=== PATIENT | female | born 1950 | race Caucasian/White ===

== ENCOUNTER → 2016-05-15 | Outpatient (CLI) | payer BC ==
[~2016-05-15] MED LIST: ALLO100T PO; ALPR1TAB3 PO; AMIL5TAB15 PO; AMT25 PO; ASPI81TA28 PO; ATOR-14 PO; ATOR10TA88 PO; CYAN1CAP3 PO; DOXY100C76 PO; DXY100 PO; FISHOIL PO; GABA1CAP4 PO; GLC500 PO; HYDR-3419 PO; HYDR-5688 PO; LEVO75TA5 PO; MAGN1CAP2 PO; NITR1CAP16 PO; NITR1CAP33 PO; OMEG5CAP PO; ONDA4TAB46 PO; OXYC-57 PO; PARO1TAB27 PO; PHEN-775 PO; PHEN-876 PO; POTA1080 PO; POTASSIUM CITRATE PO; SAFF1000 PO; TAMS0.4C38 PO
== END | disposition home or self-care (01) ==
LOC: C.LABSPEC 17:28
PROVIDERS: ATTEND Nurse Practitioner Adult Health
DX: N20.1 Calculus of ureter (principal)

== ENCOUNTER → 2016-05-21 | Outpatient (CLI) | payer BC ==
--- NOTE | 2016-05-21 13:03 | DIAGNOSTIC IMAGING REPORT ---
KUB HISTORY: Right-sided ureteral stone. Follow-up. COMPARISON: KUB 05/14/2016. FINDINGS: The bowel gas pattern is unremarkable. There are no dilated loops of small bowel to suggest an obstruction. Bilateral renal calculi are again noted. Dominant stone within the upper pole of the left kidney measures 13 mm. Multiple round calcifications within the deep pelvis are consistent with phleboliths. The 5 mm stone within the proximal right ureter seen on the prior study now resides within the distal right ureter adjacent to the lower sacrum. No left ureteral calculi. No pneumoperitoneum or pneumatosis. IMPRESSION: Interval migration of the 5 mm right ureteral stone which now resides within the distal right ureter. Bilateral nephrolithiasis persist. Electronically signed by: Xiang Winters M.D. 05/21/2016 1:01 PM Dictated Date/Time: 05/21/2016 1:00 PM
== END | disposition home or self-care (01) ==
LOC: C.RAD 12:08
PROVIDERS: ATTEND Nurse Practitioner Adult Health
DX: N20.1 Calculus of ureter (principal); N20.0 Calculus of kidney

== ENCOUNTER → 2016-05-22 | Outpatient (CLI) | payer BC ==
[2016-05-22 16:43] LABS: BASO % 0.3 %; BASO ABS # 0.03 K/uL (0-0.2); COMPLETE YES; EOS % 1.5 %; HEMATOCRIT 37.9 % (37-47); IG% 0.2 %; LYMPH % 36.4 %; MEAN CELL VOLUME 90.2 fL (80-100); MEAN CORPUSCULAR HEMOGLOBIN 30.2 pg (25-34); MEAN CORPUSCULAR HGB CONC 33.5 g/dl (32-36); MEAN PLATELET VOLUME 11.6 fL (7.4-10.4); MONO % 7.6 %; PLATELET COUNT 203 K/uL (130-400); WHITE BLOOD COUNT 9.62 K/uL (4.8-10.8)
[2016-05-22 17:02] LABS: BLOOD UREA NITROGEN 11 mg/dl (7-18); BUN/CREATININE RATIO 12.5 (10-20); CARBON DIOXIDE 28 mmol/L (21-32); CHLORIDE 102 mmol/L (98-107); CREATININE 0.84 mg/dl (0.60-1.20); GLUCOSE 82 mg/dl (70-99); SODIUM 143 mmol/L (136-145)
== END | disposition home or self-care (01) ==
LOC: C.LAB 15:47
PROVIDERS: ATTEND Urology
DX: N20.0 Calculus of kidney (principal)

== ENCOUNTER 2016-05-24 04:59 | Day surgery (SDC) | payer BC ==
[2016-05-22 16:40] VITALS: BMI 34.0
[~2016-05-24] VITALS: Ht 154.9 cm; Wt 80.9 kg
[~2016-05-24 04:59] MED LIST changes: -AMT25 PO; -ASPI81TA28 PO; -ATOR10TA88 PO; -DXY100 PO; -HYDR-3419 PO; -NITR1CAP16 PO; -NITR1CAP33 PO; -OMEG5CAP PO; -OXYC-57 PO; -PHEN-775 PO; -PHEN-876 PO; -POTASSIUM CITRATE PO; -SAFF1000 PO; -TAMS0.4C38 PO
[2016-05-24 05:37] VITALS: BP 171/76; PULSE 63; TEMP 36.8; O2SAT 98; Ht 154.9 cm; Wt 80.9 kg
[2016-05-24] MEDS ORDERED: CIPROFLOXACIN / D5W 400 MG IV SCH (06:00)
[2016-05-24] MEDS ORDERED: LACTATED RINGER'S 1000ML 1,000 ML IV SCH (06:00)
[2016-05-24] MEDS ORDERED: ONDANSETRON INJ 2 MG/ML 2 ML VIAL ONE (06:48)
[2016-05-24] MEDS ORDERED: DEXAMETHASONE SOD INJ 4 MG/ML VIAL ONE (06:48)
[2016-05-24] MEDS ORDERED: LIDOCAINE HCL 2% 2 ML VIAL (20MG/ML) ONE (06:48)
[2016-05-24] MEDS ORDERED: PROPOFOL IV EMULSION 10 MG/ML 20 ML VIAL IV ONE (06:48)
[2016-05-24] MEDS ORDERED: FENTANYL CITRATE INJ 50 MCG/1 ML 2 ML VIAL ONE (06:49)
[2016-05-24] MEDS ORDERED: MIDAZOLAM HCL 1 MG/ML 2ML VIAL ONE (06:49)
[2016-05-24] MEDS ORDERED: FENTANYL CITRATE INJ 50 MCG/1 ML 2 ML VIAL IV PRN (07:00)
[2016-05-24] MEDS ORDERED: ONDANSETRON INJ 2 MG/ML 2 ML VIAL IV PRN (07:00)
[2016-05-24] MEDS ORDERED: EpHEDrine SULFATE INJ 50 MG/ML AMP IV PRN (07:00)
[2016-05-24] MEDS ORDERED: ATROPINE SULFATE 0.1 MG/ML 5ML SYR IV PRN (07:00)
--- NOTE | 2016-05-24 07:07 | History & Physical Bridge Note ---
H&P Re-Evaluation Bridge Note: I have examined the patient, reviewed the History & Physical and in the interval since the performance of the History & Physical I have noted the following changes of clinical significance: No changes noted
[2016-05-24] MEDS ORDERED: GLYCOPYRROLATE INJ 0.2 MG/ML VIAL ONE (07:40)
[2016-05-24] MEDS ORDERED: NEOMYCIN INSTIL ONE (07:53)
[2016-05-24] MEDS ORDERED: [UNRECOGNIZED DRUG - OTHER] INSTIL ONE (07:53)
--- NOTE | 2016-05-24 08:02 | [facility] Post Operative Brief Note ---
Immediate Operative Summary Operative Date May 24, 2016. Pre-Operative Diagnosis Right ureteral stone Post-Operative Diagnosis Same as preoperative diagnosis Procedure(s) Performed Right Cystoscopy, Ureteroscopy, Laser Lithotripsy; Stent Surgeon Dr Chatman Teaching Specialists Surgeon(s) none Estimated Blood Loss 0 Findings distal right ureteral stone Specimens A: Ureteral stone for analysis Drains 6x24 right stent
[2016-05-24] MEDS ORDERED: OXYC-57 PO (08:04)
[2016-05-24] MEDS ORDERED: PHEN-876 PO (08:05)
--- NOTE | 2016-05-24 08:05 | Discharge Instructions ---
Discharge Instructions Visit Reason for Visit: Stones Discharge Discharge Diagnosis / Problem: ureteral stone Discharge Goals Goal(s): Therapeutic intervention Activity Recommendations Activity Limitations: resume your previous activity (take it easy today) Anesthesia . Post Anesthesia Instructions: If you have had General Anesthesia or IV Sedation: * Do not drive today. * Resume driving when surgeon permits. * Do not make important decisions or sign legal documents today. * Call surgeon for: 1. Temperature elevations greater than 101 degrees F. 2. Uncontrollable pain. 3. Excessive bleeding. 4. Persistent nausea and vomiting. 5. Medication intolerance (nausea, vomiting or rash). * For nausea and vomiting use only clear liquids such as: tea, soda, bouillon until nausea subsides, then gradually increase diet as tolerated. * If you have any concerns or questions, call your surgeon's office. If physician is unavailable and it is an emergency, call 911 or go to the nearest emergency room. . Diet Recommendations Recommended Home Diet: resume previous diet Procedures Procedures Performed: Right Cystoscopy, Ureteroscopy, Laser Lithotripsy; Stent Pending Studies Studies pending at discharge: no Medical Emergencies . Who to Call and When: Medical Emergencies: If at any time you feel your situation is an emergency, please call 911 immediately. . Non-Emergent Contact Non-Emergency issues call your: Urologist . . "Provider Documentation" section prepared by Yunier Chatman. [place] Drug Monitoring Program Search Results: patient reviewed within database
[2016-05-24] MEDS ORDERED: OXYCODONE/ACETAMINOPHEN 5-325 TAB PO PRN (08:15)
--- NOTE | 2016-05-24 08:28 | OPERATIVE REPORT ---
DATE OF OPERATION: 05/24/2016 PREOPERATIVE DIAGNOSIS: Distal right ureteral calculus. POSTOPERATIVE DIAGNOSIS: Same. PROCEDURE: Cystoscopy, right retrograde pyelogram, right ureteroscopy with laser lithotripsy and basket extraction of fragments, right ureteral calculus, placement of indwelling double J right ureteral stent 6-Citizen Of [place] x 24 cm. FINDINGS: Cystoscopic exam revealed normal urethra. Bladder showed no mucosal abnormalities. Ureteroscopy showed a stone in the distal ureter with proximal hydronephrosis on retrograde. SURGEON: Dr. Chatman. ANESTHESIA: General. DRAINS: 6-Citizen [place] x 24 cm right ureteral stent. COMPLICATIONS: None. SPECIMENS: Stone for analysis. INDICATIONS: The patient is a 66-year-old white female who was seen in the office yesterday with a distal right ureteral stone. She has had it for a week or 2 and has been unable to pass it. She has been having significant pain, so she is being brought in now for removal. OPERATION AND FINDINGS: PROCEDURE: After the induction of an adequate general anesthetic and appropriate time-out, the patient was placed in the dorsal lithotomy position, lower abdomen and genitalia were prepped with Hibiclens and draped in a sterile fashion. Using a 22-Citizen [place] cystoscope, routine cystoscopic exam was performed with the above noted findings with the 30 and 70 degree lenses. Next, under fluoroscopic guidance 0.038 guidewire was passed up the right ureter until positioned in the renal pelvis confirmed by fluoroscopy. Then, the cystoscope was removed and a rigid ureteroscope was advanced up the right ureter until the stone was encountered. Holmium laser was then used to fragment the stone into multiple small pieces. Basket was then used to extract the larger pieces. After completing the procedure, the ureteroscope was removed. A Freeman catheter was passed over the guidewire and retrograde pyelogram was done. The Freeman catheter was removed. The guidewire was rethreaded through the cystoscope and a 6-Citizen [place] x 24 cm stent was passed up the right ureter until positioned in the renal pelvis confirmed by fluoroscopy. The guidewire was removed. There was good curl at the bladder level. The patient's bladder was drained, cystoscope and sheath were removed. All needle, sponge and instrument counts were correct at the end of the case. The patient tolerated the procedure well and went to the recovery room in stable condition. I attest to the content of the Intraoperative Record and any orders documented therein. Any exceptio ns are noted below.
[2016-05-24 08:45] VITALS: BP 156/68; PULSE 68; TEMP 36.7; O2SAT 97
[2016-05-24 09:15] VITALS: BP 128/69; PULSE 70; TEMP 36.6; O2SAT 96
--- NOTE | 2016-05-24 09:20 | DIAGNOSTIC IMAGING REPORT ---
INTRAOPERATIVE RADIOGRAPHS CLINICAL HISTORY: Nephrolithiasis. Laser lithotripsy and right ureteral stone extraction. Stent placement. Fluoroscopy time: 30 seconds. FINDINGS: 8 spot fluoroscopic views of the right abdomen from a lithotripsy procedure and stent placement are presented. Initial images show a lithotripsy device. There is no significant right-sided hydronephrosis seen. The final image shows the proximal end of a right ureteral stent coiled in the renal pelvis. IMPRESSION: Intraoperative images from a right-sided laser lithotripsy and ureteral stent procedure as above. See operative report for detailed findings. Electronically signed by: Bob Cortes M.D. 05/24/2016 9:18 AM Dictated Date/Time: 05/24/2016 9:16 AM
[2016-05-24 09:34] VITALS: BP 137/71; PULSE 72; TEMP 36.4; O2SAT 98
--- NOTE | 2016-05-24 09:38 | Anesthesiology Progress Note ---
Anesthesia Post Op Note Date & Time May 24, 2016 at 09:38 Vital Signs Pain Intensity: 2 Vital Signs Past 12 Hours Date Time Temp Pulse Resp B/P Pulse Ox O2 Delivery O2 Flow Rate FiO2 05/24/16 09:34 36.4 72 18 137/71 98 Room Air 05/24/16 09:15 36.6 70 18 128/69 96 Room Air 05/24/16 08:45 36.7 68 18 156/68 97 Room Air 05/24/16 08:40 37.0 64 16 143/69 94 Room Air Mask 05/24/16 08:30 37.0 66 16 142/65 92 Room Air Mask 05/24/16 08:20 71 16 156/83 100 Mask 10 05/24/16 08:10 73 16 147/79 100 Mask 10 05/24/16 08:04 36.2 76 16 179/92 100 Mask 10 05/24/16 05:37 36.8 63 18 171/76 98 Room Air Notes Mental Status: alert / awake / arousable, participated in evaluation Pt Amnestic to Procedure: Yes Nausea / Vomiting: adequately controlled Pain: adequately controlled Airway Patency, RR, SpO2: stable & adequate BP & HR: stable & adequate Hydration State: stable & adequate Anesthetic Complications: no major complications apparent
[2016-06-07] MEDS ORDERED: POTASSIUM CITRATE PO (11:59)
[2016-06-15] MEDS ORDERED: HYDR-3419 PO (10:16)
[2016-06-15] MEDS ORDERED: TAMS0.4C38 PO (10:17)
[2016-09-05] MEDS ORDERED: OXYC-57 PO (07:06)
[2016-09-05] MEDS ORDERED: PHEN-775 PO (07:06)
[2016-09-05] MEDS ORDERED: NITR1CAP16 PO (07:06)
[2016-09-14] MEDS ORDERED: OXYC-57 PO (08:54)
[2016-09-14] MEDS ORDERED: NITR1CAP33 PO (08:55)
[2016-09-28] MEDS ORDERED: OXYC-57 PO (11:20)
== END 2016-05-24 09:45 | disposition home or self-care (01) ==
LOC: C.ACU 04:59
PROVIDERS: ATTEND Urology
DX: N20.1 Calculus of ureter (principal); Z87.448 Personal history of other diseases of urinary system; R31.9 Hematuria, unspecified; N02.9 Recurrent and persistent hematuria with unspecified morphologic changes; N39.0 Urinary tract infection, site not specified; R32 Unspecified urinary incontinence; N39.41 Urge incontinence; E53.8 Deficiency of other specified B group vitamins; I65.29 Occlusion and stenosis of unspecified carotid artery; F41.9 Anxiety disorder, unspecified; E11.9 Type 2 diabetes mellitus without complications; I10 Essential (primary) hypertension; M10.9 Gout, unspecified; E78.00 Pure hypercholesterolemia, unspecified; E03.9 Hypothyroidism, unspecified; M85.80 Other specified disorders of bone density and structure, unspecified site; D12.6 Benign neoplasm of colon, unspecified; E55.9 Vitamin D deficiency, unspecified

== ENCOUNTER → 2016-06-04 | Outpatient (CLI) | payer BC ==
[~2016-06-04] MED LIST changes: +ASPI81TA28 PO; +ATOR10TA88 PO; -DOXY100C76 PO; +HYDR-3419 PO; +NITR1CAP16 PO; +NITR1CAP33 PO; +OMEG5CAP PO; +OXYC-57 PO; +PHEN-775 PO; +PHEN-876 PO; +POTASSIUM CITRATE PO; +TAMS0.4C38 PO
--- NOTE | 2016-06-04 12:31 | DIAGNOSTIC IMAGING REPORT ---
KUB CLINICAL HISTORY: N20.0 Nephrolithiasis nephrocalcinosis COMPARISON STUDY: 05/21/2016 FINDINGS: Interval placement of a right ureteral stent. Bilateral nephrocalcinosis is unchanged. The distal right ureteral calculus is now well seen currently. Multiple pelvic vascular calcifications are present. IMPRESSION: Interval placement of a right ureteral stent. 2. The distal right ureteral calculus is not seen currently. 3. Stable bilateral nephrocalcinosis Electronically signed by: Ham Rodríguez M.D. 06/04/2016 12:29 PM Dictated Date/Time: 06/04/2016 12:28 PM
== END | disposition home or self-care (01) ==
LOC: C.RAD 11:48
PROVIDERS: ATTEND Urology
DX: N20.0 Calculus of kidney (principal)

== ENCOUNTER → 2016-06-15 | Day surgery (SDC) | payer BC ==
[2016-06-07 12:01] VITALS: Ht 154.9 cm; Wt 80.9 kg
--- NOTE | 2016-06-14 11:51 | DIAGNOSTIC IMAGING REPORT ---
KUB HISTORY: N20.0 Nephrolithiasis BE DONE EITHER THE NIGHT BEFORE OR MORNING COMPARISON: KUB 06/04/2016. FINDINGS: The bowel gas pattern is unremarkable. There are no dilated loops of small bowel to suggest an obstruction. The right ureteral stent is been removed. Stable bilateral nephrolithiasis. Dominant stone within the upper pole the left kidney measures 12 mm. No ureteral calculi. Calcifications in the deep pelvis likely represent phleboliths. No pneumoperitoneum or pneumatosis. IMPRESSION: 1. Interval removal of the right ureteral stent. No ureteral calculi identified. 2. Stable bilateral nephrolithiasis. Electronically signed by: Xiang Winters M.D. 06/14/2016 11:49 AM Dictated Date/Time: 06/14/2016 11:47 AM
[~2016-06-15] VITALS: Ht 154.9 cm; Wt 80.9 kg
[~2016-06-15] MED LIST changes: +ATROPINE SULFATE 0.1 MG/ML 5ML SYR IV PRN; +CIPROFLOXACIN 400MG / D5W IV SCH; +FENTANYL CITRATE INJ 50 MCG/1 ML 2 ML VIAL IV PRN; +FENTANYL CITRATE INJ 50 MCG/1 ML 2 ML VIAL ONE; -HYDR-5688 PO; +LABETALOL HCL IV 5 MG/ML 20ML IV PRN; +LACTATED RINGER'S 1000ML 1,000 ML IV SCH; +LIDOCAINE HCL 2% 2 ML VIAL (20MG/ML) ONE; -ONDA4TAB46 PO; +ONDANSETRON INJ 2 MG/ML 2 ML VIAL IV PRN; +ONDANSETRON INJ 2 MG/ML 2 ML VIAL ONE; -PHEN-876 PO; +PROPOFOL IV EMULSION 10 MG/ML 20 ML VIAL IV ONE
--- NOTE | 2016-06-15 10:15 | [facility] Post Operative Brief Note ---
Immediate Operative Summary Operative Date Jun 15, 2016. Pre-Operative Diagnosis Right Renal Calculi Post-Operative Diagnosis Same Procedure(s) Performed Right Renal Extracorporeal Shock Wave Lithotripsy - Renal Surgeon Dr. Rivas Fire Investigator Surgeon(s) None Estimated Blood Loss 0 mL Findings 2 r renal stones appeared to fragment Specimens None
--- NOTE | 2016-06-15 10:18 | Discharge Instructions-SurgCtr ---
Discharge Instructions Visit Reason for Visit: Stones;Nephrolithiasis N20.0 Discharge Goals Goal(s): Decrease discomfort, Improve disease control Medications Stopped Medications Name(s): FISH OIL- STOPPED ON Saturday06/11/16 METFORMIN- STOPPED ON Saturday06/10/16 Activity Recommendations Activity Limitations: as noted below (no driving on narcotics) Anesthesia . Post Anesthesia Instructions: If you have had General Anesthesia or IV Sedation: * Do not drive today. * Resume driving when surgeon permits. * Do not make important decisions or sign legal documents today. * Call surgeon for: 1. Temperature elevations greater than 101 degrees F. 2. Uncontrollable pain. 3. Excessive bleeding. 4. Persistent nausea and vomiting. 5. Medication intolerance (nausea, vomiting or rash). * For nausea and vomiting use only clear liquids such as: tea, soda, bouillon until nausea subsides, then gradually increase diet as tolerated. * If you have any concerns or questions, call your surgeon's office. If physician is unavailable and it is an emergency, call 911 or go to the nearest emergency room. . Diet Recommendations Home Diet: resume previous diet Procedures Procedures Performed: Right Renal Extracorporeal Shock Wave Lithotripsy - Renal Pending Studies Studies pending at discharge: no Medical Emergencies . Who to Call and When: Medical Emergencies: If at any time you feel your situation is an emergency, please call 911 immediately. . Non-Emergent Contact . . "Provider Documentation" section prepared by Franklyn Rivas.
--- NOTE | 2016-06-15 11:46 | Anesthesia Progress Nt - [facility] ---
Anesthesia Post Op Note Date & Time Jun 15, 2016 at 11:46 Vital Signs Pain Intensity: 0 Vital Signs Past 12 Hours Date Time Temp Pulse Resp B/P Pulse Ox O2 Delivery O2 Flow Rate FiO2 06/15/16 11:11 36.4 54 20 146/75 95 Room Air 06/15/16 11:05 55 12 06/15/16 11:05 55 12 95 06/15/16 11:03 131/62 06/15/16 11:00 52 15 96 06/15/16 11:00 51 15 06/15/16 10:59 52 17 96 06/15/16 10:59 52 17 06/15/16 10:58 129/63 06/15/16 10:55 36.6 53 20 143/69 96 Room Air 06/15/16 10:54 53 8 93 06/15/16 10:54 54 8 06/15/16 10:53 143/69 06/15/16 10:50 56 11 06/15/16 10:50 57 11 96 06/15/16 10:49 124/57 06/15/16 10:45 54 15 97 06/15/16 10:45 55 15 06/15/16 10:44 54 12 06/15/16 10:44 54 12 97 06/15/16 10:43 130/67 06/15/16 10:39 58 12 97 06/15/16 10:39 58 12 06/15/16 10:38 134/64 06/15/16 10:34 59 14 98 06/15/16 10:34 59 14 06/15/16 10:33 130/74 06/15/16 10:31 55 12 100 06/15/16 10:31 56 12 06/15/16 10:28 138/77 06/15/16 10:26 58 11 06/15/16 10:26 62 11 99 06/15/16 10:26 37.0 60 22 133/75 99 Mask 8 06/15/16 09:02 36.6 73 16 163/75 97 Room Air Notes Mental Status: alert / awake / arousable, participated in evaluation Pt Amnestic to Procedure: Yes Nausea / Vomiting: adequately controlled Pain: adequately controlled Airway Patency, RR, SpO2: stable & adequate BP & HR: stable & adequate Hydration State: stable & adequate Anesthetic Complications: no major complications apparent
[2016-06-15 11:52] VITALS: BP 134/76; PULSE 54; O2SAT 96
--- NOTE | 2016-06-16 02:37 | OPERATIVE REPORT ---
DATE OF OPERATION: 06/15/2016 PREOPERATIVE DIAGNOSIS: Bilateral renal calculi. PROCEDURE PERFORMED: Right ESWL. SURGEON: Dr. Rivas. ANESTHESIA: General. INDICATIONS: The patient is a 66-year-old female who recently had right ureteroscopy, who has multiple stones including large left renal stones and 2 moderate sized right renal stones who presents now for right ESWL. DESCRIPTION OF THE PROCEDURE: The patient was taken to the operating room where she was given antibiotics preoperatively and she had Venodyne stockings placed. She was given general anesthesia, put in the supine position. The stone was localized in 2 views and there were 2 stones actually that were side by side. She received 2500 shocks many at level 4, many at level 5. The stone seemed to fragment. At the end of the procedure, she was transferred to the recovery room in stable condition. I attest to the content of the Intraoperative Record and any orders documented therein. Any exceptio ns are noted below.
== END | disposition home or self-care (01) ==
LOC: X.SURG 08:40
PROVIDERS: ATTEND Urology
DX: N20.0 Calculus of kidney (principal); I10 Essential (primary) hypertension; M54.5 Low back pain; E55.9 Vitamin D deficiency, unspecified; E53.8 Deficiency of other specified B group vitamins; N39.41 Urge incontinence; E11.9 Type 2 diabetes mellitus without complications

== ENCOUNTER → 2016-06-27 | Outpatient (CLI) | payer BC ==
[~2016-06-27] MED LIST changes: -ATROPINE SULFATE 0.1 MG/ML 5ML SYR IV PRN; -CIPROFLOXACIN 400MG / D5W IV SCH; -FENTANYL CITRATE INJ 50 MCG/1 ML 2 ML VIAL IV PRN; -FENTANYL CITRATE INJ 50 MCG/1 ML 2 ML VIAL ONE; -LABETALOL HCL IV 5 MG/ML 20ML IV PRN; -LACTATED RINGER'S 1000ML 1,000 ML IV SCH; -LIDOCAINE HCL 2% 2 ML VIAL (20MG/ML) ONE; -ONDANSETRON INJ 2 MG/ML 2 ML VIAL IV PRN; -ONDANSETRON INJ 2 MG/ML 2 ML VIAL ONE; -PROPOFOL IV EMULSION 10 MG/ML 20 ML VIAL IV ONE; -TAMS0.4C38 PO
--- NOTE | 2016-06-27 11:32 | DIAGNOSTIC IMAGING REPORT ---
KUB CLINICAL HISTORY: N20.0 Nephrolithiasis COMPARISON STUDY: 06/14/2016 FINDINGS: There is a 14 mm upper pole left renal calculus. Several lower pole left renal calculi are visualized, the largest of which measures 9 mm. There are ovoid opacities medial to the upper pole the right kidney. I suspect but am not certain that these represent pill fragments given their location in relationship to the kidney. There is a punctate lower pole right renal calculus. There are multiple nonspecific pelvic basin calcifications likely representing phleboliths. There is no pathologic bowel dilatation. IMPRESSION: Bilateral nephrolithiasis. Electronically signed by: Nick Rodríguez M.D. 06/27/2016 11:31 AM Dictated Date/Time: 06/27/2016 11:27 AM
== END | disposition home or self-care (01) ==
LOC: C.RAD 11:07
PROVIDERS: ATTEND Urology
DX: N20.0 Calculus of kidney (principal)

== ENCOUNTER → 2016-06-28 | Outpatient (CLI) | payer BC | END | disposition home or self-care (01) | LOC: C.LABSPEC 16:53 | PROVIDERS: ATTEND Urology | DX: N39.0 Urinary tract infection, site not specified (principal) ==

== ENCOUNTER → 2016-08-16 | Outpatient (CLI) | payer BC ==
[~2016-08-16] MED LIST changes: +ATOR10TA82 PO; -ATOR10TA88 PO
[2016-08-16 14:11] LABS: ALT/SGPT 35 U/L (12-78); AST/SGOT 18 U/L (15-37); BLOOD UREA NITROGEN 9 mg/dl (7-18); BUN/CREATININE RATIO 10.3 (10-20); CALCIUM 9.5 mg/dl (8.5-10.1); CARBON DIOXIDE 30 mmol/L (21-32); CHLORIDE 107 mmol/L (98-107); CREATININE 0.87 mg/dl (0.60-1.20); GLUCOSE 178 mg/dl (70-99); MAGNESIUM 2.2 mg/dl (1.8-2.4); POTASSIUM 4.8 mmol/L (3.5-5.1); SODIUM 142 mmol/L (136-145)
[2016-08-16 14:17] LABS: ESTIMATED AVERAGE GLUCOSE 128 mg/dl; HA1C FLAG Normal (Normal)
[2016-08-16 15:18] LABS: RATIO 121.9 mcg/mg (0-30.0)
== END | disposition home or self-care (01) ==
LOC: C.LAB 11:53
PROVIDERS: ATTEND Internal Medicine
DX: E03.9 Hypothyroidism, unspecified (principal); E78.00 Pure hypercholesterolemia, unspecified; E11.9 Type 2 diabetes mellitus without complications; E83.42 Hypomagnesemia

== ENCOUNTER → 2016-08-21 | Outpatient (CLI) | payer BC ==
--- NOTE | 2016-08-21 09:19 | DIAGNOSTIC IMAGING REPORT ---
ULTRASOUND OF THE THYROID GLAND CLINICAL HISTORY: Cervical lymphadenopathy. COMPARISON STUDY: No priors. TECHNIQUE: Real-time, grayscale, and color flow sonography of the thyroid gland is performed utilizing a high-frequency linear transducer. Images are reviewed in the transverse and longitudinal planes. FINDINGS: Right lobe: The right lobe of the thyroid gland is normal in size and homogeneous in echotexture, measuring 4.3 x 1.1 x 1.2 cm. A hypoechoic nodule in the midpole measures 1.6 x 0.4 x 0.6 cm. A hypoechoic nodule in the upper pole measures 0.4 cm. Left lobe: The left lobe of the thyroid gland is normal in size and homogeneous in echotexture, measuring 3.6 x 1.2 x 1.2 cm. Isthmus: The thyroid isthmus is normal in appearance and measures 0.2 cm in AP diameter. Soft tissues: There is a mildly enlarged right cervical lymph node, which measures 2.1 x 0.7 x 1.4 cm. This node maintains a fatty hilum. IMPRESSION: 1. There are small right-sided thyroid nodules as above. Precautionary 6-12 month follow-up examination is recommended for reassessment. 2. There is a mildly enlarged right cervical lymph node. This is of indeterminant etiology and significance, and this does not appear morphologically abnormal. This is likely on a reactive basis, and clinical follow-up to resolution is recommended. If this increases in size then a repeat examination with fine-needle aspiration should be considered. Electronically signed by: Bob Cortes M.D. 08/21/2016 9:17 AM Dictated Date/Time: 08/21/2016 9:10 AM
[2016-08-21 09:36] LABS: BASO % 0.3 %; BASO ABS # 0.02 K/uL (0-0.2); COMPLETE YES; IG% 0.1 %; LYMPH % 39.1 %; LYMPH ABS # 2.88 K/uL (1.2-3.4); MEAN CORPUSCULAR HEMOGLOBIN 29.7 pg (25-34); MEAN CORPUSCULAR HGB CONC 32.3 g/dl (32-36); MEAN PLATELET VOLUME 11.6 fL (7.4-10.4); MONO % 8.6 %; NEUT % 49.9 %; PLATELET COUNT 253 K/uL (130-400); RED BLOOD COUNT 4.35 M/uL (4.2-5.4); WHITE BLOOD COUNT 7.36 K/uL (4.8-10.8)
[2016-08-21 09:49] LABS: CHOLESTEROL/HDL RATIO 2.6
== END | disposition home or self-care (01) ==
LOC: C.ULTR 08:22
PROVIDERS: ATTEND Internal Medicine
DX: R59.0 Localized enlarged lymph nodes (principal); E04.2 Nontoxic multinodular goiter; N02.9 Recurrent and persistent hematuria with unspecified morphologic changes; E78.00 Pure hypercholesterolemia, unspecified

== ENCOUNTER → 2016-08-28 | Outpatient (CLI) | payer BC ==
--- NOTE | 2016-08-28 10:59 | DIAGNOSTIC IMAGING REPORT ---
KUB CLINICAL HISTORY: N20.0 nephrocalcinosis COMPARISON STUDY: 06/27/2016 FINDINGS: Unchanging left renal nephrocalcinosis. Calcification appears described the right paravertebral line are no longer identified. Probable appendicolith. Multiple pelvic vascular calcifications. IMPRESSION: Unchanging left renal nephrocalcinosis. 2. No well-defined right renal calcifications currently Electronically signed by: Ham Rodríguez M.D. 08/28/2016 10:58 AM Dictated Date/Time: 08/28/2016 10:57 AM
== END | disposition home or self-care (01) ==
LOC: C.RAD 10:05
PROVIDERS: ATTEND Nurse Practitioner Family
DX: N20.0 Calculus of kidney (principal); R32 Unspecified urinary incontinence

== ENCOUNTER → 2016-09-04 | Outpatient (CLI) | payer BC | END | disposition home or self-care (01) | LOC: C.LABSPEC 17:21 | PROVIDERS: ATTEND Nurse Practitioner Adult Health | DX: N20.0 Calculus of kidney (principal) ==

== ENCOUNTER 2016-09-05 04:57 | Day surgery (SDC) | payer BC ==
[2016-09-04 15:06] VITALS: BMI 34.0
[~2016-09-05] VITALS: Ht 154.9 cm; Wt 82.7 kg
[~2016-09-05 04:57] MED LIST changes: -ASPI81TA28 PO; -ATOR10TA82 PO; -HYDR-3419 PO; -NITR1CAP16 PO; -NITR1CAP33 PO; -OMEG5CAP PO; -OXYC-57 PO; -PHEN-775 PO; -POTA1080 PO
[2016-09-05 05:45] VITALS: BP 198/75; PULSE 63; TEMP 36.6; O2SAT 96; Ht 154.9 cm; Wt 82.7 kg
[2016-09-05] MEDS ORDERED: LEVOFLOXACIN / D5W 500 MG IV SCH (06:00)
[2016-09-05] MEDS ORDERED: CIPROFLOXACIN / D5W 400 MG IV SCH (06:00)
[2016-09-05] MEDS ORDERED: LACTATED RINGER'S 1000ML 1,000 ML IV SCH (06:00)
[2016-09-05] MEDS ORDERED: ONDANSETRON INJ 2 MG/ML 2 ML VIAL ONE (06:38)
[2016-09-05] MEDS ORDERED: PROPOFOL IV EMULSION 10 MG/ML 20 ML VIAL IV ONE (06:38)
[2016-09-05] MEDS ORDERED: FENTANYL CITRATE INJ 50 MCG/1 ML 2 ML VIAL ONE (06:38)
[2016-09-05] MEDS ORDERED: LIDOCAINE HCL 2% 2 ML VIAL (20MG/ML) ONE (06:38)
[2016-09-05] MEDS ORDERED: CONRAY 30% 150ML BOTTLE ONE (06:58)
[2016-09-05] MEDS ORDERED: OXYC-57 PO (07:06)
[2016-09-05] MEDS ORDERED: NITR1CAP16 PO (07:06)
[2016-09-05] MEDS ORDERED: PHEN-775 PO (07:06)
--- NOTE | 2016-09-05 07:10 | Discharge Instructions ---
Discharge Instructions Date of Service September 05, 2016. Admission Reason for Admission: Stones Discharge Discharge Diagnosis / Problem: L stones s/p stent Discharge Goals Goal(s): Improve disease control, Therapeutic intervention Activity Recommendations Activity Limitations: as noted below Lifting Limitations: gradually increase as tolerated Exercise/Sports Limitations: rest today, gradually increase as tolerated May Resume Sexual Activity: when tolerated Shower/Bathe: no limitations Driving or Machine Use: resume 1 day after discharge . Discharge Diet Recommended Diet: Regular Diet (good fluid intake) Procedures Procedures Performed: Cysto, L RPG, L stent Pending Studies Studies pending at discharge: no Laboratory Results Hemoglobin A1c Test 08/16/16 12:03 Range/Units Estimated Average Glucose 128 mg/dl Hemoglobin A1c 6.1 H 4.5-5.6 % Lipid Panel Test 08/21/16 08:40 Range/Units Triglycerides Level 150 0-150 mg/dl Cholesterol Level 168 0-200 mg/dl HDL Cholesterol 65 mg/dl Cholesterol/HDL Ratio 2.6 LDL Cholesterol, Calculated 73 mg/dl Medical Emergencies . Who to Call and When: Medical Emergencies: If at any time you feel your situation is an emergency, please call 911 immediately. . Non-Emergent Contact Non-Emergency issues call your: Urologist Call Non-Emergent contact if: you have a fever, temperature is above 101, your pain is not controlled, your pain is worsening, your pain is unusual for you, your pain is concerning you, you have any medication questions . . "Provider Documentation" section prepared by Jose Alberto Arredondo. . VTE Core Measure Inpt VTE Proph given/why not?: SCD's [place] Drug Monitoring Program Search Results: patient reviewed within database, see additional documentation (last Rx May [address] Rivas, regular prior - provided for stent pain and upcoming ESWL)
[2016-09-05] MEDS ORDERED: MIDAZOLAM HCL 1 MG/ML 2ML VIAL ONE (07:17)
[2016-09-05] MEDS ORDERED: OXYCODONE/ACETAMINOPHEN 5-325 TAB PO PRN (07:30)
[2016-09-05] MEDS ORDERED: PHENAZOPYRIDINE HCL 200 MG TAB PO PRN (07:30)
--- NOTE | 2016-09-05 07:35 | [facility] Post Operative Brief Note ---
Immediate Operative Summary Operative Date September 05, 2016. Pre-Operative Diagnosis Left nephrolithiasis Post-Operative Diagnosis Same Procedure(s) Performed Cystoscopy, Left Ureteral Stent Insertion, Retrograde pyelogram Surgeon Dr Ginette Arredondo Aerospace Physiological Technician Surgeon(s) NA Estimated Blood Loss 0 Findings Upper pole stone, good stent position Specimens none Drains 6 fr 24 cm loop stent on left Anesthesia MAC Complication(s) None Disposition Recovery Room / PACU
[2016-09-05] MEDS ORDERED: ATROPINE SULFATE 0.1 MG/ML 5ML SYR IV PRN (07:45)
[2016-09-05] MEDS ORDERED: FENTANYL CITRATE INJ 50 MCG/1 ML 2 ML VIAL IV PRN (07:45)
[2016-09-05] MEDS ORDERED: EpHEDrine SULFATE INJ 50 MG/ML AMP IV PRN (07:45)
[2016-09-05] MEDS ORDERED: PROMETHAZINE HCL INJ 6.25 MG in SODIUM CHLORIDE 0.9% 50ML 50 ML IV PRN (07:45)
[2016-09-05] MEDS ORDERED: ONDANSETRON INJ 2 MG/ML 2 ML VIAL IV PRN (07:45)
--- NOTE | 2016-09-05 08:19 | OPERATIVE REPORT ---
PREOPERATIVE DIAGNOSIS: Left renal stone pending shockwave lithotripsy. POSTOPERATIVE DIAGNOSIS: Same. PROCEDURE: Cystoscopy, left retrograde pyelography, left ureteral stent placement. SURGEON: Dr. Jose Alberto Arredondo. COMPLICATIONS: None. ANESTHESIA: Monitored anesthesia care with sedation. COMPLICATIONS: None. ESTIMATED BLOOD LOSS: Minimal. SPECIMENS SENT TO PATHOLOGY: None. DRAINS LEFT IN PLACE: Include a 6-[place] 24 cm loop stent on the left hand side. FINDINGS: Left upper quadrant calcification consistent with a stone noted to be apparently with an upper pole kvng on retrograde pyelography. Good stent position on fluoroscopy. BRIEF HISTORY: Ms. Mccarthy is a 66-year-old female who has been seen by our service as an outpatient for history of stone disease. She has seen our nurse practitioner recently and was found to have a significant left renal stone on imaging. After discussion of risks and benefits of various forms of intervention, the patient has decided upon shockwave lithotripsy to manage her disease. However, she requested a stent be placed preoperatively to assist with post-lithotripsy fragment passage. Please see outpatient notes and H\T\P for further details. She is here today for this purpose. Intravenous ciprofloxacin provided for antibiotic coverage and SCDs for DVT prophylaxis. PROCEDURE: The patient was properly identified and brought to the operative suite. After identification and appropriate consent on the chart, monitored anesthesia care with sedation was initiated and the patient was prepped and draped in standard fashion for this procedure. time lock expert-out procedure was followed. Fluoroscopy over the left upper quadrant demonstrated calcification consistent with the patient's renal stone. Gentle retrograde pyelography was performed without pyelovenous backflow demonstrated opacification of the normal ureter and decompressed left renal pelvis. Stone appeared to be within the upper pole kvng. Intravenous Benadryl was additionally provided secondary to a history of iodinated contrast allergy, although the patient had no reaction to the retrograde. A sensor tip wire was placed up to the level of the left renal pelvis followed by a 6-[place] 24 cm loop stent with a good coil at the level of the renal pelvis and redundant loops present within the bladder. Bladder was drained, the cystoscope was removed, anesthesia was reversed. The patient was transferred to recovery room in stable condition. FOLLOW-UP CARE: The patient provided with prescription for Percocet and Pyridium for postoperative analgesia. Her last pain medication prescription was in May of this year. The patient was provided with low dose nitrofurantoin at bedtime seeing the presence of foreign body and upcoming surgery. She is instructed to contact our service should she note any fevers, chills, nausea, vomiting or other significant difficulties as an outpatient. Expected stent symptoms have been discussed with the patient preoperatively. Outpatient appointments are confirmed. I attest to the content of the Intraoperative Record and any orders documented therein. Any exceptions are noted below. NITA
[2016-09-05 08:20] VITALS: BP 148/65; PULSE 60; TEMP 36.9; O2SAT 96
[2016-09-05 08:50] VITALS: BP 161/62; PULSE 60; O2SAT 97
--- NOTE | 2016-09-05 09:18 | Anesthesiology Progress Note ---
Anesthesia Post Op Note Date & Time September 05, 2016 at 09:19 Vital Signs Pain Intensity: 0 Vital Signs Past 12 Hours Date Time Temp Pulse Resp B/P Pulse Ox O2 Delivery O2 Flow Rate FiO2 09/05/16 08:50 60 16 161/62 97 Room Air 09/05/16 08:20 36.9 60 18 148/65 96 Room Air 09/05/16 08:00 37.1 63 21 127/68 94 Room Air 09/05/16 07:50 68 21 129/69 95 Room Air 09/05/16 07:45 64 21 144/70 100 Room Air 09/05/16 07:34 37.2 69 14 120/65 100 Mask 10 09/05/16 05:45 36.6 63 20 198/75 96 Room Air Notes Mental Status: alert / awake / arousable, participated in evaluation Pt Amnestic to Procedure: Yes Nausea / Vomiting: adequately controlled Pain: adequately controlled Airway Patency, RR, SpO2: stable & adequate BP & HR: stable & adequate Hydration State: stable & adequate Anesthetic Complications: no major complications apparent
[2016-09-05 09:20] VITALS: BP 144/61; PULSE 71; TEMP 36.6; O2SAT 65
--- NOTE | 2016-09-05 10:32 | DIAGNOSTIC IMAGING REPORT ---
FLUOROSCOPIC IMAGES FROM LEFT RETROGRADE EXAM CLINICAL HISTORY: Left stent placement. COMPARISON STUDY: KUB August 28, 2016. Fluoroscopy time: 32 seconds. FINDINGS: 2 fluoroscopic images from left retrograde exam demonstrate cannulation of the left ureter with placement of a left ureteral stent. The proximal aspect of the stent is within the renal pelvis. Left renal calculi and a possible renal pelvis calculus are again noted. IMPRESSION: Fluoroscopic images demonstrating placement of a left ureteral stent. Electronically signed by: Alistair Arellano M.D. 09/05/2016 10:30 AM Dictated Date/Time: 09/05/2016 10:29 AM
[2016-09-14] MEDS ORDERED: OXYC-57 PO (08:54)
[2016-09-14] MEDS ORDERED: NITR1CAP33 PO (08:55)
[2016-09-28] MEDS ORDERED: OXYC-57 PO (11:20)
[2016-12-09] MEDS ORDERED: ATOR10TA82 PO (02:22)
== END 2016-09-05 09:33 | disposition home or self-care (01) ==
LOC: C.ACU 04:57
PROVIDERS: ATTEND Urology
DX: N20.0 Calculus of kidney (principal); E11.9 Type 2 diabetes mellitus without complications; I10 Essential (primary) hypertension; F41.9 Anxiety disorder, unspecified; F32.9 Major depressive disorder, single episode, unspecified; Z85.820 Personal history of malignant melanoma of skin; Z90.710 Acquired absence of both cervix and uterus; Z98.41 Cataract extraction status, right eye; Z98.42 Cataract extraction status, left eye; Z90.89 Acquired absence of other organs; E66.9 Obesity, unspecified; Z68.34 Body mass index [BMI] 34.0-34.9, adult

== ENCOUNTER → 2016-09-13 | Outpatient (CLI) | payer BC ==
[~2016-09-13] MED LIST changes: +ASPI81TA28 PO; +ATOR10TA82 PO; +NITR1CAP16 PO; +NITR1CAP33 PO; +OMEG5CAP PO; +OXYC-57 PO; +PHEN-775 PO; +POTA1080 PO
--- NOTE | 2016-09-13 14:48 | DIAGNOSTIC IMAGING REPORT ---
KUB HISTORY: N20.0 Nephrolithiasis COMPARISON: KUB 08/28/2016. FINDINGS: The bowel gas pattern is unremarkable. There are no dilated loops of small bowel to suggest an obstruction. Multiple pelvic phleboliths remain unchanged. Interval placement of a left-sided ureteral stent which appears be in good position. Multiple left renal calculi remain unchanged. Dominant stone within the upper pole measures 14 mm. There may be a punctate stone within the lower pole the right kidney. No definite ureteral calculi. No pneumoperitoneum or pneumatosis. IMPRESSION: 1. Left ureteral stent which appears to be in good position. 2. Left-sided nephrolithiasis, unchanged. Possible small stone within the lower pole of the right kidney. Electronically signed by: Xiang Winters M.D. 09/13/2016 2:47 PM Dictated Date/Time: 09/13/2016 2:45 PM
== END | disposition home or self-care (01) ==
LOC: C.RAD 14:22
PROVIDERS: ATTEND Nurse Practitioner Adult Health
DX: N20.0 Calculus of kidney (principal)

== ENCOUNTER → 2016-09-14 | Day surgery (SDC) | payer BC ==
[2016-09-04 15:25] VITALS: Ht 154.9 cm; Wt 82.7 kg
[~2016-09-14] VITALS: Ht 154.9 cm; Wt 82.7 kg
[~2016-09-14] MED LIST changes: +ATROPINE SULFATE 0.1 MG/ML 5ML SYR IV PRN; +CIPROFLOXACIN 400MG / D5W IV SCH; +DEXAMETHASONE SOD INJ 4 MG/ML VIAL IV PRN; +DEXAMETHASONE SOD INJ 4 MG/ML VIAL ONE; +EpHEDrine SULFATE 50MG/5ML SYR ONE; +EpHEDrine SULFATE INJ 50 MG/ML AMP IV PRN; +FENTANYL CITRATE INJ 50 MCG/1 ML 2 ML VIAL IV PRN; +FENTANYL CITRATE INJ 50 MCG/1 ML 2 ML VIAL ONE; +KETOROLAC TROMETHAMINE 30 MG/ML VIAL IV. PRN; +LABETALOL HCL IV 5 MG/ML 20ML IV PRN; +LACTATED RINGER'S 1000ML 1,000 ML IV SCH; +LIDOCAINE HCL 2% 2 ML VIAL (20MG/ML) ONE; +METOCLOPRAMIDE HCL INJ 5 MG/ML 2 ML VIAL IV PRN; +MIDAZOLAM HCL 1 MG/ML 2ML VIAL ONE; +MoRPHine SULFATE 10 MG/ML CARP/VIAL IV PRN; +ONDANSETRON INJ 2 MG/ML 2 ML VIAL IV PRN; +ONDANSETRON INJ 2 MG/ML 2 ML VIAL ONE; +PHENYLEPHRINE 100MCG/ML 5ML SYR IV PRN; +PROPOFOL IV EMULSION 10 MG/ML 20 ML VIAL IV ONE
--- NOTE | 2016-09-14 08:51 | [facility] Post Operative Brief Note ---
Immediate Operative Summary Operative Date September 14, 2016. Pre-Operative Diagnosis Left Renal Calculi Post-Operative Diagnosis Same Procedure(s) Performed Left Extracorporeal Shock Wave Lithotripsy - Renal Surgeon Dr. Rivas [employer] Tutor Surgeon(s) None Estimated Blood Loss 0 mL Findings large left upper renal stone Specimens None Drains left stent
--- NOTE | 2016-09-14 08:53 | Discharge Instructions-SurgCtr ---
Discharge Instructions Date of Service September 14, 2016. Visit Reason for Visit: Stones Discharge Discharge Diagnosis / Problem: l renal stones Discharge Goals Goal(s): Decrease discomfort, Improve disease control Medications Stopped Medications Name(s): Metformin and Fish Oil stopped Saturday Activity Recommendations Activity Limitations: per Instructions/Follow-up section (no driving on narcotics) Anesthesia . Post Anesthesia Instructions: If you have had General Anesthesia or IV Sedation: * Do not drive today. * Resume driving when surgeon permits. * Do not make important decisions or sign legal documents today. * Call surgeon for: 1. Temperature elevations greater than 101 degrees F. 2. Uncontrollable pain. 3. Excessive bleeding. 4. Persistent nausea and vomiting. 5. Medication intolerance (nausea, vomiting or rash). * For nausea and vomiting use only clear liquids such as: tea, soda, bouillon until nausea subsides, then gradually increase diet as tolerated. * If you have any concerns or questions, call your surgeon's office. If physician is unavailable and it is an emergency, call 911 or go to the nearest emergency room. . Diet Recommendations Home Diet: resume previous diet (drink lots of fluids) Procedures Procedures Performed: Left Extracorporeal Shock Wave Lithotripsy - Renal Pending Studies Studies pending at discharge: no Medical Emergencies . Who to Call and When: Medical Emergencies: If at any time you feel your situation is an emergency, please call 911 immediately. . Non-Emergent Contact Non-Emergency issues call your: Urologist . . "Provider Documentation" section prepared by Franklyn Rivas. .
[2016-09-14 09:54] VITALS: TEMP 36.9
[2016-09-14 10:19] VITALS: BP 156/81; PULSE 68; O2SAT 97
--- NOTE | 2016-09-14 10:32 | Anesthesia Progress Nt - [facility] ---
Anesthesia Post Op Note Date & Time September 14, 2016 at 10:31 Vital Signs Pain Intensity: 0 Vital Signs Past 12 Hours Date Time Temp Pulse Resp B/P Pulse Ox O2 Delivery O2 Flow Rate FiO2 09/14/16 10:19 68 20 156/81 97 Room Air 09/14/16 09:54 36.9 68 20 163/78 97 Room Air 09/14/16 09:48 65 10 09/14/16 09:48 65 10 96 09/14/16 09:46 143/64 09/14/16 09:45 36.5 67 14 143/64 96 Room Air 09/14/16 09:43 68 13 09/14/16 09:43 69 13 96 09/14/16 09:41 142/66 09/14/16 09:38 66 15 100 09/14/16 09:38 66 15 09/14/16 09:36 145/67 09/14/16 09:33 72 11 99 09/14/16 09:33 70 11 09/14/16 09:31 130/61 09/14/16 09:28 70 14 09/14/16 09:28 71 14 95 09/14/16 09:26 123/52 09/14/16 09:23 65 17 99 09/14/16 09:23 65 17 09/14/16 09:21 131/57 09/14/16 09:18 60 13 09/14/16 09:18 66 13 99 09/14/16 09:16 135/64 09/14/16 09:13 67 21 99 09/14/16 09:13 67 21 09/14/16 09:11 133/58 09/14/16 09:08 69 18 09/14/16 09:08 69 18 98 09/14/16 09:06 137/64 09/14/16 09:03 70 20 98 09/14/16 09:03 70 20 09/14/16 09:01 132/61 09/14/16 08:58 69 18 09/14/16 08:58 69 18 98 09/14/16 08:56 132/60 09/14/16 08:54 130/64 09/14/16 08:53 36.7 69 16 132/61 98 Diffusion Mask 6 09/14/16 07:01 148/83 09/14/16 06:35 36.8 77 189/75 99 Room Air Notes Mental Status: alert / awake / arousable, participated in evaluation Pt Amnestic to Procedure: Yes Nausea / Vomiting: adequately controlled Pain: adequately controlled Airway Patency, RR, SpO2: stable & adequate BP & HR: stable & adequate Hydration State: stable & adequate Anesthetic Complications: no major complications apparent
--- NOTE | 2016-09-14 11:53 | OPERATIVE REPORT ---
DATE OF OPERATION: 09/14/2016 PROCEDURE PERFORMED: Left ESWL. SURGEON: Dr. Rivas. INDICATIONS: The patient is status post stones that have been treated on the right who presents now for left ESWL 4 months later. The patient had a relatively large upper pole left stone and a smaller lower pole stone. She had a stent placed because of the size of the upper pole left renal stone prior to lithotripsy. Of note, it did appear that on lithotripsy the stone might be above the kvng which could indicate that it was in the caliceal diverticulum. No formal studies made this obvious, but I did take this into account. DESCRIPTION OF THE PROCEDURE: The patient was taken to the operating room. She had been given Venodyne stockings and placed in the supine position after general anesthesia was administered. The stone was localized and she received 2500 shocks, the majority at level 4. There was some change in the shape of the stone, although it did not appear to drop down into the renal pelvis. The patient was transferred to the recovery room in stable condition. I attest to the content of the Intraoperative Record and any orders documented therein. Any exceptio ns are noted below.
== END | disposition home or self-care (01) ==
LOC: X.SURG 06:14
PROVIDERS: ATTEND Urology
DX: N20.0 Calculus of kidney (principal); E11.9 Type 2 diabetes mellitus without complications; E78.00 Pure hypercholesterolemia, unspecified; E03.9 Hypothyroidism, unspecified; I10 Essential (primary) hypertension; E53.8 Deficiency of other specified B group vitamins; E55.9 Vitamin D deficiency, unspecified; Z90.49 Acquired absence of other specified parts of digestive tract; Z83.3 Family history of diabetes mellitus; Z82.49 Family history of ischemic heart disease and other diseases of the circulatory system

== ENCOUNTER → 2016-09-25 | Outpatient (CLI) | payer BC ==
[~2016-09-25] MED LIST changes: -ATROPINE SULFATE 0.1 MG/ML 5ML SYR IV PRN; -CIPROFLOXACIN 400MG / D5W IV SCH; -DEXAMETHASONE SOD INJ 4 MG/ML VIAL IV PRN; -DEXAMETHASONE SOD INJ 4 MG/ML VIAL ONE; -EpHEDrine SULFATE 50MG/5ML SYR ONE; -EpHEDrine SULFATE INJ 50 MG/ML AMP IV PRN; -FENTANYL CITRATE INJ 50 MCG/1 ML 2 ML VIAL IV PRN; -FENTANYL CITRATE INJ 50 MCG/1 ML 2 ML VIAL ONE; -KETOROLAC TROMETHAMINE 30 MG/ML VIAL IV. PRN; -LABETALOL HCL IV 5 MG/ML 20ML IV PRN; -LACTATED RINGER'S 1000ML 1,000 ML IV SCH; -LIDOCAINE HCL 2% 2 ML VIAL (20MG/ML) ONE; -METOCLOPRAMIDE HCL INJ 5 MG/ML 2 ML VIAL IV PRN; -MIDAZOLAM HCL 1 MG/ML 2ML VIAL ONE; -MoRPHine SULFATE 10 MG/ML CARP/VIAL IV PRN; -NITR1CAP16 PO; -ONDANSETRON INJ 2 MG/ML 2 ML VIAL IV PRN; -ONDANSETRON INJ 2 MG/ML 2 ML VIAL ONE; -PHEN-775 PO; -PHENYLEPHRINE 100MCG/ML 5ML SYR IV PRN; -PROPOFOL IV EMULSION 10 MG/ML 20 ML VIAL IV ONE
--- NOTE | 2016-09-25 10:19 | DIAGNOSTIC IMAGING REPORT ---
KUB CLINICAL HISTORY: N20.0 [id number] COMPARISON STUDY: 09/13/2016 FINDINGS: There is a left-sided nephroureteral stent. There are punctate lower pole right renal calculi. There are multiple left renal calculi, the largest of which projects of the lower pole measuring 8 mm. At least 5 proximal left ureteral calculi are visualized paralleling the proximal stent. The previously identified calculus projected over the left renal pelvis has apparently been fragmented IMPRESSION: 1. Bilateral nephrolithiasis, with decreasing left intrarenal stone burden 2. Proximal left ureteral Steinstrasse 3. No change the position of the left-sided nephroureteral stent Electronically signed by: Nick Rodríguez M.D. 09/25/2016 10:18 AM Dictated Date/Time: 09/25/2016 10:16 AM
== END | disposition home or self-care (01) ==
LOC: C.RAD 09:58
PROVIDERS: ATTEND Nurse Practitioner Adult Health
DX: N20.0 Calculus of kidney (principal); E11.9 Type 2 diabetes mellitus without complications; E78.00 Pure hypercholesterolemia, unspecified; E03.9 Hypothyroidism, unspecified; I10 Essential (primary) hypertension; E53.8 Deficiency of other specified B group vitamins; E55.9 Vitamin D deficiency, unspecified; Z96.0 Presence of urogenital implants; Z90.49 Acquired absence of other specified parts of digestive tract; Z90.710 Acquired absence of both cervix and uterus; Z90.722 Acquired absence of ovaries, bilateral; Z82.49 Family history of ischemic heart disease and other diseases of the circulatory system; Z83.3 Family history of diabetes mellitus

== ENCOUNTER → 2016-09-27 | Outpatient (CLI) | payer BC ==
[~2016-09-27] MED LIST changes: -NITR1CAP33 PO
--- NOTE | 2016-09-27 16:37 | DIAGNOSTIC IMAGING REPORT ---
KUB CLINICAL HISTORY: N20.0 Nephrolithiasis COMPARISON STUDY: 09/25/2016 FINDINGS: There is no pathologic bowel dilatation. There are tiny right renal calculi. There are multiple left renal calculi, the largest of which measures 8 mm. There is a left-sided nephroureteral stent. There is persistent proximal left ureteral Steinstrasse. The largest calculus measures 7 mm. IMPRESSION: 1. Bilateral nephrolithiasis 2. Persistent proximal left ureteral Steinstrasse 3. No change in the position of the left-sided nephroureteral stent Electronically signed by: Nick Rodríguez M.D. 09/27/2016 4:36 PM Dictated Date/Time: 09/27/2016 4:32 PM
== END | disposition home or self-care (01) ==
LOC: C.RAD 16:02
PROVIDERS: ATTEND Urology
DX: N20.0 Calculus of kidney (principal); Z96.0 Presence of urogenital implants

== ENCOUNTER → 2016-09-28 | Day surgery (SDC) | payer BC ==
[2016-09-25 15:39] LABS: BASO % 0.5 %; BASO ABS # 0.04 K/uL (0-0.2); COMPLETE YES; EOS % 3.6 %; HEMATOCRIT 35.1 % (37-47); IG% 0.1 %; LYMPH % 39.9 %; LYMPH ABS # 3.31 K/uL (1.2-3.4); MEAN CELL VOLUME 90.7 fL (80-100); MEAN CORPUSCULAR HEMOGLOBIN 29.5 pg (25-34); MEAN CORPUSCULAR HGB CONC 32.5 g/dl (32-36); MEAN PLATELET VOLUME 11.5 fL (7.4-10.4); NEUT % 48.9 %; PLATELET COUNT 253 K/uL (130-400); RED BLOOD COUNT 3.87 M/uL (4.2-5.4)
[2016-09-25 16:06] LABS: BLOOD UREA NITROGEN 8 mg/dl (7-18); BUN/CREATININE RATIO 9.7 (10-20); CARBON DIOXIDE 28 mmol/L (21-32); CHLORIDE 107 mmol/L (98-107); CREATININE 0.83 mg/dl (0.60-1.20); SODIUM 142 mmol/L (136-145)
[2016-09-26 15:35] VITALS: Ht 154.9 cm; Wt 82.7 kg
[~2016-09-28] VITALS: Ht 154.9 cm; Wt 82.7 kg
[~2016-09-28] MED LIST changes: +ATROPINE SULFATE 0.1 MG/ML 5ML SYR IV PRN; +CIPROFLOXACIN 400MG / D5W IV SCH; +EpHEDrine SULFATE INJ 50 MG/ML AMP IV PRN; +FENTANYL CITRATE INJ 50 MCG/1 ML 2 ML VIAL IV PRN; +FENTANYL CITRATE INJ 50 MCG/1 ML 2 ML VIAL ONE; +FLUMAZENIL 0.1 MG/1 ML 10 ML VIAL IV PRN; +HYDROmorphone INJ 2 MG/ML SYR/VIAL IV PRN; +LABETALOL HCL IV 5 MG/ML 20ML IV PRN; +LACTATED RINGER'S 1000ML 1,000 ML IV SCH; +LIDOCAINE HCL 2% 2 ML VIAL (20MG/ML) ONE; +MEPERIDINE HCL 25 MG/ML CARP IV PRN; +MIDAZOLAM HCL 1 MG/ML 2ML VIAL ONE; +NALOXONE HCL 0.4 MG/1 ML VIAL/CARP IV PRN; +ONDANSETRON INJ 2 MG/ML 2 ML VIAL IV PRN; +ONDANSETRON INJ 2 MG/ML 2 ML VIAL ONE; +OXYCODONE/ACETAMINOPHEN 5-325 TAB PO PRN; +PHENYLEPHRINE 100MCG/ML 5ML SYR IV PRN; +PROPOFOL IV EMULSION 10 MG/ML 20 ML VIAL IV ONE
--- NOTE | 2016-09-28 10:16 | Discharge Instructions ---
Discharge Instructions Date of Service Sep 28, 2016. Admission Reason for Admission: Stones Discharge Discharge Diagnosis / Problem: L ureteral stones s/p ESWL Discharge Goals Goal(s): Decrease discomfort, Improve disease control, Therapeutic intervention Activity Recommendations Activity Limitations: per Instructions/Follow-up section Lifting Limitations: no more than 25 pounds, gradually increase as tolerated ( x 3-5 days) Exercise/Sports Limitations: rest today, gradually increase as tolerated (x 3- 5 days) May Resume Sexual Activity: when tolerated Shower/Bathe: no limitations Driving or Machine Use: resume 1 day after discharge . Instructions / Follow-Up Instructions / Follow-Up Strain all urine as instructed KUB Xray before follow-up visit in office as scheduled Discharge Diet Recommended Diet: Regular Diet (good fluid intake) Procedures Procedures Performed: Left Extracorporeal Shock Wave Lithotripsy, Repeat--ureteral Pending Studies Studies pending at discharge: no Laboratory Results Hemoglobin A1c Test 08/16/16 12:03 Range/Units Estimated Average Glucose 128 mg/dl Hemoglobin A1c 6.1 H 4.5-5.6 % Lipid Panel Test 08/21/16 08:40 Range/Units Triglycerides Level 150 0-150 mg/dl Cholesterol Level 168 0-200 mg/dl HDL Cholesterol 65 mg/dl Cholesterol/HDL Ratio 2.6 LDL Cholesterol, Calculated 73 mg/dl Medical Emergencies . Who to Call and When: Medical Emergencies: If at any time you feel your situation is an emergency, please call 911 immediately. . Non-Emergent Contact Non-Emergency issues call your: Urologist Call Non-Emergent contact if: you have a fever, temperature is above 101, your pain is not controlled, your pain is worsening, your pain is unusual for you, your pain is concerning you, you have any medication questions . . "Provider Documentation" section prepared by Jose Alberto Arredondo. . VTE Core Measure Inpt VTE Proph given/why not?: SCD's [place] Drug Monitoring Program Search Results: patient reviewed within database, see additional documentation (patient has received #110 narcotic pills this year, requests more having taken recent Rx by Dr. Rivas for postop pain per her report - provided with new Rx)
--- NOTE | 2016-09-28 10:27 | [facility] Post Operative Brief Note ---
Immediate Operative Summary Operative Date Sep 28, 2016. Pre-Operative Diagnosis Left ureteral and renal stones Post-Operative Diagnosis Same Procedure(s) Performed Left Extracorporeal Shock Wave Lithotripsy, Repeat--ureteral Surgeon Dr Ginette Arredondo [employer] Surgeon(s) 0 Estimated Blood Loss 0 Findings Excellent fragmentation of ureteral and renal stones Specimens 0 Drains Indwelling stent present Anesthesia GALMA Complication(s) None Disposition Recovery Room / PACU
--- NOTE | 2016-09-28 10:50 | OPERATIVE REPORT ---
DATE OF OPERATION: 09/28/2016 PREOPERATIVE DIAGNOSIS: Left ureteral and renal stones with indwelling stent. POSTOPERATIVE DIAGNOSIS: Same. PROCEDURE: Extracorporeal shockwave lithotripsy of left ureteral and renal stones. SURGEON: Dr. Jose Alberto Arredondo. SALES ACCOUNT ASSOCIATE: None. ANESTHESIA: General anesthesia with laryngeal mask. COMPLICATIONS: None. FINDINGS: Ureteral stones fragmented with excellent fragmentation on fluoroscopic exam. Intraoperatively, larger and lower most renal stone targeted with good fragmentation. The smaller mid pole stone not treated. Good stent position on fluoroscopy. SPECIMENS SENT TO PATHOLOGY: None. ESTIMATED BLOOD LOSS: Minimal. COMPLICATIONS: None. ANESTHESIA: General anesthesia with laryngeal mask. DETAILS OF PROCEDURE: The patient was brought to the litho suite. He was correctly identified and the stone was visualized on his most recent x-rays. After the correct time out was performed the patient was positioned over the therapy head. An adequate level of anesthesia was administered. The extracorporeal shockwave lithotripsy treatment was then commenced. Please see the [facility] sheet for complete treatment summary. After completion of the procedure the patient was taken to the recovery room in stable condition. I attest to the content of the Intraoperative Record and any orders documented therein. Any exception s are noted below.
--- NOTE | 2016-09-28 11:12 | Anesthesia Progress Nt - [facility] ---
Anesthesia Post Op Note Date & Time Sep 28, 2016 at 11:12 Vital Signs Pain Intensity: 0 Vital Signs Past 12 Hours Date Time Temp Pulse Resp B/P (MAP) Pulse Ox O2 Delivery O2 Flow Rate FiO2 09/28/16 11:04 36.9 54 16 143/63 99 Room Air 09/28/16 11:03 58 15 09/28/16 11:03 57 15 98 09/28/16 11:02 143/63 09/28/16 10:58 54 13 97 09/28/16 10:58 55 13 09/28/16 10:57 145/64 09/28/16 10:54 54 13 98 09/28/16 10:54 54 13 09/28/16 10:52 145/65 09/28/16 10:49 54 9 100 09/28/16 10:49 53 9 09/28/16 10:47 138/71 09/28/16 10:44 55 17 100 09/28/16 10:44 53 17 09/28/16 10:42 144/64 09/28/16 10:39 55 13 09/28/16 10:39 58 13 100 09/28/16 10:37 135/71 09/28/16 10:35 150/77 09/28/16 10:34 36.6 61 16 150/77 99 Diffusion Mask 6 09/28/16 08:13 36.8 61 18 163/78 (106) 99 Room Air Notes Mental Status: alert / awake / arousable, participated in evaluation Pt Amnestic to Procedure: Yes Nausea / Vomiting: adequately controlled Pain: adequately controlled Airway Patency, RR, SpO2: stable & adequate BP & HR: stable & adequate Hydration State: stable & adequate Anesthetic Complications: no major complications apparent
[2016-09-28 11:14] VITALS: TEMP 36.3
[2016-09-28 11:42] VITALS: BP 150/88; PULSE 58; O2SAT 98
== END | disposition home or self-care (01) ==
LOC: X.SURG 07:35
PROVIDERS: ATTEND Urology
DX: N20.2 Calculus of kidney with calculus of ureter (principal); E11.9 Type 2 diabetes mellitus without complications; E78.00 Pure hypercholesterolemia, unspecified; E03.9 Hypothyroidism, unspecified; I10 Essential (primary) hypertension; E53.8 Deficiency of other specified B group vitamins; E55.9 Vitamin D deficiency, unspecified; Z90.49 Acquired absence of other specified parts of digestive tract; Z90.710 Acquired absence of both cervix and uterus; Z90.722 Acquired absence of ovaries, bilateral; Z82.49 Family history of ischemic heart disease and other diseases of the circulatory system; Z83.3 Family history of diabetes mellitus

== ENCOUNTER → 2016-10-08 | Outpatient (CLI) | payer BC ==
[~2016-10-08] MED LIST changes: -ATROPINE SULFATE 0.1 MG/ML 5ML SYR IV PRN; -CIPROFLOXACIN 400MG / D5W IV SCH; -EpHEDrine SULFATE INJ 50 MG/ML AMP IV PRN; -FENTANYL CITRATE INJ 50 MCG/1 ML 2 ML VIAL IV PRN; -FENTANYL CITRATE INJ 50 MCG/1 ML 2 ML VIAL ONE; -FLUMAZENIL 0.1 MG/1 ML 10 ML VIAL IV PRN; -HYDROmorphone INJ 2 MG/ML SYR/VIAL IV PRN; -LABETALOL HCL IV 5 MG/ML 20ML IV PRN; -LACTATED RINGER'S 1000ML 1,000 ML IV SCH; -LIDOCAINE HCL 2% 2 ML VIAL (20MG/ML) ONE; -MEPERIDINE HCL 25 MG/ML CARP IV PRN; -MIDAZOLAM HCL 1 MG/ML 2ML VIAL ONE; -NALOXONE HCL 0.4 MG/1 ML VIAL/CARP IV PRN; -ONDANSETRON INJ 2 MG/ML 2 ML VIAL IV PRN; -ONDANSETRON INJ 2 MG/ML 2 ML VIAL ONE; -OXYCODONE/ACETAMINOPHEN 5-325 TAB PO PRN; -PHENYLEPHRINE 100MCG/ML 5ML SYR IV PRN; -PROPOFOL IV EMULSION 10 MG/ML 20 ML VIAL IV ONE
--- NOTE | 2016-10-08 12:48 | DIAGNOSTIC IMAGING REPORT ---
KUB CLINICAL HISTORY: Nephrolithiasis. Ureteral calculi. COMPARISON STUDY: 09/27/2016 FINDINGS: There is been no change the position of the left-sided nephroureteral stent. There are faint bilateral renal calcifications, consistent with nephrolithiasis. The calcifications on the left appear less numerous than on the prior study. The previously identified proximal left ureteral calculi are no longer visualized. There are few tiny calcifications along the course of the distal stent, consistent with small distal left ureteral calculi. IMPRESSION: 1. Bilateral nephrolithiasis 2. Interval decrease in the number of left renal calculi 3. The previously identified proximal left ureteral calculi are no longer visualized. There are few small distal left ureteral calculi along the course of the stent 4. No change in the position of the left-sided neck ureteral stent Electronically signed by: Nick Rodríguez M.D. 10/08/2016 12:47 PM Dictated Date/Time: 10/08/2016 12:45 PM
== END | disposition home or self-care (01) ==
LOC: C.RAD 12:00
PROVIDERS: ATTEND Urology
DX: N20.0 Calculus of kidney (principal)

== ENCOUNTER → 2016-10-09 | Outpatient (CLI) | payer BC | END | disposition home or self-care (01) | LOC: C.LABSPEC 17:22 | PROVIDERS: ATTEND Urology | DX: N20.0 Calculus of kidney (principal) ==

== ENCOUNTER → 2016-11-08 | Outpatient (CLI) | payer BC ==
[~2016-11-08] MED LIST changes: -ASPI81TA28 PO; -ATOR10TA82 PO; -OMEG5CAP PO; -POTA1080 PO
[2016-11-08 09:59] LABS: BASO % 0.4 %; BASO ABS # 0.03 K/uL (0-0.2); COMPLETE YES; EOS % 1.7 %; IG% 0.3 %; LYMPH % 40.3 %; LYMPH ABS # 2.81 K/uL (1.2-3.4); MEAN CELL VOLUME 88.9 fL (80-100); MEAN CORPUSCULAR HEMOGLOBIN 27.6 pg (25-34); MEAN CORPUSCULAR HGB CONC 31.1 g/dl (32-36); MEAN PLATELET VOLUME 11.4 fL (7.4-10.4); MONO % 10.3 %; PLATELET COUNT 237 K/uL (130-400); RED BLOOD COUNT 4.16 M/uL (4.2-5.4); WHITE BLOOD COUNT 6.97 K/uL (4.8-10.8)
== END | disposition home or self-care (01) ==
LOC: C.LAB1850 09:01
PROVIDERS: ATTEND Physician Assistant
DX: R51 Headache (principal)

== ENCOUNTER → 2016-11-09 | Outpatient (CLI) | payer BC ==
[~2016-11-09] MED LIST changes: +ASPI81TA28 PO; +ATOR10TA88 PO; +OMEG5CAP PO; +POTA1080 PO
--- NOTE | 2016-11-09 15:58 | MAMMOGRAPHY REPORT ---
BILATERAL DIGITAL SCREENING MAMMOGRAM WITH CAD: 11/09/2016 CLINICAL HISTORY: Routine screening. TECHNIQUE: Current study was also evaluated with a Computer Aided Detection (CAD) system. Bilateral CC and MLO views were obtained. COMPARISON: Comparison is made to exams dated: 11/08/2015 mammogram, 11/09/2014 mammogram, 10/15/2013 m ammogram, 10/09/2012 mammogram, 10/09/2011 mammogram, and 10/06/2010 mammogram - [facility] enter. BREAST COMPOSITION: The tissue of both breasts is almost entirely fatty. FINDINGS: No suspicious masses, calcifications, or areas of architectural distortion are noted in ei ther breast. There has been no significant interval change compared to prior exams. Scattered bilater al benign-appearing calcifications are not significantly changed. IMPRESSION: ACR BI-RADS CATEGORY 2: BENIGN There is no mammographic evidence of malignancy. A 1 year screening mammogram is recommended. The pa tient will receive written notification of the results. Approximately 10% of breast cancers are not detected with mammography. A negative mammographic report should not delay biopsy if a clinically suggestive mass is present. Roseanne Kimball M.D. /:11/09/2016 13:54:19 It Recruiter: Naya BAILEY(Analisa)(M), [facility] letter sent: Normal 1/2 BI-RADS Code: ACR BI-RADS Category 2: Benign
== END | disposition home or self-care (01) ==
LOC: C.MAMM 13:26
PROVIDERS: ATTEND Internal Medicine
DX: Z12.31 Encounter for screening mammogram for malignant neoplasm of breast (principal)

== ENCOUNTER → 2016-11-30 | Outpatient (CLI) | payer BC ==
[2016-11-30 12:37] LABS: ALT/SGPT 33 U/L (12-78); AST/SGOT 21 U/L (15-37); BLOOD UREA NITROGEN 12 mg/dl (7-18); BUN/CREATININE RATIO 13.4 (10-20); CALCIUM 9.3 mg/dl (8.5-10.1); CARBON DIOXIDE 26 mmol/L (21-32); CHLORIDE 106 mmol/L (98-107); CREATININE 0.87 mg/dl (0.60-1.20); GLUCOSE 163 mg/dl (70-99); POTASSIUM 4.1 mmol/L (3.5-5.1); SODIUM 139 mmol/L (136-145)
[2016-11-30 12:40] LABS: ALB/GLOB RATIO 1.1 (0.9-2); ALKALINE PHOSPHATASE 72 U/L (45-117)
== END | disposition home or self-care (01) ==
LOC: C.LAB 11:00
PROVIDERS: ATTEND Physician Assistant
DX: R51 Headache (principal); H54.7 Unspecified visual loss

== ENCOUNTER → 2016-12-03 | Outpatient (CLI) | payer BC ==
[~2016-12-03] MED LIST changes: +CEFAZOLIN IV 2,000 MG/60 ML D5W IV ONE; +GADAVIST IV PRN
--- NOTE | 2016-12-03 17:12 | DIAGNOSTIC IMAGING REPORT ---
Brain MRI WITH AND WITHOUT CONTRAST HISTORY: R51 Temporal [id number] Vision [id number] TECHNIQUE: Multiplanar multisequence MRI of the brain was performed both before and after the intravenous administration of contrast. COMPARISON STUDY: Brain MRI 12/17/2015. FINDINGS: There are no areas of restricted diffusion to suggest acute infarction. The midline structures are intact. The mastoid air cells are clear. The ventricles and sulci are within normal limits for age. There is no mass, hematoma, midline shift. The major vascular flow-voids at the skull base are well maintained. Postcontrast sequences show no areas of abnormal enhancement. There are few scattered punctate foci of T2 hyperintensity seen within the periventricular white matter of the supratentorial brain. This is slightly progressed compared the prior study. Trace fluid level within the right sphenoid sinus. IMPRESSION: 1. No acute intracranial abnormality. 2. A few scattered punctate foci of T2 hyperintensity within the periventricular white matter of the supratentorial brain. These have slightly progressed compared to the prior study and are nonspecific but favor minimal microvascular ischemic change given the patient's age. Electronically signed by: Xiang Winters M.D. 12/03/2016 5:10 PM Dictated Date/Time: 12/03/2016 5:04 PM
== END | disposition home or self-care (01) ==
LOC: C.MRI 16:16
PROVIDERS: ATTEND Physician Assistant
DX: H54.7 Unspecified visual loss (principal); R51 Headache

== ENCOUNTER 2016-12-09 00:20 | Observation (INO) | payer BC ==
[~2016-12-09] VITALS: Ht 154.9 cm; Wt 88.5 kg
[~2016-12-09 00:20] MED LIST changes: -ASPI81TA28 PO; -ATOR10TA88 PO; -CEFAZOLIN IV 2,000 MG/60 ML D5W IV ONE; -GADAVIST IV PRN; -OMEG5CAP PO; -POTA1080 PO
[2016-12-09] MEDS ORDERED: ONDANSETRON INJ 2 MG/ML 2 ML VIAL IV STA (00:54)
[2016-12-09] MEDS ORDERED: SODIUM CHLORIDE 0.9% 1000ML 1,000 ML IV STA ×2 (00:54→03:46)
--- NOTE | 2016-12-09 01:04 | EMERGENCY ROOM VISIT NOTE ---
History Report prepared by Zackary: Erna Roldan Under the Supervision of: Dr. Navin Ambrocio M.D. First contact with patient: 00:33 Chief Complaint: ABDOMINAL PAIN Stated Complaint: PAIN IN ABD AREA Nursing Triage Summary: c/o right sided abd pain. ongoing for 2-3 weeks, pain worsening tonight and radiating across abd. Associated nausea and diarrhea, "no sooner do I eat and it flushes right out". Pt also reports has been having pain in her head, blurred vision in right eye, pt had MRI on Saturday. told there was a slight change, but nothing significant. Taking low dose ASA. To f/u with Neurology later this month History of Present Illness The patient is a 66 year old female who presents to the Emergency Room with complaints of constant abdominal pain for three weeks. The patient states she came to the ED tonight because it seemed to become worse. She notes that it started to radiate across her abdomen. She describes the pain as a bloating and currently rates it as an 8/10 in severity. She notes that she last ate six hours ago. The patient complains of diarrhea and notes she recently had hematuria in setting of recent multiple lithotripsy procedures for her bilateral kidney stones. She denies melena. While she notes a history of kidney stones, she feels this does not feel the same. She reports that she is supposed to have a kidney test next month and that she just started taking Aspirin yesterday. Source of History: patient Onset: three weeks ago Position: abdomen Symptom Intensity: 8/10 Quality: other (bloating) Timing: constant Associated Symptoms: + diarrhea, + urinary symptoms, No melena Review of Systems See HPI for pertinent positives and negatives. A total of ten systems were reviewed and were otherwise negative. Past Medical & Surgical Medical Problems: (1) Diabetes mellitus (2) Diplopia (3) Hyperlipidemia (4) Hypothyroidism (5) Kidney stone (6) Neuropathy (7) RUQ pain (8) RUQ rigidity Surgical Problems: (1) History of back surgery Family History Cancer Diabetes mellitus Heart disease Hypertension Kidney stones Social History Smoking Status: Never Smoker Alcohol Use: none Drug Use: none Marital Status: Housing Status: lives alone Occupation Status: retired Current/Historical Medications Scheduled Allopurinol (Zyloprim), 100 MG PO QAM Amiloride Hcl (Amiloride Hcl), 5 MG PO QAM Aspirin (Aspirin Ec), 81 MG PO DAILY Atorvastatin (Lipitor), 10 MG PO DAILY Cyanocobalamin (B-12), 1,000 MCG PO QAM Gabapentin (Gabapentin), 300 MG PO TID Levothyroxine Sodium (Levothyroxine Sodium), 75 MCG PO QAM Magnesium Oxide (Mg Supplement (Magnesium), 400 MG PO NOON Metformin HCl (Metformin HCl), 500 MG PO TID [place]-3 Fatty Acids (Fish Oil 1200 mg), 1,200 MG PO TID Paroxetine (Paxil), 20 MG PO QAM Potassium Citrate (Alkalinizer (Potassium Citrate ER), 2 TAB PO BID Scheduled PRN Alprazolam (Xanax), 1 MG PO BID PRN for Anxiety Allergies Coded Allergies: Iodinated Diagnostic Agents (Verified Allergy, Severe, HIVES AND THROAT SWELLING, 12/09/16) Physical Exam Vital Signs Date Time Temp Pulse Resp B/P (MAP) Pulse Ox O2 Delivery O2 Flow Rate FiO2 12/09/16 05:19 66 14 171/85 95 Room Air 12/09/16 04:41 59 22 95 12/09/16 04:31 196/108 12/09/16 04:16 66 12/09/16 04:11 63 19 96 12/09/16 04:01 179/106 12/09/16 03:41 65 14 94 12/09/16 03:36 65 14 95 12/09/16 03:31 185/93 12/09/16 03:06 69 18 97 12/09/16 03:01 168/85 12/09/16 02:36 66 12 95 12/09/16 02:31 172/86 12/09/16 02:20 71 15 95 12/09/16 02:01 153/64 12/09/16 01:50 76 12/09/16 01:45 78 18 12/09/16 01:15 72 13 97 12/09/16 01:01 163/88 12/09/16 00:45 85 21 99 12/09/16 00:43 100 Room Air 12/09/16 00:43 68 12/09/16 00:42 72 22 171/89 99 Room Air 12/09/16 00:25 36.7 79 18 164/83 99 Room Air Physical Exam GENERAL: Awake, alert, well-appearing, in no distress HENT: Normocephalic, atraumatic. Dry mucus membranes. EYES: Normal conjunctiva. Sclera non-icteric. NECK: Supple. No nuchal rigidity. FROM. No JVD. RESPIRATORY: Clear to auscultation. CARDIAC: Regular rate, normal rhythm. Extremities warm and well perfused. Pulses equal. ABDOMEN: Soft, non-distended. Mild RUQ epigastric tenderness to palpation. Right flank pain. No peritoneal signs. No rebound or guarding. No masses. Obese. RECTAL: Deferred. MUSCULOSKELETAL: Chest examination reveals no tenderness. The back is symmetrical on inspection without obvious abnormality. There is no CVA tenderness to palpation. No joint edema. LOWER EXTREMITIES: Calves are equal size bilaterally and non-tender. No edema. No discoloration. NEURO: Normal sensorium. No sensory or motor deficits noted. SKIN: No rash or jaundice noted. Medical Decision & Procedures Laboratory Results 12/09/16 01:13 Red Blood Count 3.99, Mean Corpuscular Volume 88.7, Mean Corpuscular Hemoglobin 29.1, Mean Corpuscular Hemoglobin Concent 32.8, Mean Platelet Volume 11.9, Neutrophils (%) (Auto) 45.8, Lymphocytes (%) (Auto) 42.0, Monocytes (%) (Auto) 10.2, Eosinophils (%) (Auto) 1.3, Basophils (%) (Auto) 0.4, Neutrophils # (Auto ) 4.72, Lymphocytes # (Auto) 4.32, Monocytes # (Auto) 1.05, Eosinophils # (Auto ) 0.13, Basophils # (Auto) 0.04 12/09/16 01:13 12/09/16 02:43 Test 12/09/16 01:13 12/09/16 01:55 12/09/16 02:43 12/09/16 03:10 White Blood Count 10.29 K/uL (4.8-10.8) Red Blood Count 3.99 M/uL (4.2-5.4) Hemoglobin 11.6 g/dL (12.0-16.0) Hematocrit 35.4 % (37-47) Mean Corpuscular Volume 88.7 fL (80-100) Mean Corpuscular Hemoglobin 29.1 pg (25-34) Mean Corpuscular Hemoglobin Concent 32.8 g/dl (32-36) Platelet Count 222 K/uL (130-400) Mean Platelet Volume 11.9 fL (7.4-10.4) Neutrophils (%) (Auto) 45.8 % Lymphocytes (%) (Auto) 42.0 % Monocytes (%) (Auto) 10.2 % Eosinophils (%) (Auto) 1.3 % Basophils (%) (Auto) 0.4 % Neutrophils # (Auto) 4.72 K/uL (1.4-6.5) Lymphocytes # (Auto) 4.32 K/uL (1.2-3.4) Monocytes # (Auto) 1.05 K/uL (0.11-0.59) Eosinophils # (Auto) 0.13 K/uL (0-0.5) Basophils # (Auto) 0.04 K/uL (0-0.2) RDW Standard Deviation 46.6 fL (36.4-46.3) RDW Coefficient of Variation 14.3 % (11.5-14.5) Immature Granulocyte % (Auto) 0.3 % Immature Granulocyte # (Auto) 0.03 K/uL (0.00-0.02) Anion Gap 9.0 mmol/L (3-11) Est Creatinine Clear Calc Drug Dose 63.5 ml/min Estimated GFR () 79.9 Estimated GFR (Non- 68.9 BUN/Creatinine Ratio 14.4 (10-20) Calcium Level 8.7 mg/dl (8.5-10.1) Total Bilirubin 0.4 mg/dl (0.2-1) Aspartate Amino Transf (AST/SGOT) U/L (15-37) Alanine Aminotransferase (ALT/SGPT) 42 U/L (12-78) Alkaline Phosphatase 104 U/L (45-117) Total Protein 6.8 gm/dl (6.4-8.2) Albumin 3.5 gm/dl (3.4-5.0) Lipase 286 U/L (73-393) Urine Color YELLOW Urine Appearance CLEAR (CLEAR) Urine pH 7.5 (4.5-7.5) Urine Specific [place] 1.010 (1.000-1.030) Urine Protein NEG (NEG) Urine Glucose (UA) NEG (NEG) Urine Ketones NEG (NEG) Urine Occult Blood NEG (NEG) Urine Nitrite NEG (NEG) Urine Bilirubin NEG (NEG) Urine Urobilinogen NEG (NEG) Urine Leukocyte Esterase SMALL (NEG) Urine WBC (Auto) 5-10 /hpf (0-5) Urine RBC (Auto) 0-4 /hpf (0-4) Urine Hyaline Casts (Auto) 0 /lpf (0-5) Urine Epithelial Cells (Auto) 0-5 /lpf (0-5) Urine Bacteria (Auto) NEG (NEG) Direct Bilirubin mg/dl (0-0.2) Chemistry Specimen Hemolysis Lactic Acid Level 2.8 mmol/L (0.4-2.0) Laboratory results reviewed by me Medications Administered Medications (Trade) Dose Ordered Sig/Rohit Route Start Time Stop Time Status Last Admin Dose Admin Ondansetron HCl (Zofran Inj) 4 mg NOW STAT IV 12/09/16 00:54 12/09/16 00:56 DC 12/09/16 01:18 4 MG Sodium Chloride 1,000 ml @ 999 mls/hr Q1H1M STAT IV 12/09/16 00:54 12/09/16 01:54 DC 12/09/16 01:18 999 MLS/HR Ceftriaxone Sodium 2000 mg/ Dextrose 70 ml @ 100 mls/hr ONE STAT IV 12/09/16 03:46 12/09/16 04:27 DC 12/09/16 05:17 100 MLS/HR Sodium Chloride 1,000 ml @ 999 mls/hr Q1H1M STAT IV 12/09/16 03:46 12/09/16 04:46 DC 12/09/16 04:41 999 MLS/HR Procedure BEDSIDE US: Showed no gallstones. No pericystic fluid. CBD appears within normal limits. ED Course 0042: The patient was evaluated in room B7. A complete history and physical exam was performed. 0054: Ordered NSS 1000 ml @ 999 mls/hr IV, Zofran Inj 4 mg IV. Medical Decision I reviewed the patient's past medical history, medications, and the nursing notes as described above. Differential diagnoses include renal stone, calculus cholecystitis, diverticulitis, obstruction, GERD, pancreatitis, gastritis. The patient is a 66-year-old woman with a past medical history of renal stones into the emergency department with worsening of right flank and right upper quadrant abdominal pain over the past 2 weeks previous history of present illness. Arrival patient appears mildly uncomfortable but in no acute distress. Is afebrile with stable vital signs. Limited bedside ultrasound of the patient's gallbladder showed no gallstones or pericholecystic fluid. However limited bedside ultrasound of the patient's right kidney with question mild [place]. Considering the patient's history of renal stones a CT scan was ordered however without contrast in setting of patient's contrast allergy which will limit diagnosis for alternate diagnoses. Otherwise patient's WBC is within normal limits. Lactate 3.1 however with hemolyzed sample. Will repeat. Repeat lactate 2.8. CT scan stat rad read showing multiple bilateral stones without any signs of obstruction. Elevated lactate possibly 2/2 to patient's metformin. However, UA with 5-10 whites and esterase positive. In the setting of the patient's renal stones as well as elevated lactate will treat with ceftriaxone for now, as the patient is otherwise nontoxic appearing. Considering well-appearing and reassuring CT scan read will defer urology involvement until a.m. Chest x-ray ordered and pending to evaluate for possible alternative causes for elevated lactate, although patient denies any chest pain or shortness of breath. Will admit to medicine for further management and urology consultation in the morning.. Medication Reconcilliation Current Medication List: was personally reviewed by me Blood Pressure Screening Patient's blood pressure: Elevated blood pressure Blood pressure disposition: Elevated BP felt to be situational Impression Primary Impression: Right upper quadrant abdominal pain Additional Impression: Right flank pain Scribe Attestation The scribe's documentation has been prepared under my direction and personally reviewed by me in its entirety. I confirm that the note above accurately reflects all work, treatment, procedures, and medical decision making performed by me. Departure Information Referrals Abhijit Guillen M.D. (PCP) Patient Instructions Kidney Stones - [facility], [facility] Additional Instructions Please follow up with your primary care physician in the next 1-3 days as well as with your urologist next week. Your exam, labs results, and CT scan did not show signs of an emergent condition at this time. Ibuprofen as needed for pain. Oxycodone as needed for breakthrough pain. Zofran as needed for nausea. Antibiotics as directed. Return to the emergency department for worsening symptoms as described in the accompanying instructions. Problem Qualifiers
[2016-12-09 01:24] LABS: BASO % 0.4 %; BASO ABS # 0.04 K/uL (0-0.2); COMPLETE YES; EOS % 1.3 %; HEMATOCRIT 35.4 % (37-47); IG% 0.3 %; LYMPH ABS # 4.32 K/uL (1.2-3.4); MEAN CELL VOLUME 88.7 fL (80-100); MEAN CORPUSCULAR HEMOGLOBIN 29.1 pg (25-34); MEAN CORPUSCULAR HGB CONC 32.8 g/dl (32-36); MEAN PLATELET VOLUME 11.9 fL (7.4-10.4); MONO % 10.2 %; NEUT % 45.8 %; PLATELET COUNT 222 K/uL (130-400); RED BLOOD COUNT 3.99 M/uL (4.2-5.4); WHITE BLOOD COUNT 10.29 K/uL (4.8-10.8)
[2016-12-09 01:47] LABS: ALKALINE PHOSPHATASE 104 U/L (45-117); ALT/SGPT 42 U/L (12-78); BLOOD UREA NITROGEN 13 mg/dl (7-18); BUN/CREATININE RATIO 14.4 (10-20); CALCIUM 8.7 mg/dl (8.5-10.1); CARBON DIOXIDE 26 mmol/L (21-32); CHLORIDE 105 mmol/L (98-107); CREATININE 0.87 mg/dl (0.60-1.20); GLUCOSE 120 mg/dl (70-99); SODIUM 140 mmol/L (136-145)
[2016-12-09 02:06] LABS: URINE APPEARANCE CLEAR (CLEAR); URINE BILIRUBIN NEG (NEG); URINE COLOR YELLOW; URINE EPITHELIAL CELL AUTO 0-5 /lpf (0-5); URINE NITRITE NEG (NEG); URINE PH 7.5 (4.5-7.5); UROBILINOGEN NEG (NEG); ZZUR CULT IF INDIC CLEAN CATCH NO
[2016-12-09 02:08] LABS: MANUAL MICROSCOPIC REQUIRED? NO; REVIEW REQ? NO
[2016-12-09] MEDS ORDERED: ASPI81TA28 PO (02:19)
[2016-12-09] MEDS ORDERED: ATOR10TA88 PO (02:22)
[2016-12-09] MEDS ORDERED: OMEG5CAP PO (02:22)
[2016-12-09] MEDS ORDERED: POTA1080 PO (02:23)
[2016-12-09] MEDS ORDERED: CEFTRIAXONE SOD INJ 2,000 MG in DEXTROSE 5% 50ML 50 ML IV STA (03:46)
[2016-12-09] MEDS ORDERED: ALUMINUM/MAGNESIUM/SIMETH (MAALOX MAX) 30 ML UDC PO PRN (05:30)
[2016-12-09] MEDS ORDERED: ACETAMINOPHEN 325 MG TAB PO PRN (05:30)
[2016-12-09] MEDS ORDERED: ALPRAZOLAM 0.5 MG TAB PO PRN (05:30)
[2016-12-09] MEDS ORDERED: POLYETHYLENE (MIRALAX) 17 GM PACK PO PRN (05:30)
[2016-12-09] MEDS ORDERED: ONDANSETRON INJ 2 MG/ML 2 ML VIAL IV PRN (05:30)
[2016-12-09] MEDS ORDERED: MAGNESIUM HYDROXIDE SUSP 30 ML UDC PO PRN (05:30)
--- NOTE | 2016-12-09 05:32 | History and Physical ---
History & Physical Date & Time of Service: Dec 09, 2016 at 05:19 Chief Complaint: Pain In Abd Area Primary Care Physician: Abhijit Guillen M.D. History of Present Illness Source: patient He patient is a 66 year old female who presents with acute on chronic abdominal pain. Patient states that she has had intermittent abdominal pain for the past 3 weeks. She localizes the pain to right upper quadrant. The pain is described as stabbling or "like lightning", 8/10 in severity and occasionally radiating to the back. She notes one episode where the pain got worse with a hamburger but generally cannot time the pain with food or with movement. The pain is associated with nausea without vomiting She denies any fevers, chills or sweats. She denies dysuria, urinary frequency. She recently had right renal stent placement but she denies stent pain. She states that she has in general had a poor appetite. She decided to come in tonight because the pain was more persistent than it usually is. She also states that she has been busy for the past 3 weeks and did not have the time to come to the ED to be further evaluated. Past Medical/Surgical History Medical Problems: (1) Diabetes mellitus Status: Chronic (2) Hyperlipidemia Status: Chronic (3) Hypothyroidism Status: Chronic (4) Kidney stone Status: Chronic Depression Family History Cancer Diabetes mellitus Heart disease Hypertension Kidney stones Social History Smoking Status: Never Smoker Smokeless Tobacco Use: No Alcohol Use: none Drug Use: none Marital Status: Housing status: lives with family Occupational Status: retired Immunizations History of Influenza Vaccine: No Influenza Vaccine Date: Mar 03, 2012 History of Tetanus Vaccine?: Yes Tetanus Immunization Date: Apr 02, 2002 History of Pneumococcal: No History of Hepatitis B Vaccine: No Multi-Drug Resistant Organisms History of MDRO: No Allergies Coded Allergies: Iodinated Diagnostic Agents (Verified Allergy, Severe, HIVES AND THROAT SWELLING, 12/09/16) Home Medications Scheduled Allopurinol (Zyloprim), 100 MG PO QAM Amiloride Hcl (Amiloride Hcl), 5 MG PO QAM Aspirin (Aspirin Ec), 81 MG PO DAILY Atorvastatin (Lipitor), 10 MG PO DAILY Cyanocobalamin (B-12), 1,000 MCG PO QAM Gabapentin (Gabapentin), 300 MG PO TID Levothyroxine Sodium (Levothyroxine Sodium), 75 MCG PO QAM Magnesium Oxide (Mg Supplement (Magnesium), 400 MG PO NOON Metformin HCl (Metformin HCl), 500 MG PO TID [place]-3 Fatty Acids (Fish Oil 1200 mg), 1,200 MG PO TID Paroxetine (Paxil), 20 MG PO QAM Potassium Citrate (Alkalinizer (Potassium Citrate ER), 2 TAB PO BID Scheduled PRN Alprazolam (Xanax), 1 MG PO BID PRN for Anxiety Review of Systems A 10 point review of systems was negative unless stated above. Physical Exam Vital Signs Date Time Temp Pulse Resp B/P (MAP) Pulse Ox O2 Delivery O2 Flow Rate FiO2 12/09/16 04:41 59 22 95 12/09/16 04:31 196/108 12/09/16 04:16 66 12/09/16 04:11 63 19 96 12/09/16 04:01 179/106 12/09/16 03:41 65 14 94 12/09/16 03:36 65 14 95 12/09/16 03:31 185/93 12/09/16 03:06 69 18 97 12/09/16 03:01 168/85 12/09/16 02:36 66 12 95 12/09/16 02:31 172/86 12/09/16 02:20 71 15 95 12/09/16 02:01 153/64 12/09/16 01:50 76 12/09/16 01:45 78 18 12/09/16 01:15 72 13 97 12/09/16 01:01 163/88 12/09/16 00:45 85 21 99 12/09/16 00:43 100 Room Air 12/09/16 00:43 68 12/09/16 00:42 72 22 171/89 99 Room Air 12/09/16 00:25 36.7 79 18 164/83 99 Room Air General Appearance: WD/WN, no apparent distress, + obese Head: normocephalic, atraumatic Eyes: normal inspection, EOMI ENT: hearing grossly normal, pharynx normal Neck: supple, no adenopathy, no JVD Respiratory/Chest: lungs clear, no respiratory distress, no accessory muscle use Cardiovascular: regular rate, rhythm, no gallop, no murmur Abdomen/GI: normal bowel sounds, soft, + guarding (RUQ; too obese to determine if I am getting under the rib; patient guard with RUQ palpation) Back: no CVA tenderness, no muscle spasm Extremities/Musculoskelatal: no calf tenderness, no pedal edema Neurologic/Psych: alert, normal mood/affect, oriented x 3 Skin: normal color, warm/dry, no rash Diagnostics Laboratory Results Results Past 24 Hours Test 12/09/16 01:13 12/09/16 01:55 12/09/16 02:06 12/09/16 02:43 Range/Units White Blood Count 10.29 4.8-10.8 K/uL Red Blood Count 3.99 4.2-5.4 M/uL Hemoglobin 11.6 12.0-16.0 g/dL Hematocrit 35.4 37-47 % Mean Corpuscular Volume 88.7 80-100 fL Mean Corpuscular Hemoglobin 29.1 25-34 pg Mean Corpuscular Hemoglobin Concent 32.8 32-36 g/dl Platelet Count 222 130-400 K/uL Mean Platelet Volume 11.9 7.4-10.4 fL Neutrophils (%) (Auto) 45.8 % Lymphocytes (%) (Auto) 42.0 % Monocytes (%) (Auto) 10.2 % Eosinophils (%) (Auto) 1.3 % Basophils (%) (Auto) 0.4 % Neutrophils # (Auto) 4.72 1.4-6.5 K/uL Lymphocytes # (Auto) 4.32 1.2-3.4 K/uL Monocytes # (Auto) 1.05 0.11-0.59 K/uL Eosinophils # (Auto) 0.13 0-0.5 K/uL Basophils # (Auto) 0.04 0-0.2 K/uL RDW Standard Deviation 46.6 36.4-46.3 fL RDW Coefficient of Variation 14.3 11.5-14.5 % Immature Granulocyte % (Auto) 0.3 % Immature Granulocyte # (Auto) 0.03 0.00-0.02 K/uL Sodium Level 140 136-145 mmol/L Potassium Level 4.0 3.5-5.1 mmol/L Chloride Level 105 98-107 mmol/L Carbon Dioxide Level 26 21-32 mmol/L Anion Gap 9.0 3-11 mmol/L Blood Urea Nitrogen 13 7-18 mg/dl Creatinine 0.87 0.60-1.20 mg/dl Est Creatinine Clear Calc Drug Dose 63.5 ml/min Estimated GFR () 79.9 Estimated GFR (Non- 68.9 BUN/Creatinine Ratio 14.4 10-20 Random Glucose 120 70-99 mg/dl Lactic Acid Level 3.1 0.4-2.0 mmol/L Calcium Level 8.7 8.5-10.1 mg/dl Total Bilirubin 0.4 0.2-1 mg/dl Direct Bilirubin 0-0.2 mg/dl Aspartate Amino Transf (AST/SGOT) 15-37 U/L Alanine Aminotransferase (ALT/SGPT) 42 12-78 U/L Alkaline Phosphatase 104 45-117 U/L Total Protein 6.8 6.4-8.2 gm/dl Albumin 3.5 3.4-5.0 gm/dl Lipase 286 73-393 U/L Urine Color YELLOW Urine Appearance CLEAR CLEAR Urine pH 7.5 4.5-7.5 Urine Specific [place] 1.010 1.000-1.030 Urine Protein NEG NEG Urine Glucose (UA) NEG NEG Urine Ketones NEG NEG Urine Occult Blood NEG NEG Urine Nitrite NEG NEG Urine Bilirubin NEG NEG Urine Urobilinogen NEG NEG Urine Leukocyte Esterase SMALL NEG Urine WBC (Auto) 5-10 0-5 /hpf Urine RBC (Auto) 0-4 0-4 /hpf Urine Hyaline Casts (Auto) 0 0-5 /lpf Urine Epithelial Cells (Auto) 0-5 0-5 /lpf Urine Bacteria (Auto) NEG NEG Chemistry Specimen Hemolysis Test 12/09/16 03:10 Range/Units Lactic Acid Level 2.8 0.4-2.0 mmol/L Microbiology Results 12/09/16 Blood Culture, Received Pending 12/09/16 Blood Culture, Received Pending Impression Assessment and Plan 66 year old female who presents with RUQ pain. Initially impression is that this may be related to history of urinary tract calculi. However, review of CT demonstrates stones only in the kidneys, which does not cause pain. There are no stones in the ureters. The patient may have either cholecystitis or biliary akinesia. Given RUQ guarding with palpation on examination, she should be evaluated by surgeon to determine if cholecystectomy is required at this time. Our plan for her is as follow: RUQ Pain - No Leukocytosis; Normal LFTs - CT scan does not suggest cholecystitis; follow-up U/S given clinical picture - HIDA scan ordered - Consult general surgery - NPO - IV Fluids NSS + 20 KCl @ 125 ml/hr Depression/Anxiety - Continue Paroxetine - Continue Alprazolam Type 2 Diabetes Mellitus - Insulin SSI - q6h Accuchecks while fasting; AC/HS when eating Hypothyroidism - Continue Levothyroxine Diabetic Neuropathy - Continue Gabapentin DVT prophylaxis - SCD - FERNANDA - Hold pharmacological means until evaluated by surgery Code Status - Level I Full Code Disposition - Med/Surg Attending Addendum: I have physically seen and examined this patient, have supervised the medical residents activities, and agree with the H&P as noted above with the following exceptions as noted. The patient denies chest pain, palpitations, shortness of breath, cough, lower extremity swelling, vision change, hearing change, sore throat, fevers, chills, sweats, nausea, vomiting, blood in urine or stool, dysuria, urinary frequency or urgency, lightheadedness, dizziness, headache, memory loss, rash, abnormal bruising or bleeding, imbalance, focal or generalized weakness, numbness or tingling in arms or legs, generalized arthralgias or myalgias, back or neck pain , night sweats, or allergy symptoms. The review of systems is otherwise negative other than for that already noted above, and at least 10 systems have been reviewed. The patient is awake, well-developed and adequately nourished, alert and oriented 3, normocephalic and atraumatic, lying in bed and in no acute distress. HEENT--PERRL, EOMI, mucous membranes and oropharynx dry. Neck--supple, no JVD or bruits, thyroid normal, trachea midline, no adenopathy. Heart--normal S1 and S2, no extra beats, no murmurs, rubs or gallops. Lungs--few coarse breath sounds bilaterally, no respiratory distress, no accessory muscle use. Abdomen--normal bowel sounds and soft, tender right upper quadrant and laterally around back toward flank, Nondistended, no hernias or masses, no organomegaly. Extremities--no cyanosis, clubbing or edema. There are good distal pulses b/l. Dermatologic--normal skin turgor, normal color, warm and dry, no abnormal lymph nodes, no rash. Neurologic--cranial nerves II through XII grossly intact, motor and sensory examination normal. Rheumatologic--normal range of motion, nontender, muscles and joints. Psychiatric--normal affect. Assessment and Plan: 1. Right upper quadrant pain--patient be admitted to the medical surgical floor. Imaging studies and laboratories as point do not suggest acute cholecystitis, however, her examination and history are suggestive. Order ultrasound right upper quadrant abdomen, and HIDA scan with gallbladder ejection fraction. Nothing by mouth status. NSS with KCl 20 mEq at 125 ML's per hour. Cipro 40 mg IV given ED, will place on Zosyn 3.375 mg IV every 8 hours. 2. Diabetes mellitus--place on Accu-Cheks before meals and at bedtime or 4 times a day with NovoLog coverage. Level of Care Med/Surg Advanced Directives Existing Advance Directive: No Existing Living Will: No Existing Power of Foot Roentgenologist: No Resuscitation Status FULL RESUSCITATION VTE Prophylaxis VTE Risk Assessment Done? Y/N: Yes Risk Level: Moderate Given or contraindicated: SCD's, Contraindicated (hold in case patient for surgery) Social Service Consult None Apply
[2016-12-09] MEDS ORDERED: IV FLUIDS COMPLETED PRN (06:00)
[2016-12-09] MEDS: LEVOTHYROXINE 75 MCG TAB PO SCH (06:14)
[2016-12-09 06:21] VITALS: BP 155/85; PULSE 67; TEMP 36.6; O2SAT 98; Ht 154.9 cm; Wt 88.5 kg
[2016-12-09] MEDS ORDERED: GLUCOSE 10 TABS/TUBE PO PRN (06:30)
[2016-12-09] MEDS ORDERED: GLUCAGON FOR INJ 1 MG VIAL SQ PRN (06:30)
[2016-12-09] MEDS ORDERED: DEXTROSE 50% 50 ML SYR IV PRN (06:30)
[2016-12-09] MEDS ORDERED: GLUCOSE 40% GEL 15 GM TUBE PO PRN (06:30)
[2016-12-09] MEDS ORDERED: INSULIN ASPART 100 UNITS/ML 3 ML PEN SC SCH (07:00)
[2016-12-09] MEDS: NSS + 20MEQ KCL 1000ML 1,000 ML IV SCH ×3 (07:14→22:06)
[2016-12-09] MEDS ORDERED: NURSING VERBAL MED ORDER ONE (07:15)
--- NOTE | 2016-12-09 07:15 | DIAGNOSTIC IMAGING REPORT ---
ABDOMEN AND PELVIS CT WITHOUT CONTRAST CT DOSE: 1597.16 mGy.cm HISTORY: right flank pain - r/o stone TECHNIQUE: Multiaxial CT images of the abdomen and pelvis were performed without contrast. A dose lowering technique was utilized adhering to the principles of ALARA. COMPARISON STUDY: Abdomen and pelvis CT 12/28/2012. FINDINGS: A 3 mm nodule within the right lower lobe on image 9. No pneumoperitoneum. No pneumatosis. No acute fractures within the visualized osseous structures. The unenhanced liver, spleen, gallbladder, pancreas, and adrenal glands are unremarkable. No retroperitoneal lymphadenopathy. Normal bladder. Hysterectomy. No pelvic free fluid. Bilateral nephrolithiasis with the largest stones measuring up to 4 mm. No ureteral stones. No hydronephrosis. Suboptimal evaluation for bowel pathology due to the lack of intravenous and oral contrast. However, there is no definite bowel wall thickening or obstruction. A few colonic diverticula. The appendix appears surgically absent. IMPRESSION: 1. Bilateral nephrolithiasis. No ureteral stones. No hydronephrosis. 2. No bowel wall thickening or obstruction. 4. A 3 mm nodule within the right lower lobe. Electronically signed by: Xiang Winters M.D. 12/09/2016 7:14 AM Dictated Date/Time: 12/09/2016 7:10 AM
[2016-12-09 07:24] VITALS: BP 145/78; PULSE 57; TEMP 36.7; O2SAT 97
--- NOTE | 2016-12-09 08:12 | DIAGNOSTIC IMAGING REPORT ---
CHEST ONE VIEW PORTABLE HISTORY: cp/upper abdominal pain COMPARISON: Chest 12/17/2015. FINDINGS: The lungs are clear. Cardiac silhouette is normal in size. No pleural effusions. No pneumothorax. IMPRESSION: No acute process. Electronically signed by: Xiang Winters M.D. 12/09/2016 8:11 AM Dictated Date/Time: 12/09/2016 8:10 AM
--- NOTE | 2016-12-09 08:31 | DIAGNOSTIC IMAGING REPORT ---
ABDOMINAL ULTRASOUND, RIGHT UPPER QUADRANT HISTORY: Pt c/o RUQ abd pain. COMPARISON: None. FINDINGS: Pancreas: The pancreatic tail is obscured by overlying bowel gas. The remaining portions of the pancreas are within normal limits. Liver: The liver is echogenic consistent with fatty change. The liver is enlarged measuring 23 cm in length. Gallbladder: No gallbladder wall thickening. No gallstones. Small amount of gallbladder sludge. CBD: 4 mm. Right kidney: No hydronephrosis. IMPRESSION: 1. Small amount of gallbladder sludge. No gallstones. No gallbladder wall thickening. 2. Hepatomegaly demonstrating fatty change. Electronically signed by: Xiang Winters M.D. 12/09/2016 8:30 AM Dictated Date/Time: 12/09/2016 8:28 AM
[2016-12-09] MEDS: GABAPENTIN 300 MG CAP PO SCH ×3 (11:04→20:48)
[2016-12-09] MEDS: POTASSIUM CITRATE 10 MEQ TAB PO SCH ×2 (11:05→20:48)
--- NOTE | 2016-12-09 11:44 | Pre-Operative Consultation ---
History General Date of Service: Dec 09, 2016. HPI HPI: The patient is a 66 year old female being seen for possible gallbladder disease. She complaints of constant abdominal pain for three weeks which is mainly right sided. It radiates across her abdomen and into her back. She describes the pain as a bloating and associated with nausea. She also has some diarrhea. She also notes recent hematuria. She denies melena. The patient notes a history of kidney stones, but states this does not feel the same. Historian: patient Procedure Urgency: Acute Risk Assessment Daily beta efrain use?: No Problem List Medical Problems: (1) Fever of unknown origin Status: Acute (2) Sepsis Status: Acute Medical & Surgical History Past Medical History: diabetes, high cholesterol, hypertension, hypothyroidism , kidney stones Past Surgical History: hysterectomy, lithotripsy Family History Family History: cancer, diabetes, heart disease, hypertension, renal disease Social History Hx Tobacco Use In Past Year?: No Smoking Status: Never Smoker Alcohol: none Drug Use: none Marital status: Housing status: lives with family Occupation status: retired Immunizations Have You Had Influenza Vaccine: No Date Of Influenza Vaccine: Mar 03, 2012 Have You Had Tetanus Vaccine: Yes Date Of Tetanus Immunization: Apr 02, 2002 History of Pneumococcal: No History Hepatitis B Vaccine: No Allergies Allergies: Coded Allergies: Iodinated Diagnostic Agents (Verified Allergy, Severe, HIVES AND THROAT SWELLING, 12/09/16) Medications Current Inpatient Medications Current Inpatient Medications Medications (Trade) Dose Ordered Sig/Rohit Route Start Time Stop Time Status Last Admin Dose Admin Acetaminophen (Tylenol Tab) 650 mg Q4H PRN PO 12/09/16 05:30 01/08/17 05:29 Al Hydrox/Mg Hydrox/Simethicone (Maalox Max Susp) 15 ml Q4H PRN PO 12/09/16 05:30 01/08/17 05:29 Magnesium Hydroxide (Milk Of Magnesia Susp) 30 ml Q6H PRN PO 12/09/16 05:30 01/08/17 05:29 Polyethylene (Miralax Powder Packet) 17 gm DAILY PRN PO 12/09/16 05:30 01/08/17 05:29 Ondansetron HCl (Zofran Inj) 4 mg Q6H PRN IV 12/09/16 05:30 01/08/17 05:29 12/09/16 06:16 4 MG Potassium Chloride/Sodium Chloride 1,000 ml @ 125 mls/hr Q8H IV 12/09/16 06:30 01/08/17 06:29 12/09/16 07:14 125 MLS/HR Allopurinol (Zyloprim Tab) 100 mg QAM PO 12/09/16 09:00 01/08/17 08:59 Alprazolam (Xanax Tab) 1 mg BID PRN PO 12/09/16 05:30 01/08/17 05:29 Atorvastatin Calcium (Lipitor Tab) 10 mg DAILY PO 12/09/16 09:00 01/08/17 08:59 Gabapentin (Neurontin Cap) 300 mg TID PO 12/09/16 09:00 01/08/17 08:59 Levothyroxine Sodium (Synthroid Tab) 75 mcg DAILYBB PO 12/09/16 06:14 01/08/17 06:59 Paroxetine HCl (pAXil TAB) 20 mg QAM PO 12/09/16 09:00 01/08/17 08:59 Potassium Citrate (Urocit-K Tab) 10 meq BID PO 12/09/16 09:00 01/08/17 08:59 Amiloride HCl (Amiloride HCl) 5 mg QAM PO 12/09/16 09:00 01/08/17 08:59 Miscellaneous (Iv Fluids Completed) 1 ea PRN PRN N/A 12/09/16 06:00 12/09/17 05:59 Glucose (Glucose 40% Gel) 15-30 GRAMS 15 GRAMS... UD PRN PO 12/09/16 06:30 01/08/17 06:29 Glucose (Glucose Chew Tab) 4-8 Tablets 4 Tabl... UD PRN PO 12/09/16 06:30 01/08/17 06:29 Dextrose (Dextrose 50% 50ML Syringe) 25-50ML OF 50% DW IV FOR... UD PRN IV 12/09/16 06:30 01/08/17 06:29 Glucagon (Glucagon Inj) 1 mg UD PRN SQ 12/09/16 06:30 01/08/17 06:29 Insulin Aspart (novoLOG ASPART) SLIDING SCALE G... Q6 SC 12/09/16 12:00 01/08/17 11:59 Review of Systems Review of Systems Constitutional: denies chills, denies diaphoresis, denies fever, denies weakness Eyes: reports: no symptoms ENT: reports: no symptoms reported Cardiovascular: denies: chest pain, chest tightness, chest pressure, palpitations Respiratory: denies: cough, short of breath, stridor Gastrointestinal: abdominal pain, denies constipation, diarrhea, nausea, denies vomiting Genitourinary - Female: reports: no symptoms Musculoskeletal: back pain, denies joint pain, denies joint swelling, denies muscle stiffness Integumentary: denies change in hair/nails, denies dryness, denies lumps, denies rash Neurologic: reports: no symptoms Psychiatric: reports: no symptoms Endocrine: denies: cold intolerance, heat intolerance, hair changes, goiter Hematologic / Lymphatic: denies: anemia, easy bleeding, easy bruising Allergic / Immunologic: no symptoms Physical Exam Physical Exam General Appearance: + WD/WN, No distress Ears, Nose, Throat: + normal ENT inspection Neck: No tracheal deviation, No lymphadenophy, No stiffness, No tenderness Respiratory: No chest tenderness, No accessory muscle use, No decreased breath sounds, No rhonchi, No stridor, No wheezing Cardiovascular: No tachycardia, No gallop/S3, No diastolic murmur, No gallop/S4 , No bradycardia, No systolic murmur Abdomen: + tenderness, No abnormal bowel sounds, No distension, No hernia, No organomegaly, No guarding Extremities: No deformity, No swelling, No calf tenderness, No inflammation Neurologic/Psychiatric: No motor deficit/weakness, No disorientation, No sensory deficit Skin Characteristics: No diaphoresis, No pallor, No jaundice, No rash Lymphatic: No abnormal adenopathy Diagnostics Labs Labs Results Past 24 Hours Test 12/09/16 01:13 12/09/16 01:55 12/09/16 02:06 12/09/16 02:43 Range/Units White Blood Count 10.29 4.8-10.8 K/uL Red Blood Count 3.99 4.2-5.4 M/uL Hemoglobin 11.6 12.0-16.0 g/dL Hematocrit 35.4 37-47 % Mean Corpuscular Volume 88.7 80-100 fL Mean Corpuscular Hemoglobin 29.1 25-34 pg Mean Corpuscular Hemoglobin Concent 32.8 32-36 g/dl Platelet Count 222 130-400 K/uL Mean Platelet Volume 11.9 7.4-10.4 fL Neutrophils (%) (Auto) 45.8 % Lymphocytes (%) (Auto) 42.0 % Monocytes (%) (Auto) 10.2 % Eosinophils (%) (Auto) 1.3 % Basophils (%) (Auto) 0.4 % Neutrophils # (Auto) 4.72 1.4-6.5 K/uL Lymphocytes # (Auto) 4.32 1.2-3.4 K/uL Monocytes # (Auto) 1.05 0.11-0.59 K/uL Eosinophils # (Auto) 0.13 0-0.5 K/uL Basophils # (Auto) 0.04 0-0.2 K/uL RDW Standard Deviation 46.6 36.4-46.3 fL RDW Coefficient of Variation 14.3 11.5-14.5 % Immature Granulocyte % (Auto) 0.3 % Immature Granulocyte # (Auto) 0.03 0.00-0.02 K/uL Sodium Level 140 136-145 mmol/L Potassium Level 4.0 3.5-5.1 mmol/L Chloride Level 105 98-107 mmol/L Carbon Dioxide Level 26 21-32 mmol/L Anion Gap 9.0 3-11 mmol/L Blood Urea Nitrogen 13 7-18 mg/dl Creatinine 0.87 0.60-1.20 mg/dl Est Creatinine Clear Calc Drug Dose 63.5 ml/min Estimated GFR () 79.9 Estimated GFR (Non- 68.9 BUN/Creatinine Ratio 14.4 10-20 Random Glucose 120 70-99 mg/dl Lactic Acid Level 3.1 0.4-2.0 mmol/L Calcium Level 8.7 8.5-10.1 mg/dl Total Bilirubin 0.4 0.2-1 mg/dl Direct Bilirubin 0-0.2 mg/dl Aspartate Amino Transf (AST/SGOT) 15-37 U/L Alanine Aminotransferase (ALT/SGPT) 42 12-78 U/L Alkaline Phosphatase 104 45-117 U/L Total Protein 6.8 6.4-8.2 gm/dl Albumin 3.5 3.4-5.0 gm/dl Lipase 286 73-393 U/L Urine Color YELLOW Urine Appearance CLEAR CLEAR Urine pH 7.5 4.5-7.5 Urine Specific [place] 1.010 1.000-1.030 Urine Protein NEG NEG Urine Glucose (UA) NEG NEG Urine Ketones NEG NEG Urine Occult Blood NEG NEG Urine Nitrite NEG NEG Urine Bilirubin NEG NEG Urine Urobilinogen NEG NEG Urine Leukocyte Esterase SMALL NEG Urine WBC (Auto) 5-10 0-5 /hpf Urine RBC (Auto) 0-4 0-4 /hpf Urine Hyaline Casts (Auto) 0 0-5 /lpf Urine Epithelial Cells (Auto) 0-5 0-5 /lpf Urine Bacteria (Auto) NEG NEG Chemistry Specimen Hemolysis Test 12/09/16 03:10 12/09/16 06:59 Range/Units Lactic Acid Level 2.8 0.4-2.0 mmol/L Bedside Glucose 109 70-90 mg/dl Microbiology Results 12/09/16 Blood Culture, Received Pending 12/09/16 Blood Culture, Received Pending Diagnostic Radiology Diagnostic Radiology ABDOMINAL ULTRASOUND, RIGHT UPPER QUADRANT HISTORY: Pt c/o RUQ abd pain. COMPARISON: None. FINDINGS: Pancreas: The pancreatic tail is obscured by overlying bowel gas. The remaining portions of the pancreas are within normal limits. Liver: The liver is echogenic consistent with fatty change. The liver is enlarged measuring 23 cm in length. Gallbladder: No gallbladder wall thickening. No gallstones. Small amount of gallbladder sludge. CBD: 4 mm. Right kidney: No hydronephrosis. IMPRESSION: 1. Small amount of gallbladder sludge. No gallstones. No gallbladder wall thickening. 2. Hepatomegaly demonstrating fatty change. ABDOMEN AND PELVIS CT WITHOUT CONTRAST CT DOSE: 1597.16 mGy.cm HISTORY: right flank pain - r/o stone TECHNIQUE: Multiaxial CT images of the abdomen and pelvis were performed without contrast. A dose lowering technique was utilized adhering to the principles of ALARA. COMPARISON STUDY: Abdomen and pelvis CT 12/28/2012. FINDINGS: A 3 mm nodule within the right lower lobe on image 9. No pneumoperitoneum. No pneumatosis. No acute fractures within the visualized osseous structures. The unenhanced liver, spleen, gallbladder, pancreas, and adrenal glands are unremarkable. No retroperitoneal lymphadenopathy. Normal bladder. Hysterectomy. No pelvic free fluid. Bilateral nephrolithiasis with the largest stones measuring up to 4 mm. No ureteral stones. No hydronephrosis. Suboptimal evaluation for bowel pathology due to the lack of intravenous and oral contrast. However, there is no definite bowel wall thickening or obstruction. A few colonic diverticula. The appendix appears surgically absent. IMPRESSION: 1. Bilateral nephrolithiasis. No ureteral stones. No hydronephrosis. 2. No bowel wall thickening or obstruction. 4. A 3 mm nodule within the right lower lobe. Impression Assessment and Plan Assessment and Plan Possible biliary colic/chronic cholecystitis -agree with HIDA -urology to assess stones but unlikely source of pain without ureteral stone or hydronephrosis -will see results tomorrow -if GB is source of pain then plan lap franci on Saturday
[2016-12-09] MEDS: INSULIN ASPART 100 UNITS/ML 3 ML PEN SC SCH ×3 (12:37→20:49)
--- NOTE | 2016-12-09 14:14 | DIAGNOSTIC IMAGING REPORT ---
NUCLEAR MEDICINE HEPATOBILIARY SCAN HISTORY: RUQ pain ?Biliary Akinesia? COMPARISON: Abdominal ultrasound 12/09/2016. TECHNIQUE: Immediately following the intravenous administration of 5.5 mCi Tc-99m Choletec, dynamic anterior abdominal imaging was performed. FINDINGS: Uniform hepatic tracer accumulation is shown. Prompt intrahepatic biliary excretion is seen. The gallbladder, common bile duct, and small bowel are all visualized by 35 minutes. This appearance represents the normal sequence of biliary excretion. IMPRESSION: 1. No evidence for cystic duct obstruction. Electronically signed by: Xiang Winters M.D. 12/09/2016 2:13 PM Dictated Date/Time: 12/09/2016 2:12 PM
[2016-12-09] MEDS: ATORVASTATIN 10 MG TAB PO SCH (14:21)
[2016-12-09] MEDS: ALLOPURINOL 100 MG TAB PO SCH (14:22)
[2016-12-09] MEDS: PAROXETINE 20 MG TAB PO SCH (14:22)
[2016-12-09] MEDS: AMILORIDE HCL 5 MG TAB PO SCH (14:23)
[2016-12-09 15:15] VITALS: BP 151/78; PULSE 59; TEMP 37; O2SAT 97
[2016-12-09 16:00] VITALS: O2SAT 97
--- NOTE | 2016-12-09 16:08 | Family Medicine Progress Note ---
Progress Note Date of Service Dec 09, 2016. Subjective Pt evaluation today including: conversation w/ patient, physical exam, lab review, review of studies Pain: RUQ pain Voiding: no voiding problems Patient was seen at the bedside. Continues to complain of RUQ pain, which has decrease in intensity since yesterday. It radiates to her back. She usually have kidney stones pain and she thinks this pain is different. Complains of nausea but denies vomiting. Constitutional: No fever Respiratory: No cough, No shortness of breath Cardiovascular: No chest pain Abdomen: + pain (RUQ pain), + nausea, No vomiting, No diarrhea, No GI bleeding Musculoskeletal: No muscle pain Female : No dysuria Skin: No rash Medications Current Inpatient Medications Medications (Trade) Dose Ordered Sig/Rohit Route Start Time Stop Time Status Last Admin Dose Admin Acetaminophen (Tylenol Tab) 650 mg Q4H PRN PO 12/09/16 05:30 01/08/17 05:29 Al Hydrox/Mg Hydrox/Simethicone (Maalox Max Susp) 15 ml Q4H PRN PO 12/09/16 05:30 01/08/17 05:29 Magnesium Hydroxide (Milk Of Magnesia Susp) 30 ml Q6H PRN PO 12/09/16 05:30 01/08/17 05:29 Polyethylene (Miralax Powder Packet) 17 gm DAILY PRN PO 12/09/16 05:30 01/08/17 05:29 Ondansetron HCl (Zofran Inj) 4 mg Q6H PRN IV 12/09/16 05:30 01/08/17 05:29 12/09/16 06:16 4 MG Potassium Chloride/Sodium Chloride 1,000 ml @ 125 mls/hr Q8H IV 12/09/16 06:30 01/08/17 06:29 12/09/16 14:21 125 MLS/HR Allopurinol (Zyloprim Tab) 100 mg QAM PO 12/09/16 09:00 01/08/17 08:59 12/09/16 14:22 100 MG Alprazolam (Xanax Tab) 1 mg BID PRN PO 12/09/16 05:30 01/08/17 05:29 Atorvastatin Calcium (Lipitor Tab) 10 mg DAILY PO 12/09/16 09:00 01/08/17 08:59 12/09/16 14:21 10 MG Gabapentin (Neurontin Cap) 300 mg TID PO 12/09/16 09:00 01/08/17 08:59 12/09/16 14:21 300 MG Levothyroxine Sodium (Synthroid Tab) 75 mcg DAILYBB PO 12/09/16 06:14 01/08/17 06:59 Paroxetine HCl (pAXil TAB) 20 mg QAM PO 12/09/16 09:00 01/08/17 08:59 12/09/16 14:22 20 MG Potassium Citrate (Urocit-K Tab) 10 meq BID PO 12/09/16 09:00 01/08/17 08:59 Amiloride HCl (Amiloride HCl) 5 mg QAM PO 12/09/16 09:00 01/08/17 08:59 12/09/16 14:23 5 MG Miscellaneous (Iv Fluids Completed) 1 ea PRN PRN N/A 12/09/16 06:00 12/09/17 05:59 Glucose (Glucose 40% Gel) 15-30 GRAMS 15 GRAMS... UD PRN PO 12/09/16 06:30 01/08/17 06:29 Glucose (Glucose Chew Tab) 4-8 Tablets 4 Tabl... UD PRN PO 12/09/16 06:30 01/08/17 06:29 Dextrose (Dextrose 50% 50ML Syringe) 25-50ML OF 50% DW IV FOR... UD PRN IV 12/09/16 06:30 01/08/17 06:29 Glucagon (Glucagon Inj) 1 mg UD PRN SQ 12/09/16 06:30 01/08/17 06:29 Insulin Aspart (novoLOG ASPART) SLIDING SCALE G... Q6 SC 12/09/16 12:00 01/08/17 11:59 Objective Vital Signs Date Time Temp Pulse Resp B/P (MAP) Pulse Ox O2 Delivery O2 Flow Rate FiO2 12/09/16 15:15 37.0 59 17 151/78 (102) 97 Room Air 12/09/16 07:35 Room Air 12/09/16 07:24 36.7 57 19 145/78 (100) 97 Room Air 12/09/16 06:21 36.6 67 18 155/85 98 Room Air 12/09/16 05:19 66 14 171/85 95 Room Air 12/09/16 04:41 59 22 95 12/09/16 04:31 196/108 12/09/16 04:16 66 12/09/16 04:11 63 19 96 12/09/16 04:01 179/106 12/09/16 03:41 65 14 94 12/09/16 03:36 65 14 95 12/09/16 03:31 185/93 12/09/16 03:06 69 18 97 12/09/16 03:01 168/85 12/09/16 02:36 66 12 95 12/09/16 02:31 172/86 12/09/16 02:20 71 15 95 12/09/16 02:01 153/64 12/09/16 01:50 76 12/09/16 01:45 78 18 12/09/16 01:15 72 13 97 12/09/16 01:01 163/88 12/09/16 00:45 85 21 99 12/09/16 00:43 100 Room Air 12/09/16 00:43 68 12/09/16 00:42 72 22 171/89 99 Room Air 12/09/16 00:25 36.7 79 18 164/83 99 Room Air Physical Exam General Appearance: WD/WN, no apparent distress, + obese Neck: supple, trachea midline Respiratory/Chest: chest non-tender, lungs clear, normal breath sounds, no respiratory distress, no accessory muscle use Cardiovascular: regular rate, rhythm, no edema Abdomen: normal bowel sounds, soft, + tenderness (RUQ tender on palpation) Extremities: non-tender, no pedal edema, no calf tenderness Neurologic/Psychiatric: alert, normal mood/affect Skin: normal color, warm/dry, no rash Laboratory Results Results Past 24 Hours Test 12/09/16 01:13 12/09/16 01:55 12/09/16 02:06 12/09/16 02:43 Range/Units White Blood Count 10.29 4.8-10.8 K/uL Red Blood Count 3.99 4.2-5.4 M/uL Hemoglobin 11.6 12.0-16.0 g/dL Hematocrit 35.4 37-47 % Mean Corpuscular Volume 88.7 80-100 fL Mean Corpuscular Hemoglobin 29.1 25-34 pg Mean Corpuscular Hemoglobin Concent 32.8 32-36 g/dl Platelet Count 222 130-400 K/uL Mean Platelet Volume 11.9 7.4-10.4 fL Neutrophils (%) (Auto) 45.8 % Lymphocytes (%) (Auto) 42.0 % Monocytes (%) (Auto) 10.2 % Eosinophils (%) (Auto) 1.3 % Basophils (%) (Auto) 0.4 % Neutrophils # (Auto) 4.72 1.4-6.5 K/uL Lymphocytes # (Auto) 4.32 1.2-3.4 K/uL Monocytes # (Auto) 1.05 0.11-0.59 K/uL Eosinophils # (Auto) 0.13 0-0.5 K/uL Basophils # (Auto) 0.04 0-0.2 K/uL RDW Standard Deviation 46.6 36.4-46.3 fL RDW Coefficient of Variation 14.3 11.5-14.5 % Immature Granulocyte % (Auto) 0.3 % Immature Granulocyte # (Auto) 0.03 0.00-0.02 K/uL Sodium Level 140 136-145 mmol/L Potassium Level 4.0 3.5-5.1 mmol/L Chloride Level 105 98-107 mmol/L Carbon Dioxide Level 26 21-32 mmol/L Anion Gap 9.0 3-11 mmol/L Blood Urea Nitrogen 13 7-18 mg/dl Creatinine 0.87 0.60-1.20 mg/dl Est Creatinine Clear Calc Drug Dose 63.5 ml/min Estimated GFR () 79.9 Estimated GFR (Non- 68.9 BUN/Creatinine Ratio 14.4 10-20 Random Glucose 120 70-99 mg/dl Lactic Acid Level 3.1 0.4-2.0 mmol/L Calcium Level 8.7 8.5-10.1 mg/dl Total Bilirubin 0.4 0.2-1 mg/dl Direct Bilirubin 0-0.2 mg/dl Aspartate Amino Transf (AST/SGOT) 15-37 U/L Alanine Aminotransferase (ALT/SGPT) 42 12-78 U/L Alkaline Phosphatase 104 45-117 U/L Total Protein 6.8 6.4-8.2 gm/dl Albumin 3.5 3.4-5.0 gm/dl Lipase 286 73-393 U/L Urine Color YELLOW Urine Appearance CLEAR CLEAR Urine pH 7.5 4.5-7.5 Urine Specific [place] 1.010 1.000-1.030 Urine Protein NEG NEG Urine Glucose (UA) NEG NEG Urine Ketones NEG NEG Urine Occult Blood NEG NEG Urine Nitrite NEG NEG Urine Bilirubin NEG NEG Urine Urobilinogen NEG NEG Urine Leukocyte Esterase SMALL NEG Urine WBC (Auto) 5-10 0-5 /hpf Urine RBC (Auto) 0-4 0-4 /hpf Urine Hyaline Casts (Auto) 0 0-5 /lpf Urine Epithelial Cells (Auto) 0-5 0-5 /lpf Urine Bacteria (Auto) NEG NEG Chemistry Specimen Hemolysis Test 12/09/16 03:10 12/09/16 06:59 12/09/16 12:07 Range/Units Lactic Acid Level 2.8 0.4-2.0 mmol/L Bedside Glucose 109 113 70-90 mg/dl Microbiology Results 12/09/16 Blood Culture, Received Pending 12/09/16 Blood Culture, Received Pending Assessment and Plan This is a 66 y/o female with hx of nephrolithiasis presents to the hospital complaining of RUQ pain for past 3 wks which got worse for past couple of days. Initially impression is that this may be related to history of urinary tract calculi. However, review of CT demonstrates stones only in the kidneys, which does not cause pain. There are no stones in the ureters. * Right upper quadrant pain - The etiology most likely gallbladder, given the pain got worse after having fatty food. - CT of abdomen showed b/l nephrolithiasis, no ureteral stones, hydronephrosis or bowel wall thickening or obstruction. - US showed small amount of gallbladder sludge, no gallstone or gallbladder wall thickening. Hepatomegaly demonstrating fatty change. - HIDA scan : No evidence for cystic duct obstruction - No Leukocytosis; Normal LFTs - Surgery consulted - recommends urology evaluation for stones - IV Fluids NSS + 20 KCl @ 125 ml/hr - BCx - pending - Start diet given no surgery is planned for tomorrow * Depression/Anxiety - Continue Paroxetine - Continue Alprazolam * Type 2 Diabetes Mellitus - Insulin SSI - q6h Accuchecks while fasting; AC/HS when eating * Hypothyroidism - Continue Levothyroxine * Diabetic Neuropathy - Continue Gabapentin * DVT prophylaxis - SCD - FERNANDA - Continue to hold pharmacological treatment given possible surgery Code Status - Level I Full Code Reviewed: Pt Seen/Exam by Me History denies any complains today Constitutional: denies: fever Respiratory: negative: short of breath Cardiovascular: denies chest pain General Appearance: no apparent distress Respiratory: lungs clear, no respiratory distress Cardiovascular: regular rate, rhythm Gastrointestinal: normal bowel sounds, non tender, soft Neurologic/Psychiatric: alert, oriented x 3 Skin Characteristics: warm/dry Assessment/Plan Resident Physician Supervision Note: I was present with Dr. Persaud in bedside. I verified the medley history and physical , reviewed labs and image studies, discussed the case with the resident and agree with the findings and care plan.
[2016-12-09] MEDS ORDERED: NURSING DECISION MEDICATION ORDER SCH (17:30)
[2016-12-09 23:04] VITALS: BP 152/77; PULSE 60; TEMP 36.8; O2SAT 95
[2016-12-10] MEDS: LEVOTHYROXINE 75 MCG TAB PO SCH (05:48)
[2016-12-10] MEDS: NSS + 20MEQ KCL 1000ML 1,000 ML IV SCH ×3 (05:48→20:50)
[2016-12-10] MEDS ORDERED: CEFAZOLIN 2000 MG/60 ML D5W IV SCH (06:00)
--- NOTE | 2016-12-10 06:14 | Surgery Progress Note ---
Surgery Progress Note Date of Service Dec 10, 2016. Subjective Post OP Day: HD 2 + complaints (pain about the same), + flatus, + nausea, No vomiting Objective Vital Signs: Date Time Temp Pulse Resp B/P (MAP) Pulse Ox O2 Delivery O2 Flow Rate FiO2 12/09/16 23:36 Room Air 12/09/16 23:04 36.8 60 16 152/77 (102) 95 Room Air 12/09/16 16:00 97 Room Air 12/09/16 15:15 37.0 59 17 151/78 (102) 97 Room Air 12/09/16 07:35 Room Air 12/09/16 07:24 36.7 57 19 145/78 (100) 97 Room Air 12/09/16 06:21 36.6 67 18 155/85 98 Room Air General Appearance: WD/WN, no apparent distress Head: normocephalic, atraumatic Neck: supple, trachea midline Respiratory/Chest: lungs clear Cardiovascular: regular rate, rhythm Abdomen: normal bowel sounds, non distended, soft, + tenderness (moderate) Extremities: non-tender, no pedal edema Laboratory Results: Results Past 24 Hours Test 12/09/16 06:59 12/09/16 12:07 12/09/16 17:20 12/09/16 20:43 Range/Units Bedside Glucose 109 113 98 94 70-90 mg/dl Test 12/10/16 05:07 Range/Units Assessment & Plan chronic cholecystitis w/sludge -HIDA does not show obstruction -pain is c/w GB source -medically needs to be cleared for surgery -will plan lap franci in AM
[2016-12-10 06:15] LABS: HEMATOCRIT 33.4 % (37-47); MEAN CELL VOLUME 89.5 fL (80-100); MEAN CORPUSCULAR HEMOGLOBIN 27.9 pg (25-34); MEAN CORPUSCULAR HGB CONC 31.1 g/dl (32-36); MEAN PLATELET VOLUME 11.8 fL (7.4-10.4); PLATELET COUNT 192 K/uL (130-400); RED BLOOD COUNT 3.73 M/uL (4.2-5.4); WHITE BLOOD COUNT 7.19 K/uL (4.8-10.8)
[2016-12-10 06:48] LABS: BUN/CREATININE RATIO 11.1 (10-20); CREATININE 0.71 mg/dl (0.60-1.20); POTASSIUM 3.8 mmol/L (3.5-5.1)
[2016-12-10 07:04] VITALS: BP 132/79; PULSE 56; TEMP 36.5; O2SAT 96
[2016-12-10] MEDS: INSULIN ASPART 100 UNITS/ML 3 ML PEN SC SCH ×4 (08:00→20:49)
--- NOTE | 2016-12-10 09:08 | Urology Consultation ---
History General Date of Service: Dec 10, 2016. Chief Complaint: RUQ abdominal pain Primary Care Physician: Abhijit Guillen M.D. Pt seen a urologist before?: Yes (Dr. Jose Alberto Arredondo) If yes, why?: nephrolithiasis History of Present Illness 66 yo female admitted with RUQ abdominal pain that started 2 days ago. consulted d/t hx of nephrolithiasis. Non-contrast CT scan showing bilateral renal stones, but no ureteral stones or obstruction visualized. The pt has a lengthy hx of stones requiring multiple ESWLs in the past. She sees Dr. Arredondo for this issue. Denies dysuria or hematuria this morning. + nausea. The pt has been evaluated by general surgery. [place] her RUQ pain is r/t cholecystitis with gall bladder sludge as seen on abdominal u/s. She is scheduled for lap franci tomorrow. Imaging Imaging: CT Laboratory Last 24 Hours Test 12/09/16 12:07 12/09/16 17:20 12/09/16 20:43 12/10/16 05:07 Bedside Glucose 113 mg/dl 98 mg/dl 94 mg/dl White Blood Count 7.19 K/uL Red Blood Count 3.73 M/uL Hemoglobin 10.4 g/dL Hematocrit 33.4 % Mean Corpuscular Volume 89.5 fL Mean Corpuscular Hemoglobin 27.9 pg Mean Corpuscular Hemoglobin Concent 31.1 g/dl RDW Standard Deviation 48.0 fL RDW Coefficient of Variation 14.6 % Platelet Count 192 K/uL Mean Platelet Volume 11.8 fL Sodium Level 145 mmol/L Potassium Level 3.8 mmol/L Chloride Level 112 mmol/L Carbon Dioxide Level 28 mmol/L Anion Gap 5.0 mmol/L Blood Urea Nitrogen 8 mg/dl Creatinine 0.71 mg/dl Est Creatinine Clear Calc Drug Dose 77.8 ml/min Estimated GFR () 102.2 Estimated GFR (Non- 88.1 BUN/Creatinine Ratio 11.1 Random Glucose 95 mg/dl Calcium Level 8.0 mg/dl Test 12/10/16 08:14 Bedside Glucose 98 mg/dl Problem List Medical Problems: (1) Fever of unknown origin Status: Acute (2) Right flank pain Status: Acute (3) Right upper quadrant abdominal pain Status: Acute (4) Sepsis Status: Acute Past History depression, diabetes, high cholesterol, hypothyroidism, kidney stones Past Surgical History: lithotripsy Family History Cancer Diabetes mellitus Heart disease Hypertension Kidney stones Social History Hx Tobacco Use In Past Year?: No Smoking: non-smoker Alcohol: never Drug use: none Marital status: Housing status: lives with family Occupation status: retired Immunizations History of Influenza Vaccine: No Influenza Vaccine Date: Mar 03, 2012 History of Tetanus Vaccine?: Yes Tetanus Immunization Date: Apr 02, 2002 History of Pneumococcal: No History of Hepatitis B Vaccine: No History of MDRO No Allergies Coded Allergies: Iodinated Diagnostic Agents (Verified Allergy, Severe, HIVES AND THROAT SWELLING, 12/09/16) Medications Home Medications: Home Meds and Scripts Medications Dose Route/Sig Max Daily Dose Days Date Category Potassium Citrate ER (Potassium Citrate (Alkalinizer) 1,080 Mg Tab 2 Tab PO BID 12/09/16 Reported Fish Oil 1200 mg ([place]-3 Fatty Acids) 1 Cap Cap 1,200 Mg PO TID 12/09/16 Reported Lipitor (Atorvastatin Calcium) 10 Mg Tab 10 Mg PO DAILY 12/09/16 Reported Aspirin Ec (Aspirin) 81 Mg Tab 81 Mg PO DAILY 12/09/16 Reported B-12 (Cyanocobalamin) 1,000 Mcg Cap 1,000 Mcg PO QAM 12/17/15 Reported Levothyroxine Sodium 75 Mcg Tab 75 Mcg PO QAM 12/17/15 Reported Metformin HCl 500 Mg Tab 500 Mg PO TID 05/26/14 Reported Magnesium (Magnesium Oxide (Mg Supplement) 400 Mg Cap 400 Mg PO NOON 05/26/14 Reported Amiloride Hcl 5 Mg Tab 5 Mg PO QAM 05/26/14 Reported Gabapentin 300 Mg Cap 300 Mg PO TID 03/14/14 Reported Paxil (Paroxetine HCl) 20 Mg Tab 20 Mg PO QAM 04/19/13 Reported Xanax (Alprazolam) 1 Mg Tab 1 Mg PO BID PRN 04/19/13 Reported Zyloprim (Allopurinol) 100 Mg Tab 100 Mg PO QAM 11/09/11 Reported Inpatient Medications: Current Inpatient Medications Medications (Trade) Dose Ordered Sig/Rohit Route Start Time Stop Time Status Last Admin Dose Admin Acetaminophen (Tylenol Tab) 650 mg Q4H PRN PO 12/09/16 05:30 01/08/17 05:29 Al Hydrox/Mg Hydrox/Simethicone (Maalox Max Susp) 15 ml Q4H PRN PO 12/09/16 05:30 01/08/17 05:29 Magnesium Hydroxide (Milk Of Magnesia Susp) 30 ml Q6H PRN PO 12/09/16 05:30 01/08/17 05:29 Polyethylene (Miralax Powder Packet) 17 gm DAILY PRN PO 12/09/16 05:30 01/08/17 05:29 Ondansetron HCl (Zofran Inj) 4 mg Q6H PRN IV 12/09/16 05:30 01/08/17 05:29 12/09/16 06:16 4 MG Potassium Chloride/Sodium Chloride 1,000 ml @ 125 mls/hr Q8H IV 12/09/16 06:30 01/08/17 06:29 12/10/16 05:48 125 MLS/HR Allopurinol (Zyloprim Tab) 100 mg QAM PO 12/09/16 09:00 01/08/17 08:59 12/09/16 14:22 100 MG Alprazolam (Xanax Tab) 1 mg BID PRN PO 12/09/16 05:30 01/08/17 05:29 12/09/16 23:07 1 MG Atorvastatin Calcium (Lipitor Tab) 10 mg DAILY PO 12/09/16 09:00 01/08/17 08:59 12/09/16 14:21 10 MG Gabapentin (Neurontin Cap) 300 mg TID PO 12/09/16 09:00 01/08/17 08:59 12/09/16 20:48 300 MG Levothyroxine Sodium (Synthroid Tab) 75 mcg DAILYBB PO 12/09/16 06:14 01/08/17 06:59 12/10/16 05:48 75 MCG Paroxetine HCl (pAXil TAB) 20 mg QAM PO 12/09/16 09:00 01/08/17 08:59 12/09/16 14:22 20 MG Potassium Citrate (Urocit-K Tab) 10 meq BID PO 12/09/16 09:00 01/08/17 08:59 12/09/16 20:48 10 MEQ Amiloride HCl (Amiloride HCl) 5 mg QAM PO 12/09/16 09:00 01/08/17 08:59 12/09/16 14:23 5 MG Miscellaneous (Iv Fluids Completed) 1 ea PRN PRN N/A 12/09/16 06:00 12/09/17 05:59 Glucose (Glucose 40% Gel) 15-30 GRAMS 15 GRAMS... UD PRN PO 12/09/16 06:30 01/08/17 06:29 Glucose (Glucose Chew Tab) 4-8 Tablets 4 Tabl... UD PRN PO 12/09/16 06:30 01/08/17 06:29 Dextrose (Dextrose 50% 50ML Syringe) 25-50ML OF 50% DW IV FOR... UD PRN IV 12/09/16 06:30 01/08/17 06:29 Glucagon (Glucagon Inj) 1 mg UD PRN SQ 12/09/16 06:30 01/08/17 06:29 Insulin Aspart (novoLOG ASPART) SLIDING SCALE G... ACHS SC 12/09/16 21:00 01/08/17 11:59 Cefazolin Sodium 60 ml @ 100 mls/hr PREOP IV 12/10/16 06:00 12/10/16 18:00 Review of Systems Review of Systems Constitutional: No fever, No chills Eyes: No double vision Neurological: No dizzy Endocrine: No excessive thirst Gastrointestinal: + abdominal pain (RUQ), + nausea, No see HPI, No vomiting Cardiovascular: No chest pain Respiratory: No shortness of breath Skin: No rash Musculoskeletal: No back pain Female : + kidney stones, No painful urination, No blood in urine Physical Exam Vital Signs: Vital Signs Past 12 Hours Date Time Temp Pulse Resp B/P (MAP) Pulse Ox O2 Delivery O2 Flow Rate FiO2 12/10/16 07:04 36.5 56 19 132/79 (96) 96 Room Air 12/09/16 23:36 Room Air 12/09/16 23:04 36.8 60 16 152/77 (102) 95 Room Air Physical Exam: General Appearance: no apparent distress Eyes: bilateral eyes normal inspection ENT: hearing grossly normal Neck: no JVD Respiratory/Chest: no respiratory distress, no accessory muscle use Cardiovascular: no JVD Extremities: normal inspection Neurologic/Psychiatric: alert, normal mood/affect, oriented x 3 Skin: normal color Assessment & Plan Assessment & Plan A/P: RUQ abdominal pain, bilateral nephrolithiasis AFVSS. No evidence of obstructing stone on CT. Agree with general surgery's plan as her pain is most likely r/t cholecystitis. Will avoid any intervention at this time. Re-evaluate if pain persists after lap franci. Thanks for the consult. No further management at this time. Recall PRN issues. She is scheduled to f/u with Dr. Arredondo in December. Will keep as scheduled.
[2016-12-10] MEDS: ALLOPURINOL 100 MG TAB PO SCH (09:26)
[2016-12-10] MEDS: POTASSIUM CITRATE 10 MEQ TAB PO SCH ×2 (09:27→20:49)
[2016-12-10] MEDS: PAROXETINE 20 MG TAB PO SCH (09:28)
[2016-12-10] MEDS: ATORVASTATIN 10 MG TAB PO SCH (09:28)
[2016-12-10] MEDS: GABAPENTIN 300 MG CAP PO SCH ×3 (09:28→20:49)
[2016-12-10] MEDS: AMILORIDE HCL 5 MG TAB PO SCH (09:54)
--- NOTE | 2016-12-10 14:58 | Anesthesiology Progress Note ---
Pre-OP Anesthesia Assessment Date of Note Dec 10, 2016. Review patient information reviewed, chart reviewed, labs reviewed, acceptable for surgery Notes The patient has a history of DM type 2, hyperlipidemia, hypothyroidism and nephrolithiasis. She is very active physically. She is a mallampatti 4 and has a 2 1/2 finger-breadth thyromental distance. She is an acceptable candidate for surgery tomorrow.
[2016-12-10 15:11] VITALS: BP 172/81; PULSE 55; TEMP 36.8; O2SAT 97
--- NOTE | 2016-12-10 17:13 | Family Medicine Progress Note ---
Progress Note Date of Service Dec 10, 2016. Subjective Pt evaluation today including: conversation w/ patient, physical exam, lab review Pain: RUQ pain Voiding: no voiding problems Patient was seen at the bedside. She states that her pain has improved since yesterday. She mostly have pain now after eating. Denies chest pain, SOB, nausea or vomiting. Constitutional: No fever Respiratory: No cough, No wheezing, No shortness of breath Cardiovascular: No chest pain, No edema Abdomen: + pain, No nausea, No vomiting, No diarrhea, No constipation, No GI bleeding (RUQ pain) Musculoskeletal: No muscle pain Skin: No rash Medications Current Inpatient Medications Medications (Trade) Dose Ordered Sig/Rohit Route Start Time Stop Time Status Last Admin Dose Admin Acetaminophen (Tylenol Tab) 650 mg Q4H PRN PO 12/09/16 05:30 01/08/17 05:29 Al Hydrox/Mg Hydrox/Simethicone (Maalox Max Susp) 15 ml Q4H PRN PO 12/09/16 05:30 01/08/17 05:29 Magnesium Hydroxide (Milk Of Magnesia Susp) 30 ml Q6H PRN PO 12/09/16 05:30 01/08/17 05:29 Polyethylene (Miralax Powder Packet) 17 gm DAILY PRN PO 12/09/16 05:30 01/08/17 05:29 Ondansetron HCl (Zofran Inj) 4 mg Q6H PRN IV 12/09/16 05:30 01/08/17 05:29 12/09/16 06:16 4 MG Potassium Chloride/Sodium Chloride 1,000 ml @ 125 mls/hr Q8H IV 12/09/16 06:30 01/08/17 06:29 12/10/16 14:10 125 MLS/HR Allopurinol (Zyloprim Tab) 100 mg QAM PO 12/09/16 09:00 01/08/17 08:59 12/10/16 09:26 100 MG Alprazolam (Xanax Tab) 1 mg BID PRN PO 12/09/16 05:30 01/08/17 05:29 12/09/16 23:07 1 MG Atorvastatin Calcium (Lipitor Tab) 10 mg DAILY PO 12/09/16 09:00 01/08/17 08:59 12/10/16 09:28 10 MG Gabapentin (Neurontin Cap) 300 mg TID PO 12/09/16 09:00 01/08/17 08:59 12/10/16 14:11 300 MG Levothyroxine Sodium (Synthroid Tab) 75 mcg DAILYBB PO 12/09/16 06:14 01/08/17 06:59 12/10/16 05:48 75 MCG Paroxetine HCl (pAXil TAB) 20 mg QAM PO 12/09/16 09:00 01/08/17 08:59 12/10/16 09:28 20 MG Potassium Citrate (Urocit-K Tab) 10 meq BID PO 12/09/16 09:00 01/08/17 08:59 12/10/16 09:27 10 MEQ Amiloride HCl (Amiloride HCl) 5 mg QAM PO 12/09/16 09:00 01/08/17 08:59 12/10/16 09:54 5 MG Miscellaneous (Iv Fluids Completed) 1 ea PRN PRN N/A 12/09/16 06:00 12/09/17 05:59 Glucose (Glucose 40% Gel) 15-30 GRAMS 15 GRAMS... UD PRN PO 12/09/16 06:30 01/08/17 06:29 Glucose (Glucose Chew Tab) 4-8 Tablets 4 Tabl... UD PRN PO 12/09/16 06:30 01/08/17 06:29 Dextrose (Dextrose 50% 50ML Syringe) 25-50ML OF 50% DW IV FOR... UD PRN IV 12/09/16 06:30 01/08/17 06:29 Glucagon (Glucagon Inj) 1 mg UD PRN SQ 12/09/16 06:30 01/08/17 06:29 Insulin Aspart (novoLOG ASPART) SLIDING SCALE G... ACHS SC 12/09/16 21:00 01/08/17 11:59 Cefazolin Sodium 60 ml @ 100 mls/hr PREOP IV 12/10/16 06:00 12/10/16 18:00 Pantoprazole Sodium (Protonix Tab) 40 mg QAM PO 12/11/16 09:00 01/10/17 08:59 Objective Vital Signs Date Time Temp Pulse Resp B/P (MAP) Pulse Ox O2 Delivery O2 Flow Rate FiO2 12/10/16 15:11 36.8 55 18 172/81 (111) 97 Room Air 12/10/16 07:30 Room Air 12/10/16 07:04 36.5 56 19 132/79 (96) 96 Room Air 12/09/16 23:36 Room Air 12/09/16 23:04 36.8 60 16 152/77 (102) 95 Room Air Physical Exam General Appearance: WD/WN, no apparent distress Neck: supple, trachea midline Respiratory/Chest: chest non-tender, lungs clear, normal breath sounds, no respiratory distress, no accessory muscle use Cardiovascular: regular rate, rhythm, no edema Abdomen: normal bowel sounds, soft, + tenderness (at RUQ) Extremities: non-tender, no pedal edema Neurologic/Psychiatric: alert, normal mood/affect, oriented x 3 Skin: normal color, warm/dry, no rash Laboratory Results Results Past 24 Hours Test 12/09/16 17:20 12/09/16 20:43 12/10/16 05:07 12/10/16 08:14 Range/Units Bedside Glucose 98 94 98 70-90 mg/dl White Blood Count 7.19 4.8-10.8 K/uL Red Blood Count 3.73 4.2-5.4 M/uL Hemoglobin 10.4 12.0-16.0 g/dL Hematocrit 33.4 37-47 % Mean Corpuscular Volume 89.5 80-100 fL Mean Corpuscular Hemoglobin 27.9 25-34 pg Mean Corpuscular Hemoglobin Concent 31.1 32-36 g/dl RDW Standard Deviation 48.0 36.4-46.3 fL RDW Coefficient of Variation 14.6 11.5-14.5 % Platelet Count 192 130-400 K/uL Mean Platelet Volume 11.8 7.4-10.4 fL Sodium Level 145 136-145 mmol/L Potassium Level 3.8 3.5-5.1 mmol/L Chloride Level 112 98-107 mmol/L Carbon Dioxide Level 28 21-32 mmol/L Anion Gap 5.0 3-11 mmol/L Blood Urea Nitrogen 8 7-18 mg/dl Creatinine 0.71 0.60-1.20 mg/dl Est Creatinine Clear Calc Drug Dose 77.8 ml/min Estimated GFR () 102.2 Estimated GFR (Non- 88.1 BUN/Creatinine Ratio 11.1 10-20 Random Glucose 95 70-99 mg/dl Calcium Level 8.0 8.5-10.1 mg/dl Test 12/10/16 11:47 Range/Units Bedside Glucose 104 70-90 mg/dl Assessment and Plan This is a 66 y/o female with hx of nephrolithiasis presents to the hospital complaining of RUQ pain for past 3 wks which got worse for past couple of days. Initially impression is that this may be related to history of urinary tract calculi. However, review of CT demonstrates stones only in the kidneys, which does not cause pain. There are no stones in the ureters. Patient denies any chest pain and she is very active. Her CXR was unremarkable and EKG showed sinus Bradycardia. She doesn't have have any hx of CHF, ischemic heart disease or cerebrovascular disease. Her last echo was in 2013 which was normal with EF 65-70%. Patient is a acceptable candidate for surgery. * Right upper quadrant pain - The etiology most likely gallbladder, given the pain got worse after having fatty food. - CT of abdomen showed b/l nephrolithiasis, no ureteral stones, hydronephrosis or bowel wall thickening or obstruction. - US showed small amount of gallbladder sludge, no gallstone or gallbladder wall thickening. Hepatomegaly demonstrating fatty change. - HIDA scan : No evidence for cystic duct obstruction - No Leukocytosis; Normal LFTs - Surgery consulted - recommends urology evaluation for stones - Patient was seen by Urologist and didn't recommend any intervention this time, agree with lap franci. Will f/u in clinic - IV Fluids NSS + 20 KCl @ 125 ml/hr - BCx NG to date - Scheduled lap franci tomorrow am, NPO after midnight * Depression/Anxiety - Continue Paroxetine - Continue Alprazolam * Type 2 Diabetes Mellitus - Insulin SSI - q6h Accuchecks while fasting; AC/HS when eating * Hypothyroidism - Continue Levothyroxine * Diabetic Neuropathy - Continue Gabapentin * GI prophylaxis - Protonix 40mg daily * VTE prophylaxis - SCD - FERNANDA - Continue to hold pharmacological treatment given surgery tomorrow am Code Status - Level I Full Code Resident Physician Supervision Note: I was present with Dr. Persaud during the history and exam. I discussed the case with the resident and agree with the findings and plan as documented in the note. Any exceptions or clarifications are listed here: 66-year-old female admitted with right upper quadrant pain and history consistent with biliary colic. General surgery is planned laparoscopic cholecystectomy tomorrow. Her review of systems is negative from a cardiopulmonary standpoint; she tells me that she can push mow her grass without any chest pain or shortness of breath. She had chest x-ray which was normal upon admission; and EKG is pending today. Her diabetes demonstrates excellent control with a A1c of 6.1. Her metformin is on hold given her acute illness and recent use of intravenous dye. She required any insulin. She does have a very mild anemia Add Protonix by mouth Heme check stools Hold aspirin for now Documented By: Kahlil Bhatia
[2016-12-10 19:41] VITALS: BP 158/93; PULSE 56
[2016-12-10 23:16] VITALS: BP 170/78; PULSE 58; TEMP 36.8; O2SAT 97
[2016-12-10] MEDS ORDERED: HydrALAZINE HCL 20 MG/ML VIAL IV. PRN (23:30)
[2016-12-10] MEDS ORDERED: ACETAMINOPHEN IV 650 MG in EMPTY BAG 0 ML IV PRN (23:30)
[2016-12-11] VITALS (11 sets, daily range): BP systolic 110–185; BP diastolic 53–90; PULSE 55–62; TEMP 36.9–37.2; O2SAT 92–98
[2016-12-11] MEDS ORDERED: NURSING DECISION MEDICATION ORDER SCH (00:15)
[2016-12-11] MEDS: NSS + 20MEQ KCL 1000ML 1,000 ML IV SCH ×3 (04:40→22:43)
[2016-12-11] MEDS: LEVOTHYROXINE 75 MCG TAB PO SCH (05:26)
[2016-12-11 05:49] LABS: HEMATOCRIT 33.9 % (37-47); MEAN CELL VOLUME 88.7 fL (80-100); MEAN CORPUSCULAR HEMOGLOBIN 27.5 pg (25-34); MEAN PLATELET VOLUME 11.5 fL (7.4-10.4); PLATELET COUNT 204 K/uL (130-400); RED BLOOD COUNT 3.82 M/uL (4.2-5.4)
[2016-12-11] MEDS ORDERED: CEFAZOLIN IV 2,000 MG in DEXTROSE 5% 50ML 50 ML IV SCH (06:00)
[2016-12-11] MEDS: INSULIN ASPART 100 UNITS/ML 3 ML PEN SC SCH ×4 (06:00→20:50)
[2016-12-11 06:18] LABS: BUN/CREATININE RATIO 9.7 (10-20); CALCIUM 8.2 mg/dl (8.5-10.1); CREATININE 0.73 mg/dl (0.60-1.20); POTASSIUM 3.7 mmol/L (3.5-5.1)
[2016-12-11] MEDS: POTASSIUM CITRATE 10 MEQ TAB PO SCH ×2 (09:00→20:50)
[2016-12-11] MEDS: ATORVASTATIN 10 MG TAB PO SCH (09:00)
[2016-12-11] MEDS: ALLOPURINOL 100 MG TAB PO SCH (09:00)
[2016-12-11] MEDS: PAROXETINE 20 MG TAB PO SCH (09:00)
[2016-12-11] MEDS: GABAPENTIN 300 MG CAP PO SCH ×3 (09:00→20:50)
[2016-12-11] MEDS: PANTOprazole SOD 40 MG TAB PO SCH (09:00)
[2016-12-11] MEDS: AMILORIDE HCL 5 MG TAB PO SCH (09:00)
--- NOTE | 2016-12-11 10:24 | Surgery Progress Note ---
Surgery Progress Note Date of Service Dec 11, 2016. Subjective + complaints ("not feeling well" had abdominal pain and nausea after chicken broth yesterday, pain is minimal right now in right upper abdomen.), + pain controlled, + diet (tolerated liquids for dinner), No chest pain, No SOB, No nausea, No vomiting Objective Vital Signs: Date Time Temp Pulse Resp B/P (MAP) Pulse Ox O2 Delivery O2 Flow Rate FiO2 12/11/16 08:43 61 110/63 (79) 12/11/16 08:31 97 Room Air 12/11/16 08:24 170/84 (112) 12/11/16 08:01 185/90 (121) 182/87 (118) 12/11/16 08:00 37.0 55 18 118/80 (93) 97 Room Air 12/11/16 03:05 149/76 (100) 12/10/16 23:16 36.8 58 16 170/78 (108) 97 Room Air 12/10/16 19:41 56 158/93 (114) 12/10/16 19:40 Room Air 12/10/16 15:11 36.8 55 18 172/81 (111) 97 Room Air General Appearance: WD/WN, no apparent distress, + obese Head: normocephalic, atraumatic Respiratory/Chest: lungs clear, normal breath sounds, no respiratory distress, no accessory muscle use Cardiovascular: regular rate, rhythm, no murmur Abdomen: non distended, soft, + tenderness (RUQ on light palpation, no rebound , rigidity, or peritonitis) Laboratory Results: Results Past 24 Hours Test 12/10/16 11:47 12/10/16 17:08 12/10/16 20:48 12/11/16 04:57 Range/Units Bedside Glucose 104 90 91 70-90 mg/dl White Blood Count 8.60 4.8-10.8 K/uL Red Blood Count 3.82 4.2-5.4 M/uL Hemoglobin 10.5 12.0-16.0 g/dL Hematocrit 33.9 37-47 % Mean Corpuscular Volume 88.7 80-100 fL Mean Corpuscular Hemoglobin 27.5 25-34 pg Mean Corpuscular Hemoglobin Concent 31.0 32-36 g/dl RDW Standard Deviation 47.4 36.4-46.3 fL RDW Coefficient of Variation 14.6 11.5-14.5 % Platelet Count 204 130-400 K/uL Mean Platelet Volume 11.5 7.4-10.4 fL Sodium Level 144 136-145 mmol/L Potassium Level 3.7 3.5-5.1 mmol/L Chloride Level 112 98-107 mmol/L Carbon Dioxide Level 28 21-32 mmol/L Anion Gap 4.0 3-11 mmol/L Blood Urea Nitrogen 7 7-18 mg/dl Creatinine 0.73 0.60-1.20 mg/dl Est Creatinine Clear Calc Drug Dose 75.6 ml/min Estimated GFR () 98.8 Estimated GFR (Non- 85.2 BUN/Creatinine Ratio 9.7 10-20 Random Glucose 91 70-99 mg/dl Calcium Level 8.2 8.5-10.1 mg/dl Test 12/11/16 05:54 Range/Units Bedside Glucose 95 70-90 mg/dl Assessment & Plan Chronic Cholecystitis with Biliary sludge - vitals stable - Pain moderate after chicken broth yesterday - no leukocytosis - EKG and CXR pre-op, spoke with Dr. Walker who stated she was medically optimized for surgery today Plan: continue NPO plan for laparoscopic cholecystectomy today continue current medical management Dr. Anthony has seen patient and agrees with above
--- NOTE | 2016-12-11 11:48 | Family Medicine Progress Note ---
Progress Note Date of Service Dec 11, 2016. Subjective Pt evaluation today including: conversation w/ patient, physical exam, lab review Voiding: no voiding problems Patient was seen at the bedside. She still has pain on the RUQ. She describes the pain as "fullness". Denies acid reflex in the past. Denies nausea or vomiting. Constitutional: No fever Respiratory: No cough, No shortness of breath Abdomen: + pain (RUQ pain), No nausea, No vomiting, No diarrhea, No constipation Skin: No rash Medications Current Inpatient Medications Medications (Trade) Dose Ordered Sig/Rohit Route Start Time Stop Time Status Last Admin Dose Admin Acetaminophen (Tylenol Tab) 650 mg Q4H PRN PO 12/09/16 05:30 01/08/17 05:29 Al Hydrox/Mg Hydrox/Simethicone (Maalox Max Susp) 15 ml Q4H PRN PO 12/09/16 05:30 01/08/17 05:29 Magnesium Hydroxide (Milk Of Magnesia Susp) 30 ml Q6H PRN PO 12/09/16 05:30 01/08/17 05:29 Polyethylene (Miralax Powder Packet) 17 gm DAILY PRN PO 12/09/16 05:30 01/08/17 05:29 Ondansetron HCl (Zofran Inj) 4 mg Q6H PRN IV 12/09/16 05:30 01/08/17 05:29 12/09/16 06:16 4 MG Potassium Chloride/Sodium Chloride 1,000 ml @ 125 mls/hr Q8H IV 12/09/16 06:30 01/08/17 06:29 12/11/16 04:40 125 MLS/HR Allopurinol (Zyloprim Tab) 100 mg QAM PO 12/09/16 09:00 01/08/17 08:59 12/10/16 09:26 100 MG Alprazolam (Xanax Tab) 1 mg BID PRN PO 12/09/16 05:30 01/08/17 05:29 12/09/16 23:07 1 MG Atorvastatin Calcium (Lipitor Tab) 10 mg DAILY PO 12/09/16 09:00 01/08/17 08:59 12/10/16 09:28 10 MG Gabapentin (Neurontin Cap) 300 mg TID PO 12/09/16 09:00 01/08/17 08:59 12/10/16 20:49 300 MG Levothyroxine Sodium (Synthroid Tab) 75 mcg DAILYBB PO 12/09/16 06:14 01/08/17 06:59 12/10/16 05:48 75 MCG Paroxetine HCl (pAXil TAB) 20 mg QAM PO 12/09/16 09:00 01/08/17 08:59 12/10/16 09:28 20 MG Potassium Citrate (Urocit-K Tab) 10 meq BID PO 12/09/16 09:00 01/08/17 08:59 12/10/16 20:49 10 MEQ Amiloride HCl (Amiloride HCl) 5 mg QAM PO 12/09/16 09:00 01/08/17 08:59 12/10/16 09:54 5 MG Miscellaneous (Iv Fluids Completed) 1 ea PRN PRN N/A 12/09/16 06:00 12/09/17 05:59 Glucose (Glucose 40% Gel) 15-30 GRAMS 15 GRAMS... UD PRN PO 12/09/16 06:30 01/08/17 06:29 Glucose (Glucose Chew Tab) 4-8 Tablets 4 Tabl... UD PRN PO 12/09/16 06:30 01/08/17 06:29 Dextrose (Dextrose 50% 50ML Syringe) 25-50ML OF 50% DW IV FOR... UD PRN IV 12/09/16 06:30 01/08/17 06:29 Glucagon (Glucagon Inj) 1 mg UD PRN SQ 12/09/16 06:30 01/08/17 06:29 Pantoprazole Sodium (Protonix Tab) 40 mg QAM PO 12/11/16 09:00 01/10/17 08:59 Hydralazine HCl (HydrALAZINE INJ) 10 mg Q6 PRN IV. 12/10/16 23:30 01/09/17 23:29 Acetaminophen 650 mg/Empty Bag 65 ml @ 260 mls/hr Q6H PRN IV 12/10/16 23:30 01/09/17 23:29 Insulin Aspart (novoLOG ASPART) SLIDING SCALE G... Q6 SC 12/11/16 06:00 01/10/17 05:59 Objective Vital Signs Date Time Temp Pulse Resp B/P (MAP) Pulse Ox O2 Delivery O2 Flow Rate FiO2 12/11/16 08:43 61 110/63 (79) 12/11/16 08:31 97 Room Air 12/11/16 08:24 170/84 (112) 12/11/16 08:01 185/90 (121) 182/87 (118) 12/11/16 08:00 37.0 55 18 118/80 (93) 97 Room Air 12/11/16 08:00 Room Air 12/11/16 03:05 149/76 (100) 12/10/16 23:16 36.8 58 16 170/78 (108) 97 Room Air 12/10/16 19:41 56 158/93 (114) 12/10/16 19:40 Room Air 12/10/16 15:11 36.8 55 18 172/81 (111) 97 Room Air Physical Exam General Appearance: WD/WN, no apparent distress, + obese Neck: supple, trachea midline Respiratory/Chest: chest non-tender, lungs clear, normal breath sounds, no respiratory distress, no accessory muscle use Cardiovascular: regular rate, rhythm Abdomen: normal bowel sounds, soft, + tenderness (at RUQ) Extremities: non-tender, no pedal edema Neurologic/Psychiatric: alert, normal mood/affect, oriented x 3 Skin: normal color, warm/dry, no rash Laboratory Results Results Past 24 Hours Test 12/10/16 11:47 12/10/16 17:08 12/10/16 20:48 12/11/16 04:57 Range/Units Bedside Glucose 104 90 91 70-90 mg/dl White Blood Count 8.60 4.8-10.8 K/uL Red Blood Count 3.82 4.2-5.4 M/uL Hemoglobin 10.5 12.0-16.0 g/dL Hematocrit 33.9 37-47 % Mean Corpuscular Volume 88.7 80-100 fL Mean Corpuscular Hemoglobin 27.5 25-34 pg Mean Corpuscular Hemoglobin Concent 31.0 32-36 g/dl RDW Standard Deviation 47.4 36.4-46.3 fL RDW Coefficient of Variation 14.6 11.5-14.5 % Platelet Count 204 130-400 K/uL Mean Platelet Volume 11.5 7.4-10.4 fL Sodium Level 144 136-145 mmol/L Potassium Level 3.7 3.5-5.1 mmol/L Chloride Level 112 98-107 mmol/L Carbon Dioxide Level 28 21-32 mmol/L Anion Gap 4.0 3-11 mmol/L Blood Urea Nitrogen 7 7-18 mg/dl Creatinine 0.73 0.60-1.20 mg/dl Est Creatinine Clear Calc Drug Dose 75.6 ml/min Estimated GFR () 98.8 Estimated GFR (Non- 85.2 BUN/Creatinine Ratio 9.7 10-20 Random Glucose 91 70-99 mg/dl Calcium Level 8.2 8.5-10.1 mg/dl Total Bilirubin 0.4 0.2-1 mg/dl Direct Bilirubin 0.1 0-0.2 mg/dl Aspartate Amino Transf (AST/SGOT) 28 15-37 U/L Alanine Aminotransferase (ALT/SGPT) 33 12-78 U/L Alkaline Phosphatase 54 45-117 U/L Total Protein 6.2 6.4-8.2 gm/dl Albumin 3.3 3.4-5.0 gm/dl Lipase 159 73-393 U/L Test 12/11/16 05:54 Range/Units Bedside Glucose 95 70-90 mg/dl Assessment and Plan This is a 66 y/o female with hx of nephrolithiasis presents to the hospital complaining of RUQ pain for past 3 wks which got worse for past couple of days. Initially impression is that this may be related to history of urinary tract calculi. However, review of CT demonstrates stones only in the kidneys, which does not cause pain. There are no stones in the ureters. Patient will have lap franci today. * Right upper quadrant pain - The etiology most likely gallbladder, given the pain got worse after having fatty food. - CT of abdomen showed b/l nephrolithiasis, no ureteral stones, hydronephrosis or bowel wall thickening or obstruction. - US showed small amount of gallbladder sludge, no gallstone or gallbladder wall thickening. Hepatomegaly demonstrating fatty change. - HIDA scan : No evidence for cystic duct obstruction - No Leukocytosis; Normal LFTs - Surgery consulted - recommends urology evaluation for stones - Patient was seen by Urologist and didn't recommend any intervention this time, agree with lap franci. Will f/u in clinic - IV Fluids NSS + 20 KCl @ 125 ml/hr - BCx NG to date - Lipase was done on admission and it's normal (159). Will repeat lipase and Lfts. - Scheduled lap franci today * Mildly anemic - Her last Hgb was 10.5. Her hgb was 12.8 in 07/2016. - Will continue with protonix 40mg - Order FOBT - Continue to hold ASA * Depression/Anxiety - Continue Paroxetine - Continue Alprazolam * Type 2 Diabetes Mellitus - Insulin SSI - q6h Accuchecks while fasting; AC/HS when eating - Last hgb was 6.1 in 08/13 * Hypothyroidism - Continue Levothyroxine * Diabetic Neuropathy - Continue Gabapentin * GI prophylaxis - Protonix 40mg daily * VTE prophylaxis - SCD - FERNANDA - Continue to hold pharmacological treatment given surgery Code Status - Level I Full Code Resident Physician Supervision Note: I was present with Dr. Persaud during the history and exam. I discussed the case with the resident and agree with the findings and plan as documented in the note. Any exceptions or clarifications are listed here: Upon my exam, the patient has RUQ abdominal tenderness, but no rebound or guarding. Recommend adding lipase and LFTs to today's labs. I also discussed the plan with general surgery. Documented By: Kahlil Bhatia
[2016-12-11] MEDS ORDERED: LIDOCAINE HCL 2% 2 ML VIAL (20MG/ML) ONE (14:10)
[2016-12-11] MEDS ORDERED: DEXAMETHASONE SOD INJ 4 MG/ML VIAL ONE (14:10)
[2016-12-11] MEDS ORDERED: ROCURONIUM BROMIDE 10 MG/ML 5 ML VIAL ONE (14:10)
[2016-12-11] MEDS ORDERED: GLYCOPYRROLATE INJ 0.2 MG/ML VIAL ONE ×2 (14:10→14:57)
[2016-12-11] MEDS ORDERED: PROPOFOL IV EMULSION 10 MG/ML 20 ML VIAL IV ONE (14:10)
[2016-12-11] MEDS ORDERED: MIDAZOLAM HCL 1 MG/ML 2ML VIAL ONE (14:10)
[2016-12-11] MEDS ORDERED: ONDANSETRON INJ 2 MG/ML 2 ML VIAL ONE (14:10)
[2016-12-11] MEDS ORDERED: FENTANYL CITRATE INJ 50 MCG/1 ML 2 ML VIAL ONE ×3 (14:10→15:11)
[2016-12-11] MEDS ORDERED: NEOSTIGMINE METHYLSULFATE 5 MG/5 ML SYR ONE (14:10)
[2016-12-11] MEDS ORDERED: CONRAY 60% 50 ML VIAL ONE (14:13)
[2016-12-11] MEDS ORDERED: BUPIVACAINE 0.5 % 5 MG/1 ML MPF 30ML VIAL ONE (14:14)
[2016-12-11] MEDS ORDERED: HEPARIN SOD (PORCINE) 1000 UNIT/ML 10 ML VIAL ONE (14:14)
[2016-12-11] MEDS ORDERED: CEFAZOLIN SOD 1 GM VIAL ONE (14:14)
[2016-12-11] MEDS ORDERED: SODIUM CHLORIDE 0.9% INJ 10 ML VIAL ONE (14:56)
[2016-12-11] MEDS ORDERED: EpHEDrine SULFATE INJ 50 MG/ML AMP ONE (14:56)
[2016-12-11] MEDS ORDERED: EpHEDrine SULFATE INJ 50 MG/ML AMP IV PRN (15:15)
[2016-12-11] MEDS ORDERED: NALOXONE HCL 0.4 MG/1 ML VIAL/CARP IV PRN (15:15)
[2016-12-11] MEDS ORDERED: ONDANSETRON INJ 2 MG/ML 2 ML VIAL IV PRN (15:15)
[2016-12-11] MEDS ORDERED: ATROPINE SULFATE 0.1 MG/ML 5ML SYR IV PRN (15:15)
[2016-12-11] MEDS ORDERED: PROMETHAZINE HCL INJ 12.5 MG in SODIUM CHLORIDE 0.9% 50ML 50 ML IV PRN (15:15)
[2016-12-11] MEDS ORDERED: LABETALOL HCL IV 5 MG/ML 20ML IV PRN (15:15)
[2016-12-11] MEDS ORDERED: FLUMAZENIL 0.1 MG/1 ML 10 ML VIAL IV PRN (15:15)
[2016-12-11] MEDS ORDERED: KETOROLAC TROMETHAMINE 30 MG/ML VIAL ONE (15:42)
[2016-12-11] MEDS ORDERED: OXYCODONE/ACETAMINOPHEN 5-325 TAB PO PRN (16:00)
[2016-12-11] MEDS ORDERED: MoRPHine SULFATE 4 MG/ML 1 ML CARP\\VIAL IV PRN (16:00)
[2016-12-11] MEDS: HYDROmorphone INJ 1 MG/ML SYR IV PRN ×2 (16:43→16:52)
[2016-12-11] MEDS ORDERED: NURSING VERBAL MED ORDER ONE (17:45)
--- NOTE | 2016-12-11 18:27 | [facility] Post Operative Brief Note ---
Immediate Operative Summary Operative Date Dec 11, 2016. Pre-Operative Diagnosis Chronic cholecystitis with biliary sludge Post-Operative Diagnosis same Procedure(s) Performed laparoscopic cholecystectomy Surgeon Dr. Rose Guthrie Boiler Maker Surgeon(s) Lara Ambriz PA-C Estimated Blood Loss 15ml Findings See dictation Specimens A. gallblader (permanent) Drains None Anesthesia General Complication(s) None Disposition Recovery Room / PACU
--- NOTE | 2016-12-11 18:28 | [facility] Operative Report ---
Operative Report Operative Date Dec 11, 2016. Pre-Operative Diagnosis Chronic cholecystitis with biliary sludge Post-Operative Diagnosis same Procedure(s) Performed laparoscopic cholecystectomy Surgeon Dr. Rose Guthrie Printing Press Operator Surgeon(s) Lara Ambriz PA-C Estimated Blood Loss 15ml Findings The gallbladder was mildly dilated. The cystic duct was not dilated. The liver was a little bit firm and large but there was no nodularity to it. The visible bowel appeared normal. There were no stones within the gallbladder. There was a significant intrahepatic component to the gallbladder. There were adhesions of the omentum to the anterior abdominal wall beneath her lower vertical midline incision. Specimens A. gallblader (permanent) Drains None Anesthesia General Disposition Recovery Room / PACU Description of Procedure The patient was given a general anesthetic and the area prepped and draped in the usual sterile fashion. Because of her previous vertical midline incision below the umbilicus the upper midline incision was placed first. A transverse incision was made carried down through the subcutaneous tissues to the fascia which was grasped with 2 curved clamps incised between. The muscle was split the peritoneum was identified grasped and sized the introducer was placed bluntly. The abdomen was insufflated to a pressure 15 mmHg with carbon dioxide. The camera was passed and the midline was identified. The anterior axillary introducer was placed through small skin incision under direct vision. The adhesions of the omentum to the anterior abdominal wall were taken down using sharp dissection. A supraumbilical incision was then performed. 11 mm introducer was brought to there under direct vision. The camera was then placed in that port and the midclavicular introducer was placed under direct vision through small skin incision. Traction was placed on the gallbladder and the infundibulum was identified. I had to open the peritoneum on the infundibulum side and then work inferiorly and then around the undersurface of the infundibulum and free the anterior surface of the infundibulum is peritoneal attachments and then opened the triangle of kilo. Further dissection of flimsy connective tissue and lymphatics was performed and allowed me to identify the cystic duct. I had to further skeletonize the lateral aspect of the cystic duct. In doing so was able to establish a plane behind the cystic duct isolating in 360 and allowing me to confirm with confidence the cystic duct gallbladder junction. 3 clips were placed on the proximal cystic duct one near the junction with the gallbladder and it was divided. Further dissection was then carried out posterior to there. There were 3 tubular structures one of which was the artery into others were large lymphatics were clipped and divided. The gallbladder was then peeled off the liver bed using electrocautery. It was placed into an Endobag and brought out through the upper midline introducer site. That introducer was replaced and the liver edge was elevated. There were 2 small areas of oozing in the gallbladder bed of the previously controlled with cautery. The subdiaphragmatic and subhepatic spaces were irrigated and irrigation was removed. That was repeated until the return was clear. The previously placed clips were inspected and were intact and the gallbladder bed of the liver was again inspected and there was no bleeding. Gas was allowed to escape and removed using suction. The fascia of the upper midline and supraumbilical introducer sites was closed with interrupted 0 Vicryl. The skin of all incisions was closed with 4-0 Monocryl in either interrupted or running subcuticular fashion. The skin was anesthetized with 0.5% Marcaine. The skin was cleansed, dried and Steri-Strips applied. Estimated blood loss 50 mL. Sponge needle and instrument counts were correct prior to closure. The patient tolerated surgical procedure was transferred to recovery. I attest to the content of the Intraoperative Record and any orders documented therein. Any exceptions are noted below.
--- NOTE | 2016-12-11 18:30 | Anesthesiology Progress Note ---
Anesthesia Post Op Note Date & Time Dec 11, 2016 at 16:36 Vital Signs Pain Intensity: 0 Vital Signs Past 12 Hours Date Time Temp Pulse Resp B/P (MAP) Pulse Ox O2 Delivery O2 Flow Rate FiO2 12/11/16 16:30 57 18 191/78 100 Mask 10 12/11/16 16:20 56 18 194/76 100 Mask 10 12/11/16 16:12 36.6 60 16 199/78 99 Mask 10 12/11/16 08:43 61 110/63 (79) 12/11/16 08:31 97 Room Air 12/11/16 08:24 170/84 (112) 12/11/16 08:01 185/90 (121) 182/87 (118) 12/11/16 08:00 37.0 55 18 118/80 (93) 97 Room Air 12/11/16 08:00 Room Air Notes Mental Status: alert / awake / arousable, participated in evaluation Pt Amnestic to Procedure: Yes Nausea / Vomiting: adequately controlled Pain: adequately controlled Airway Patency, RR, SpO2: stable & adequate BP & HR: stable & adequate Hydration State: stable & adequate Anesthetic Complications: no major complications apparent
[2016-12-12 03:19] VITALS: BP 155/71; PULSE 54; TEMP 36.7; O2SAT 97
[2016-12-12 05:30] LABS: HEMATOCRIT 33.2 % (37-47); MEAN CELL VOLUME 86.5 fL (80-100); MEAN CORPUSCULAR HEMOGLOBIN 28.1 pg (25-34); MEAN CORPUSCULAR HGB CONC 32.5 g/dl (32-36); MEAN PLATELET VOLUME 11.6 fL (7.4-10.4); PLATELET COUNT 213 K/uL (130-400); RED BLOOD COUNT 3.84 M/uL (4.2-5.4); WHITE BLOOD COUNT 11.58 K/uL (4.8-10.8)
[2016-12-12] MEDS: NSS + 20MEQ KCL 1000ML 1,000 ML IV SCH (05:55)
[2016-12-12] MEDS: LEVOTHYROXINE 75 MCG TAB PO SCH (05:55)
[2016-12-12 06:00] LABS: CALCIUM 8.4 mg/dl (8.5-10.1); CREATININE 0.78 mg/dl (0.60-1.20); POTASSIUM 4.9 mmol/L (3.5-5.1)
--- NOTE | 2016-12-12 07:16 | Discharge Instructions ---
Discharge Instructions Date of Service Dec 12, 2016. Admission Reason for Admission: Ruq Pain, Ruq Rigidity Discharge Discharge Diagnosis / Problem: Chronic cholecystitis Discharge Goals Goal(s): Decrease discomfort, Increase independence, Improve disease control Activity Recommendations Activity Limitations: per Instructions/Follow-up section No heavy weight lifting, no more than 10lbs for next 2 weeks . Instructions / Follow-Up Instructions / Follow-Up You presented to the clinic because of abdominal pain. Imaging of your abdomen and lab works were done. All the lab works were normal. Imaging of your gallbladder suspected for cholecystitis. Surgery was consulted and gallbladder was removed. Please take the pain medication as needed. Don't drive when take pain medications. Resume all your home medication. Please follow the instruction given by surgery. No heavy weight lifting, no more than 10lbs for next 2 weeks Follow up with your primary doctor in 1 week and surgery in 2weeks Current Hospital Diet Patient's current hospital diet: Diabetes Type 2 Diet Discharge Diet Recommended Diet: Regular Diet Procedures Procedures Performed: laparoscopic cholecystectomy Pending Studies Studies pending at discharge: no Medical Emergencies . Who to Call and When: Medical Emergencies: If at any time you feel your situation is an emergency, please call 911 immediately. . Non-Emergent Contact Non-Emergency issues call your: Primary Care Provider . . "Provider Documentation" section prepared by Karen Persaud. . VTE Core Measure Inpt VTE Proph given/why not?: SCD's, Contraindicated (hold in case patient for surgery)
[2016-12-12 08:03] VITALS: BP 112/70; PULSE 46; TEMP 36.8; O2SAT 98
--- NOTE | 2016-12-12 09:18 | Discharge Instructions ---
Discharge Instructions Date of Service Dec 12, 2016. Admission Reason for Admission: Ruq Pain, Ruq Rigidity Discharge Discharge Diagnosis / Problem: Chronic Cholecystitis, Biliary sludge Discharge Goals Goal(s): Decrease discomfort, Improve function Activity Recommendations Activity Limitations: as noted below No heavy lifting over 20 pounds for 2 weeks No strenuous activity until cleared by surgeon No submerging incisions underwater for 2 weeks (swimming, bathing, or hot tubs) No driving while taking narcotic pain medication or until you are pain free Walking and light activity is encouraged. . Instructions / Follow-Up Instructions / Follow-Up You may shower when you get home Leave steri strips on incisions for 7 days and then remove, they may fall off on their own that is okay Follow-up with Dr. Guthrie or Milana Ambriz PA-C in 2 weeks, please call office at [phone] to make an appointment. Current Hospital Diet Patient's current hospital diet: Diabetes Type 2 Diet Discharge Diet Recommended Diet: Regular Diet Procedures Procedures Performed: laparoscopic cholecystectomy Pending Studies Studies pending at discharge: yes List of pending studies: gallbladder pathology- will be reviewed at follow-up visit Medical Emergencies . Who to Call and When: Medical Emergencies: If at any time you feel your situation is an emergency, please call 911 immediately. . Non-Emergent Contact Non-Emergency issues call your: Primary Care Provider, Surgeon Call Non-Emergent contact if: you have a fever, temperature is above 101.5, your pain is not controlled, your pain is worsening, wound has increased drainage, wound has increased redness, wound has increased pain . "Provider Documentation" section prepared by Milana Ambriz. . VTE Core Measure Inpt VTE Proph given/why not?: SCD's, Contraindicated (hold in case patient for surgery) [place] Drug Monitoring Program Search Results: patient reviewed within database, no issues identified
[2016-12-12] MEDS ORDERED: OXYC-57 PO (09:19)
[2016-12-12] MEDS: ALLOPURINOL 100 MG TAB PO SCH (09:29)
[2016-12-12] MEDS: GABAPENTIN 300 MG CAP PO SCH (09:29)
[2016-12-12] MEDS: PAROXETINE 20 MG TAB PO SCH (09:29)
[2016-12-12] MEDS: PANTOprazole SOD 40 MG TAB PO SCH (09:29)
[2016-12-12] MEDS: ATORVASTATIN 10 MG TAB PO SCH (09:29)
[2016-12-12] MEDS: AMILORIDE HCL 5 MG TAB PO SCH (09:30)
[2016-12-12] MEDS: POTASSIUM CITRATE 10 MEQ TAB PO SCH (09:30)
[2016-12-12] MEDS: INSULIN ASPART 100 UNITS/ML 3 ML PEN SC SCH ×2 (09:30→12:40)
--- NOTE | 2016-12-12 09:30 | Surgery Progress Note ---
Surgery Progress Note Date of Service Dec 12, 2016. Subjective Post OP Day: 1 Patient examined at bedside this morning. Afebrile, vitals stable on room air overnight, no acute events. Pain is well controlled this morning. Took percocet last night before bed with good pain relief. Tolerating regular diet without N/V. Ambulating and voiding without difficulty. Passing flatus, no BM yet. Wants to go home. Objective Vital Signs: Date Time Temp Pulse Resp B/P (MAP) Pulse Ox O2 Delivery O2 Flow Rate FiO2 12/12/16 08:03 36.8 46 14 112/70 (84) 98 Room Air 12/12/16 07:40 Room Air 12/12/16 03:19 36.7 54 16 155/71 (99) 97 Room Air 12/11/16 23:40 Room Air 12/11/16 23:00 37.1 57 16 136/53 (80) 92 Room Air 12/11/16 20:30 37.1 62 18 178/78 (111) 93 Room Air 12/11/16 18:30 36.9 58 16 179/89 (119) 96 Nasal Cannula 2.0 12/11/16 18:00 37.1 58 18 170/75 (106) 98 Nasal Cannula 2.0 12/11/16 17:30 37.2 60 17 168/71 (103) 93 Nasal Cannula 2.0 12/11/16 17:30 93 Nasal Cannula 2.0 12/11/16 17:30 93 Nasal Cannula 2.0 12/11/16 17:10 36.6 57 20 195/78 99 Nasal Cannula 2 12/11/16 17:00 57 18 177/70 99 Nasal Cannula 4 12/11/16 16:50 53 18 199/97 99 Nasal Cannula 4 12/11/16 16:40 54 18 179/73 99 Nasal Cannula 4 12/11/16 16:30 57 18 191/78 100 Mask 10 12/11/16 16:20 56 18 194/76 100 Mask 10 12/11/16 16:12 36.6 60 16 199/78 99 Mask 10 General Appearance: WD/WN, no apparent distress Head: normocephalic, atraumatic Neck: supple Respiratory/Chest: lungs clear, normal breath sounds Cardiovascular: regular rate, rhythm Abdomen: normal bowel sounds, non tender, non distended, soft Incision(s): clean, dry, intact Laboratory Results: Results Past 24 Hours Test 12/11/16 12:00 12/11/16 16:24 12/11/16 17:45 12/11/16 20:45 Range/Units Bedside Glucose 114 140 139 174 70-90 mg/dl Test 12/12/16 05:03 12/12/16 08:02 Range/Units White Blood Count 11.58 4.8-10.8 K/uL Red Blood Count 3.84 4.2-5.4 M/uL Hemoglobin 10.8 12.0-16.0 g/dL Hematocrit 33.2 37-47 % Mean Corpuscular Volume 86.5 80-100 fL Mean Corpuscular Hemoglobin 28.1 25-34 pg Mean Corpuscular Hemoglobin Concent 32.5 32-36 g/dl RDW Standard Deviation 44.9 36.4-46.3 fL RDW Coefficient of Variation 14.4 11.5-14.5 % Platelet Count 213 130-400 K/uL Mean Platelet Volume 11.6 7.4-10.4 fL Sodium Level 142 136-145 mmol/L Potassium Level 4.9 3.5-5.1 mmol/L Chloride Level 110 98-107 mmol/L Carbon Dioxide Level 27 21-32 mmol/L Anion Gap 5.0 3-11 mmol/L Blood Urea Nitrogen 7 7-18 mg/dl Creatinine 0.78 0.60-1.20 mg/dl Est Creatinine Clear Calc Drug Dose 70.8 ml/min Estimated GFR () 91.2 Estimated GFR (Non- 78.7 BUN/Creatinine Ratio 9.0 10-20 Random Glucose 118 70-99 mg/dl Calcium Level 8.4 8.5-10.1 mg/dl Bedside Glucose 111 70-90 mg/dl Assessment & Plan Jo-Ann Mccarthy is a 66 year old woman with chronic cholecystitis with biliary sludge who is now POD 1 s/p lap franci. There were no complications, patient is doing well post operatively. Plan: -Diet as tolerated -Pain control as needed -Encouraged ambulation -OK for discharge home today. Instructions discussed with patient and placed in written instructions -Follow up in clinic for post op visit in approximately 2 weeks -Discussed with primary team Vielka Orellana MD 12/12/16
[2016-12-12 09:53] VITALS: O2SAT 98
[2016-12-12 12:00] VITALS: PULSE 56
[2016-12-12 12:24] VITALS: BP 112/70; PULSE 46; TEMP 36.8; O2SAT 98
--- NOTE | 2016-12-12 16:48 | Discharge Summary ---
Discharge Summary Date of Service Dec 12, 2016. (Karen Persaud MD) Discharge Summary Admission Date: Dec 09, 2016 at 05:19 Discharge Date: Dec 12, 2016 Discharge Disposition: Home Principal Diagnosis: Chronic Cholecystitis, Biliary sludge Immunizations: Have You Had Influenza Vaccine: No Influenza Vaccine Date: Mar 03, 2012 History of Tetanus Vaccine?: Yes Tetanus Immunization Date: Apr 02, 2002 History of Pneumococcal: No History of Hepatitis B Vaccine: No Procedures: Patient Name: LEANN PACHECO Unit Number: [id number] Dictated: 12/09/16709 Transcribed: 12/09/16709 [facility] Printed Date/Time: [~ rep prt dt]/[~ rep prt tm] [~ rep ct labl] - [~ rep ct ivnm] [facility] Radiology Department [place], [place] [id number] Dictated: 12/09/16709 Transcribed: 12/09/16709 [facility] Printed Date/Time: [~ rep prt dt]/[~ rep prt tm] [~ rep ct labl] - [~ rep ct ivnm] ABDOMEN AND PELVIS CT WITHOUT CONTRAST CT DOSE: 1597.16 mGy.cm HISTORY: right flank pain - r/o stone TECHNIQUE: Multiaxial CT images of the abdomen and pelvis were performed without contrast. A dose lowering technique was utilized adhering to the principles of ALARA. COMPARISON STUDY: Abdomen and pelvis CT 12/28/2012. FINDINGS: A 3 mm nodule within the right lower lobe on image 9. No pneumoperitoneum. No pneumatosis. No acute fractures within the visualized osseous structures. The unenhanced liver, spleen, gallbladder, pancreas, and adrenal glands are unremarkable. No retroperitoneal lymphadenopathy. Normal bladder. Hysterectomy. No pelvic free fluid. Bilateral nephrolithiasis with the largest stones measuring up to 4 mm. No ureteral stones. No hydronephrosis. Suboptimal evaluation for bowel pathology due to the lack of intravenous and oral contrast. However, there is no definite bowel wall thickening or obstruction. A few colonic diverticula. The appendix appears surgically absent. IMPRESSION: 1. Bilateral nephrolithiasis. No ureteral stones. No hydronephrosis. 2. No bowel wall thickening or obstruction. 4. A 3 mm nodule within the right lower lobe. Electronically signed by: Xiang Winters M.D. 12/09/2016 7:14 AM Dictated Date/Time: 12/09/2016 7:10 AM The status of this report is Signed. Draft = Not yet reviewed or approved by Radiologist. Signed = Reviewed and approved by Radiologist. <AttendingPhy>Harriet Peralta M.D.</AttendingPhy> <FamilyPhy>Abhijit Guillen M.D.</FamilyPhy> <PrimaryPhy>Abhijit Guillen M.D.</PrimaryPhy> <UnitNumber> [id number]</UnitNumber> <VisitNumber>[id number]</VisitNumber> <PatientName> NICHOLAS PACHECOA Darrin</PatientName> <DateOfBirth>1950</DateOfBirth> <Location>C.3E</ Location> <ServiceDate>12/09/16</ServiceDate> <MNE>ESINDI</MNE> <OrderingPhy> Navin Ambrocio M.D.</OrderingPhy> <OrderingPhyMNE>f rep ord dr bearden</ OrderingPhyMNE> <DictatingPhyMNE>f rep dict dr bearden</DictatingPhyMNE> <CCListMNE> f rep ct mne</CCListMNE> <AdmittingPhyMNE>f pt admit dr bearden</AdmittingPhyMNE> < AttendingPhyMNE>f pt attend dr bearden</AttendingPhyMNE> <ConsultingPhyMNE>f pt consult dr bearden</ConsultingPhyMNE> <FamilyPhyMNE>f pt fam dr bearden</FamilyPhyMNE> <OtherPhyMNE>f pt other dr bearden</OtherPhyMNE> < PrimaryPhyMNE>f pt prim care dr bearden</PrimaryPhyMNE> <ReferringPhyMNE>f pt referring dr bearden</ReferringPhyMNE> Patient Name: LEANN PACHECO Unit Number: [id number] Dictated: 12/09/16809 Transcribed: 12/09/16809 [facility] Printed Date/Time: [~ rep prt dt]/[~ rep prt tm] [~ rep ct labl] - [~ rep ct ivnm] [facility] [place] [address] Dictated: 12/09/16809 Transcribed: 12/09/16 08 [facility] Printed Date/Time: [~ rep prt dt]/[~ rep prt tm] [~ rep ct labl] - [~ rep ct ivnm] Patient: LEANN PACHECO Address1: [address] [facility] Rec: [id number] Address2: Acct ID: [id number] [facility] Zip: [place] [address] Date: 1950 Sex: F Room/Bed: [facility] Ref Phy: Abhijit Guillen M.D. SC: Rojelio Att Phy: Harriet Peralta M.D. Report #: [id number] Crystal Phy: Abhijit Guillen M.D. Test: CXR1P Admit Phy: Bunny Elaine MD Optical Technician: NGUYEN Interpreting Phy: Xiang Winters MD Diagnosis: RUQ PAIN, RUQ RIGIDITY Ordering Phy: Navin Ambrocio M.D. Service Date: 12/09/16 Admit Date: 12/10/1707/13/17 MNE: [id number] CONF: DICTATED BY: Xiang Winters M.D.]] CC: Navin Ambrocio M.D. Pro, Jeffrey W., M.D. Singh, Madhavi, M.D. Endcc: [~ rep ct add3]] CHEST ONE VIEW PORTABLE HISTORY: cp/upper abdominal pain COMPARISON: Chest 12/17/2015. FINDINGS: The lungs are clear. Cardiac silhouette is normal in size. No pleural effusions. No pneumothorax. IMPRESSION: No acute process. Electronically signed by: Xiang Winters M.D. 12/09/2016 8:11 AM Dictated Date/Time: 12/09/2016 8:10 AM The status of this report is Signed. Draft = Not yet reviewed or approved by Radiologist. Signed = Reviewed and approved by Radiologist. <AttendingPhy>Harriet Peralta M.D.</AttendingPhy> <FamilyPhy>Abhijit Guillen M.D.</FamilyPhy> <PrimaryPhy>Abhijti Guillen M.D.</PrimaryPhy> <UnitNumber> [id number]</UnitNumber> <VisitNumber>[id number]</VisitNumber> <PatientName> NICHOLAS PACHECOA Darrin</PatientName> <DateOfBirth>1950</DateOfBirth> <Location>C.3E</ Location> <ServiceDate>12/09/16</ServiceDate> <MNE>ESINDI</MNE> <OrderingPhy> Navin Ambrocio M.D.</OrderingPhy> <OrderingPhyMNE>f rep ord dr bearden</ OrderingPhyMNE> <DictatingPhyMNE>f rep dict dr bearden</DictatingPhyMNE> <CCListMNE> f rep ct mne</CCListMNE> <AdmittingPhyMNE>f pt admit dr bearden</AdmittingPhyMNE> < AttendingPhyMNE>f pt attend dr bearden</AttendingPhyMNE> <ConsultingPhyMNE>f pt consult dr bearden</ConsultingPhyMNE> <FamilyPhyMNE>f pt fam dr bearden</FamilyPhyMNE> <OtherPhyMNE>f pt other dr bearden</OtherPhyMNE> < PrimaryPhyMNE>f pt prim care dr bearden</PrimaryPhyMNE> <ReferringPhyMNE>f pt referring dr bearden</ReferringPhyMNE> Patient Name: LEANN PACHECO Unit Number: [id number] Dictated: 12/09/16827 Transcribed: 12/09/16827 [facility] Printed Date/Time: [~ rep prt dt]/[~ rep prt tm] [~ rep ct labl] - [~ rep ct ivnm] [facility] [place] [address] Dictated: 12/09/16827 Transcribed: 12/09/16827 [facility] Printed Date/Time: [~ rep prt dt]/[~ rep prt tm] [~ rep ct labl] - [~ rep ct ivnm] ABDOMINAL ULTRASOUND, RIGHT UPPER QUADRANT HISTORY: Pt c/o RUQ abd pain. COMPARISON: None. FINDINGS: Pancreas: The pancreatic tail is obscured by overlying bowel gas. The remaining portions of the pancreas are within normal limits. Liver: The liver is echogenic consistent with fatty change. The liver is enlarged measuring 23 cm in length. Gallbladder: No gallbladder wall thickening. No gallstones. Small amount of gallbladder sludge. CBD: 4 mm. Right kidney: No hydronephrosis. IMPRESSION: 1. Small amount of gallbladder sludge. No gallstones. No gallbladder wall thickening. 2. Hepatomegaly demonstrating fatty change. Electronically signed by: Xiang Witners M.D. 12/09/2016 8:30 AM Dictated Date/Time: 12/09/2016 8:28 AM The status of this report is Signed. Draft = Not yet reviewed or approved by Radiologist. Signed = Reviewed and approved by Radiologist. <AttendingPhy>Harriet Peralta M.D.</AttendingPhy> <FamilyPhy>Abhijit Guillen M.D.</FamilyPhy> <PrimaryPhy>Abhijit Guillen M.D.</PrimaryPhy> <UnitNumber> [id number]</UnitNumber> <VisitNumber>[id number]</VisitNumber> <PatientName> LEANN PACHECO</PatientName> <DateOfBirth>1950</DateOfBirth> <Location>C.3E</ Location> <ServiceDate>12/09/16</ServiceDate> <MNE>ESINDI</MNE> <OrderingPhy> Markell Alcaraz MD</OrderingPhy> <OrderingPhyMNE>f rep ord dr bearden</ OrderingPhyMNE> <DictatingPhyMNE>f rep dict dr bearden</DictatingPhyMNE> <CCListMNE> f rep ct monisha</CCListMNE> <AdmittingPhyMNE>f pt admit dr bearden</AdmittingPhyMNE> < AttendingPhyMNE>f pt attend dr bearden</AttendingPhyMNE> <ConsultingPhyMNE>f pt consult dr bearden</ConsultingPhyMNE> <FamilyPhyMNE>f pt fam dr bearden</FamilyPhyMNE> <OtherPhyMNE>f pt other dr bearden</OtherPhyMNE> < PrimaryPhyMNE>f pt prim care dr bearden</PrimaryPhyMNE> <ReferringPhyMNE>f pt referring dr bearden</ReferringPhyMNE> Patient Name: LEANN PACHECO Unit Number: [id number] Dictated: 12/09/161411 Transcribed: 12/09/161411 [facility] Printed Date/Time: [~ rep prt dt]/[~ rep prt tm] [~ rep ct labl] - [~ rep ct ivnm] [facility] [place] [address] Dictated: 12/09/161411 Transcribed: 12/09/161411 [facility] Printed Date/Time: [~ rep prt dt]/[~ rep prt tm] [~ rep ct labl] - [~ rep ct ivnm] NUCLE[facility] MEDICINE HEPATOBILIARY SCAN HISTORY: RUQ pain ?Biliary Akinesia? COMPARISON: Abdominal ultrasound 12/09/2016. TECHNIQUE: Immediately following the intravenous administration of 5.5 mCi Tc-99m Choletec, dynamic anterior abdominal imaging was performed. FINDINGS: Uniform hepatic tracer accumulation is shown. Prompt intrahepatic biliary excretion is seen. The gallbladder, common bile duct, and small bowel are all visualized by 35 minutes. This appearance represents the normal sequence of biliary excretion. IMPRESSION: 1. No evidence for cystic duct obstruction. Electronically signed by: Xiang Winters M.D. 12/09/2016 2:13 PM Dictated Date/Time: 12/09/2016 2:12 PM The status of this report is Signed. Draft = Not yet reviewed or approved by Radiologist. Signed = Reviewed and approved by Radiologist. <AttendingPhy>Harriet Peralta M.D.</AttendingPhy> <FamilyPhy>Abhijit Guillen M.D.</FamilyPhy> <PrimaryPhy>Abhijit Guillen M.D.</PrimaryPhy> <UnitNumber> [id number]</UnitNumber> <VisitNumber>[id number]</VisitNumber> <PatientName> LEANN PACHECO</PatientName> <DateOfBirth>1950</DateOfBirth> <Location>C.3E</ Location> <ServiceDate>12/09/16</ServiceDate> <MNE>ESINDI</MNE> <OrderingPhy> Karen Persaud MD</OrderingPhy> <OrderingPhyMNE>f rep ord dr bearden</OrderingPhyMNE > <DictatingPhyMNE>f rep dict dr bearden</DictatingPhyMNE> <CCListMNE>f rep ct mne</ CCListMNE> <AdmittingPhyMNE>f pt admit dr bearden</AdmittingPhyMNE> <AttendingPhyMNE >f pt attend dr bearden</AttendingPhyMNE> <ConsultingPhyMNE>f pt consult dr bearden</ConsultingPhyMNE> <FamilyPhyMNE>f pt fam dr bearden</FamilyPhyMNE> <OtherPhyMNE>f pt other dr bearden</OtherPhyMNE> < PrimaryPhyMNE>f pt prim care dr bearden</PrimaryPhyMNE> <ReferringPhyMNE>f pt referring dr bearden</ReferringPhyMNE> (Karen Persaud .MD) Medication Reconciliation New Medications: Oxycodone/Acetaminophen 5MG/325MG (Percocet 5MG/325MG) Tab 1-2 TABLETS PO Q4H PRN for Pain, #30 TAB PAIN Continued Medications: Allopurinol (Zyloprim) 100 Mg Tab 100 MG PO QAM, TAB Alprazolam (Xanax) 1 Mg Tab 1 MG PO BID PRN for Anxiety Amiloride Hcl (Amiloride Hcl) 5 Mg Tab 5 MG PO QAM Aspirin (Aspirin Ec) 81 Mg Tab 81 MG PO DAILY Atorvastatin (Lipitor) 10 Mg Tab 10 MG PO DAILY, TAB Cyanocobalamin (B-12) 1,000 Mcg Cap 1000 MCG PO QAM Gabapentin (Gabapentin) 300 Mg Cap 300 MG PO TID, #270 Levothyroxine Sodium (Levothyroxine Sodium) 75 Mcg Tab 75 MCG PO QAM, TAB 3 Refills Magnesium Oxide (Mg Supplement (Magnesium) 400 Mg Cap 400 MG PO NOON Metformin HCl (Metformin HCl) 500 Mg Tab 500 MG PO TID [place]-3 Fatty Acids (Fish Oil 1200 mg) 1 Cap Cap 1200 MG PO TID Paroxetine (Paxil) 20 Mg Tab 20 MG PO QAM, TAB Potassium Citrate (Alkalinizer (Potassium Citrate ER) 1,080 Mg Tab 2 TAB PO BID, 3 Refills Discharge Exam Patient was seen at the bedside. She was ambulation to the bathroom without any discomfort. Has some discomfort at the incision site. Denies abdominal pain, nausea, vomiting, SOB or chest pain. Review of Systems: Constitutional: No fever Respiratory: No cough, No shortness of breath Abdomen: No pain, No nausea, No vomiting, No diarrhea, No constipation, No GI bleeding Genitourinary - Male: No dysuria Integumentary: No rash Physical Exam: General Appearance: WD/WN, no apparent distress, + obese Neck: supple, trachea midline Respiratory/Chest: chest non-tender, lungs clear, normal breath sounds, no respiratory distress, no accessory muscle use Cardiovascular: regular rate, rhythm Abdomen / GI: normal bowel sounds, soft, + pertinent finding (incision area is clean, intact and dry) Extremities: no calf tenderness, no pedal edema, non-tender Neurologic/Psychiatric: alert, normal mood/affect, oriented x 3 Skin: normal color, warm/dry, no rash (Karen Persaud MD) Hospital Course This is a 66 year old female with hx of nephrolithiasis presents to the hospital with acute on chronic abdominal pain. She states that the pain is located at the RUQ, constant, 8/10, radiates to the back and eating aggravates the pain. She doesn't think any thing alleviates the pain. She states that she has chronic abdominal pain for kidney stone but this doesn't feel similar to that pain. The pain got worse after she having cheese steak. She denies any fevers, chills, sweats dysuria, urinary frequency. She decided to come to the hospital because the pain was more persistent than it usually is. She also states that she has been busy for the past 3 weeks and did not have the time to come to the ED to be further evaluated. In ED CT of abdomen showed stones only on the kidney; there was no stones noted on the ureters, which doesn't cause pain. Lipase was normal. Patient was admitted to the med/surg for further management. * Right upper quadrant pain - US showed small amount of gallbladder sludge, no gallstone or gallbladder wall thickening. HIDA scan showed no evidence for cystic duct obstruction. General surgery was consulted. They recommended laparoscopy cholecystectomy. Urology was also consulted and they didn't think the pain was from kidney stones. BCx was negative. Patient tolerated the surgery well. Sludge was noted on the gladder. Patient pain improved after the surgery. She denied any abdominal pain during discharge, only mild discomfort at the incision area. Pain medication was prescribed and f/u with surgery in 2 wks. Verbal and written instruction was given to the patient. * Mildly anemic - On admission patient was mildly anemic, Hgb in 10s. Her hgb was 12.8 in . Protonix was given during her stay in hospital. Recommended to f/u CBC with primary doctor. Total Time Spent: Greater than 30 minutes This includes examination of the patient, discharge planning, medication reconciliation, and communication with other providers. (Karen Persaud MD) Resident Physician Supervision Note: I was present with Dr. Persaud during the history and exam. I discussed the case with the resident and agree with the findings and plan as documented in the note. The patient was OOB this morning in the chair c/o only mild soreness in the RUQ. She tolerated dinner and breakfast without nausea or emesis. Discussed follow up - she already has an appointment with PCP and GI scheduled. Documented By: Kahlil Bhatia Total Time Spent: Less than 30 minutes (Kahlil Bhatia,D.O.) Discharge Instructions Please refer to the electronic Patient Visit Report (Discharge Instructions) for additional information. (Karen Persaud MD) Additional Copies To Abhijit Guillen M.D.
== END 2016-12-12 13:51 | disposition home or self-care (01) ==
LOC: C.EDB 00:21 → C.3E 05:19 → ENRESERV 05:29
PROVIDERS: ADMIT Student in an Organized Health Care Education/Training Program; ATTEND Family Medicine
DX: K81.1 Chronic cholecystitis (principal); E11.40 Type 2 diabetes mellitus with diabetic neuropathy, unspecified; E78.5 Hyperlipidemia, unspecified; E03.9 Hypothyroidism, unspecified; F41.9 Anxiety disorder, unspecified; F32.9 Major depressive disorder, single episode, unspecified; Z79.4 Long term (current) use of insulin; Z79.82 Long term (current) use of aspirin; Z79.899 Other long term (current) drug therapy

== ENCOUNTER → 2017-01-07 | Outpatient (CLI) | payer BC ==
[~2017-01-07] MED LIST changes: +ASPI81TA28 PO; -ATOR-14 PO; +ATOR10TA88 PO; -FISHOIL PO; +OMEG5CAP PO; +POTA1080 PO; -POTASSIUM CITRATE PO
--- NOTE | 2017-01-07 13:01 | DIAGNOSTIC IMAGING REPORT ---
KUB CLINICAL HISTORY: KIDNEY STONE COMPARISON STUDY: 10/08/2016 FINDINGS: There is no pathologic bowel dilatation. There are surgical clips the right upper quadrant consistent with a prior cholecystectomy. There are suspected tiny bilateral renal calculi. Pelvic basin calcifications remain similar to the prior study and likely represent phleboliths. The left-sided double pigtail left ureteral stent has been removed.. IMPRESSION: 1. No evidence of pathologic bowel dilatation 2. Equivocal punctate bilateral renal calculi 3. Interval removal of the left-sided double pigtail nephroureteral stent Electronically signed by: Nick Rodríguez M.D. 01/07/2017 12:59 PM Dictated Date/Time: 01/07/2017 12:58 PM
--- NOTE | 2017-01-07 13:40 | DIAGNOSTIC IMAGING REPORT ---
RENAL ULTRASOUND CLINICAL HISTORY: Kidney stones. COMPARISON STUDY: CT of the abdomen and pelvis December 09, 2016 and KUB January 07, 2017. TECHNIQUE: Sonography of the kidneys and the urinary bladder was performed. FINDINGS: The right kidney measures 11.8 x 5.8 x 6.6 cm and the left measures 12.1 x 6.8 x 6.1 cm. There is no hydronephrosis. Bilateral renal calculi measure up to 5 mm. The right ureteral jet was not identified. There is moderate renal cortical thinning. IMPRESSION: 1. No hydronephrosis. 2. Bilateral nephrolithiasis. Electronically signed by: Alistair Arellano M.D. 01/07/2017 1:39 PM Dictated Date/Time: 01/07/2017 1:37 PM
== END | disposition home or self-care (01) ==
LOC: C.ULTR 12:22
PROVIDERS: ATTEND Urology
DX: N20.0 Calculus of kidney (principal)

== ENCOUNTER → 2017-02-20 | Outpatient (CLI) | payer BC ==
[~2017-02-20] MED LIST changes: +ATOR10TA82 PO; -ATOR10TA88 PO
[2017-02-20 14:38] LABS: HEMATOCRIT 36.7 % (37-47); MEAN CELL VOLUME 89.3 fL (80-100); MEAN CORPUSCULAR HGB CONC 32.4 g/dl (32-36); MEAN PLATELET VOLUME 11.8 fL (7.4-10.4); PLATELET COUNT 213 K/uL (130-400); RED BLOOD COUNT 4.11 M/uL (4.2-5.4); WHITE BLOOD COUNT 7.37 K/uL (4.8-10.8)
[2017-02-20 14:57] LABS: AST/SGOT 29 U/L (15-37); BLOOD UREA NITROGEN 11 mg/dl (7-18); BUN/CREATININE RATIO 11.4 (10-20); CALCIUM 9.5 mg/dl (8.5-10.1); CARBON DIOXIDE 29 mmol/L (21-32); CHLORIDE 104 mmol/L (98-107); CREATININE 0.94 mg/dl (0.60-1.20); GLUCOSE 138 mg/dl (70-99); POTASSIUM 4.2 mmol/L (3.5-5.1); SODIUM 141 mmol/L (136-145)
[2017-02-20 15:08] LABS: ALT/SGPT 35 U/L (12-78); CHOLESTEROL 170 mg/dl (0-200); CHOLESTEROL/HDL RATIO 3.1; HDL CHOLESTEROL 55 mg/dl; LDL CHOLESTEROL CALCULATED 64 mg/dl; THYROID STIMULATING HORMONE 0.623 uIu/ml (0.300-4.500); TRIGLYCERIDES 256 mg/dl (0-150); VERY LOW DENSITY LIPOPROT CALC 51 mg/dl
[2017-02-21 06:14] LABS: ESTIMATED AVERAGE GLUCOSE 131 mg/dl; HA1C FLAG Normal (Normal)
== END | disposition home or self-care (01) ==
LOC: C.LAB1850 13:49
PROVIDERS: ATTEND Internal Medicine
DX: E11.9 Type 2 diabetes mellitus without complications (principal); E78.00 Pure hypercholesterolemia, unspecified; N20.0 Calculus of kidney; E03.9 Hypothyroidism, unspecified

== ENCOUNTER → 2017-05-30 | Outpatient (CLI) | payer BC ==
[2017-05-30 12:13] LABS: HEMOGLOBIN 12.2 g/dL (12.0-16.0); MEAN CELL VOLUME 90.5 fL (80-100); MEAN CORPUSCULAR HGB CONC 32.1 g/dl (32-36); PLATELET COUNT 217 K/uL (130-400); RED CELL DISTRIBUTION WIDTH CV 14.7 % (11.5-14.5)
[2017-05-30 12:42] LABS: ALBUMIN 3.8 gm/dl (3.4-5.0); ALT/SGPT 40 U/L (12-78); AST/SGOT 34 U/L (15-37); BLOOD UREA NITROGEN 10 mg/dl (7-18); CALCIUM 8.7 mg/dl (8.5-10.1); CARBON DIOXIDE 26 mmol/L (21-32); CREATININE 0.85 mg/dl (0.60-1.20); GLUCOSE 120 mg/dl (70-99); POTASSIUM 3.8 mmol/L (3.5-5.1); SODIUM 138 mmol/L (136-145)
[2017-05-30 12:53] LABS: ALKALINE PHOSPHATASE 76 U/L (45-117); TOTAL PROTEIN 7.2 gm/dl (6.4-8.2)
== END | disposition home or self-care (01) ==
LOC: C.LAB1850 10:28
PROVIDERS: ATTEND Internal Medicine
DX: E03.9 Hypothyroidism, unspecified (principal); E83.42 Hypomagnesemia; R53.83 Other fatigue; L29.9 Pruritus, unspecified

== ENCOUNTER → 2017-08-19 | Outpatient (CLI) | payer BC ==
[~2017-08-19] MED LIST changes: +GABA-1219 PO; -GABA1CAP4 PO; -OXYC-57 PO
[2017-08-19 12:21] LABS: HEMATOCRIT 38.7 % (37-47); HEMOGLOBIN 12.7 g/dL (12.0-16.0); MEAN CELL VOLUME 90.4 fL (80-100); MEAN CORPUSCULAR HEMOGLOBIN 29.7 pg (25-34); MEAN CORPUSCULAR HGB CONC 32.8 g/dl (32-36); MEAN PLATELET VOLUME 12.2 fL (7.4-10.4); PLATELET COUNT 214 K/uL (130-400); RED CELL DISTRIBUTION WIDTH CV 14.5 % (11.5-14.5); RED CELL DISTRIBUTION WIDTH SD 47.6 fL (36.4-46.3); WHITE BLOOD COUNT 6.95 K/uL (4.8-10.8)
[2017-08-19 12:53] LABS: BLOOD UREA NITROGEN 9 mg/dl (7-18); CALCIUM 9.3 mg/dl (8.5-10.1); CARBON DIOXIDE 25 mmol/L (21-32); CREATININE 0.91 mg/dl (0.60-1.20); GLUCOSE 158 mg/dl (70-99); HEMOGLOBIN A1C 6.5 % (4.5-5.6); POTASSIUM 3.8 mmol/L (3.5-5.1); SODIUM 138 mmol/L (136-145); URIC ACID 2.3 mg/dl (2.6-7.2)
[2017-08-19 13:05] LABS: ALT/SGPT 39 U/L (12-78); AST/SGOT 29 U/L (15-37); CHOLESTEROL 152 mg/dl (0-200); LDL CHOLESTEROL CALCULATED 60 mg/dl
== END | disposition home or self-care (01) ==
LOC: C.LAB 11:17
PROVIDERS: ATTEND Internal Medicine
DX: D72.819 Decreased white blood cell count, unspecified (principal); E03.9 Hypothyroidism, unspecified; E78.00 Pure hypercholesterolemia, unspecified; E11.9 Type 2 diabetes mellitus without complications; M10.9 Gout, unspecified; E53.8 Deficiency of other specified B group vitamins

== ENCOUNTER → 2017-08-23 | Outpatient (CLI) | payer BC ==
--- NOTE | 2017-08-23 13:39 | DIAGNOSTIC IMAGING REPORT ---
LEFT LATERAL CHEST ULTRASOUND CLINICAL HISTORY: D17.1 Lipoma of torso left sided nodule below arm left side. Left lateral chest pain. COMPARISON STUDY: None. FINDINGS: Real-time sonographic imaging of the left lateral chest was performed at the patient's area of interest. No masses or fluid collections identified. IMPRESSION: No significant abnormality within the left lateral chest at the patient's area of interest. Electronically signed by: Xiang Winters M.D. 08/23/2017 1:38 PM Dictated Date/Time: 08/23/2017 1:24 PM
== END | disposition home or self-care (01) ==
LOC: C.ULTR 12:40
PROVIDERS: ATTEND Internal Medicine
DX: D17.1 Benign lipomatous neoplasm of skin and subcutaneous tissue of trunk (principal)

== ENCOUNTER → 2017-09-19 | Outpatient (CLI) | payer BC ==
[~2017-09-19] MED LIST changes: -GABA-1219 PO; +GABA400C PO; -OMEG5CAP PO
--- NOTE | 2017-09-19 11:35 | DIAGNOSTIC IMAGING REPORT ---
KUB HISTORY: R32 Urinary [id number] COMPARISON: KUB 01/07/2017. FINDINGS: The bowel gas pattern is non-obstructive. Moderate stool volume throughout the colon suggests constipation. Cholecystectomy clips are noted. Multiple calcifications of the pelvis suggest phleboliths. There is no organomegaly. Renal shadows are partially obscured by bowel gas. No definite nephrolithiasis or ureteral calculi No pneumoperitoneum or pneumatosis. No fracture. Degenerative changes of the spine, hips and pelvis. IMPRESSION: 1. Nonobstructive bowel gas pattern. 2. No definite nephrolithiasis or ureteral calculi. 3. Suggested constipation. Electronically signed by: Dariel Lawrence M.D. 09/19/2017 11:34 AM Dictated Date/Time: 09/19/2017 11:32 AM
== END | disposition home or self-care (01) ==
LOC: C.RAD 11:01
PROVIDERS: ATTEND Urology
DX: R32 Unspecified urinary incontinence (principal)

== ENCOUNTER → 2017-11-14 | Outpatient (CLI) | payer BC ==
--- NOTE | 2017-11-14 17:48 | DIAGNOSTIC IMAGING REPORT ---
SOFT TISSUE NECK HISTORY: 67 years-old Female Z01.419 Encounter for routine gynecological examination acute choking sensation with history of aspiration COMPARISON: Chest radiograph of same day TECHNIQUE: 2 views of the soft tissues of the neck FINDINGS: There is no prevertebral soft tissue swelling. Epiglottis and aryepiglottic folds appear unremarkable. No radiopaque foreign body within the airway. Mild intervertebral disc space narrowing with spondylitic spurring at C6-C7. Mild multilevel facet arthrosis. Imaged lung apices appear clear. IMPRESSION: Unremarkable appearance of the soft tissues of the neck. The above report was generated using voice recognition software. It may contain grammatical, syntax or spelling errors. Electronically signed by: Dariel Lawrence M.D. 11/14/2017 5:47 PM Dictated Date/Time: 11/14/2017 5:45 PM
--- NOTE | 2017-11-14 17:48 | DIAGNOSTIC IMAGING REPORT ---
CHEST-PA,LAT AND OBLIQUE VIEWS CLINICAL HISTORY: T17.890A Aspiration of foodboth dyspnea COMPARISON STUDY: 12/09/2016 FINDINGS: Lungs are clear. Oblique projections are unremarkable. No focal infiltrate. No significant cardiac enlargement. IMPRESSION: Normal study The above report was generated using voice recognition software. It may contain grammatical, syntax or spelling errors. Electronically signed by: Ham Rodríguez M.D. 11/14/2017 5:46 PM Dictated Date/Time: 11/14/2017 5:46 PM
== END | disposition home or self-care (01) ==
LOC: C.RAD 17:24
PROVIDERS: ATTEND Nurse Practitioner Family
DX: Z12.4 Encounter for screening for malignant neoplasm of cervix (principal); T17.890A Other foreign object in other parts of respiratory tract causing asphyxiation, initial encounter; X58.XXXA Exposure to other specified factors, initial encounter

== ENCOUNTER 2017-12-06 13:17 | Emergency (ER) | payer BC ==
[~2017-12-06] VITALS: Ht 154.9 cm; Wt 90.0 kg
[2017-12-06 13:20] VITALS: TEMP 36.9; Ht 154.9 cm; Wt 90.0 kg
[2017-12-06] MEDS ORDERED: SODIUM CHLORIDE 0.9% 500ML 500 ML IV STA (13:54)
--- NOTE | 2017-12-06 13:59 | EMERGENCY ROOM VISIT NOTE ---
History Report prepared by Zackary: Placido Huff Under the Supervision of: Dr. Sanya Tate M.D. First contact with patient: 13:38 Chief Complaint: FALL Stated Complaint: FALL,RT KNEE,HAND AND SIDE PAIN History of Present Illness The patient is a 67 year old female with a past medical history of diabetes mellitus, diplopia, hyperlipidemia, hypothyroidism, renal calculi, neuropathy, and RUQ pain and rigidity who presents to the ED with a cc of hand, knee, and back pain following a fall on the right side that occurred about an hour ago. The patient describes the pain as an achy sensation and does admit that she does not remember the incident due to loss of consciousness. She also notes that she takes a baby aspirin and blood pressure medications daily, but today she also took an Eliza. The patient also notes she has fallen before due to her knees giving out. Negative for history of congestive heart failure. Source of History: patient Onset: An hour ago Position: knee (right) Quality: ache Associated Symptoms: + LOC, No abdominal pain Review of Systems See HPI for pertinent positives and negatives. A total of ten systems were reviewed and were otherwise negative. Past Medical & Surgical Medical Problems: (1) Diabetes mellitus (2) Diplopia (3) Hyperlipidemia (4) Hypothyroidism (5) Kidney stone (6) Neuropathy (7) RUQ pain (8) RUQ rigidity Surgical Problems: (1) History of back surgery Family History Cancer Diabetes mellitus Heart disease Hypertension Kidney stones Social History Smoking Status: Never Smoker Alcohol Use: none Drug Use: none Marital Status: Housing Status: lives alone Occupation Status: retired Current/Historical Medications Scheduled Allopurinol (Zyloprim), 100 MG PO QAM Amiloride Hcl (Amiloride Hcl), 5 MG PO QAM Aspirin (Aspirin Ec), 81 MG PO DAILY Atorvastatin (Lipitor), 10 MG PO DAILY Cyanocobalamin (B-12), 1,000 MCG PO QAM Gabapentin (Neurontin), 400 MG PO TID Levothyroxine Sodium (Levothyroxine Sodium), 75 MCG PO QAM Magnesium Oxide (Mg Supplement (Magnesium), 400 MG PO NOON Metformin HCl (Metformin HCl), 500 MG PO TID Paroxetine (Paxil), 20 MG PO QAM Potassium Citrate (Alkalinizer (Potassium Citrate ER), 2 TAB PO BID Scheduled PRN Alprazolam (Xanax), 1 MG PO BID PRN for Anxiety Allergies Coded Allergies: Iodinated Diagnostic Agents (Verified Allergy, Severe, HIVES AND THROAT SWELLING, 09/18/17) Physical Exam Vital Signs Date Time Temp Pulse Resp B/P (MAP) Pulse Ox O2 Delivery O2 Flow Rate FiO2 12/06/17 16:19 66 16 178/68 98 12/06/17 14:15 74 16 154/75 96 80 168/88 80 175/109 12/06/17 14:15 96 Room Air 12/06/17 13:20 36.9 88 18 181/77 96 Room Air Physical Exam GENERAL: Awake, alert, well-appearing, NAD, obese, wearing glasses HENT: Normocephalic, atraumatic. EYES: Normal conjunctiva. Sclera non-icteric. PERRL. No anisocoria. NECK: Supple. No nuchal rigidity. FROM. RESPIRATORY: CTAB, no rhonchi, wheezing, crackles CARDIAC: RRR, no MRG ABDOMEN: Soft, NTND, BS+ MSK: No chest wall TTP, no LE edema, pain at MCP on lateral right hand, NVI to MUR nerves, mild distal right thigh and knee pain, no effusion or erythema. No midline cervical spine TTP, no pain to chest, back, abdomen, LUE, or LLE. NEURO: GCS 15, CN 2-12 intact, moves all 4s on command SKIN: No rash or jaundice noted. Medical Decision & Procedures ER Provider Diagnostic Interpretation: Radiology results as stated below per my review and radiologist interpretation: R HAND MIN 3 VIEWS ROUTINE CLINICAL HISTORY: s/p fall, bruising lateral hand at MCP trauma. Pain. COMPARISON: None. DISCUSSION: The bones and joint spaces appear intact. There is no evidence of fracture, dislocation or bony disease. Mild soft tissue edema. Minimal degenerative change. IMPRESSION: No acute bony abnormality. Mild soft tissue edema. The above report was generated using voice recognition software. It may contain grammatical, syntax or spelling errors. Electronically signed by: Ham Rodríguez M.D. 12/06/2017 3:32 PM Dictated Date/Time: 12/06/2017 3:31 PM R KNEE 3 VIEWS CLINICAL HISTORY: s/p fall COMPARISON: None. DISCUSSION: The bones and joint spaces appear intact. There is no evidence of fracture, dislocation or bony disease. There is no evidence for soft tissue swelling. IMPRESSION: Negative study. The above report was generated using voice recognition software. It may contain grammatical, syntax or spelling errors. Electronically signed by: Ham Rodríguez M.D. 12/06/2017 3:35 PM Dictated Date/Time: 12/06/2017 3:34 PM CHEST ONE VIEW PORTABLE CLINICAL HISTORY: EVALUATE ALTERED MENTAL STATUS/WEAKNESS COMPARISON STUDY: 11/14/2017 FINDINGS: The bones soft tissues and hemidiaphragms are normal. The cardiomediastinal silhouette is normal. The lungs are clear. The pulmonary vasculature is normal. IMPRESSION: Negative chest. The above report was generated using voice recognition software. It may contain grammatical, syntax or spelling errors. Electronically signed by: Ham Rodríguez M.D. 12/06/2017 3:31 PM Dictated Date/Time: 12/06/2017 3:[address] CT DOSE: 537.48 mGy.cm HISTORY: EVALUATE ALTERED MENTAL STATUS/WEAKNESS TECHNIQUE: Multiaxial CT images of the head were performed without the use of intravenous contrast. Automated exposure control was utilized for this study. A dose lowering technique was utilized adhering to the principles of ALARA. Comparison: Head CT 12/06/2017. Findings: Near complete opacification of right sphenoid sinus with an associated fluid level. The mastoid air cells are clear. The calvarium and skull base are intact. The ventricles and sulci are within normal limits. There is no mass, hematoma, midline shift, or acute infarct. Impression: No acute intracranial abnormality. Acute right sphenoid sinusitis. Electronically signed by: Xiang Winters M.D. 12/06/2017 2:57 PM Dictated Date/Time: 12/06/2017 2:45 PM Laboratory Results 12/06/17 14:15 Red Blood Count 4.03, Mean Corpuscular Volume 91.6, Mean Corpuscular Hemoglobin 29.8, Mean Corpuscular Hemoglobin Concent 32.5, Mean Platelet Volume 11.8, Neutrophils (%) (Auto) 58.3, Lymphocytes (%) (Auto) 31.4, Monocytes (%) (Auto) 9.2, Eosinophils (%) (Auto) 0.7, Basophils (%) (Auto) 0.1, Neutrophils # (Auto) 4.37, Lymphocytes # (Auto) 2.35, Monocytes # (Auto) 0.69, Eosinophils # (Auto) 0.05, Basophils # (Auto) 0.01 12/06/17 14:15 Test 12/06/17 14:15 12/06/17 14:20 White Blood Count 7.49 K/uL (4.8-10.8) Red Blood Count 4.03 M/uL (4.2-5.4) Hemoglobin 12.0 g/dL (12.0-16.0) Hematocrit 36.9 % (37-47) Mean Corpuscular Volume 91.6 fL (80-100) Mean Corpuscular Hemoglobin 29.8 pg (25-34) Mean Corpuscular Hemoglobin Concent 32.5 g/dl (32-36) Platelet Count 187 K/uL (130-400) Mean Platelet Volume 11.8 fL (7.4-10.4) Neutrophils (%) (Auto) 58.3 % Lymphocytes (%) (Auto) 31.4 % Monocytes (%) (Auto) 9.2 % Eosinophils (%) (Auto) 0.7 % Basophils (%) (Auto) 0.1 % Neutrophils # (Auto) 4.37 K/uL (1.4-6.5) Lymphocytes # (Auto) 2.35 K/uL (1.2-3.4) Monocytes # (Auto) 0.69 K/uL (0.11-0.59) Eosinophils # (Auto) 0.05 K/uL (0-0.5) Basophils # (Auto) 0.01 K/uL (0-0.2) RDW Standard Deviation 49.3 fL (36.4-46.3) RDW Coefficient of Variation 14.7 % (11.5-14.5) Immature Granulocyte % (Auto) 0.3 % Immature Granulocyte # (Auto) 0.02 K/uL (0.00-0.02) Prothrombin Time 10.4 SECONDS (9.0-12.0) Prothromb Time International Ratio 1.0 (0.9-1.1) Activated Partial Thromboplast Time 24.5 SECONDS (21.0-31.0) Partial Thromboplastin Ratio 0.9 Anion Gap 10.0 mmol/L (3-11) Est Creatinine Clear Calc Drug Dose 61.8 ml/min Estimated GFR () 77.2 Estimated GFR (Non- 66.6 BUN/Creatinine Ratio 5.9 (10-20) Calcium Level 9.2 mg/dl (8.5-10.1) Phosphorus Level 2.2 mg/dl (2.5-4.9) Magnesium Level 2.1 mg/dl (1.8-2.4) Total Bilirubin 0.6 mg/dl (0.2-1) Direct Bilirubin 0.1 mg/dl (0-0.2) Aspartate Amino Transf (AST/SGOT) 29 U/L (15-37) Alanine Aminotransferase (ALT/SGPT) 37 U/L (12-78) Alkaline Phosphatase 67 U/L (45-117) Troponin I < 0.015 ng/ml (0-0.045) Total Protein 6.9 gm/dl (6.4-8.2) Albumin 3.6 gm/dl (3.4-5.0) Thyroid Stimulating Hormone (TSH) 0.939 uIu/ml (0.300-4.500) Urine Color YELLOW Urine Appearance CLEAR (CLEAR) Urine pH >= 9.0 (4.5-7.5) Urine Specific [place] 1.015 (1.000-1.030) Urine Protein NEG (NEG) Urine Glucose (UA) 1+ (NEG) Urine Ketones NEG (NEG) Urine Occult Blood NEG (NEG) Urine Nitrite NEG (NEG) Urine Bilirubin NEG (NEG) Urine Urobilinogen NEG (NEG) Urine Leukocyte Esterase TRACE (NEG) Urine WBC (Auto) 10-30 /hpf (0-5) Urine RBC (Auto) 0-4 /hpf (0-4) Urine Hyaline Casts (Auto) 1-5 /lpf (0-5) Urine Epithelial Cells (Auto) 5-10 /lpf (0-5) Urine Bacteria (Auto) NEG (NEG) Laboratory results reviewed by me Medications Administered Medications (Trade) Dose Ordered Sig/Rohit Route Start Time Stop Time Status Last Admin Dose Admin Sodium Chloride 500 ml @ 999 mls/hr Q31M STAT IV 12/06/17 13:54 12/06/17 14:24 DC 12/06/17 13:54 999 MLS/HR ECG Per My Interpretation Indication: syncope Rate (beats per minute): 69 Rhythm: normal sinus Findings: other (Normal axis, normal intervals, has TWI in lead aVL) ED Course 1345: The patient was evaluated in room B9. A complete history and physical exam was performed. 1550: I reevaluated the patient 1620: I reevaluated the patient. Discussed results and discharge instructions: She verbalized understanding and agreement. The patient is ready for discharge. Medical Decision Nursing notes reviewed. Ancillary studies and prior records reviewed. Differential diagnosis: Etiologies such as vasovagal event, infection, hypoglycemia, electrolyte abnormalities, cardiac sources, intracerebral event, toxicologic, neurologic, as well as others were entertained. Patient was seen and evaluated the bedside. Patient states that she had a fall onto her right side about an hour prior. Patient does not know how long but believes it was brief in nature. Patient denies any tongue biting or bowel or bladder incontinence. Patient denies any chest pain, shortness of breath, headache. The patient has a nonfocal neurologic exam. Patient may have a questionable deformity to the right hand. The patient also does complain of some mild knee pain. Patient denies any history of CHF. Patient also denies any sort of prodrome, palpitations, lightheadedness, or skipped heartbeats prior to her episode. Patient did have blood work completed, CT brain, EKG. Patient's blood work unremarkable. CT brain negative acute. She was noted to have incidental sinusitis. The patient has not complained of any facial pain or discharge. Will not treat at this time. EKG does not show any ischemic change or overt arrhythmia. Troponin is not elevated. Patient's plain films are negative. Patient is already had a recent tetanus it will not be updated. I did discuss whether not the patient wanted to stay versus close outpatient follow-up given that the patient is very well-appearing and her blood work EKG and imaging are reassuring. Patient would like to go home I believe this is reasonable at this time. The patient does not show any signs of volume overload unstable vital signs or other issues at this time. Patient was told return if she has any worsening symptoms. Family is at the bedside state that they will ensure that she keeps her follow-up appointment to return if anything changes. Patient was given strict follow-up, discharge, and return precautions. All questions were answered. Patient was deemed suitable for outpatient follow-up at this time. Patient agreed with the plan of care and was safely discharged home. Medication Reconcilliation Current Medication List: was personally reviewed by me Blood Pressure Screening Patient's blood pressure: Elevated blood pressure Blood pressure disposition: Elevated BP felt to be situational Impression Primary Impression: Syncope Additional Impressions: Fall Contusion of multiple sites Scribe Attestation The scribe's documentation has been prepared under my direction and personally reviewed by me in its entirety. I confirm that the note above accurately reflects all work, treatment, procedures, and medical decision making performed by me. Departure Information Dispostion Home / Self-Care Referrals Abhijit Guillen M.D. (PCP) Forms HOME CARE DOCUMENTATION FORM, IMPORTANT VISIT INFORMATION Patient Instructions ED RICE, ED Wound Care, Fainting (Syncope) - [facility], My [facility] Additional Instructions Please return to the emergency department if you have worsening or recurrent symptoms not amenable to at-home treatment. Please call for a follow-up appointment with her primary care physician. Please take your medications as prescribed. If you have other concerns and/or complaints please feel free to also call your primary care physician's office or return the ED for further evaluation, management, and treatment. You may take tylenol 650 mg every 6 hours as needed for pain/fever unless told by your physician to not take it or have liver problems. Take your medications as prescribed. You have been examined and treated today on an emergency basis only. This is not a substitute for, or an effort to provide, complete comprehensive medical care. It is impossible to recognize and treat all injuries or illnesses in a single emergency department visit. It is therefore important that you follow up closely with [facility], your PCP, and/or your specialist(s). Call as soon as possible for an appointment. Thank you for your time and consideration. I look forward to speaking with you again soon. Please don't hesitate to call us if you have any questions. Problem Qualifiers Primary Impression: Syncope Syncope type: unspecified Qualified Codes: R55 - Syncope and collapse Additional Impressions: Fall Encounter type: initial encounter Qualified Codes: W19.XXXA - Unspecified fall, initial encounter
[2017-12-06 14:15] VITALS: O2SAT 96
[2017-12-06 14:43] LABS: BASO % 0.1 %; BASO ABS # 0.01 K/uL (0-0.2); EOS % 0.7 %; EOS ABS # 0.05 K/uL (0-0.5); HEMATOCRIT 36.9 % (37-47); IG# 0.02 K/uL (0.00-0.02); LYMPH % 31.4 %; LYMPH ABS # 2.35 K/uL (1.2-3.4); MEAN CELL VOLUME 91.6 fL (80-100); MEAN CORPUSCULAR HEMOGLOBIN 29.8 pg (25-34); MEAN CORPUSCULAR HGB CONC 32.5 g/dl (32-36); MEAN PLATELET VOLUME 11.8 fL (7.4-10.4); MONO % 9.2 %; MONO ABS # 0.69 K/uL (0.11-0.59); NEUT % 58.3 %; NEUT ABS # 4.37 K/uL (1.4-6.5); PLATELET COUNT 187 K/uL (130-400); RED CELL DISTRIBUTION WIDTH CV 14.7 % (11.5-14.5); RED CELL DISTRIBUTION WIDTH SD 49.3 fL (36.4-46.3); WHITE BLOOD COUNT 7.49 K/uL (4.8-10.8)
[2017-12-06 14:54] LABS: PTT PATIENT 24.5 SECONDS (21.0-31.0)
--- NOTE | 2017-12-06 14:59 | DIAGNOSTIC IMAGING REPORT ---
HEAD CT NONCONTRAST CT DOSE: 537.48 mGy.cm HISTORY: EVALUATE ALTERED MENTAL STATUS/WEAKNESS TECHNIQUE: Multiaxial CT images of the head were performed without the use of intravenous contrast. Automated exposure control was utilized for this study. A dose lowering technique was utilized adhering to the principles of ALARA. Comparison: Head CT 12/06/2017. Findings: Near complete opacification of right sphenoid sinus with an associated fluid level. The mastoid air cells are clear. The calvarium and skull base are intact. The ventricles and sulci are within normal limits. There is no mass, hematoma, midline shift, or acute infarct. Impression: No acute intracranial abnormality. Acute right sphenoid sinusitis. Electronically signed by: Xiang Winters M.D. 12/06/2017 2:57 PM Dictated Date/Time: 12/06/2017 2:45 PM
[2017-12-06 15:17] LABS: ALBUMIN 3.6 gm/dl (3.4-5.0); ALKALINE PHOSPHATASE 67 U/L (45-117); ALT/SGPT 37 U/L (12-78); AST/SGOT 29 U/L (15-37); BLOOD UREA NITROGEN 5 mg/dl (7-18); CALCIUM 9.2 mg/dl (8.5-10.1); CARBON DIOXIDE 25 mmol/L (21-32); CREATININE 0.89 mg/dl (0.60-1.20); GLUCOSE 88 mg/dl (70-99); PHOSPHORUS 2.2 mg/dl (2.5-4.9); POTASSIUM 3.8 mmol/L (3.5-5.1); SODIUM 140 mmol/L (136-145); TOTAL PROTEIN 6.9 gm/dl (6.4-8.2)
--- NOTE | 2017-12-06 15:32 | DIAGNOSTIC IMAGING REPORT ---
CHEST ONE VIEW PORTABLE CLINICAL HISTORY: EVALUATE ALTERED MENTAL STATUS/WEAKNESS COMPARISON STUDY: 11/14/2017 FINDINGS: The bones soft tissues and hemidiaphragms are normal. The cardiomediastinal silhouette is normal. The lungs are clear. The pulmonary vasculature is normal. IMPRESSION: Negative chest. The above report was generated using voice recognition software. It may contain grammatical, syntax or spelling errors. Electronically signed by: Ham Rodríguez M.D. 12/06/2017 3:31 PM Dictated Date/Time: 12/06/2017 3:31 PM
--- NOTE | 2017-12-06 15:33 | DIAGNOSTIC IMAGING REPORT ---
R HAND MIN 3 VIEWS ROUTINE CLINICAL HISTORY: s/p fall, bruising lateral hand at MCP trauma. Pain. COMPARISON: None. DISCUSSION: The bones and joint spaces appear intact. There is no evidence of fracture, dislocation or bony disease. Mild soft tissue edema. Minimal degenerative change. IMPRESSION: No acute bony abnormality. Mild soft tissue edema. The above report was generated using voice recognition software. It may contain grammatical, syntax or spelling errors. Electronically signed by: Ham Rodríguez M.D. 12/06/2017 3:32 PM Dictated Date/Time: 12/06/2017 3:31 PM
--- NOTE | 2017-12-06 15:37 | DIAGNOSTIC IMAGING REPORT ---
R KNEE 3 VIEWS CLINICAL HISTORY: s/p fall COMPARISON: None. DISCUSSION: The bones and joint spaces appear intact. There is no evidence of fracture, dislocation or bony disease. There is no evidence for soft tissue swelling. IMPRESSION: Negative study. The above report was generated using voice recognition software. It may contain grammatical, syntax or spelling errors. Electronically signed by: Ham Rodríguez M.D. 12/06/2017 3:35 PM Dictated Date/Time: 12/06/2017 3:34 PM
[2017-12-06] MEDS ORDERED: DIPHTHERIA/TETANUS/PERTUSSIS 0.5 ML SYR/VIAL IM. ONE (16:00)
[2017-12-06 16:19] VITALS: BP 178/68; PULSE 66; O2SAT 98
== END 2017-12-06 16:20 | disposition home or self-care (01) ==
LOC: C.EDB 13:19
DX: R55 Syncope and collapse (principal); W19.XXXA Unspecified fall, initial encounter; E11.9 Type 2 diabetes mellitus without complications; H53.2 Diplopia; E78.5 Hyperlipidemia, unspecified; E03.9 Hypothyroidism, unspecified; Z79.82 Long term (current) use of aspirin; Z91.041 Radiographic dye allergy status

== ENCOUNTER 2019-01-15 01:12 | Observation (INO) ==
[2019-01-15] MEDS ORDERED: LORazepam 1 MG/2 ML VIAL IV STA (01:33)
[2019-01-15 01:53] LABS: Basophils # (auto) 0.02 K/uL (0-0.2); Basophils % (auto) 0.1 %; Eosinophils # (auto) 0.05 K/uL (0-0.5); Eosinophils % (auto) 0.3 %; Hematocrit (blood only) 39.7 % (37-47); Hemoglobin 13.1 g/dL (12.0-16.0); Immature Granulocytes # (auto) 0.08 K/uL (0.00-0.02); Immature Granulocytes % (auto) 0.4 %; Lymphocytes # (auto) 4.05 K/uL (1.2-3.4); Lymphocytes % (auto) 22.7 %; Mean Corpuscular Hemoglobin 29.6 pg (25-34); Mean Corpuscular Volume 89.6 fL (80-100); Mean Platelet Volume 11.3 fL (7.4-10.4); Monocytes # (auto) 1.39 K/uL (0.11-0.59); Monocytes % (auto) 7.8 %; Neutrophils # (auto) 12.28 K/uL (1.4-6.5); Neutrophils % (auto) 68.7 %; Platelet Count 254 K/uL (130-400); RDW Coefficient of Variation 15.7 % (11.5-14.5); RDW Standard Deviation 51.4 fL (36.4-46.3); Red Blood Count 4.43 M/uL (4.2-5.4); White Blood Count 17.87 K/uL (4.8-10.8)
[2019-01-15 02:17] LABS: BUN Creatinine Ratio 15.6 (10-20); Blood Urea Nitrogen 14 mg/dl (7-18); Calcium 9.2 mg/dl (8.5-10.1); Carbon Dioxide 29 mmol/L (21-32); Chloride 103 mmol/L (98-107); Creatinine Clr Calc Pharmacy 63.1 ml/min; Est GFR (African American) 76.6; Est GFR (Non-African American) 66.1; Glucose 116 mg/dl (70-99); Sodium 140 mmol/L (136-145); Thyroid Stimulating Hormone 0.944 uIu/ml (0.300-4.500); Troponin I < 0.015 ng/ml (0-0.045)
[2019-01-15 02:27] LABS: Potassium 3.6 mmol/L (3.5-5.1)
[2019-01-15 02:28] LABS: Magnesium 2.3 mg/dl (1.8-2.4)
[2019-01-15] MEDS ORDERED: MECLIZINE HCL 25 MG TAB PO STA (02:37)
[2019-01-15] MEDS ORDERED: LORazepam 0.5 MG/1 ML VIAL IV STA (02:37)
[2019-01-15] MEDS ORDERED: HydrALAZINE HCL 20 MG/ML VIAL IV STA (04:34)
[2019-01-15] MEDS ORDERED: HydrALAZINE HCL 20 MG/ML VIAL ONE (04:36)
--- NOTE | 2019-01-15 05:01 | History & Physical Report ---
Date of Service January 15, 2019 Assessment & Plan (1) Vertigo: Patient is a pleasant 68yo F PMH DM, HTN, HLD, hypothyroid, depression, gout, lumbar stenosis with sciatica, and chronic low back pain who is admitted for an uncontrolled episode of vertigo. Vertigo -meclizine prn -Recommend natali maneuver, not performed to this point -Consider outpatient vestibular rehab -No concerning features of acoustic neuroma or stroke, so MRI not obtained at this time Insomnia -Secondary to steroid use for rash -Consider hastening taper HTN -Pt given 30 mg hydralazine in ER -Continue outpatient regimen, consider titrating meds DM -Will continue metformin at this time considering BSG wnl despite steroid use and expected short LOS Gout -Cont home meds HLD -Cont home meds Hypothyroid -TSH wnl -Cont home meds Lumbar disc dz -Cont home regimen Rash -Currently on steroid course, consider hastening in light of insomnia -Unclear cause of rash -Outpatient records indicate intertriginous rash, however appears to be on neck and arms (not in creases only) -Outpatient follow up Code: full Dispo: med surg DVTP: SCDs; consider chemical PPx if LOS extends (2) Insomnia: (3) Hypertension: (4) Gout: (5) Hyperlipidemia: (6) Hypothyroid: (7) DM type 2 (diabetes mellitus, type 2): (8) Lumbar disc disease: (9) Rash: History of Present Illness Chief Complaint: Vertigo Primary Care Provider: Abhijit Guillen MD Patient is a pleasant 68yo F PMH DM, HTN, HLD, hypothyroid, depression, gout, lumbar stenosis with sciatica, and chronic low back pain who presented to the ER with an episode of vertigo. Patient states this started just before midnight after she was turning and standing up from a swivel chair at her computer. She immediately felt the room spinning around her and felt flushed, nauseated, dizzy, with pressure in the back of her head. She called 911, who were going to have to break down her trailer door, but the patient was able to get to the front door with difficulty, slowly making her way by clutching the wall all the way to the door. She states she has had occasional episodes of vertigo in the past but nothing like this. Patient notes she is currently taking a steroid for a rash on her chest (intertriginous) and because of that she has been unable to sleep for the past 4 days. In the ER, she was found to be hypertensive (200/80) but vitals were otherwise stable. Labwork was performed which indicated a leukocytosis appropriate for steroid use. A CT of her head was obtained and was non-contributory. She was given meclizine and 2 doses of ativan without much symptom relief. She was unable to sit at the edge of the bed without becoming unsteady and was unable to ambulate to the bathroom without assistance. Patient lives alone and did not feel comfortable going home. Niece at bedside unable to care for her during the day. She will be admitted for observation and is aware of potential costs of stay. Allergies Allergy/AdvReac Type Severity Reaction Status Date / Time Iodinated Contrast Media Allergy Severe HIVES AND Verified 01/15/19 02:18 THROAT SWELLING Home Medications Home Medications Medication Instructions Recorded Confirmed Type allopurinol 100 mg PO QAM 04/10/18 01/15/19 History atorvastatin 10 mg PO QAM 04/10/18 01/15/19 History magnesium oxide 400 mg PO QPM 04/10/18 01/15/19 History aspirin [Aspir-81] 81 mg PO QAM 04/17/18 01/15/19 History cyanocobalamin (vitamin B-12) 1,000 mcg PO DAILY 06/08/18 01/15/19 History [Vitamin B-12] gabapentin 600 mg PO TID 06/08/18 01/15/19 History amiloride 5 mg tablet 5 mg PO DAILY #90 tab 10/17/18 01/15/19 Rx paroxetine 20 mg tablet 20 mg PO DAILY #90 tab 10/17/18 01/15/19 Rx metformin 500 mg tablet 500 mg PO TID #270 tab 12/02/18 01/15/19 Rx alprazolam 1 mg tablet 1 mg PO BID PRN #90 tab 12/05/18 01/15/19 Rx levothyroxine 75 mcg tablet 75 mcg PO QAM #90 tab 12/05/18 01/15/19 Rx potassium citrate ER 10 mEq (1,080 20 meq PO BID #360 tab 12/30/18 01/15/19 Rx mg) tablet,extended release prednisone 10 mg tablet 10 mg PO .COMPLEX #27 tab 01/12/19 01/15/19 Rx cholecalciferol (vitamin D3) 2,000 unit PO DAILY 01/15/19 01/15/19 History [Vitamin D3] meclizine 25 mg PO Q6H PRN #30 tab 01/16/19 Rx Past Med/Surg History Medical History Lumbar stenosis with neurogenic claudication (Acute) Herniation of lumbar intervertebral disc with radiculopathy (Acute) Hypokalemia (Acute 03/14/14) Lower extremity pain, right (Acute) Neuropathy left leg Anxiety Chronic back pain TO BILAT LEGS Depression Diabetes mellitus, type 2 History of colon polyps Hyperlipidemia Hypertension Hypothyroidism Kidney stones Melanoma of right upper arm Osteoarthritis Surgical History History of Mohs micrographic surgery for skin cancer History of appendectomy History of back surgery LUMBAR History of bilateral cataract extraction History of carpal tunnel release of both wrists History of cholecystectomy History of colonoscopy History of cystoscopy MULTIPLE History of lithotripsy multiple History of tonsillectomy and adenoidectomy History of tooth extraction all teeth History of total hysterectomy with bilateral salpingo-oophorectomy (BSO) Hx of breast surgery left benign fatty mass removed Status post lumbar spine operative procedure for decompression of spinal cord with medial facetectomy L3-L4, L4-5 Family History Father Family history of diabetes mellitus Mother Family history of diabetes mellitus Daughter Family hx colonic polyps Other Family history non-contributory No family history of adverse response to anesthesia Social History Preferred Language: Upper Sorbian Communication Ability: Effective Visual Impairment: No Limitations Human Resources Team 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 Required: No Beliefs That Will Affect Care: None Current Living Situation: Alone Feels Safe at Home: Yes Smoking Status: Never smoker Second Hand Exposure: Yes (MOTHER SMOKED) ; Hx Alcohol Use: No Hx Substance Use: No Seatbelt Use: always Review of Systems Review of Systems: All systems reviewed & are unremarkable except as noted in HPI & below Eyes: + diplopia and + tunnel vision Ear, Nose, Mouth, Throat: + dizziness Cardiovascular: + syncope (syncopal symptoms at onset); no chest pain and no palpitations Gastrointestinal: + nausea (resolved); no abdominal pain Integumentary: + rash, + lesions and + changing lesions Neurologic: + unsteadiness, + lack of coordination and + dizziness Physical Exam Constitutional: WD/WN, vitals as above Eyes: PERRL, conjunctivae normal, anicteric sclerae + nystagmus (horizontal ) ENMT: external ear and nose normal, oropharynx normal Neck: trachea midline, no thyromegaly normal visual inspection Respiratory: normal respiratory effort, lungs clear to auscultation Cardiovascular: RRR, no murmur, no edema Gastrointestinal (Abdomen): normal bowel sounds, soft, nontender, no hepatosplenomegaly Musculoskeletal: no cyanosis or clubbing, extremities motor strength 5/5 Skin: + rash (resolving intertriginous rash beneath breasts/stomach, some crusted lesions) and + crusts Some crusted lesions on neck and R arm Neurologic: PERRL, EOMI, accommodation nl, no face palsy, no dysarthria + abnormal Anny Hallpike (not performed) Gait: + ataxic gait Coordination: + sways with eyes open Psychiatric: A+Ox3, euthymic affect Results & Data Vital Signs (Past 12 Hours) Vital Signs Temp Pulse Resp BP Pulse Ox 01/15/19 04:43 61 15 178/77 H 99 01/15/19 04:08 57 L 15 194/79 H 98 01/15/19 04:01 59 L 12 216/99 H 96 01/15/19 02:31 51 L 13 176/68 H 97 01/15/19 02:30 58 L 13 95 01/15/19 02:01 56 L 14 188/71 H 94 01/15/19 02:00 56 L 15 95 01/15/19 01:56 55 L 14 182/80 H 97 01/15/19 01:30 60 18 99 01/15/19 01:29 97.7 F 80 20 201/80 H 99 01/15/19 01:23 59 L 13 201/80 H 98 01/15/19 01:20 61 25 H 98 Laboratory Results 01/15/19 01/15/19 Range/Units 01:27 01:27 WBC 17.87 H (4.8-10.8) K/uL RBC 4.43 (4.2-5.4) M/uL Hgb 13.1 (12.0-16.0) g/dL Hct 39.7 (37-47) % MCV 89.6 (80-100) fL MCH 29.6 (25-34) pg MCHC 33.0 (32-36) g/dL RDW Std Deviation 51.4 H (36.4-46.3) fL RDW Coeff of Eliseo 15.7 H (11.5-14.5) % Plt Count 254 (130-400) K/uL MPV 11.3 H (7.4-10.4) fL Immature Gran % (Auto) 0.4 % Neut % (Auto) 68.7 % Lymph % (Auto) 22.7 % [place] % (Auto) 7.8 % Eos % (Auto) 0.3 % Baso % (Auto) 0.1 % Immature Gran # (Auto) 0.08 H (0.00-0.02) K/uL Neut # (Auto) 12.28 H (1.4-6.5) K/uL Lymph # (Auto) 4.05 H (1.2-3.4) K/uL [place] # (Auto) 1.39 H (0.11-0.59) K/uL Eos # (Auto) 0.05 (0-0.5) K/uL Baso # (Auto) 0.02 (0-0.2) K/uL Sodium 140 (136-145) mmol/L Potassium 3.6 (3.5-5.1) mmol/L Chloride 103 (98-107) mmol/L Carbon Dioxide 29 (21-32) mmol/L Anion Gap 8.0 (3-11) BUN 14 (7-18) mg/dl Creatinine 0.89 (0.6-1.2) mg/dl Est Cr Clr Drug Dosing 63.1 ml/min Est GFR ( Amer) 76.6 Est GFR (Non-Af Amer) 66.1 BUN/Creatinine Ratio 15.6 (10-20) Glucose 116 H (70-99) mg/dl Calcium 9.2 (8.5-10.1) mg/dl Magnesium 2.3 (1.8-2.4) mg/dl Troponin I < 0.015 (0-0.045) ng/ml TSH 0.944 (0.300-4.500) uIu/ml Code Status & VTE Plan Code Status Full Supervising Physician Co-Signing Physician Notes Attending addendum: I have physically seen this patient, have supervised the medical residents activities, and agree with the H&P unless as otherwise noted. Assessment and Plan: Intractable vertigo- Symptoms persistent in spite of treatment in ED. Meclizine 25 mg p.o. every 6 hours as needed. IV fluids. Minimize salt intake. Natali maneuver as an outpatient. Zofran IV/Compazine IV for additional symptoms PRN. Remainder of orders notations as noted. PG Care Time/CCT Total # of Minutes Spent Total Time Spent with Patient: Total time spent is greater than 50% in coordination of care (as documented) at patient's floor/unit and/or counseling patient: Resident Activity Tracking Resident Involvement: Resident Care Provided Care Provided: Adult Hospital Medicine (1) Insomnia Insomnia type: unspecified Qualified Code(s): G47.00 - Insomnia, unspecified (2) Hypertension Hypertension type: unspecified Qualified Code(s): I10 - Essential (primary) hypertension
[2019-01-15] MEDS ORDERED: ALPRAZolam 0.5 MG TABLET PO PRN (05:06)
[2019-01-15] MEDS ORDERED: ONDANSETRON INJ 2 MG/ML 2 ML VIAL IV PRN (05:55)
[2019-01-15] MEDS ORDERED: ALUMINUM/MAGNESIUM SUSP 30 ML UDC PO PRN (05:55)
[2019-01-15] MEDS ORDERED: POLYETHYLENE (MIRALAX) 17 GM PACK PO PRN (05:55)
[2019-01-15] MEDS ORDERED: MAGNESIUM HYDROXIDE SUSP 30 ML UDC PO PRN (05:55)
[2019-01-15] MEDS ORDERED: MECLIZINE HCL 25 MG TAB PO PRN (05:55)
[2019-01-15] MEDS ORDERED: ACETAMINOPHEN 325 MG TAB PO PRN (05:55)
--- NOTE | 2019-01-15 06:12 | Emergency Department Note ---
Entered by Jennifer Herrera acting as a scribe for ED Provider Note Name: Jo-Ann Mccarthy Age: 68 Arrives Via: Ambulance Informant: Self CC: Vertigo HPI: A female arrives for evaluation of her persistent vertigo that occurred ROUGHER FOR CEMENT. She reports that she was at the computer, she stood up, and "the room began spinning." The patient complains of throat and neck pain, a headache, and nausea. She complains of abdominal pain that began while she was in the ambulance on the way here. The patient notes an episode of chest palpitations that occurred prior to the onset of vertigo. The patient denies any ear pain. She reports that she is on Prednisone for her rash. She notes that she has no slept in four days. ROS: See above HPI for pertinent positives & negatives. A total of 10 systems reviewed and were otherwise negative. Past Medical History: HTN, HLD, diabetes, neuropathy, and gout Past Surgical History: cholecystectomy Family History: Family history of vertigo. Social History: Lives at home, speaks Frisian. Home Medications: See below. Allergies Iodinated contrast media Physical: Vitals: BP: 201/80, T: 97.7, R: 20, O2 Sat: 99, D: Room Air Exam: GENERAL: Patient is very anxious appearing and in no acute distress. EYES: No scleral icterus, unremarkable pupils. ENT: Mucous membranes moist, no nasal congestion. Bilateral TMs normal. NECK: No masses appreciated, no meningismus, trachea is midline. RESPIRATORY: No dyspnea. Clear to auscultation and equal bilaterally. No wheeze, no rhonchi. CARDIOVASCULAR: Regular rate and rhythm. No murmurs, rubs, gallops appreciated. GASTROINTESTINAL: Abdomen soft, non-tender, no peritonitis. Bowel sounds positive. No masses appreciated. BACK: No midline tenderness, no CVA tenderness EXTREMITIES: Normal motion all extremities, no cyanosis, no edema. NEUROLOGIC: Alert and oriented, no acute motor or sensory deficits, no focal weakness, cranial nerves grossly intact. SKIN: No rash, no jaundice, no diaphoresis. ED Course: Prior Medical Record, Triage/Nursing Notes, Medications, Allergies reviewed by Me Vital Signs: reviewed and remarkable for tachycardia Labs: Reviewed and remarkable for leukocytosis Interventions: saline lock, ativan 1mg IV, ativan 0.5mg IV, meclizine 25mg PO Imaging: X ray results are stated below per my interpretation: Chest: 1 view: No infiltrate, no effusion, normal cardiac border. [facility] Radiologist interpretation reviewed by me: CT HEad negative acute findings EKG: Per My Interpretation: Indication Vertigo: Sinus werner 9 bpm no ectopy nor ischemia. qtc 421. similar to ekg 04/10/18 Consults: 0357: I discussed the patient's case with [facility] Browne hospitalist, about the patient's case. He will further evaluate the patient. Reassessments/Times: 0125: The patient was evaluated in room A10. A complete h istory and physical exam was performed. 0237: I reevaluated the patient, and she stated that she was improving but still had vertiginous symptoms with sitting up. She notes that her other symptoms are resolving. The patient states that she is still unable to sleep. Further Ativan and Meclizine were ordered. 0344: While somnolent, she is unable to sit up without swaying. She made it clear that she lives alone and she does not feel safe going home. Dr. Burden was paged and is coming to the ER. 0357: I discussed the patient's case with Dr. Burden, [facility] hospitalist, about the patient's case. He will further evaluate the patient. Blood pressure: Elevated - Referred to Hospitalist Disposition: Hospitalization Prescriptions: none. Differentials: Etiologies such as benign positional vertigo, labrynthitis, dehydration, hypovolemia, anemia, tumor, infection, hypoglycemia, electrolyte abnormalities, cardiac sources, toxicological sources, central neurologic process, as well as others were entertained amongst other pathologies. Medical Decision Makin yr old female with acute onset spitting and ataxia this evening. Worse with movement. CT head negative. Labs with leukocytosis consistent with being on prednisone. Without fever nor other findings I feel cultures unnecessary at current. Labs otherwise looking OK. She was feeling better at rest though still ataxic with trying to ambulate. Due to persistent symptoms and patient living alone hospitalist consulted who will monitor further. She does not have evidence of need for TPA at this time. She also has insomnia which is consistent with being on prednisone. She seemed much calmer after some ativan. Impression: Ataxia, nystagmus (horizontal), insomnia, hypertension The scribe's documentation has been prepared under my direction and personally reviewed by me in its entirety. I confirm that the note above accurately refle cts all work, treatment, procedures, and medical decision making performed by me. John Kerr MD Impression & Plan Ataxia, Hypertension, Horizontal nystagmus, Insomnia Past Med/Surg History Medical History Lumbar stenosis with neurogenic claudication (Acute) Herniation of lumbar intervertebral disc with radiculopathy (Acute) Hypokalemia (Acute 03/14/14) Lower extremity pain, right (Acute) Neuropathy left leg Anxiety Chronic back pain TO BILAT LEGS Depression Diabetes mellitus, type 2 History of colon polyps Hyperlipidemia Hypertension Hypothyroidism Kidney stones Melanoma of right upper arm Osteoarthritis Surgical History History of Mohs micrographic surgery for skin cancer History of appendectomy History of back surgery LUMBAR History of bilateral cataract extraction History of carpal tunnel release of both wrists History of cholecystectomy History of colonoscopy History of cystoscopy MULTIPLE History of lithotripsy multiple History of tonsillectomy and adenoidectomy History of tooth extraction all teeth History of total hysterectomy with bilateral salpingo-oophorectomy (BSO) Hx of breast surgery left benign fatty mass removed Status post lumbar spine operative procedure for decompression of spinal cord with medial facetectomy L3-L4, L4-5 Family History Father Family history of diabetes mellitus Mother Family history of diabetes mellitus Daughter Family hx colonic polyps Other Family history non-contributory No family history of adverse response to anesthesia Social History Preferred Language: Frisian Communication Ability: Effective Visual Impairment: No Limitations 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 Beliefs That Will Affect Care: None Current Living Situation: Alone Feels Safe at Home: Yes Smoking Status: Never smoker Second Hand Exposure: Yes (MOTHER SMOKED) ; Hx Alcohol Use: No Hx Substance Use: No Seatbelt Use: always Results & Data Vital Signs Vital Signs - 24 hr 01/15/19 01:20 01/15/19 01:23 01/15/19 01:29 Temperature 36.5 C Temperature Source Oral Sepsis Recent Fever Within 48 Hours No Sepsis New/Unexplained Change in Mental Status No Sepsis Action Taken by Nursing No Action Required Pulse Rate 61 59 L 80 Pulse Rate from SpO2 Sensor 60 59 L Pulse Rhythm Regular Pulse Strength Normal Respiratory Rate 25 H 13 20 Respiratory Effort / Characteristics Non-Labored Respiratory Depth Normal Respiratory Pattern Regular Blood Pressure 201/80 H 201/80 H Blood Pressure Mean 120 120 Blood Pressure Position Lying Pulse Oximetry 98 98 99 Oxygen Delivery Method Room Air 01/15/19 01:30 01/15/19 01:56 01/15/19 02:00 Temperature Temperature Source Sepsis Recent Fever Within 48 Hours Sepsis New/Unexplained Change in Mental Status Sepsis Action Taken by Nursing Pulse Rate 60 55 L 56 L Pulse Rate from SpO2 Sensor 59 L 57 L 56 L Pulse Rhythm Pulse Strength Respiratory Rate 18 14 15 Respiratory Effort / Characteristics Respiratory Depth Respiratory Pattern Blood Pressure 182/80 H Blood Pressure Mean 114 Blood Pressure Position Pulse Oximetry 99 97 95 Oxygen Delivery Method 01/15/19 02:01 01/15/19 02:30 01/15/19 02:31 Temperature Temperature Source Sepsis Recent Fever Within 48 Hours Sepsis New/Unexplained Change in Mental Status Sepsis Action Taken by Nursing Pulse Rate 56 L 58 L 51 L Pulse Rate from SpO2 Sensor 56 L 57 L 52 L Pulse Rhythm Pulse Strength Respiratory Rate 14 13 13 Respiratory Effort / Characteristics Respiratory Depth Respiratory Pattern Blood Pressure 188/71 H 176/68 H Blood Pressure Mean 110 104 Blood Pressure Position Pulse Oximetry 94 95 97 Oxygen Delivery Method 01/15/19 04:01 01/15/19 04:08 01/15/19 04:43 Temperature Temperature Source Sepsis Recent Fever Within 48 Hours Sepsis New/Unexplained Change in Mental Status Sepsis Action Taken by Nursing Pulse Rate 59 L 57 L 61 Pulse Rate from SpO2 Sensor 60 57 L 59 L Pulse Rhythm Pulse Strength Respiratory Rate 12 15 15 Respiratory Effort / Characteristics Respiratory Depth Respiratory Pattern Blood Pressure 216/99 H 194/79 H 178/77 H Blood Pressure Mean 138 117 110 Blood Pressure Position Pulse Oximetry 96 98 99 Oxygen Delivery Method 01/15/19 05:00 01/15/19 05:01 01/15/19 05:10 Temperature Temperature Source Sepsis Recent Fever Within 48 Hours Sepsis New/Unexplained Change in Mental Status Sepsis Action Taken by Nursing Pulse Rate 66 66 61 Pulse Rate from SpO2 Sensor 66 66 63 Pulse Rhythm Pulse Strength Respiratory Rate 13 17 15 Respiratory Effort / Characteristics Respiratory Depth Respiratory Pattern Blood Pressure 172/72 H Blood Pressure Mean 105 Blood Pressure Position Pulse Oximetry 97 97 96 Oxygen Delivery Method Home Medications Current Medication List: was personally reviewed by me Laboratory Data Attestation: I reviewed the patient's lab results. Result diagrams: 01/15/19 01:27 01/15/19 01:27 Lab Results 01/15/19 01/15/19 Range/Units 01:27 01:27 WBC 17.87 H (4.8-10.8) K/uL RBC 4.43 (4.2-5.4) M/uL Hgb 13.1 (12.0-16.0) g/dL Hct 39.7 (37-47) % MCV 89.6 (80-100) fL MCH 29.6 (25-34) pg MCHC 33.0 (32-36) g/dL RDW Std Deviation 51.4 H (36.4-46.3) fL RDW Coeff of Eliseo 15.7 H (11.5-14.5) % Plt Count 254 (130-400) K/uL MPV 11.3 H (7.4-10.4) fL Immature Gran % (Auto) 0.4 % Neut % (Auto) 68.7 % Lymph % (Auto) 22.7 % [place] % (Auto) 7.8 % Eos % (Auto) 0.3 % Baso % (Auto) 0.1 % Immature Gran # (Auto) 0.08 H (0.00-0.02) K/uL Neut # (Auto) 12.28 H (1.4-6.5) K/uL Lymph # (Auto) 4.05 H (1.2-3.4) K/uL [place] # (Auto) 1.39 H (0.11-0.59) K/uL Eos # (Auto) 0.05 (0-0.5) K/uL Baso # (Auto) 0.02 (0-0.2) K/uL Sodium 140 (136-145) mmol/L Potassium 3.6 (3.5-5.1) mmol/L Chloride 103 (98-107) mmol/L Carbon Dioxide 29 (21-32) mmol/L Anion Gap 8.0 (3-11) BUN 14 (7-18) mg/dl Creatinine 0.89 (0.6-1.2) mg/dl Est Cr Clr Drug Dosing 63.1 ml/min Est GFR ( Amer) 76.6 Est GFR (Non-Af Amer) 66.1 BUN/Creatinine Ratio 15.6 (10-20) Glucose 116 H (70-99) mg/dl Calcium 9.2 (8.5-10.1) mg/dl Magnesium 2.3 (1.8-2.4) mg/dl Troponin I < 0.015 (0-0.045) ng/ml TSH 0.944 (0.300-4.500) uIu/ml Administered Medications Discontinued Medications Hydralazine HCl (Hydralazine Hcl) 10 mg IV NOW STA Stop: 01/15/19 04:35 Last Admin: 01/15/19 04:41 Dose: 10 mg Documented by: [id number] Hydralazine HCl (Hydralazine Hcl) Confirm Administered Dose 20 mg .ROUTE .STK- MED ONE Stop: 01/15/19 04:37 Last Admin: 01/15/19 04:41 Dose: Not Given Documented by: [id number] Lorazepam (Ativan) 1 mg in 2 mls @ 2 mls/min IV NOW STA Stop: 01/15/19 01:34 Last Admin: 01/15/19 01:43 Dose: 2 mls/min Documented by: [id number] Lorazepam (Ativan) 0.5 mg in 1 mls @ 1 mls/min IV NOW STA Stop: 01/15/19 02:38 Last Admin: 01/15/19 02:45 Dose: 1 mls/min Documented by: [id number] Meclizine HCl (Antivert) 25 mg PO NOW STA Stop: 01/15/19 02:38 Last Admin: 01/15/19 02:45 Dose: 25 mg Documented by: [id number] Blood Pressure Blood Pressure Findings: Elevated blood pressure Blood Pressure Disposition: further management by hospitalist Discharge Plan Visit Data *Final* Discharge Date/Time: 01/15/19 05:39 Chief Complaint: Tachycardia Stated Complaint: TACHYCARDIA/BREATHING DIFFICULTY ED Provider: John Kerr Discharge Problem: Ataxia, Hypertension, Horizontal nystagmus, Insomnia Patient Disposition: Admitted As Inpatient Discharge Instructions Interventions: ED Discharge Assessment Last Done: 01/15/19 05:39 Discharge Problem: Hypertension Qualifiers: Hypertension type: unspecified Qualified Code(s): I10 - Essential (primary) hypertension Insomnia Qualifiers: Insomnia type: unspecified Qualified Code(s): G47.00 - Insomnia, unspecified The scribe's documentation has been prepared under my direction and personally reviewed by me in its entirety. I confirm that the note above accurately reflects all work, treatment, procedures, and medical decision making performed by me.
--- NOTE | 2019-01-15 06:54 | XRay Report ---
XR chest 1V portable CLINICAL HISTORY: 68 years-old Female presenting with Vertigo. TECHNIQUE: Portable upright AP view of the chest was obtained. COMPARISON: 12/06/2017. FINDINGS: Atherosclerosis of the aortic arch. Cardiac silhouette normal in size. No focal opacity. No large eff usion or pneumothorax. Degenerative changes of the thoracic spine. Upper abdomen normal. IMPRESSION: 1. No acute cardiopulmonary disease. Electronically signed by: Ramesh Shea M.D. 01/15/2019 6:52 AM
--- NOTE | 2019-01-15 07:00 | CT Scan Report ---
CT head/brain wo con CLINICAL HISTORY: 68 years-old Female presenting with new onset vertigo and tachycardia. TECHNIQUE: Multidetector CT imaging of the head was performed without the use of intravenous contrast . IV contrast: None. One or more dose lowering techniques were used consistent with the principles of ALARA (as low as reasonably achievable), including automatic exposure control, mA or kV adjustment t o individual patient size, and/or use of iterative reconstruction. COMPARISON: 06/08/2018. CT DOSE (mGy.cm): The estimated cumulative dose is 638.56 mGycm. 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 Proportional ventricular and sulcal prominence, likely age-related parenchymal volume loss. No hemorr norman. Brain parenchyma normal in appearance with preserved olivo-white differentiation. No acute jim torial infarct. No mass effect or midline shift. No extra-axial fluid collection. Paranasal sinuses a nd mastoid air cells clear. Calvarium intact. Absent [facility] lenses. IMPRESSION: 1. No acute intracranial abnormality. Electronically signed by: Ramesh Shea M.D. 01/15/2019 6:58 AM
[2019-01-15] MEDS: LEVOTHYROXINE SODIUM 75 MCG TABLET PO SCH (07:31)
[2019-01-15] MEDS: METFORMIN HCL 500 MG TAB PO SCH ×3 (08:42→17:17)
[2019-01-15] MEDS: ALLOPURINOL 100 MG TAB PO SCH (08:42)
[2019-01-15] MEDS: PARoxetine HCl 20 MG TAB PO SCH (08:42)
[2019-01-15] MEDS: ATORVASTATIN 10 MG TAB PO SCH (08:42)
[2019-01-15] MEDS: ASPIRIN 81 MG ECTAB PO SCH (08:42)
[2019-01-15] MEDS: POTASSIUM CITRATE 10 MEQ TAB PO SCH ×2 (08:42→20:55)
[2019-01-15] MEDS: GABAPENTIN 600 MG TAB PO SCH ×3 (08:42→20:55)
[2019-01-15] MEDS: predniSONE 10 MG TABLET PO SCH (08:43)
[2019-01-15] MEDS ORDERED: AMILORIDE 5 MG PO SCH (09:00)
--- NOTE | 2019-01-15 18:21 | History & Physical Bridge Note ---
Date of Service January 15, 2019 History & Physical Bridge Note Patient feeling better today. She is not having any vertigo or dizziness. She reports feeling a "fullness" in her head which is reproducible on palpation. - Will monitor overnight; continue meclizine - Monitor white count. No signs/symptoms infection.
[2019-01-15] MEDS ORDERED: MAGNESIUM OXIDE 400 MG TAB PO SCH (21:00)
[2019-01-16] MEDS: LEVOTHYROXINE SODIUM 75 MCG TABLET PO SCH (05:49)
[2019-01-16 07:17] VITALS: PULSE 56; TEMP 97.5; O2SAT 95
[2019-01-16 07:48] LABS: Hematocrit (blood only) 37.1 % (37-47); Hemoglobin 11.8 g/dL (12.0-16.0); Mean Corpuscular Hgb Conc 31.8 g/dL (32-36); Mean Corpuscular Volume 91.2 fL (80-100); Mean Platelet Volume 11.4 fL (7.4-10.4); Platelet Count 219 K/uL (130-400); RDW Coefficient of Variation 15.7 % (11.5-14.5); RDW Standard Deviation 52.3 fL (36.4-46.3); Red Blood Count 4.07 M/uL (4.2-5.4); White Blood Count 14.03 K/uL (4.8-10.8)
[2019-01-16] MEDS: GABAPENTIN 600 MG TAB PO SCH ×2 (08:26→13:45)
[2019-01-16] MEDS: ASPIRIN 81 MG ECTAB PO SCH (08:26)
[2019-01-16] MEDS: PARoxetine HCl 20 MG TAB PO SCH (08:26)
[2019-01-16] MEDS: predniSONE 10 MG TABLET PO SCH (08:26)
[2019-01-16] MEDS: METFORMIN HCL 500 MG TAB PO SCH ×2 (08:26→12:24)
[2019-01-16] MEDS: POTASSIUM CITRATE 10 MEQ TAB PO SCH (08:26)
[2019-01-16] MEDS: ALLOPURINOL 100 MG TAB PO SCH (08:26)
[2019-01-16] MEDS: ATORVASTATIN 10 MG TAB PO SCH (08:27)
[2019-01-16 13:34] VITALS: BP 153/76
--- NOTE | 2019-01-16 17:55 | Discharge Summary ---
Date of Service January 16, 2019 Admission HPI Per Admitting Provider Patient is a pleasant 68yo F PMH DM, HTN, HLD, hypothyroid, depression, gout, lumbar stenosis with sciatica, and chronic low back pain who presented to the ER with an episode of vertigo. Patient states this started just before midnight after she was turning and standing up from a swivel chair at her computer. She immediately felt the room spinning around her and felt flushed, nauseated, dizzy, with pressure in the back of her head. She called 911, who were going to have to break down her trailer door, but the patient was able to get to the front door with difficulty, slowly making her way by clutching the wall all the way to the door. She states she has had occasional episodes of vertigo in the past but nothing like this. Patient notes she is currently taking a steroid for a rash on her chest (intertriginous) and because of that she has been unable to sleep for the past 4 days. In the ER, she was found to be hypertensive (200/80) but vitals were otherwise stable. Labwork was performed which indicated a leukocytosis appropriate for steroid use. A CT of her head was obtained and was non-contributory. She was given meclizine and 2 doses of ativan without much symptom relief. She was unable to sit at the edge of the bed without becoming unsteady and was unable to ambulate to the bathroom without assistance. Patient lives alone and did not feel comfortable going home. Niece at bedside unable to care for her during the day. She will be admitted for observation and is aware of potential costs of stay. Principal Diagnosis Dizziness, possibly due to BPPV vs. insomnia and steroids Discharge Exam Constitutional WD/WN, vitals as above Eyes PERRL, conjunctivae normal, anicteric sclerae + nystagmus (horizontal ) ENMT external ear and nose normal, oropharynx normal Neck trachea midline, no thyromegaly normal visual inspection Respiratory normal respiratory effort, lungs clear to auscultation Cardiovascular RRR, no murmur, no edema Gastrointestinal (Abdomen) normal bowel sounds, soft, nontender, no hepatosplenomegaly Musculoskeletal no cyanosis or clubbing, extremities motor strength 5/5 Skin + rash (resolving intertriginous rash beneath breasts/stomach, some crusted lesions) and + crusts Neurologic PERRL, EOMI, accommodation nl, no face palsy, no dysarthria + abnormal [place] Hallpike (not performed) Gait: + ataxic gait Coordination: + sways with eyes open Psychiatric A+Ox3, euthymic affect Discharge Data Allergies Allergy/AdvReac Type Severity Reaction Status Date / Time Iodinated Contrast Media Allergy Severe HIVES AND Verified 01/15/19 02:18 THROAT SWELLING Consultations 01/15/19 03:44 ED Decision to Admit Stat Ordered Studies 01/15/19 01:33 CT head/brain wo con Urgent Hospital Course (1) Vertigo: Patient is a pleasant 68yo F PMH DM, HTN, HLD, hypothyroid, depression, gout, lumbar stenosis with sciatica, and chronic low back pain who is admitted for an uncontrolled episode of vertigo. Vertigo -No concerning features of acoustic neuroma or stroke, so MRI not obtained - Improved mostly on its own after a good night's sleep - Possibly mild BPPV vs. steroid-induced insomnia. No positive [place]-Hallpike to indicate BPPV, but her history was very consistent with BPPV. Insomnia - Secondary to steroid use for rash - Hastened taper HTN -BP remained high, but not in the 200 range. Probably worsened with steroids. Tapering steroids quickly. Follow up with PCP in 1 week. -Continue outpatient regimen, consider titrating meds DM -Will continue metformin at this time considering BSG wnl despite steroid use and expected short LOS Gout -Cont home meds HLD -Cont home meds Hypothyroid -TSH wnl -Cont home meds Lumbar disc dz -Cont home regimen Rash -Currently on steroid course, consider hastening in light of insomnia -Unclear cause of rash -Outpatient records indicate intertriginous rash, however appears to be on neck and arms (not in creases only) -Outpatient follow up Code: full Dispo: med surg DVTP: SCDs; consider chemical PPx if LOS extends (2) Insomnia: (3) Hypertension: (4) Gout: (5) Hyperlipidemia: (6) Hypothyroid: (7) DM type 2 (diabetes mellitus, type 2): (8) Lumbar disc disease: (9) Rash: Total Time Total Time Spent Total Time Spent (In Minutes): 23 Discharge Plan Discharge Items Patient Disposition: Home - Self-Care Reason For Visit: VERTIGO Discharge Diagnosis: Vertigo Activity: Resume your previous activity Non-emergency contact: Primary Care Provider Call non-emergency contact if: your symptoms worsen and your temperature is above 101 Follow-up/Referrals: Abhijit Guillen MD [Primary Care Provider] - 01/20/19 2:30 pm (Please, follow up at Dr. Guillen's office with his assistant dean, Alba hilton PA-C, on SaturdayJanuary 20 at 2:30 pm. *If you need to change this appointment, call the office at [phone].) Diet: Regular Addtl Attending Provider Instructions: Please take your alprazolam 1mg (1 tablet) before bed to help you sleep. This is what we gave you in the hospital. Please use the PT prescription and take it to a physical therapy close to you to be sure you get some exercises and treatment for your neck. Finally, please use the meclizine (Antivert) for any dizziness. Hopefully as you get some more sleep and get off the steroids, this will not be an issue for you. Pending Studies at Discharge: No Stand-Alone Forms: My [facility] Medications and DC Order Prescriptions: New meclizine 25 mg Tablet 25 mg PO Q6H PRN (Reason: dizziness) Qty: 30 RF: 0 Continued amiloride 5 mg tablet 5 mg PO DAILY Qty: 90 RF: 1 paroxetine HCl 20 mg tablet 20 mg PO DAILY Qty: 90 RF: 1 metformin 500 mg tablet 500 mg PO TID Qty: 270 RF: 0 alprazolam 1 mg tablet 1 mg PO BID PRN (Reason: anxiety) Qty: 90 RF: 0 levothyroxine 75 mcg tablet 75 mcg PO QAM Qty: 90 RF: 0 potassium citrate 10 mEq (1,080 mg) tablet extended release 20 meq PO BID Qty: 360 RF: 3 prednisone 10 mg tablet 10 mg PO .COMPLEX Qty: 27 RF: 0 atorvastatin 10 mg Tablet 10 mg PO QAM RF: 0 allopurinol 100 mg Tablet 100 mg PO QAM RF: 0 magnesium oxide 400 mg Capsule 400 mg PO QPM RF: 0 aspirin [Aspir-81] 81 mg Tablet,Delayed Release (Dr/Ec) 81 mg PO QAM RF: 0 gabapentin 600 mg Tablet 600 mg PO TID RF: 0 cyanocobalamin (vitamin B-12) [Vitamin B-12] 1,000 mcg Tablet 1,000 mcg PO DAILY RF: 0 cholecalciferol (vitamin D3) [Vitamin D3] 1,000 unit Capsule 2,000 unit PO DAILY RF: 0 Discharge Orders: Discharge Order (Routine); Ordered 01/16/19 Ordered By: Wing Arredondo Admission Data Admit Date/Time: 01/15/19 05:17 Attending Provider: Wing Arredondo Admit Provider: Jacqui Hoyos Primary Care Provider: Abhijit Guillen Other Providers: Wing Arredondo Other Interventions: Discharge Summary Assessment (RN) Last Done: 01/16/19 13:33 DC Date/Time DO NOT enter until pt leaves facility: 01/16/19 14:33
== END 2019-01-16 14:33 | disposition home or self-care (01) ==
LOC: 2W 01:12 → ED 01:12 → SUATTDRO 05:17 → 2W 05:39
DX: M19.90 Unspecified osteoarthritis, unspecified site; R27.0 Ataxia, unspecified; I10 Essential (primary) hypertension; E78.5 Hyperlipidemia, unspecified; E11.9 Type 2 diabetes mellitus without complications; E03.9 Hypothyroidism, unspecified; G62.9 Polyneuropathy, unspecified; R42 Dizziness and giddiness; G47.00 Insomnia, unspecified; H55.09 Other forms of nystagmus

== ENCOUNTER 2021-07-22 15:13 | Observation (INO) ==
[2021-07-22] MEDS ORDERED: NITROGLYCERIN 2% OINTMENT 30GM TUBE EXT STA (15:36)
[2021-07-22] MEDS ORDERED: ACETAMINOPHEN 500 MG TAB PO STA (15:36)
[2021-07-22] MEDS ORDERED: SODIUM CHLORIDE 0.9% 500 ML IV STA (15:36)
--- NOTE | 2021-07-22 15:39 | Emergency Department Note ---
Impression & Plan Precordial chest pain, HILTON (dyspnea on exertion), SOB (shortness of breath), Neck pain on right side ED Provider Note NAME: LEANN PACHECO AGE: 71 SEX: F : 1950 ARRIVES VIA: Ambulance INFORMANT: [Patient] ED PROVIDER(S): [Bob Bermudez MD] CHIEF COMPLAINT: Chest pain HISTORY OF PRESENT ILLNESS: Patient is a 71-year-old female presents to the ER with complaints of chest pain. She states that she has recently had some exertional dyspnea. She also has had some difficulty swallowing and a feeling of her throat closing. Things have worsened lately and last night, she had some pressure in her chest and she had some today as well, the pressure is mild and does not radiate. No sweating or nausea with it. The patient states that she has never had any issues with her heart before. She wonders if this problem with her throat is why she is having so much trouble with her chest. The patient does have cardiac risk factors. She has a history of diabetes, hype rtension as well as high cholesterol. Her mother of a heart attack. Patient is mostly worried about her throat as she thinks she has even become hoarse lately. Of note, the patient has an ENT appointment in about a week. REVIEW OF SYSTEMS: See HPI for pertinent positives and negatives. A total of ten systems were reviewed and were otherwise negative. PMHx/PSHx: See Below SOCIAL HISTORY: See Below. PHYSICAL EXAM: GENERAL: Patient is in no acute distress. She does have a hoarse voice. HEENT: No acute trauma, normocephalic atraumatic, mucous membranes moist, no nasal congestion, no scleral icterus. No throat erythema or exudate, no uvular edema. NECK: No stridor, no adenopathy, no meningismus, trachea is midline. LUNGS: Clear to auscultation bilaterally, no wheeze, no rhonchi, breath sounds equal. HEART: Without murmurs gallops or rubs, regular rate and rhythm. ABDOMEN: Soft, nontender, bowel sounds positive, no hernias, no peritonitis. EXTREMITIES: No cyanosis or edema, full range of motion of all the joints without pain or difficulty, no signs for acute trauma. NEUROLOGIC: Oriented x 3, no acute motor or sensory deficits, no focal weakness. SKIN: No rash, no jaundice, no diaphoresis. DIFFERENTIAL DIAGNOSIS: Cardiac ischemia, aortic dissection, pulmonary embolism, neck soft tissue mass, thyroid mass, malignancy, pneumothorax, pneumonia, pericarditis, myocarditis, esophageal rupture, GERD, cholecystitis, pancreatitis, musculoskeletal, as well as other pathologies. EMERGENCY DEPARTMENT COURSE/PROCEDURES: ECG: Indication was chest pain. The ECG shows a normal sinus rhythm with a rate of 74. There is some poor R wave progression indicating a potential old lateral infarct. There is no ST elevation, no PVCs. The QTc is 424. Continuous Cardiac Monitoring: An order was placed for continuous cardiac monitoring. The monitor shows a rate of 82 with normal sinus rhythm. MEDICAL DECISION MAKING: There is no leukocytosis or concerning anemia. There is a normal platelet count. No coagulopathy. No significant electrolyte abnormality or kidney failure. No evidence for pancreatitis. There were a few subtle liver enzyme elevations, the bilirubin was normal. Covid testing returned negative. ECG showed a normal sinus rhythm, no obvious acute ischemia. Cardiac enzyme testing x1 is not consistent with acute cardiac injury. Soft tissue neck CT does not show any mass or airway compromise. The patient received IV saline, 500 cc. She was given nitroglycerin paste, 1 inch. She received oral aspirin. She was given oral Tylenol. Patient presents with dyspnea on exertion, shortness of breath and precordial chest pain. She has significant cardiac risk factors. I do think a hospital stay and further cardiac work-up is warranted. I talked to the patient about her findings, I spoke with case management. The on-call hospitalist was consulted. Of note, I am not convinced that her right-sided neck pain is related to her complaints of chest pain. She does have an upcoming outpatient ENT appointment scheduled for the near future. Past Med/Surg History Medical History Anxiety Depression Diabetes Dizzy spells HX OF High cholesterol History of colon polyps History of fall within past 90 days LAST MONTH X2 D/T LEFT LEG GIVING OUT History of rupture of Achilles tendon RIGHT , LAST YR History of viral meningitis HTN (hypertension) Hypothyroid Kidney stones HX Left lumbar radiculopathy Melanoma of right upper arm HX Neuropathy left leg, PT REPORTS LEG PROBLEMS - MOSTLY LEFT GIVES OUT - HAS VIK WITH DR COMBS 04/05/21 Osteoarthritis Sciatica Surgical History History of appendectomy History of arthroscopy LEFT KNEE History of back surgery LUMBAR, 04/24/19 Dr. Ray History of back surgery PT REPORTS [address] RAY, AND HX PROCEDURE WITH DR LANZA History of bilateral cataract extraction History of carpal tunnel release of both wrists History of cholecystectomy 12/09/16 History of colonoscopy History of cystoscopy MULTIPLE History of lithotripsy multiple History of Mohs micrographic surgery for skin cancer History of tonsillectomy and adenoidectomy History of tooth extraction all teeth History of total hysterectomy with bilateral salpingo-oophorectomy (BSO) Hx of breast surgery left benign fatty mass removed S/P knee surgery 03/06/[address] Combs> left Status post lumbar spine operative procedure for decompression of spinal cord with medial facetectomy L3-L4, L4-5 Family History Father Family history of diabetes mellitus Gastric cancer Mother Family history of diabetes mellitus Cerebral artery occlusion with cerebral infarction Coronary heart disease Daughter Family hx colonic polyps Other Family history non-contributory No family history of adverse response to anesthesia Denies family history of Ovarian cancer Breast cancer Colorectal cancer Social History Smoking Status: Never smoker Second Hand Exposure: No; Hx Alcohol Use: No Hx Substance Use: No Preferred Language: Swazi Communication Ability: Effective Visual Impairment: No Limitations Electric Tape Slitter Required: No Beliefs That Will Affect Care: None marital status: / Current Living Situation: Alone current occupational status: retired Feels Safe at Home: Yes Childhood Exposure to Second-Hand Smoke: Yes Dental Care, Regularly: No Physical Activity Frequency: Does not Exercise Seatbelt Use: always Sunscreen Use: Yes Assistive Devices: Cane, Denture - Upper, Denture - Lower and Glasses Allergies Allergies Allergy/AdvReac Type Severity Reaction Status Date / Time Iodinated Contrast Media Allergy Intermediate HIVES AND Verified 07/22/21 18:12 THROAT SWELLING Home Meds Home Medications Medication Instructions Recorded Confirmed magnesium oxide 400 mg PO QDL 04/10/18 07/22/21 aspirin 81 mg tablet,delayed 81 mg PO QAM 04/17/18 07/22/21 release (Aspir-) cyanocobalamin (vitamin B-12) 1,000 mcg PO QAM 06/08/18 07/22/21 1,000 mcg tablet (Vitamin B-12) gabapentin 600 mg tablet 600 mg PO TID 06/08/18 07/22/21 cholecalciferol (vitamin D3) 25 2,000 unit PO QAM 01/15/19 07/22/21 mcg (1,000 unit) capsule (Vitamin D3) meclizine 12.5 mg tablet 12.5 mg PO UD PRN 04/04/21 07/22/21 metformin 500 mg tablet 500 mg PO BID 04/04/21 07/22/21 alprazolam 1 mg tablet 1 mg PO DAILY PRN 07/22/21 07/22/21 alprazolam 1 mg tablet 1 mg PO QAM 07/22/21 07/22/21 methocarbamol 500 mg tablet 500 mg PO Q8 07/22/21 07/22/21 Previous Rx's Medication Instructions Recorded atorvastatin 10 mg tablet 10 mg PO HS #90 tab 08/01/20 levothyroxine 75 mcg tablet 75 mcg PO QAM #90 tab 08/11/20 potassium citrate 10 mEq (1,080 20 meq PO BID #360 tab 12/14/20 mg) tablet,extended release allopurinol 100 mg tablet 100 mg PO QAM #90 tab 02/14/21 amiloride 5 mg tablet 5 mg PO QAM #90 tab 02/14/21 paroxetine HCl 20 mg tablet 20 mg PO QAM #90 tab 02/14/21 losartan 25 mg tablet 25 mg PO DAILY #30 tab 06/27/21 Results & Data (ED) Vital Signs Vital Signs - 24 hr 07/22/21 15:02 07/22/21 15:21 07/22/21 15:27 Temperature 37.0 C Temperature Source Oral Pulse Rate 82 87 Pulse Rate [Left Radial] 79 Pulse Rate from SpO2 Sensor 86 Pulse Rhythm Regular Pulse Strength Normal Respiratory Rate 20 20 29 H Respiratory Effort / Characteristics Non-Labored Respiratory Depth Normal Normal Respiratory Pattern Regular Blood Pressure 136/107 H Blood Pressure Mean 116 Blood Pressure Position Lying Pulse Oximetry 98 95 97 Oxygen Delivery Method Room Air Room Air Sepsis Recent Fever Within 48 Hours No Sepsis New/Unexplained Change in Mental Status No Sepsis Action Taken by Nursing No Action Required 07/22/21 15:30 07/22/21 15:36 07/22/21 15:40 Temperature Temperature Source Pulse Rate 80 70 Pulse Rate [Left Radial] Pulse Rate from SpO2 Sensor 82 69 Pulse Rhythm Pulse Strength Respiratory Rate 15 20 27 H Respiratory Effort / Characteristics Respiratory Depth Respiratory Pattern Blood Pressure Blood Pressure Mean Blood Pressure Position Pulse Oximetry 98 95 97 Oxygen Delivery Method Room Air Sepsis Recent Fever Within 48 Hours Sepsis New/Unexplained Change in Mental Status Sepsis Action Taken by Nursing 07/22/21 15:50 07/22/21 16:09 07/22/21 16:10 Temperature Temperature Source Pulse Rate 64 67 64 Pulse Rate [Left Radial] Pulse Rate from SpO2 Sensor Pulse Rhythm Pulse Strength Respiratory Rate 19 20 23 Respiratory Effort / Characteristics Respiratory Depth Respiratory Pattern Blood Pressure 141/76 H Blood Pressure Mean 97 Blood Pressure Position Pulse Oximetry Oxygen Delivery Method Sepsis Recent Fever Within 48 Hours Sepsis New/Unexplained Change in Mental Status Sepsis Action Taken by Nursing 07/22/21 16:20 07/22/21 16:30 07/22/21 16:40 Temperature Temperature Source Pulse Rate 64 60 58 L Pulse Rate [Left Radial] Pulse Rate from SpO2 Sensor Pulse Rhythm Pulse Strength Respiratory Rate 17 17 13 Respiratory Effort / Characteristics Respiratory Depth Respiratory Pattern Blood Pressure 144/76 H Blood Pressure Mean 98 Blood Pressure Position Pulse Oximetry Oxygen Delivery Method Sepsis Recent Fever Within 48 Hours Sepsis New/Unexplained Change in Mental Status Sepsis Action Taken by Nursing 07/22/21 16:50 07/22/21 17:00 07/22/21 17:10 Temperature Temperature Source Pulse Rate 64 63 60 Pulse Rate [Left Radial] Pulse Rate from SpO2 Sensor Pulse Rhythm Pulse Strength Respiratory Rate 12 21 17 Respiratory Effort / Characteristics Respiratory Depth Respiratory Pattern Blood Pressure 144/72 H Blood Pressure Mean 96 Blood Pressure Position Pulse Oximetry Oxygen Delivery Method Sepsis Recent Fever Within 48 Hours Sepsis New/Unexplained Change in Mental Status Sepsis Action Taken by Nursing 07/22/21 17:20 Temperature Temperature Source Pulse Rate 62 Pulse Rate [Left Radial] Pulse Rate from SpO2 Sensor Pulse Rhythm Pulse Strength Respiratory Rate 14 Respiratory Effort / Characteristics Respiratory Depth Respiratory Pattern Blood Pressure Blood Pressure Mean Blood Pressure Position Pulse Oximetry Oxygen Delivery Method Sepsis Recent Fever Within 48 Hours Sepsis New/Unexplained Change in Mental Status Sepsis Action Taken by Correction Medications Current Medication List: was personally reviewed by me Laboratory Data Attestation: I reviewed the patient's lab results. Result diagrams: 07/22/21 15:39 07/22/21 15:39 Lab Results 07/22/21 07/22/21 07/22/21 Range/Units 15:39 15:39 15:39 WBC 7.67 (4.8-10.8) K/uL RBC 4.05 L (4.2-5.4) M/uL Hgb 12.2 (12.0-16.0) g/dL Hct 38.0 (37-47) % MCV 93.8 (80-100) fL MCH 30.1 (25-34) pg MCHC 32.1 (32-36) g/dL RDW Std Deviation 49.1 H (36.4-46.3) fL RDW Coeff of Eliseo 14.4 (11.5-14.5) % Plt Count 248 (130-400) K/uL MPV 11.3 H (7.4-10.4) fL Immature Gran % (Auto) 0.1 % Neut % (Auto) 56.5 % Lymph % (Auto) 30.2 % [place] % (Auto) 11.1 % Eos % (Auto) 1.8 % Baso % (Auto) 0.3 % Neut # (Auto) 4.33 (1.4-6.5) K/uL Lymph # (Auto) 2.32 (1.2-3.4) K/uL [place] # (Auto) 0.85 H (0.11-0.59) K/uL Eos # (Auto) 0.14 (0-0.5) K/uL Baso # (Auto) 0.02 (0-0.2) K/uL Immature Gran # (Auto) 0.01 (0.00-0.02) K/uL PT 10.8 (9.0-12.0) Seconds INR 1.0 (0.9-1.1) APTT 25.6 (21.0-31.0) Seconds PTT Ratio 0.9 Sodium 139 (136-145) mmol/L Potassium 4.2 (3.5-5.1) mmol/L Chloride 104 (98-107) mmol/L Carbon Dioxide 24 (21-32) mmol/L Anion Gap 11 (3-11) BUN 7 (6-23) mg/dl Creatinine 0.76 (0.6-1.2) mg/dl Est Cr Clr Drug Dosing 66.8 ml/min Est GFR ( Amer) 90.8 ml/min Est GFR (Non-Af Amer) 78.4 ml/min BUN/Creatinine Ratio 9.2 L (10-20) Glucose 124 H (70-99(Fasting)) mg/dl Calcium 9.4 (8.5-10.1) mg/dl Magnesium 2.0 (1.7-2.4) mg/dl Total Bilirubin 0.5 (0.2-1.0) mg/dl AST 61 H (13-39) U/L ALT 55 H (7-52) U/L Alkaline Phosphatase 81 (34-104) U/L Troponin I < 0.03 (0-0.04) ng/ml Total Protein 6.9 (6.0-8.3) gm/dl Albumin 4.3 (3.4-5.0) gm/dl Globulin 2.6 (2.5-4.0) gm/dl Albumin/Globulin Ratio 1.7 (0.9-2) Lipase 66 (11-82) U/L SARS-CoV-2, RNA, NAAT (NEGATIVE) 07/22/21 Range/Units 15:58 WBC (4.8-10.8) K/uL RBC (4.2-5.4) M/uL Hgb (12.0-16.0) g/dL Hct (37-47) % MCV (80-100) fL MCH (25-34) pg MCHC (32-36) g/dL RDW Std Deviation (36.4-46.3) fL RDW Coeff of Eliseo (11.5-14.5) % Plt Count (130-400) K/uL MPV (7.4-10.4) fL Immature Gran % (Auto) % Neut % (Auto) % Lymph % (Auto) % [place] % (Auto) % Eos % (Auto) % Baso % (Auto) % Neut # (Auto) (1.4-6.5) K/uL Lymph # (Auto) (1.2-3.4) K/uL [place] # (Auto) (0.11-0.59) K/uL Eos # (Auto) (0-0.5) K/uL Baso # (Auto) (0-0.2) K/uL Immature Gran # (Auto) (0.00-0.02) K/uL PT (9.0-12.0) Seconds INR (0.9-1.1) APTT (21.0-31.0) Seconds PTT Ratio Sodium (136-145) mmol/L Potassium (3.5-5.1) mmol/L Chloride (98-107) mmol/L Carbon Dioxide (21-32) mmol/L Anion Gap (3-11) BUN (6-23) mg/dl Creatinine (0.6-1.2) mg/dl Est Cr Clr Drug Dosing ml/min Est GFR ( Amer) ml/min Est GFR (Non-Af Amer) ml/min BUN/Creatinine Ratio (10-20) Glucose (70-99(Fasting)) mg/dl Calcium (8.5-10.1) mg/dl Magnesium (1.7-2.4) mg/dl Total Bilirubin (0.2-1.0) mg/dl AST (13-39) U/L ALT (7-52) U/L Alkaline Phosphatase (34-104) U/L Troponin I (0-0.04) ng/ml Total Protein (6.0-8.3) gm/dl Albumin (3.4-5.0) gm/dl Globulin (2.5-4.0) gm/dl Albumin/Globulin Ratio (0.9-2) Lipase (11-82) U/L SARS-CoV-2, RNA, NAAT NEGATIVE (NEGATIVE) Administered Medications Atorvastatin Calcium (Atorvastatin 10 Mg Tab) 10 mg PO HS MAIDA Stop: 08/21/21 20:59 Last Admin: 07/22/21 21:35 Dose: 10 mg Documented by: [id number] Gabapentin (Gabapentin 600 Mg Tab) 600 mg PO TID MAIDA Stop: 08/21/21 20:59 Last Admin: 07/22/21 21:34 Dose: 600 mg Documented by: [id number] Lidocaine (Lidocaine 5% 1 Patch) 1 patch TD QAM MAIDA Stop: 08/21/21 19:12 Last Admin: 07/22/21 21:35 Dose: 1 patch Documented by: [id number] Potassium Citrate (Potassium Citrate 10 Meq Tab) 20 meq PO BID MAIDA Stop: 08/21/21 20:59 Last Admin: 07/22/21 21:00 Dose: 20 meq Documented by: [id number] Discontinued Medications Acetaminophen (Acetaminophen 500 Mg Tab) 1,000 mg PO NOW STA Stop: 07/22/21 15:37 Last Admin: 07/22/21 15:48 Dose: 1,000 mg Documented by: [id number] Aspirin (Aspirin Chew 324 Mg) 324 mg PO NOW STA Stop: 07/22/21 16:50 Last Admin: 07/22/21 17:29 Dose: Not Given Documented by: [id number] Sodium Chloride (Nss) 500 mls @ 999 mls/hr IV .Q31M STA Stop: 07/22/21 16:06 Last Infusion: 07/22/21 16:23 Dose: 0 mls/hr Documented by: [id number] Admin: 07/22/21 15:48 Dose: 999 mls/hr Documented by: [id number] Pantoprazole Sodium 40 mg/ (Syringe) 10 mls @ 5 mls/min IV 1930 ONE Stop: 07/22/21 19:31 Last Admin: 07/22/21 21:35 Dose: 5 mls/min Documented by: [id number] Nitroglycerin (Nitroglycerin 2% Ointment 30gm Tube) 1 inch EXT NOW STA Stop: 07/22/21 15:37 Last Admin: 07/22/21 15:48 Dose: 1 inch Documented by: [id number] Imaging Data Radiologist's Impression: Chest X-Ray 07/22/21 15:36 XR chest 1V portable CLINICAL HISTORY: Chest Pain. COMPARISON STUDY: 01/15/2019 TECHNIQUE: 1 view of the chest FINDINGS: Single frontal view of the chest demonstrates the cardiomediastinal silhouette to be within normal limits. The lungs are clear of alveolar opacities. There is no evidence for pleural effusion. There is no evidence for vascular congestion. There is no acute osseous pathology. IMPRESSION: 1. No acute cardiopulmonary disease. ACT 112: Negative or not required by law. Electronically signed by: Andres Carmona M.D. 07/22/2021 4:[address] Tissue Neck CT 07/22/21 15:38 CT soft tissue neck wo con CLINICAL HISTORY: hard to swallow, hoarse, contrast allergy . Pain on the right COMPARISON STUDY: No previous studies for comparison. CT DOSE: 440.28 mGy.cm TECHNIQUE: Limited noncontrast standard CT of the Neck was performed without IV contrast. A marker was placed in the right-sided site of pain. A dose lowering technique was utilized adhering to the principles of ALARA. FINDINGS: Salivary glands: Parotid and submandibular salivary glands are within normal limits. The thyroid gland is also within normal limits. Lymph nodes: There are no pathologically enlarged lymph nodes. There is no abnormality seen at the site of the right-sided marker. No evidence for soft tissue mass within the neck bilaterally. Airway: The cervical airway is widely patent. The epiglottis and aryepiglottic folds are normal bilaterally. The vocal cords are symmetric bilaterally. Vascular structures: No gross vascular abnormalities are seen. Paranasal sinuses:The imaged paranasal sinuses are clear. Osseous structures: No acute osseous abnormalities are identified. IMPRESSION: Negative limited noncontrast CT of the soft tissues of the neck. If the patient's symptoms persist, direct visualization would be recommended. ACT 112: Negative or not required by law. Electronically signed by: Andres Carmona M.D. 07/22/2021 4:25 PM Discharge Plan Visit Data Chief Complaint: Chest Pain ED Provider: Bob Bermudez Discharge Problem: Precordial chest pain, HILTON (dyspnea on exertion), SOB (shortness of breath), Neck pain on right side Patient Disposition: Admitted As Inpatient Condition: Fair Discharge Instructions Interventions: ED Discharge Assessment Last Done: 07/22/21 18:30
[2021-07-22 16:00] LABS: Basophils # (auto) 0.02 K/uL (0-0.2); Basophils % (auto) 0.3 %; Eosinophils # (auto) 0.14 K/uL (0-0.5); Eosinophils % (auto) 1.8 %; Hemoglobin 12.2 g/dL (12.0-16.0); Immature Granulocytes # (auto) 0.01 K/uL (0.00-0.02); Immature Granulocytes % (auto) 0.1 %; Lymphocytes # (auto) 2.32 K/uL (1.2-3.4); Lymphocytes % (auto) 30.2 %; Mean Corpuscular Hemoglobin 30.1 pg (25-34); Mean Corpuscular Hgb Conc 32.1 g/dL (32-36); Mean Corpuscular Volume 93.8 fL (80-100); Mean Platelet Volume 11.3 fL (7.4-10.4); Monocytes # (auto) 0.85 K/uL (0.11-0.59); Monocytes % (auto) 11.1 %; Neutrophils # (auto) 4.33 K/uL (1.4-6.5); Neutrophils % (auto) 56.5 %; Platelet Count 248 K/uL (130-400); RDW Coefficient of Variation 14.4 % (11.5-14.5); RDW Standard Deviation 49.1 fL (36.4-46.3); Red Blood Count 4.05 M/uL (4.2-5.4); White Blood Count 7.67 K/uL (4.8-10.8)
--- NOTE | 2021-07-22 16:07 | XRay Report ---
XR chest 1V portable CLINICAL HISTORY: Chest Pain. COMPARISON STUDY: 01/15/2019 TECHNIQUE: 1 view of the chest FINDINGS: Single frontal view of the chest demonstrates the cardiomediastinal silhouette to be within normal li mits. The lungs are clear of alveolar opacities. There is no evidence for pleural effusion. There is no evidence for vascular congestion. There is no acute osseous pathology. IMPRESSION: 1. No acute cardiopulmonary disease. ACT 112: Negative or not required by law. Electronically signed by: Andres Carmona M.D. 07/22/2021 4:05 PM
[2021-07-22 16:12] LABS: Partial Thromboplastin Ratio 0.9; Partial Thromboplastin Time 25.6 Seconds (21.0-31.0); Prothrombin Time 10.8 Seconds (9.0-12.0)
[2021-07-22 16:23] LABS: Troponin I < 0.03 ng/ml (0-0.04)
[2021-07-22 16:25] LABS: Alanine Aminotransferase 55 U/L (7-52); Albumin Globulin Ratio 1.7 (0.9-2); Albumin Level 4.3 gm/dl (3.4-5.0); Alkaline Phosphatase 81 U/L (34-104); Anion Gap 11 (3-11); Aspartate Aminotransferase 61 U/L (13-39); BUN Creatinine Ratio 9.2 (10-20); Bilirubin,Total 0.5 mg/dl (0.2-1.0); Blood Urea Nitrogen 7 mg/dl (6-23); Calcium 9.4 mg/dl (8.5-10.1); Carbon Dioxide 24 mmol/L (21-32); Chloride 104 mmol/L (98-107); Creatinine Clr Calc Pharmacy 66.8 ml/min; Est GFR (African American) 90.8 ml/min; Est GFR (Non-African American) 78.4 ml/min; Globulin 2.6 gm/dl (2.5-4.0); Glucose 124 mg/dl (70-99(Fasting)); Lipase 66 U/L (11-82); Potassium 4.2 mmol/L (3.5-5.1); Sodium 139 mmol/L (136-145); Total Protein 6.9 gm/dl (6.0-8.3)
--- NOTE | 2021-07-22 16:27 | CT Scan Report ---
CT soft tissue neck wo con CLINICAL HISTORY: hard to swallow, hoarse, contrast allergy . Pain on the right COMPARISON STUDY: No previous studies for comparison. CT DOSE: 440.28 mGy.cm TECHNIQUE: Limited noncontrast standard CT of the Neck was performed without IV contrast. A marker wa s placed in the right-sided site of pain. A dose lowering technique was utilized adhering to the prin ciples of SUSY. FINDINGS: Salivary glands: Parotid and submandibular salivary glands are within normal limits. The thyroid gland is also within normal limits. Lymph nodes: There are no pathologically enlarged lymph nodes. There is no abnormality seen at the site of the right-sided marker. No evidence for soft tissue mass within the neck bilaterally. Airway: The cervical airway is widely patent. The epiglottis and aryepiglottic folds are normal bila terally. The vocal cords are symmetric bilaterally. Vascular structures: No gross vascular abnormalities are seen. Paranasal sinuses:The imaged paranasal sinuses are clear. Osseous structures: No acute osseous abnormalities are identified. IMPRESSION: Negative limited noncontrast CT of the soft tissues of the neck. If the patient's symptom s persist, direct visualization would be recommended. ACT 112: Negative or not required by law. Electronically signed by: Andres Carmona M.D. 07/22/2021 4:25 PM
[2021-07-22] MEDS ORDERED: ASPIRIN CHEW 324 MG PO STA (16:49)
[2021-07-22] MEDS ORDERED: ONDANSETRON INJ 2 MG/ML 2 ML VIAL IV PRN (17:29)
[2021-07-22] MEDS ORDERED: ACETAMINOPHEN 325 MG TAB PO PRN (17:29)
[2021-07-22] MEDS ORDERED: NITROGLYCERIN SL 0.4 MG/TAB TAB SL PRN (17:29)
--- NOTE | 2021-07-22 17:53 | History & Physical Report ---
Date of Service July 22, 2021 Assessment & Plan (1) Chest pain: Plan: Atypical chest pain on presentation appears most consistent at this time as non- cardiac musculoskeletal pain - However the patient has multiple risk facotrs to include: Age, weight, HTN, HLD, DM that should be further investigated - Trend Troponin and ECG - Continue with BP control with ARB - Continue daily asa - continue statin - ECHO to evaluate for RWMA - If negative workup overnight consider dobutamine stress test MSK pain- Lidocaine patch, heating pad to back (2) DM type 2 (diabetes mellitus, type 2): Plan: Hold Metformin - Sliding scale insulin with Aspart CF 20, ratio 1:15 - Goal <180 - HGB A1C (3) HTN (hypertension): Plan: Noted poor control with chart review - recently started on ARB as per HPI- continue - Continue Amiloride - BB addition may be limited by HR as she is in the 60s currently- (4) Hyperlipidemia: Plan: Lipid panel in the morning - Continue with statin adjust based off AM panel (5) Throat pain: Plan: Multifactorial in nature likely- but is associated with hoarseness with feeling as food is getting stuck - GERD vs. silent aspiration - Protonix 40mg IV now - Protonix 40mg daily - Following cardiac workup consider- barium swallow study if appropriate (6) Hypothyroid: Plan: 75mcg Synthroid- continue (7) Gout: Plan: Continue allopurinol (8) Vertigo: Plan: Continue with Meclizine (9) Sacroiliac joint pain: Plan: FOllows with chronic pain for injections (10) Osteoarthritis: Plan: Continue her gabapentin - hold methocarbamol for now- can add back PRN if needed (11) Anxiety: Plan: Continue Alprazolam PRN (12) Arm pain: Plan: Exam consistent with bicep tendonitis History of Present Illness Primary Care Provider: Abhijit Guillen MD 71 YOF with past medical history of: Anxiety, Chronic back and knee pain, Neuropathy, HTN, DM, HTN, Hypothyroidism, obesity. Patient comes to the EMD today for complaints of chest pain and throat fullness. Patient states the pain in her chest started last night following dinner, it was located in the center of her chest and was sharp in nature then decreased to a pressure. She went to bed and noted that if she laid on her left side it got better. She got up this morning and had breakfast and then had return of this pain, and was about an hour after eating. This continued to be in the center of her chest and up her throat, and was associated with some dyspnea. She was given 324mg of ASA by EMS and NTG tablet under her tongue. This made her feel better she reports with less pressure. She had an ECG performed in the [facility], without dynamic c hanges from her ECG that was performed on 06/27/21. She had routine labs performed to include Troponin I, this was <0.03. She had 1/2 inch nitropaste placed and hospitalist service was called for admission. The pain in her chest is reporducible in the right side of her sternum, and is very sharp and tender in nature. When directly asked if this was the pain that brought her to the hospital she did say yes, as well as feeling some dyspnea because it hurt with deep breathing. The patient does have cardiac risk factors as noted above. Patient will be observed overnight for evaluation of her chest discomfort, ECG, ECHO, and trending of her Troponin I. She has never had a cardiac workup performed in the past. Will add Protonix. For her throat pain, she feels like food is getting stuck and is associated with some hoarseness, and dyspnea. She has an appointment with ENT next week for this as well as frequent nose bleeds at home. She was just placed on Losartan on 06/27/21. She had a CT of her neck performed in the [facility] with no acute process noted. Her dyspnea has been ongoing for the past month or so, and was being worked up by her PCP. THis included an ECG in the office on 06/27, her last ECG before this was 02/15 and has had some changes since then. COVID test is negative on admission. Allergies Allergy/AdvReac Type Severity Reaction Status Date / Time Iodinated Contrast Media Allergy Intermediate HIVES AND Verified 07/22/21 18:12 THROAT SWELLING Home Medications Medication Instructions Recorded Confirmed Type magnesium oxide 400 mg PO QDL 04/10/18 07/22/21 History aspirin 81 mg tablet,delayed 81 mg PO QAM 04/17/18 07/22/21 History release (Aspir-) cyanocobalamin (vitamin B-12) 1,000 mcg PO QAM 06/08/18 07/22/21 History 1,000 mcg tablet (Vitamin B-12) gabapentin 600 mg tablet 600 mg PO TID 06/08/18 07/22/21 History cholecalciferol (vitamin D3) 25 2,000 unit PO QAM 01/15/19 07/22/21 History mcg (1,000 unit) capsule (Vitamin D3) atorvastatin 10 mg tablet 10 mg PO HS #90 tab 08/01/20 07/22/21 Rx levothyroxine 75 mcg tablet 75 mcg PO QAM #90 tab 08/11/20 07/22/21 Rx potassium citrate 10 mEq (1,080 20 meq PO BID #360 tab 12/14/20 07/22/21 Rx mg) tablet,extended release allopurinol 100 mg tablet 100 mg PO QAM #90 tab 02/14/21 07/22/21 Rx amiloride 5 mg tablet 5 mg PO QAM #90 tab 02/14/21 07/22/21 Rx paroxetine HCl 20 mg tablet 20 mg PO QAM #90 tab 02/14/21 07/22/21 Rx meclizine 12.5 mg tablet 12.5 mg PO UD PRN 04/04/21 07/22/21 History metformin 500 mg tablet 500 mg PO BID 04/04/21 07/22/21 History losartan 25 mg tablet 25 mg PO DAILY #30 tab 06/27/21 07/22/21 Rx alprazolam 1 mg tablet 1 mg PO DAILY PRN 07/22/21 07/22/21 History alprazolam 1 mg tablet 1 mg PO QAM 07/22/21 07/22/21 History methocarbamol 500 mg tablet 500 mg PO Q8 07/22/21 07/22/21 History Past Med/Surg History Medical History Anxiety Depression Diabetes Dizzy spells HX OF High cholesterol History of colon polyps History of fall within past 90 days LAST MONTH X2 D/T LEFT LEG GIVING OUT History of rupture of Achilles tendon RIGHT , LAST YR History of viral meningitis HTN (hypertension) Hypothyroid Kidney stones HX Left lumbar radiculopathy Melanoma of right upper arm HX Neuropathy left leg, PT REPORTS LEG PROBLEMS - MOSTLY LEFT GIVES OUT - HAS VIK WITH DR COMBS 04/05/21 Osteoarthritis Sciatica Surgical History History of appendectomy History of arthroscopy LEFT KNEE History of back surgery LUMBAR, 04/24/19 Dr. Ray History of back surgery PT REPORTS [address] RAY, AND HX PROCEDURE WITH DR LANZA History of bilateral cataract extraction History of carpal tunnel release of both wrists History of cholecystectomy 12/09/16 History of colonoscopy History of cystoscopy MULTIPLE History of lithotripsy multiple History of Mohs micrographic surgery for skin cancer History of tonsillectomy and adenoidectomy History of tooth extraction all teeth History of total hysterectomy with bilateral salpingo-oophorectomy (BSO) Hx of breast surgery left benign fatty mass removed S/P knee surgery 03/06/[address] Combs> left Status post lumbar spine operative procedure for decompression of spinal cord with medial facetectomy L3-L4, L4-5 Family History Father Family history of diabetes mellitus Gastric cancer Mother Family history of diabetes mellitus Cerebral artery occlusion with cerebral infarction Coronary heart disease Daughter Family hx colonic polyps Other Family history non-contributory No family history of adverse response to anesthesia Denies family history of Ovarian cancer Breast cancer Colorectal cancer Social History Smoking Status: Never smoker Second Hand Exposure: No; Hx Alcohol Use: No Hx Substance Use: No Preferred Language: Niuean Communication Ability: Effective Visual Impairment: No Limitations Family Assessment Worker Required: No Beliefs That Will Affect Care: None marital status: / Current Living Situation: Alone current occupational status: retired Feels Safe at Home: Yes Childhood Exposure to Second-Hand Smoke: Yes Dental Care, Regularly: No Physical Activity Frequency: Does not Exercise Seatbelt Use: always Sunscreen Use: Yes Assistive Devices: Cane, Denture - Upper, Denture - Lower and Glasses Review of Systems Review of Systems: REVIEW OF SYSTEMS: Constitutional: No fever, sweats or chills Eyes: No diplopia, no worsening or blurred vision ENT: (+) throat pain and tightness, food getting stuck feeling with swallowing, nose bleeds, No normal hearing Respiratory: (+) dyspnea with exertion, NO cough, sputum, dyspnea at rest Cardiovascular: (+) chest pain, tightness, NO palpitations Abdomen: No pain, nausea, vomiting, diarrhea or constipation Musculoskeletal: (+) right bicep and arm pain, back and neck pain on the right knee pain Neurologic: No weakness, numbness/tingling, or balance problems Psychiatric: (+) anxiety Skin: No rash or itch Physical Exam Physical Exam: PHYSICAL EXAM: General: awake, alert, no apparent distress Head: Normocephalic, atraumatic ENT: PERRL, EOMI, no pharyngeal exudate, mucous membranes moist, no lymphadenopathy or thyroid lumps palpated Neuro: AAO x 3, speech clear and appropriate, strength intact bilaterally 5/5, sensation intact and equal all extremities and dermatomes, no pronator drift Chest: equal rise and fall of the chest, no accessory muscle use, no heaves or thrills, Clear to auscultation, on room air, Cardiac: Regular rate and rhythm, telemetry reviewed, skin warm dry, cap refill <3 seconds, peripheral pulses +2 no JVD, no murmur, no edema GI: NABS x 4 quadrants, soft, nontender to palpation, no rebound, guarding or tenderness : Spontaneously voiding, no pain, no CVA tenderness, MSK: Reproducible chest pain to the right sternum, right bicep pain that radiates down her arm- this gets worse with bicep tendon palpation, right upper supraspinatus pain with palpable muscle tightness, Psych: Normal mood and affect Skin: no rash or erythema Results & Data Results & Data ([facility]) Vital Signs (Past 12 Hours) Vital Signs Temp Pulse Pulse Resp BP Pulse Ox 07/22/21 15:36 20 95 07/22/21 15:21 37.0 C 82 20 136/107 H 95 07/22/21 15:02 79 20 98 Laboratory Results Abnormal lab results 07/22/21 07/22/21 Range/Units 15:39 15:39 RBC 4.05 L (4.2-5.4) M/uL RDW Std Deviation 49.1 H (36.4-46.3) fL MPV 11.3 H (7.4-10.4) fL [place] # (Auto) 0.85 H (0.11-0.59) K/uL BUN/Creatinine Ratio 9.2 L (10-20) Glucose 124 H (70-99(Fasting)) mg/dl AST 61 H (13-39) U/L ALT 55 H (7-52) U/L Diagnostic Findings Chest X-Ray 07/22/21 15:36 XR chest 1V portable CLINICAL HISTORY: Chest Pain. COMPARISON STUDY: 01/15/2019 TECHNIQUE: 1 view of the chest FINDINGS: Single frontal view of the chest demonstrates the cardiomediastinal silhouette to be within normal limits. The lungs are clear of alveolar opacities. There is no evidence for pleural effusion. There is no evidence for vascular congestion. There is no acute osseous pathology. IMPRESSION: 1. No acute cardiopulmonary disease. ACT 112: Negative or not required by law. Electronically signed by: Andres Carmona M.D. 07/22/2021 4:[address] PM [address] Tissue Neck CT 07/22/21 15:38 CT soft tissue neck wo con CLINICAL HISTORY: hard to swallow, hoarse, contrast allergy . Pain on the right COMPARISON STUDY: No previous studies for comparison. CT DOSE: 440.28 mGy.cm TECHNIQUE: Limited noncontrast standard CT of the Neck was performed without IV contrast. A marker was placed in the right-sided site of pain. A dose lowering technique was utilized adhering to the principles of ALARA. FINDINGS: Salivary glands: Parotid and submandibular salivary glands are within normal pino its. The thyroid gland is also within normal limits. Lymph nodes: There are no pathologically enlarged lymph nodes. There is no abnormality seen at the site of the right-sided marker. No evidence for soft tissue mass within the neck bilaterally. Airway: The cervical airway is widely patent. The epiglottis and aryepiglottic folds are normal bilaterally. The vocal cords are symmetric bilaterally. Vascular structures: No gross vascular abnormalities are seen. Paranasal sinuses:The imaged paranasal sinuses are clear. Osseous structures: No acute osseous abnormalities are identified. IMPRESSION: Negative limited noncontrast CT of the soft tissues of the neck. If the patient's symptoms persist, direct visualization would be recommended. ACT 112: Negative or not required by law. Electronically signed by: Andres Carmona M.D. 07/22/2021 4:25 PM Medications Administered Discontinued Medications Acetaminophen (Acetaminophen 500 Mg Tab) 1,000 mg PO NOW STA Stop: 07/22/21 15:37 Last Admin: 07/22/21 15:48 Dose: 1,000 mg Documented by: [id number] Aspirin (Aspirin Chew 324 Mg) 324 mg PO NOW STA Stop: 07/22/21 16:50 Last Admin: 07/22/21 17:29 Dose: Not Given Documented by: [id number] Sodium Chloride (Nss) 500 mls @ 999 mls/hr IV .Q31M STA Stop: 07/22/21 16:06 Last Infusion: 07/22/21 16:23 Dose: 0 mls/hr Documented by: [id number] Admin: 07/22/21 15:48 Dose: 999 mls/hr Documented by: [id number] Nitroglycerin (Nitroglycerin 2% Ointment 30gm Tube) 1 inch EXT NOW STA Stop: 07/22/21 15:37 Last Admin: 07/22/21 15:48 Dose: 1 inch Documented by: [id number] Home Medications magnesium oxide 400 mg PO QDL 04/10/18 [History Confirmed 07/22/21] aspirin 81 mg tablet,delayed release (Aspir-) 81 mg PO QAM 04/17/18 [History Confirmed 07/22/21] cyanocobalamin (vitamin B-12) 1,000 mcg tablet (Vitamin B-12) 1,000 mcg PO QAM 06/08/18 [History Confirmed 07/22/21] gabapentin 600 mg tablet 600 mg PO TID 06/08/18 [History Confirmed 07/22/21] cholecalciferol (vitamin D3) 25 mcg (1,000 unit) capsule (Vitamin D3) 2,000 unit PO QAM 01/15/19 [History Confirmed 07/22/21] atorvastatin 10 mg tablet 10 mg PO HS #90 tab 08/01/20 [Rx Confirmed 07/22/21] levothyroxine 75 mcg tablet 75 mcg PO QAM #90 tab 08/11/20 [Rx Confirmed 07/22/21] potassium citrate 10 mEq (1,080 mg) tablet,extended release 20 meq PO BID #360 tab 12/14/20 [Rx Confirmed 07/22/21] allopurinol 100 mg tablet 100 mg PO QAM #90 tab 02/14/21 [Rx Confirmed 07/22/21] amiloride 5 mg tablet 5 mg PO QAM #90 tab 02/14/21 [Rx Confirmed 07/22/21] paroxetine HCl 20 mg tablet 20 mg PO QAM #90 tab 02/14/21 [Rx Confirmed 07/22/21] meclizine 12.5 mg tablet 12.5 mg PO UD PRN 04/04/21 [History Confirmed 07/22/21] metformin 500 mg tablet 500 mg PO BID 04/04/21 [History Confirmed 07/22/21] losartan 25 mg tablet 25 mg PO DAILY #30 tab 06/27/21 [Rx Confirmed 07/22/21] alprazolam 1 mg tablet 1 mg PO DAILY PRN 07/22/21 [History Confirmed 07/22/21] alprazolam 1 mg tablet 1 mg PO QAM 07/22/21 [History Confirmed 07/22/21] methocarbamol 500 mg tablet 500 mg PO Q8 07/22/21 [History Confirmed 07/22/21] Active Medications Acetaminophen (Acetaminophen 325 Mg Tab) 650 mg PO Q4H PRN PRN Reason: Pain or Fever Stop: 08/21/21 17:28 Aspirin (Aspirin 81 Mg Ectab) 81 mg PO QAM MAIDA Stop: 08/22/21 08:59 Heparin Sodium (Porcine) (Heparin Sod 5,000 Unit/0.5 Ml Vial) 5,000 units SQ Q8 MAIDA Stop: 08/21/21 21:59 Pantoprazole Sodium 40 mg/ (Syringe) 10 mls @ 5 mls/min IV NOW ONE Stop: 07/22/21 17:50 Nitroglycerin (Nitroglycerin Sl 0.4 Mg/Tab Tab) 0.4 mg SL UD PRN PRN Reason: Chest Pain Stop: 08/21/21 17:28 Ondansetron HCl (Ondansetron Inj 2 Mg/Ml 2 Ml Vial) 4 mg IV Q6H PRN PRN Reason: Nausea Stop: 08/21/21 17:28 ECG Additional Comments: Normal sinus rhythm Possible Anterolateral infarct , age undetermined Abnormal ECG When compared with ECG of 15-JAN-2019 01:20, Borderline criteria for Anterolateral infarct are now Presen Code Status & VTE Plan Code Status CODE: FULL VTE: SCDS, Heparin sub q TID VTE Prophylaxis Plan VTE Prophylaxis will be ordered: Yes Supervising Physician Co-Signing Physician Notes Patient was seen and examined independently I discussed the case with Ottoniel OLIVER I reviewed pertinent past medical social family history and also the plan of care and agree with the plan of care. Patient has atypical chest pain with some reproducible component however has multiple risk factors. Urgency department initial work-up did not reveal any abnormal troponin or EKG changes. This pain has been stuttering and changing over the last day or so. As mentioned she has been having some neck discomfort which is been reported to her outpatient provider such that this prompted a CT scan of the soft tissues of her neck to be performed in the emergency department without initial significant abnormalities noted by radiology. Because of her risk factors and age the patient will be brought in as an observation to evaluate and risk stratify for her chest pain being cardiac disease. Patient physical examination her cardiac exam is without murmurs. She does some reproducible chest wall discomfort. Lungs were clear. Her extremities are without edema however she has recently had an Achilles tendon rupture repair and likely cannot ambulate if a treadmill would be warranted in the future Any exceptions will be noted below PG Care Time/CCT Total # of Minutes Spent Total Time Spent with Patient: Total time spent is greater than 50% in coordination of care (as documented) at patient's floor/unit and/or counseling patient: Coding Level of Care Code INT OBSERVATION CARE 69M LVL 3 Diagnoses Chest pain R07.9 DM type 2 (diabetes mellitus, type 2) E11.9 HTN (hypertension) I10 Hyperlipidemia E78.5 Hypothyroid E03.9 Gout M10.9 Vertigo R42 Sacroiliac joint pain M53.3 Osteoarthritis M19.90 Anxiety F41.9 Throat pain R07.0 Arm pain M79.603
[2021-07-22] MEDS ORDERED: DEXTROSE 50% 50 ML SYRINGE IV PRN (19:13)
[2021-07-22] MEDS ORDERED: GLUCAGON FOR INJ 1 MG VIAL SQ PRN (19:13)
[2021-07-22] MEDS ORDERED: CARBOHYDRATES FOR HYPOGLYCEMIA PO PRN (19:13)
[2021-07-22] MEDS ORDERED: ALPRAZolam 0.5 MG TABLET PO PRN (19:13)
[2021-07-22] MEDS ORDERED: MECLIZINE 12.5 MG TAB PO PRN (19:13)
[2021-07-22] MEDS ORDERED: GLUCOSE 10 TABS/TUBE PO PRN (19:13)
[2021-07-22] MEDS ORDERED: GLUCOSE 40% GEL 15 GM TUBE PO PRN (19:13)
[2021-07-22] MEDS ORDERED: PANTOprazole 40 MG in SYRINGE 0 ML IV ONE (19:30)
[2021-07-22] MEDS ORDERED: ATORVASTATIN 10 MG TAB PO SCH (21:00)
[2021-07-22] MEDS: POTASSIUM CITRATE 10 MEQ TAB PO SCH (21:00)
[2021-07-22] MEDS: GABAPENTIN 600 MG TAB PO SCH (21:34)
[2021-07-22] MEDS: LIDOCAINE 5% 1 PATCH TD SCH (21:35)
[2021-07-22] MEDS: INSULIN ASPART PER UNIT SC SCH (23:00)
[2021-07-22] MEDS: HEPARIN SOD 5,000 UNIT/0.5 ML VIAL SQ SCH (23:01)
[2021-07-23 05:17] LABS: Basophils # (auto) 0.02 K/uL (0-0.2); Basophils % (auto) 0.2 %; Eosinophils # (auto) 0.16 K/uL (0-0.5); Hematocrit (blood only) 36.1 % (37-47); Hemoglobin 11.6 g/dL (12.0-16.0); Immature Granulocytes # (auto) 0.02 K/uL (0.00-0.02); Immature Granulocytes % (auto) 0.2 %; Lymphocytes # (auto) 2.94 K/uL (1.2-3.4); Lymphocytes % (auto) 36.6 %; Mean Corpuscular Hemoglobin 30.1 pg (25-34); Mean Corpuscular Hgb Conc 32.1 g/dL (32-36); Mean Corpuscular Volume 93.8 fL (80-100); Mean Platelet Volume 11.6 fL (7.4-10.4); Platelet Count 237 K/uL (130-400); RDW Coefficient of Variation 14.5 % (11.5-14.5); RDW Standard Deviation 49.6 fL (36.4-46.3); Red Blood Count 3.85 M/uL (4.2-5.4); White Blood Count 8.04 K/uL (4.8-10.8)
[2021-07-23] MEDS: HEPARIN SOD 5,000 UNIT/0.5 ML VIAL SQ SCH (05:29)
[2021-07-23 05:50] LABS: BUN Creatinine Ratio 11.3 (10-20); Calcium 8.9 mg/dl (8.5-10.1); Chol HDL Ratio 3.1 (0-5); Creatinine Clr Calc Pharmacy 71.5 ml/min; Est GFR (African American) 98.6 ml/min; Est GFR (Non-African American) 85.1 ml/min; Magnesium 2.2 mg/dl (1.7-2.4)
[2021-07-23] MEDS ORDERED: LEVOTHYROXINE SODIUM 75 MCG TABLET PO SCH (06:30)
[2021-07-23] MEDS: LIDOCAINE 5% 1 PATCH TD SCH (08:14)
[2021-07-23] MEDS: GABAPENTIN 600 MG TAB PO SCH (08:14)
[2021-07-23] MEDS: PANTOprazole 40 MG TAB PO SCH ×3 (08:15→12:26)
[2021-07-23] MEDS: POTASSIUM CITRATE 10 MEQ TAB PO SCH (08:15)
[2021-07-23] MEDS: INSULIN ASPART PER UNIT SC SCH ×2 (08:22→12:28)
[2021-07-23] MEDS ORDERED: aMILoride HCL 5 MG TAB PO SCH (09:00)
[2021-07-23] MEDS ORDERED: LOSARTAN POTASSIUM 25 MG TAB PO SCH (09:00)
[2021-07-23] MEDS ORDERED: allopurinoL 100 MG TAB PO SCH (09:00)
[2021-07-23] MEDS ORDERED: ASPIRIN 81 MG ECTAB PO SCH (09:00)
[2021-07-23] MEDS ORDERED: PARoxetine HCL 20 MG TAB PO SCH (09:00)
--- NOTE | 2021-07-23 10:27 | XCELERA ---
[id number]
--- NOTE | 2021-07-23 10:39 | Electrocardiogram Report ---
Test Reason : Blood Pressure : / mmHG Vent. Rate : 074 BPM Atrial Rate : 074 BPM P-R Int : 166 ms QRS Dur : 092 ms QT Int : 382 ms P-R-T Axes : 041 001 054 degrees QTc Int : 424 ms Normal sinus rhythm Poor R wave progression, consider anterior NM vs. lead placement vs. LVH Abnormal ECG When compared with ECG of 15-JAN-2019 01:20, No significant change Confirmed by Abhijit Camarena ([id number]) on 07/23/2021 10:39:37 AM Referred By: REFERRED SELF Confirmed By:Abhijit Camarena
[2021-07-23] MEDS ORDERED: PANTOprazole 40 MG TAB PO SCH (10:45)
--- NOTE | 2021-07-23 10:55 | Electrocardiogram Report ---
Test Reason : Blood Pressure : / mmHG Vent. Rate : 061 BPM Atrial Rate : 061 BPM P-R Int : 184 ms QRS Dur : 096 ms QT Int : 436 ms P-R-T Axes : 000 034 067 degrees QTc Int : 438 ms Normal sinus rhythm Normal ECG When compared with ECG of 22-JUL-2021 15:18, (unconfirmed) Borderline criteria for Anterior infarct are no longer Present Borderline criteria for Anterolateral infarct are no longer Present Confirmed by Abhijit Camarena ([id number]) on 07/23/2021 10:54:42 AM Referred By: REFERRED SELF Confirmed By:Abhijit Camarena
--- NOTE | 2021-07-23 10:59 | Discharge Summary ---
Date of Service July 23, 2021 Admission HPI Per Admitting Provider 71 YOF with past medical history of: Anxiety, Chronic back and knee pain, Neuropathy, HTN, DM, HTN, Hypothyroidism, obesity. Patient comes to the EMD today for complaints of chest pain and throat fullness. Patient states the pain in her chest started last night following dinner, it was located in the center of her chest and was sharp in nature then decreased to a pressure. She went to bed and noted that if she laid on her left side it got better. She got up this morning and had breakfast and then had return of this pain, and was about an hour after eating. This continued to be in the center of her chest and up her throat, and was associated with some dyspnea. She was given 324mg of ASA by EMS and NTG tablet under her tongue. This made her feel better she reports with less pressure. She had an ECG performed in the EMD, without dynamic changes from her ECG that was performed on 06/27/21. She had routine labs performed to include Troponin I, this was <0.03. She had 1/2 inch nitropaste placed and hospitalist service was called for admission. The pain in her chest is reporducible in the right side of her sternum, and is very sharp and tender in nature. When directly asked if this was the pain that brought her to the hospital she did say yes, as well as feeling some dyspnea because it hurt with deep breathing. The patient does have cardiac risk factors as noted above. Patient will be observed overnight for evaluation of her chest discomfort, ECG, ECHO, and trending of her Troponin I. She has never had a cardiac workup performed in the past. Will add Protonix. For her throat pain, she feels like food is getting stuck and is associated with some hoarseness, and dyspnea. She has an appointment with ENT next week for this as well as frequent nose bleeds at home. She was just placed on Losartan on 06/27/21. She had a CT of her neck performed in the EMD with no acute process noted. Her dyspnea has been ongoing for the past month or so, and was being worked up by her PCP. THis included an ECG in the office on 06/27, her last ECG before this was 02/15 and has had some changes since then. COVID test is negative on admission. Principal Diagnosis Atypical chest pain Discharge Exam General-alert and oriented x3, no fevers, no chills HEENT-head atraumatic and normocephalic, TMs intact bilaterally, pupils equal and reactive to light, extraocular muscles intact Neck-no lymphadenopathy or thyromegaly, trachea midline Chest-clear to auscultation percussion. No rales wheezing or rhonchi Cardiac-regular rate and rhythm, normal S1 and S2, no murmurs Abdomen-normal bowel sounds, nontender, no hepatosplenomegaly Extremities-no cyanosis, clubbing, or edema Neuro-cranial nerves II through XII intact, motor and sensory function within normal limits, strength symmetrical , no focal deficits Psych-normal affect, normal mood Discharge Data Allergies Allergy/AdvReac Type Severity Reaction Status Date / Time Iodinated Contrast Media Allergy Intermediate HIVES AND Verified 07/22/21 18:12 THROAT SWELLING Consultations 07/22/21 16:53 ED Decision to Admit Stat Ordered Studies 07/22/21 15:38 CT soft tissue neck wo con Stat Hospital Course (1) Chest pain: Serial troponins are negative. No acute EKG changes. Neck CT scan was negative. The chest discomfort probably is not cardiac related. She can pursue outpatient stress testing if necessary with her PCP. She may have an element of GERD causing her symptoms. Protonix has been started. (2) DM type 2 (diabetes mellitus, type 2): Holding Metformin while hospitalized. Will restart at discharge. ADA diet. Sliding scale coverage. (3) HTN (hypertension): Controlled on current medications. (4) Hyperlipidemia: Continue statin therapy. (5) Throat pain: May be GERD related. Protonix has been started. She states she has an outpatient appointment with ENT for indirect laryngoscopy. (6) Hypothyroid: Synthroid replacement therapy (7) Gout: Continue allopurinol (8) Vertigo: Continue with Meclizine (9) Sacroiliac joint pain: Follows with chronic pain for injections (10) Osteoarthritis: Continue her gabapentin - holding methocarbamol for now- can add back PRN if needed (11) Anxiety: Continue Alprazolam PRN (12) Arm pain: Exam consistent with bicep tendonitis Disposition: Home today, July 23. Follow-up with PCP for scheduling of outpatient stress testing if necessary. She has an appointment with ENT for further evaluation. Continue Protonix therapy for now. Total Time Total Time Spent Total Time Spent (In Minutes): 35 minutes Discharge Plan Discharge Items Patient Disposition: Home - Self-Care Reason For Visit: CHEST PAIN, DIFFICULTY SWALLOWING Discharge Diagnosis: Atypical chest pain Condition on Discharge: Fair Activity: Resume your previous activity Non-emergency contact: Primary Care Provider Call non-emergency contact if: you have any medication questions Follow-up/Referrals: Abhijit Guillen MD [Primary Care Provider] - Diet: Carb Consistent or DM2 and Heart Healthy Addtl Attending Provider Instructions: Take Protonix 40 mg daily as prescribed. All other medications remain the same. Follow-up with primary care provider and ENT as scheduled Pending Studies at Discharge: No Stand-Alone Forms: My [employer], Smoking Cessation Medications and DC Order Prescriptions: New aspirin 81 mg Tablet,Delayed Release (Dr/Ec) 81 mg PO QAM Qty: 30 RF: 0 pantoprazole 40 mg Tablet,Delayed Release (Dr/Ec) 40 mg PO DAILY Qty: 30 RF: 0 Continued atorvastatin 10 mg tablet 10 mg PO HS Qty: 90 RF: 3 levothyroxine 75 mcg tablet 75 mcg PO QAM Qty: 90 RF: 3 potassium citrate 10 mEq (1,080 mg) tablet extended release 20 meq PO BID Qty: 360 RF: 3 allopurinol 100 mg tablet 100 mg PO QAM Qty: 90 RF: 1 amiloride 5 mg tablet 5 mg PO QAM Qty: 90 RF: 1 paroxetine HCl 20 mg tablet 20 mg PO QAM Qty: 90 RF: 1 losartan 25 mg tablet 25 mg PO DAILY Qty: 30 RF: 2 magnesium oxide 400 mg Capsule 400 mg PO QDL RF: 0 aspirin [Aspir-81] 81 mg Tablet,Delayed Release (Dr/Ec) 81 mg PO QAM RF: 0 gabapentin 600 mg Tablet 600 mg PO TID RF: 0 cyanocobalamin (vitamin B-12) [Vitamin B-12] 1,000 mcg Tablet 1,000 mcg PO QAM RF: 0 cholecalciferol (vitamin D3) [Vitamin D3] 1,000 unit Capsule 2,000 unit PO QAM RF: 0 alprazolam 1 mg tablet 1 mg PO DAILY PRN (Reason: Anxiety) RF: 0 alprazolam 1 mg tablet 1 mg PO QAM RF: 0 methocarbamol 500 mg tablet 500 mg PO Q8 RF: 0 metformin 500 mg tablet 500 mg PO BID RF: 0 meclizine 12.5 mg tablet 12.5 mg PO UD PRN (Reason: dizzy spells) RF: 0 Discharge Orders: Discharge Order (Routine); Ordered 07/23/21 Ordered By: Placido Gannon Admission Data Admit Date/Time: 07/22/21 17:30 Attending Provider: Placido Gannon Admit Provider: Simon Rubin Primary Care Provider: Abhijit Guillen Other Providers: Simon Rubin Coding Level of Care Code D/C DAY MANAGEMENT >30 MINS Diagnoses Chest pain R07.9 DM type 2 (diabetes mellitus, type 2) E11.9 HTN (hypertension) I10 Hyperlipidemia E78.5 Throat pain R07.0 Hypothyroid E03.9 Gout M10.9 Vertigo R42 Sacroiliac joint pain M53.3 Osteoarthritis M19.90 Anxiety F41.9 Arm pain M79.603
[2021-07-24 07:28] LABS: Estimated Average Glucose 146 mg/dl; Hemoglobin A1C 6.7 % (4.5-5.6)
== END 2021-07-23 13:38 | disposition home or self-care (01) ==
LOC: ED 15:13 → 2N 15:13 → SUATTDRO 17:30 → 2N 18:30

== ENCOUNTER 2024-03-19 15:31 | Inpatient (IN) ==
--- NOTE | 2024-03-19 16:00 | Emergency Department Note ---
Impression & Plan Acute pain of right hip, Abdominal pain, acute, right upper quadrant ED Provider Note NAME: LEANN PACHECO AGE: 74 SEX: F : 1950 ARRIVES VIA: Ambulance INFORMANT: Patient, EMS ED PROVIDER(S): Abhijit Butt DO CHIEF COMPLAINT: Abdominal pain HPI: The patient is a 74-year-old female who presented to the emergency department for abdominal pain. The patient had a fall 3 days ago. She states ever since that time she has had difficulty ambulating because of right hip pain left knee pain as well as left and right upper quadrant abdominal pain. She noticed no rectal bleeding. She denies having any chest pain or difficulty breathing. She has not been seen by her family doctor as she has been able to walk very well. The patient called 911 because of the symptoms. She presented to the emergency department for further evaluation. ROS: See above HPI for pertinent positives & negatives. A total of 10 systems reviewed and were otherwise negative. PAST MEDICAL HISTORY: See Below PAST SURGICAL HISTORY: See Below FAMILY HISTORY: See Below SOCIAL HISTORY: See Below HOME MEDICATIONS: See Below ALLERGIES: See Below VITALS: See Below PHYSICAL EXAMINATION: GENERAL: Patient is awake alert in no acute distress patient is resting comfortably and showing no signs of anxiety EYES: The conjunctivae are clear. The pupils are round and reactive. EARS, NOSE, MOUTH AND THROAT: The nose is without any evidence of any deformity. NECK: The neck is nontender and supple. RESPIRATORY: Normal respiratory effort is noted there is no evidence of wheezing rhonchi or rales CARDIOVASCULAR: Regular rate and rhythm noted there no murmurs rubs or gallops normal S1 normal S2. GASTROINTESTINAL: The abdomen is distended. There is significant right upper quadrant tenderness to palpation which is moderate. BACK: No midline tenderness or or step-off noted range of motion in flexion extension as well as rotation no signs of muscle spasm noted MUSCULOSKELETAL/EXTREMITIES: There is pain with range of motion testing of the right hip as well as the left knee. There was no shortening or deformity noted. SKIN: There is no obvious evidence of any rash. There are no petechiae, pallor or cyanosis noted. NEUROLOGIC: Patient is awake alert and oriented x3. MEDICAL DECISION MAKING: The patient is a 74-year-old female who presented to the emergency department after a near fall. She did twist her right hip and started having upper abdominal pain. The patient was having significant difficulty ambulating. The patient was treated with pain medication in the emergency department. Laboratory and radiographic studies were obtained to ensure there is no underlying traumatic injury. Ultimately the patient was not found to have any abnormality with the hip or pelvis. CT of the chest and abdomen showed no bony fracture or abnormality. The patient was still unable to ambulate very well. For this reason I discussed her condition with the on-call [facility] hospitalist. Triage Nursing notes reviewed. Prior medical records reviewed Vital Signs: reviewed and remarkable for elevated blood pressure. Differential diagnosis: Fracture, dislocation, contusion, intra-abdominal, pneumothorax, intrathoracic, intracranial, neurologic, compartment syndrome, rhabdomyolysis, as well as other pathologies. ER treatment provided: See below Diagnostics interpreted by me: ECG: EKG was obtained in the emergency department. My interpretation is normal sinus rhythm at 63 bpm. There is no ectopy. There is no acute ST segment abnormalities noted. For R wave progression was noted. This was compared to a tracing from March 11, 2024. No changes were noted. Cardiac Monitoring: An order was placed for continuous cardiac monitoring. The monitor shows a rate of 60 bpm with sinus rhythm. Laboratory studies: As stated above and show below. Imaging studies: See below. Radiographic imaging was reviewed by myself Consultation(s): I discussed this case with Dr. Burris who is on-call for the [facility] hospitalist group. Past Med/Surg History Problem List (Updated 03/19/24 @ 20:30 by Abhijit Butt DO) Abdominal pain, acute, right upper quadrant (Acute) Acute pain of right hip (Acute) Back pain (Acute) Ambulatory dysfunction (Acute) Diplopia Herniation of lumbar intervertebral disc with radiculopathy (Acute) Diabetes mellitus, type 2 Sciatica (Acute) Lumbar disc disease (Acute) Intractable back pain (Acute) Hypothyroid Hyperlipidemia HTN (hypertension) Gout Hypertension (Acute) Vertigo Sacroiliac joint pain Mixed stress and urge urinary incontinence Osteopenia (Acute) Insomnia (Acute) Chronic cerebral ischemia (Acute) Carotid artery plaque (Acute) Encounter for pre-operative examination Anxiety Hoarseness Swallowing difficulty Chest pain Anemia, mild Elevated LFTs Right ureteral calculus Nephrolithiasis Current use of proton pump inhibitor Anemia Laryngitis 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 Retrolisthesis of vertebrae L2-3 Lumbar stenosis with neurogenic claudication (Acute) Osteoarthritis Obesity (BMI 30-39.9) Medical History History of hepatitis B many years ago Chronic anemia Hx of gout Sciatica Hypothyroid High cholesterol HTN (hypertension) Left lumbar radiculopathy History of viral meningitis ~3 years ago Melanoma of right upper arm Hx DM type 2 (diabetes mellitus, type 2) Kidney stones Hx Depression Anxiety Neuropathy LLE Surgical History Hx of Achilles tendon repair S/P epidural steroid injection History of arthroscopy LEFT KNEE S/P knee surgery Left (2019) Hx of breast surgery Left benign fatty mass removed History of carpal tunnel release of both wrists Status post lumbar spine operative procedure for decompression of spinal cord with medial facetectomy L3-L4, L4-5; w/dr ray History of lithotripsy Multiple History of total hysterectomy with bilateral salpingo-oophorectomy (BSO) History of appendectomy History of colonoscopy History of Mohs micrographic surgery for skin cancer History of tooth extraction All teeth History of tonsillectomy and adenoidectomy History of bilateral cataract extraction History of back surgery Lumbar (2019) + procedure with Dr. Ray History of cystoscopy Multiple--last 04/16/22 @ [facility] History of cholecystectomy 2017 Family History Father Family history of diabetes mellitus Gastric cancer Mother Family history of diabetes mellitus Cerebral artery occlusion with cerebral infarction Coronary heart disease Daughter Family hx colonic polyps Cancer of kidney Crohn's disease Other Family history non-contributory No family history of adverse response to anesthesia Denies family history of Ovarian cancer Breast cancer Colorectal cancer Social History Smoking Status: Never smoker Second Hand Exposure: No; Do You Dip or Chew Tobacco: No; Hx Alcohol Use: No Hx Substance Use: No Preferred Language: Arabic Communication Ability: Effective Visual Impairment: No Limitations Qa Internship Required: No Beliefs That Will Affect Care: None marital status: / Current Living Situation: Alone Current Living Situation Comment: [address] (but has stair lift to get inside) single floor living space current occupational status: retired Feels Safe at Home: Yes Childhood Exposure to Second-Hand Smoke: Yes Dental Care, Regularly: No Physical Activity Frequency: Does not Exercise Seatbelt Use: always Sunscreen Use: Yes Assistive Devices: Lift Chair, Walker and Wheelchair Allergies Allergies Allergy/AdvReac Type Severity Reaction Status Date / Time shellfish derived Allergy Severe Swelling Unverified 03/10/24 12:01 of Lip/Tongue/Throat, hives and vomiting Iodinated Contrast Media Allergy Intermediate Hives, Verified 03/10/24 12:01 throat swelling Fish Containing Products Allergy Verified 03/10/24 12:01 Home Meds Home Medications Medication Instructions Recorded Confirmed cyanocobalamin (vitamin B-12) 1,000 mcg PO QAM 06/08/18 03/19/24 1,000 mcg tablet (Vitamin B-12) cholecalciferol (vitamin D3) 25 2,000 unit PO QAM 01/15/19 03/19/24 mcg (1,000 unit) capsule (Vitamin D3) atorvastatin 10 mg tablet 10 mg PO QAM 03/19/24 03/19/24 gabapentin 600 mg tablet 600 mg PO TID 03/19/24 03/19/24 metformin 500 mg tablet 500 mg PO AMPM 03/19/24 03/19/24 potassium citrate 10 mEq (1,080 20 meq PO AMPM 03/19/24 03/19/24 mg) tablet,extended release Previous Rx's Medication Instructions Recorded aspirin 81 mg tablet,delayed 81 mg PO QAM #30 tabs 07/23/21 release levothyroxine 75 mcg tablet 75 mcg PO QAM #90 tabs 08/12/23 pantoprazole 40 mg tablet,delayed 40 mg PO QAM #90 tabs 09/02/23 release losartan 25 mg tablet 25 mg PO QAM #90 tabs 12/10/23 allopurinol 100 mg tablet 100 mg PO QAM #90 tabs 12/11/23 amiloride 5 mg tablet 5 mg PO QAM #90 tabs 12/11/23 paroxetine HCl 20 mg tablet 20 mg PO QAM #90 tabs 12/11/23 meclizine 25 mg tablet 25 mg PO TID PRN dizziness #14 tabs 12/27/23 ondansetron 4 mg disintegrating 4 mg PO Q6H PRN nausea and 12/27/23 tablet vomiting #14 tabs blood sugar diagnostic (OneTouch #100 ea 01/27/24 Ultra Test strips) blood-glucose meter (OneTouch #1 ea 01/27/24 Ultra2 Meter) lancets 30 gauge (OneTouch #100 ea 01/27/24 UltraSoft 2 Lancet) alprazolam 1 mg tablet 1 mg PO BID PRN Anxiety #60 tabs 03/02/24 Results & Data (ED) Vital Signs Vital Signs - 24 hr 03/19/24 16:02 03/19/24 16:07 03/19/24 16:07 Temperature 36.6 C Temperature Source Oral Pulse Rate 71 88 Pulse Rate [Apical] Pulse Rate from SpO2 Sensor Respiratory Rate 20 Respiratory Effort / Characteristics Non-Labored Non-Labored Spontaneous Respiratory Depth Normal Normal Blood Pressure 140/90 Blood Pressure [Right Arm] Blood Pressure Mean 106 Blood Pressure Mean [Right Arm] Pulse Oximetry 97 Oxygen Delivery Method Room Air Sepsis Recent Fever Within 48 Hours No Sepsis New/Unexplained Change in Mental Status No Sepsis Action Taken by Nursing No Action Required 03/19/24 16:07 03/19/24 16:21 03/19/24 16:33 Temperature Temperature Source Pulse Rate 62 Pulse Rate [Apical] Pulse Rate from SpO2 Sensor 63 63 Respiratory Rate 22 Respiratory Effort / Characteristics Respiratory Depth Blood Pressure Blood Pressure [Right Arm] Blood Pressure Mean Blood Pressure Mean [Right Arm] Pulse Oximetry 94 96 Oxygen Delivery Method Room Air Sepsis Recent Fever Within 48 Hours Sepsis New/Unexplained Change in Mental Status Sepsis Action Taken by Nursing 03/19/24 16:42 03/19/24 16:54 03/19/24 17:09 Temperature Temperature Source Pulse Rate 65 60 61 Pulse Rate [Apical] Pulse Rate from SpO2 Sensor 65 61 62 Respiratory Rate 16 15 18 Respiratory Effort / Characteristics Respiratory Depth Blood Pressure Blood Pressure [Right Arm] Blood Pressure Mean Blood Pressure Mean [Right Arm] Pulse Oximetry 96 95 94 Oxygen Delivery Method Sepsis Recent Fever Within 48 Hours Sepsis New/Unexplained Change in Mental Status Sepsis Action Taken by Nursing 03/19/24 17:54 03/19/24 18:00 03/19/24 18:00 Temperature Temperature Source Pulse Rate 59 L 66 Pulse Rate [Apical] 67 Pulse Rate from SpO2 Sensor 60 65 Respiratory Rate 21 18 24 Respiratory Effort / Characteristics Non-Labored Respiratory Depth Normal Blood Pressure Blood Pressure [Right Arm] 152/75 H Blood Pressure Mean Blood Pressure Mean [Right Arm] 100 Pulse Oximetry 98 97 98 Oxygen Delivery Method Room Air Sepsis Recent Fever Within 48 Hours Sepsis New/Unexplained Change in Mental Status Sepsis Action Taken by Nursing 03/19/24 18:12 03/19/24 18:15 03/19/24 18:15 Temperature Temperature Source Pulse Rate 61 Pulse Rate [Apical] Pulse Rate from SpO2 Sensor 61 Respiratory Rate 18 Respiratory Effort / Characteristics Respiratory Depth Blood Pressure 152/75 H 152/75 H Blood Pressure [Right Arm] Blood Pressure Mean 102 102 Blood Pressure Mean [Right Arm] Pulse Oximetry 97 Oxygen Delivery Method Sepsis Recent Fever Within 48 Hours Sepsis New/Unexplained Change in Mental Status Sepsis Action Taken by Nursing 03/19/24 18:27 03/19/24 18:33 03/19/24 18:45 Temperature Temperature Source Pulse Rate 64 63 63 Pulse Rate [Apical] Pulse Rate from SpO2 Sensor 65 64 62 Respiratory Rate 19 21 15 Respiratory Effort / Characteristics Respiratory Depth Blood Pressure Blood Pressure [Right Arm] Blood Pressure Mean Blood Pressure Mean [Right Arm] Pulse Oximetry 97 97 96 Oxygen Delivery Method Sepsis Recent Fever Within 48 Hours Sepsis New/Unexplained Change in Mental Status Sepsis Action Taken by Nursing 03/19/24 19:18 03/19/24 19:21 03/19/24 19:30 Temperature Temperature Source Pulse Rate 67 65 65 Pulse Rate [Apical] Pulse Rate from SpO2 Sensor 67 65 65 Respiratory Rate 22 24 18 Respiratory Effort / Characteristics Respiratory Depth Blood Pressure Blood Pressure [Right Arm] Blood Pressure Mean Blood Pressure Mean [Right Arm] Pulse Oximetry 96 96 95 Oxygen Delivery Method Sepsis Recent Fever Within 48 Hours Sepsis New/Unexplained Change in Mental Status Sepsis Action Taken by Nursing 03/19/24 19:45 03/19/24 20:00 Temperature Temperature Source Pulse Rate 60 Pulse Rate [Apical] Pulse Rate from SpO2 Sensor 60 Respiratory Rate 17 Respiratory Effort / Characteristics Non-Labored Respiratory Depth Normal Blood Pressure Blood Pressure [Right Arm] Blood Pressure Mean Blood Pressure Mean [Right Arm] Pulse Oximetry 96 Oxygen Delivery Method Sepsis Recent Fever Within 48 Hours Sepsis New/Unexplained Change in Mental Status Sepsis Action Taken by Correction Medications Current Medication List: was personally reviewed by me Laboratory Data Attestation: I reviewed the patient's lab results. 03/19/24 15:54 03/19/24 15:54 Lab Results 03/19/24 03/19/24 Range/Units 15:54 16:00 WBC 7.02 (4.8-10.8) K/ul RBC 4.41 (4.20-5.40) M/uL Hgb 14.5 (12.0-16.0) g/dl POC Hgb 14.6 (12.0-16.0) g/dl Hct 40.9 (37.0-47.0) % POC Hct 43 (37-47) % MCV 92.7 (80.0-100.0) fL MCH 32.9 (25.0-34.0) pg MCHC 35.5 (32.0-36.0) g/dL RDW Std Deviation 44.4 (36.4-46.3) fL RDW Coeff of Eliseo 13.1 (11.5-14.5) % Plt Count 222 (130-400) K/uL MPV 11.7 (9.4-12.4) fL Immature Gran % (Auto) 0.1 % Neut % (Auto) 63.6 % Lymph % (Auto) 25.6 % [place] % (Auto) 9.7 % Eos % (Auto) 0.6 % Baso % (Auto) 0.4 % Neut # (Auto) 4.46 (1.40-6.50) K/uL Lymph # (Auto) 1.80 (1.20-3.40) K/uL [place] # (Auto) 0.68 H (0.11-0.59) K/uL Eos # (Auto) 0.04 (0.00-0.50) K/uL Baso # (Auto) 0.03 (0.00-0.20) K/uL Immature Gran # (Auto) 0.01 (0.01-0.20) K/uL PT 10.8 (9.0-12.0) Seconds INR 1.0 (0.9-1.1) APTT 26 (21-31) Seconds PTT Ratio 1.0 POC Sodium 140 (135-144) mmol/L Sodium 141 (136-145) mmol/L POC Potassium 3.7 (3.3-5.0) mmol/L Potassium 3.8 (3.5-5.1) mmol/L POC Chloride 104 (101-112) mmol/L Chloride 106 (98-107) mmol/L Carbon Dioxide 19 L (21-32) mmol/L POC Total CO2 17 L (24-31) mmol/L Anion Gap 16 H (3-11) POC Anion Gap 23.0 (16-25) mmol/L POC BUN 10 (7-18) mg/dl BUN 11 (6-23) mg/dl Creatinine 0.69 (0.6-1.2) mg/dl POC Creatinine 0.7 (0.6-1.3) mg/dl Est Cr Clr Drug Dosing 76.1 ml/min eGFR 90.45 BUN/Creatinine Ratio 15.9 (10-20) Glucose 116 H (70-99(Fasting)) mg/dl POC Glucose (other) 115 H (70-99) mg/dl Calcium 10.0 (8.6-10.3) mg/dl POC Ioniz Calcium Mesfin 1.16 (1.12-1.32) mmol/l Total Bilirubin 0.7 (0.2-1.0) mg/dl AST 21 (13-39) U/L ALT 25 (7-52) U/L Alkaline Phosphatase 77 (34-104) U/L Troponin I High Sens 3.5 (0-14) pg/ml Total Protein 7.1 (6.0-8.3) gm/dl Albumin 4.4 (3.4-5.0) gm/dl Globulin 2.7 (2.5-4.0) gm/dl Albumin/Globulin Ratio 1.6 (0.9-2) Lipase 46 (11-82) U/L Administered Medications Discontinued Medications Morphine Sulfate (Morphine Sulfate 4 Mg/Ml 1 Ml Carp\Vial) 4 mg IV NOW STA Stop: 03/19/24 15:43 Last Admin: 03/19/24 16:02 Dose: 4 mg Documented By: ITA Ondansetron HCl (Ondansetron Inj 2 Mg/Ml 2 Ml Vial) 4 mg IV NOW STA Stop: 03/19/24 15:43 Last Admin: 03/19/24 16:02 Dose: 4 mg Documented By: ITA Imaging Data Attestation: I personally reviewed and interpreted this imaging study as follows: My Impression: 1 view chest x-ray was obtained in the emergency department. My interpretation is no free air or definite filtrate, final report below. CT of the brain was attained in the emergency department. My interpretation is no intracranial hemorrhage or mass effect, final report below. Radiologist's Impression: Chest X-Ray 03/19/24 15:42 EXAM:Radiograph of the Chest 1 View INDICATION: Posttraumatic pain. TECHNIQUE: Frontal view of the chest. COMPARISON:08/29/2021 FINDINGS: Lungs and pleural spaces: No consolidation or pulmonary edema. No pleural effusion or pneumothorax. Heart: Shape and configuration within normal limits allowing for technique. Mediastinum: Normal contour. Bones/joints: No fracture, erosion or dislocation. Soft tissues: No abnormality noted. No radiopaque foreign body noted. Upper abdomen: No abnormality noted. IMPRESSION: No abnormality noted. ACT 112: Negative or not required by law. Electronically signed by Courtney Silver 03-19-2024 4:27 PM Hip/Pelvis X-Ray 03/19/24 15:42 EXAM: Radiographs of the Right Hip 3 Views INDICATION: Posttraumatic pain. TECHNIQUE: Front view pelvis and AP and frog leg lateral views of the right hip. COMPARISON: No relevant prior studies available. FINDINGS: Limitations: None. Bones/joints: Postoperative and degenerative changes noted in the visualized lower lumbar spine. There is minimal right greater trochanteric spurring. No fracture or dislocation. Soft tissues: No abnormality noted. No radiopaque foreign body noted. IMPRESSION: No acute findings in the right hip. ACT 112: Negative or not required by law. Electronically signed by Courtney Silver 03-19-2024 4:33 PM Abdomen/Pelvis CT 03/19/24 15:43 EXAM: CT Abdomen and Pelvis Without Intravenous Contrast INDICATION: Trauma. TECHNIQUE: Axial computed tomography images of the abdomen and pelvis without intravenous contrast. Sagittal and coronal reformatted images were created and reviewed. This CT exam was performed using one or more of the following dose reduction techniques: automated exposure control, adjustment of the mA and/or kV according to patient size, and/or use of iterative reconstruction technique. COMPARISON: 01/23/2022 FINDINGS: Limitations: Assessment of solid organ and aortic integrity limited in the absence of IV contrast. Lung bases: No abnormality noted. Pleural space: No visualized pleural effusion or pneumothorax. Heart: No abnormality noted. Mediastinum: No abnormality noted. ABDOMEN: Liver: Lack of intravenous contrast limits detection of some masses. No abnormality noted. Gallbladder and bile ducts: Cholecystectomy. No ductal dilation or stone noted. Pancreas: No pancreatic mass, calcification, inflammation or ductal dilation noted. Spleen: No significant abnormality noted. Adrenals: No significant abnormality noted. Kidneys and ureters: There is mild bilateral renal cortical scarring. Decreased stone burden in the left kidney. Now present are 2 approximate 4 mm stones in the left upper pole and 1 in the lower pole of the left kidney. Stable solitary approximate 4 mm nonobstructing right kidney stone. No hydronephrosis. No perinephric fluid. No urinary gas. 4 mm angiomyolipoma noted posterior cortex midpole right kidney. No hemorrhage. Stable cortical hyperdense cyst anterior midpole left kidney measuring 4 mm. Stomach and bowel: Moderate colonic stool and scattered diverticulosis. No diverticulitis or obstruction. PELVIS: Appendix: No findings to suggest acute appendicitis. Bladder: Appears normal for the degree of filling. No stones or inflammation. No large mass. Masses may not be detected in the absence of opacification. Reproductive: Hysterectomy. ABDOMEN and PELVIS: Intraperitoneal space: No free air. No significant fluid collection. Bones/joints: The bones are demineralized. There is marked degenerative change throughout the spine and intact posterior L2-L3 fusion hardware and metallic intervertebral disc spacers at L2-L3 and L3-L4. No acute osseous abnormality noted. Pelvic bones, proximal femora and visualized ribs are intact. Soft tissues: No significant abnormality noted. Vasculature: No aneurysm. Atherosclerotic plaque noted in the aorta and branches. Lymph nodes: No pathologically enlarged lymph nodes. IMPRESSION: 1. Allowing for the limitations of a unenhanced study, no traumatic change is identified. 2. Decreased left renal stone burden. No obstructing stone. ACT 112: Negative or not required by law. Electronically signed by Courtney Silver 03-19-2024 4:[address] 03/19/24 15:43 EXAM: CT Cervical Spine Without Intravenous Contrast INDICATION: Trauma TECHNIQUE: Axial computed tomography images of the cervical spine without intravenous contrast. Sagittal and coronal reformatted images were created and reviewed. This CT exam was performed using one or more of the following dose reduction techniques: automated exposure control, adjustment of the mA and/or kV according to patient size, and/or use of iterative reconstruction technique. COMPARISON: 04/04/2020 FINDINGS: Limitations: None. Vertebrae: Stable osseous demineralization. Stable minimal diffuse facet hypertrophy. Stable moderate spondylosis and uncal spurring C5-C6 and C6-C7. No fracture or subluxation. Discs/spinal canal/neural foramina: There is stable mild to moderate to space narrowing C5-C6 and C6-C7. There is mild to moderate central canal stenosis C5-C6 and C6-C7. There is mild foraminal stenosis at C6-C7. Soft tissues: No significant abnormality noted. Lung apices: No significant abnormality noted. IMPRESSION: Stable degenerative changes. No fracture. ACT 112: Negative or not required by law. Electronically signed by Courtney Silver 03-19-2024 4:[address] 03/19/24 15:43 EXAM: CT Chest Without Intravenous Contrast INDICATION: Trauma. TECHNIQUE: Axial computed tomography images of the chest without intravenous contrast. Sagittal and coronal reformatted images were created and reviewed. This CT exam was performed using one or more of the following dose reduction techniques: automated exposure control, adjustment of the mA and/or kV according to patient size, and/or use of iterative reconstruction technique. COMPARISON: 04/10/2018 FINDINGS: Limitations: Aortic integrity is not adequately assessed in the absence of IV contrast. Lungs and pleural spaces: No pleural effusion or pneumothorax. Heart: No abnormality noted. Thyroid: No abnormality noted. Bones/joints: Degenerative changes noted throughout the spine. No acute osseous abnormality seen. Sternum and visualized shoulder girdle intact. Soft tissues: No significant abnormality noted. Vasculature: There is minimal atherosclerotic calcification of the descending aorta and aortic valve. There is increased mild to moderate coronary calcification. No aneurysm. Lymph nodes: Stable 3 mm probable fissural lymph node along the right major fissure. Now visualized 3 mm oval noncalcified nodule in the right lower lobe series 8 image 32. Benign 2 mm pleural nodule right middle lobe. No bronchiectasis, honeycombing or reticulation. Kidneys and ureters: Nonobstructing left kidney stones present. IMPRESSION: 1. Allowing for the limitations of an unenhanced study, no traumatic change identified. 2. New 3 mm oval low suspicion right lower lobe pulmonary nodule with stable benign-appearing pleural and fissural nodules. Fleischner Society Guidelines (MacMahon, et al. Radiology 2017; 284(1):228-43) suggest that no follow-up is necessary for patients with a low or high risk of malignancy. 3. There is mild to moderate coronary calcification which is increased compared to 2018. ACT 112: Negative or not required by law. Electronically signed by Courtney Silver 03-19-2024 4:[address] 03/19/24 15:43 EXAM: CT Head Without Intravenous Contrast INDICATION: Trauma. TECHNIQUE: Axial computed tomography images of the head/brain without intravenous contrast. Sagittal and/or coronal reformats are provided. Sagittal and coronal reformatted images were created and reviewed. This CT exam was performed using one or more of the following dose reduction techniques: automated exposure control, adjustment of the mA and/or kV according to patient size, and/or use of iterative reconstruction technique. COMPARISON: 04/04/2020 FINDINGS: Limitations: None. Brain and extra-axial spaces: No abnormality noted. No hemorrhage. No significant white matter disease. No edema. No ventriculomegaly. Bones/joints: No acute changes. Soft tissues: No significant abnormality noted. Vasculature: Atherosclerotic calcification noted. Sinuses: No layering fluid in the visualized portions of the paranasal sinuses. Mastoid air cells: No mastoid effusion. Orbits: No significant abnormality noted. IMPRESSION: No acute findings in the head/brain. ACT 112: Negative or not required by law. Electronically signed by Courtney Silver 03-19-2024 4:29 PM Discharge Plan Visit Data Chief Complaint: Hip Pain ED Provider: Abhijit Butt Discharge Problem: Acute pain of right hip, Abdominal pain, acute, right upper quadrant Patient Disposition: Being Evaluated by Hospitalist Forms Stand Alone Forms: My [facility] TV Prescriptions Prescriptions: No Action levothyroxine 75 mcg tablet 75 mcg PO QAM Qty: 90 3RF pantoprazole 40 mg tablet,delayed release (DR/EC) 40 mg PO QAM Qty: 90 2RF losartan 25 mg tablet 25 mg PO QAM Qty: 90 3RF allopurinol 100 mg tablet 100 mg PO QAM Qty: 90 1RF amiloride 5 mg tablet 5 mg PO QAM Qty: 90 1RF paroxetine HCl 20 mg tablet 20 mg PO QAM Qty: 90 1RF (DME) OneTouch Ultra Test Strip See Rx Instructions .Route Qty: 100 1RF Rx Instructions: Check blood sugar daily and PRN (DME) blood-glucose meter [OneTouch Ultra2 Meter] Misc See Rx Instructions .Route Qty: 1 0RF Rx Instructions: Check blood sugar daily and PRN (DME) lancets [OneTouch UltraSoft 2 Lancet] 30 gauge misc See Rx Instructions .Route Qty: 100 1RF Rx Instructions: Check BS daily and PRN alprazolam 1 mg tablet 1 mg PO BID PRN (Reason: Anxiety) Qty: 60 0RF Rx Instructions: CHELY [id number] cyanocobalamin (vitamin B-12) [Vitamin B-12] 1,000 mcg Tablet 1,000 mcg PO QAM cholecalciferol (vitamin D3) [Vitamin D3] 1,000 unit Capsule 2,000 unit PO QAM aspirin 81 mg Tablet,Delayed Release (Dr/Ec) 81 mg PO QAM Qty: 30 0RF ondansetron 4 mg tablet,disintegrating 4 mg PO Q6H PRN (Reason: nausea and vomiting) Qty: 14 0RF meclizine 25 mg tablet 25 mg PO TID PRN (Reason: dizziness) Qty: 14 0RF metformin 500 mg tablet 500 mg PO AMPM Rx Instructions: NEEDS PM DOSE gabapentin 600 mg tablet 600 mg PO TID Rx Instructions: WILL NEED TONIGHTS DOSE atorvastatin 10 mg tablet 10 mg PO QAM potassium citrate 10 mEq (1,080 mg) tablet extended release 20 meq PO AMPM Rx Instructions: NEEDS PM DOSE Referrals Referrals: Pro,Abhijit Encarnacion MD [Primary Care Provider] -
[2024-03-19] MEDS: ONDANSETRON INJ 2 MG/ML 2 ML VIAL IV STA (16:02)
[2024-03-19] MEDS: MoRPHine SULFATE 4 MG/ML 1 ML CARP\\VIAL IV STA (16:02)
[2024-03-19 16:16] LABS: iSTAT Creatinine 0.7 mg/dl (0.6-1.3); iSTAT Hemoglobin 14.6 g/dl (12.0-16.0); iSTAT Ionized Calcium 1.16 mmol/l (1.12-1.32); iSTAT Potassium 3.7 mmol/L (3.3-5.0)
--- NOTE | 2024-03-19 16:27 | XRay Report ---
EXAM:Radiograph of the Chest 1 View INDICATION: Posttraumatic pain. TECHNIQUE: Frontal view of the chest. COMPARISON:08/29/2021 FINDINGS: Lungs and pleural spaces: No consolidation or pulmonary edema. No pleural effusion or pneumothorax. Heart: Shape and configuration within normal limits allowing for technique. Mediastinum: Normal contour. Bones/joints: No fracture, erosion or dislocation. Soft tissues: No abnormality noted. No radiopaque foreign body noted. Upper abdomen: No abnormality noted. IMPRESSION: No abnormality noted. ACT 112: Negative or not required by law. Electronically signed by Courtney Silver 03-19-2024 4:27 PM
--- NOTE | 2024-03-19 16:29 | CT Scan Report ---
EXAM: CT Head Without Intravenous Contrast INDICATION: Trauma. TECHNIQUE: Axial computed tomography images of the head/brain without intravenous contrast. Sagittal and/or coronal reformats are provided. Sagittal and coronal reformatted images were created and reviewed. This CT exam was performed using one or more of the following dose reduction techniques: automated exposure control, adjustment of the mA and/or kV according to patient size, and/or use of iterative reconstruction technique. COMPARISON: 04/04/2020 FINDINGS: Limitations: None. Brain and extra-axial spaces: No abnormality noted. No hemorrhage. No significant white matter disease. No edema. No ventriculomegaly. Bones/joints: No acute changes. Soft tissues: No significant abnormality noted. Vasculature: Atherosclerotic calcification noted. Sinuses: No layering fluid in the visualized portions of the paranasal sinuses. Mastoid air cells: No mastoid effusion. Orbits: No significant abnormality noted. IMPRESSION: No acute findings in the head/brain. ACT 112: Negative or not required by law. Electronically signed by Courtney Silver 03-19-2024 4:29 PM
[2024-03-19 16:30] LABS: Basophils # (auto) 0.03 K/uL (0.00-0.20); Basophils % (auto) 0.4 %; Eosinophils # (auto) 0.04 K/uL (0.00-0.50); Eosinophils % (auto) 0.6 %; Hematocrit (blood only) 40.9 % (37.0-47.0); Hemoglobin 14.5 g/dl (12.0-16.0); Immature Granulocytes # (auto) 0.01 K/uL (0.01-0.20); Immature Granulocytes % (auto) 0.1 %; Lymphocytes % (auto) 25.6 %; Mean Corpuscular Hemoglobin 32.9 pg (25.0-34.0); Mean Corpuscular Hgb Conc 35.5 g/dL (32.0-36.0); Mean Corpuscular Volume 92.7 fL (80.0-100.0); Mean Platelet Volume 11.7 fL (9.4-12.4); Monocytes # (auto) 0.68 K/uL (0.11-0.59); Monocytes % (auto) 9.7 %; Neutrophils # (auto) 4.46 K/uL (1.40-6.50); Neutrophils % (auto) 63.6 %; Platelet Count 222 K/uL (130-400); RDW Coefficient of Variation 13.1 % (11.5-14.5); RDW Standard Deviation 44.4 fL (36.4-46.3); Red Blood Count 4.41 M/uL (4.20-5.40); White Blood Count 7.02 K/ul (4.8-10.8)
--- NOTE | 2024-03-19 16:32 | CT Scan Report ---
EXAM: CT Cervical Spine Without Intravenous Contrast INDICATION: Trauma TECHNIQUE: Axial computed tomography images of the cervical spine without intravenous contrast. Sagittal and coronal reformatted images were created and reviewed. This CT exam was performed using one or more of the following dose reduction techniques: automated exposure control, adjustment of the mA and/or kV according to patient size, and/or use of iterative reconstruction technique. COMPARISON: 04/04/2020 FINDINGS: Limitations: None. Vertebrae: Stable osseous demineralization. Stable minimal diffuse facet hypertrophy. Stable moderate spondylosis and uncal spurring C5-C6 and C6-C7. No fracture or subluxation. Discs/spinal canal/neural foramina: There is stable mild to moderate to space narrowing C5-C6 and C6-C7. There is mild to moderate central canal stenosis C5-C6 and C6-C7. There is mild foraminal stenosis at C6-C7. Soft tissues: No significant abnormality noted. Lung apices: No significant abnormality noted. IMPRESSION: Stable degenerative changes. No fracture. ACT 112: Negative or not required by law. Electronically signed by Courtney Silver 03-19-2024 4:31 PM
--- NOTE | 2024-03-19 16:34 | XRay Report ---
EXAM: Radiographs of the Right Hip 3 Views INDICATION: Posttraumatic pain. TECHNIQUE: Front view pelvis and AP and frog leg lateral views of the right hip. COMPARISON: No relevant prior studies available. FINDINGS: Limitations: None. Bones/joints: Postoperative and degenerative changes noted in the visualized lower lumbar spine. There is minimal right greater trochanteric spurring. No fracture or dislocation. Soft tissues: No abnormality noted. No radiopaque foreign body noted. IMPRESSION: No acute findings in the right hip. ACT 112: Negative or not required by law. Electronically signed by Courtney Silver 03-19-2024 4:33 PM
--- NOTE | 2024-03-19 16:41 | CT Scan Report ---
EXAM: CT Abdomen and Pelvis Without Intravenous Contrast INDICATION: Trauma. TECHNIQUE: Axial computed tomography images of the abdomen and pelvis without intravenous contrast. Sagittal and coronal reformatted images were created and reviewed. This CT exam was performed using one or more of the following dose reduction techniques: automated exposure control, adjustment of the mA and/or kV according to patient size, and/or use of iterative reconstruction technique. COMPARISON: 01/23/2022 FINDINGS: Limitations: Assessment of solid organ and aortic integrity limited in the absence of IV contrast. Lung bases: No abnormality noted. Pleural space: No visualized pleural effusion or pneumothorax. Heart: No abnormality noted. Mediastinum: No abnormality noted. ABDOMEN: Liver: Lack of intravenous contrast limits detection of some masses. No abnormality noted. Gallbladder and bile ducts: Cholecystectomy. No ductal dilation or stone noted. Pancreas: No pancreatic mass, calcification, inflammation or ductal dilation noted. Spleen: No significant abnormality noted. Adrenals: No significant abnormality noted. Kidneys and ureters: There is mild bilateral renal cortical scarring. Decreased stone burden in the left kidney. Now present are 2 approximate 4 mm stones in the left upper pole and 1 in the lower pole of the left kidney. Stable solitary approximate 4 mm nonobstructing right kidney stone. No hydronephrosis. No perinephric fluid. No urinary gas. 4 mm angiomyolipoma noted posterior cortex midpole right kidney. No hemorrhage. Stable cortical hyperdense cyst anterior midpole left kidney measuring 4 mm. Stomach and bowel: Moderate colonic stool and scattered diverticulosis. No diverticulitis or obstruction. PELVIS: Appendix: No findings to suggest acute appendicitis. Bladder: Appears normal for the degree of filling. No stones or inflammation. No large mass. Masses may not be detected in the absence of opacification. Reproductive: Hysterectomy. ABDOMEN and PELVIS: Intraperitoneal space: No free air. No significant fluid collection. Bones/joints: The bones are demineralized. There is marked degenerative change throughout the spine and intact posterior L2-L3 fusion hardware and metallic intervertebral disc spacers at L2-L3 and L3-L4. No acute osseous abnormality noted. Pelvic bones, proximal femora and visualized ribs are intact. Soft tissues: No significant abnormality noted. Vasculature: No aneurysm. Atherosclerotic plaque noted in the aorta and branches. Lymph nodes: No pathologically enlarged lymph nodes. IMPRESSION: 1. Allowing for the limitations of a unenhanced study, no traumatic change is identified. 2. Decreased left renal stone burden. No obstructing stone. ACT 112: Negative or not required by law. Electronically signed by Courtney Silver 03-19-2024 4:40 PM
--- NOTE | 2024-03-19 16:46 | CT Scan Report ---
EXAM: CT Chest Without Intravenous Contrast INDICATION: Trauma. TECHNIQUE: Axial computed tomography images of the chest without intravenous contrast. Sagittal and coronal reformatted images were created and reviewed. This CT exam was performed using one or more of the following dose reduction techniques: automated exposure control, adjustment of the mA and/or kV according to patient size, and/or use of iterative reconstruction technique. COMPARISON: 04/10/2018 FINDINGS: Limitations: Aortic integrity is not adequately assessed in the absence of IV contrast. Lungs and pleural spaces: No pleural effusion or pneumothorax. Heart: No abnormality noted. Thyroid: No abnormality noted. Bones/joints: Degenerative changes noted throughout the spine. No acute osseous abnormality seen. Sternum and visualized shoulder girdle intact. Soft tissues: No significant abnormality noted. Vasculature: There is minimal atherosclerotic calcification of the descending aorta and aortic valve. There is increased mild to moderate coronary calcification. No aneurysm. Lymph nodes: Stable 3 mm probable fissural lymph node along the right major fissure. Now visualized 3 mm oval noncalcified nodule in the right lower lobe series 8 image 32. Benign 2 mm pleural nodule right middle lobe. No bronchiectasis, honeycombing or reticulation. Kidneys and ureters: Nonobstructing left kidney stones present. IMPRESSION: 1. Allowing for the limitations of an unenhanced study, no traumatic change identified. 2. New 3 mm oval low suspicion right lower lobe pulmonary nodule with stable benign-appearing pleural and fissural nodules. Fleischner Society Guidelines (MacMahon, et al. Radiology 2017; 284(1):228-43) suggest that no follow-up is necessary for patients with a low or high risk of malignancy. 3. There is mild to moderate coronary calcification which is increased compared to 2018. ACT 112: Negative or not required by law. Electronically signed by Courtney Silver 03-19-2024 4:46 PM
[2024-03-19 16:47] LABS: Albumin Globulin Ratio 1.6 (0.9-2); Albumin Level 4.4 gm/dl (3.4-5.0); BUN Creatinine Ratio 15.9 (10-20); Bilirubin,Total 0.7 mg/dl (0.2-1.0); Creatinine Clr Calc Pharmacy 76.1 ml/min; Globulin 2.7 gm/dl (2.5-4.0); Potassium 3.8 mmol/L (3.5-5.1); Total Protein 7.1 gm/dl (6.0-8.3)
[2024-03-19 16:53] LABS: Troponin I High Sensitivity 3.5 pg/ml (0-14)
[2024-03-19 17:08] LABS: Partial Thromboplastin Time 26 Seconds (21-31); Prothrombin Time 10.8 Seconds (9.0-12.0)
--- NOTE | 2024-03-19 19:46 | History & Physical Report ---
Date of Service March 19, 2024 Assessment & Plan (1) Ambulatory dysfunction: Plan: 74 y/o female here due to acute eight back pain and right abdominal pain - had a miss fall 3 days ago -Pain had been worsening since with ambulatory dysfunction. Suspect secondary to muscle spasm -Hip and Pelvis XRAY: Postoperative and degenerative changes in lower lumbar spine. Minimal right greater trochanteric spurring -Abdomen/Pelvis CT: Marked degenerative change L2-L3 fusion hardware. Left renal stone burden (2 approximate 4 mm stones in the left upper pole and 1 in the lower pole of the left kidney. Stable solitary approximate 4 mm nonobstructing right kidney stone). No obstructive stone. Moderate colonic stool and scattered diverticulosis. -Cervical CT: Stable degenerative changes -No leukocytosis. Normal Liver enzymes. -Pain management: - Tylenol scheduled - Will do trail of muscle relaxer. Flexeril AM - IV Toradol 10 mg q8hrs - As needed Morphine for breakthrough pain (8-10) PT/OT in the morning AM CBC, CMP (2) Diabetes mellitus, type 2: Plan: A1C 6.1 (02/19) Home metformin on hold NovoLog coverage (3) Hypothyroid: Plan: continue Levothyroxine (4) Hyperlipidemia: Plan: Continue home statin (5) HTN (hypertension): Plan: Continue Losartan (6) Gout: Plan: Continue allopurinol 100 mg daily (7) Vertigo: Plan: continue home meclizine as needed (8) Anxiety: Plan: Continue home paroxetine daily and alprazolam 1 mg as needed (9) Back pain: Plan: chronic Hx of 2 marry surgery see above Plan FEN: DM2 Code status: full code DVT ppx: Lovenox q24 PT/OT: For ambulatory dysfunction Dispo: med/surg History of Present Illness Primary Care Provider: Abhijit Guillen MD Jo-Ann is a 74 y/o female with PMH of HTN, DM2, Hypothyroidism, chronic back pain, OA, anxiety, IBS-D here due to acute abdominal and back pain. Patient refers 3 days ago had a miss fall 3 days ago. She had a miss step after her left knee give away. After this back pain and hip pain had increased in intensity t the point that had provoke ambulatory dysfunction. She refers right sided abdominal pain as well. Patient describe the pain as pulsating, does not radiate, can be reproducible with palpation. She denied any diarrhea, constipation, nausea or trauma. Last bowel movement was yesterday. Denied black stools, hematuria, dysuria, or hematochezia. She had history of cholecystectomy, appendectomy and hysterectomy. Her last colonoscopy was normal as per patient. No history of diverticulosis or colitis. She refers recently stop using her Gabapentin due to side effects. Denied chest pain, palpitations, SOB, fever or chills. No recent travel ED course: Lab workup unremarkable, No leukocytosis, no anemia. Hip and Pelvis XRAY: Postoperative and degenerative changes in lower lumbar spine. Minimal right greater trochanteric spurring. Abdomen/Pelvis CT: Marked degenerative change L2-L3 fusion hardware. Left renal stone burden (2 approximate 4 mm s tones in the left upper pole and 1 in the lower pole of the left kidney. Stable solitary approximate 4 mm nonobstructing right kidney stone). No obstructive stone. Moderate colonic stool and scattered diverticulosis. Cervical CT: Stable degenerative changes. Head Ct Allergies Allergy/AdvReac Type Severity Reaction Status Date / Time shellfish derived Allergy Severe Swelling Unverified 03/10/24 12:01 of Lip/Tongue/Throat, hives and vomiting Iodinated Contrast Media Allergy Intermediate Hives, Verified 03/10/24 12:01 throat swelling Fish Containing Products Allergy Verified 03/10/24 12:01 Home Medications Medication Instructions Recorded Confirmed Type cyanocobalamin (vitamin B-12) 1,000 mcg PO QAM 06/08/18 03/19/24 History 1,000 mcg tablet (Vitamin B-12) cholecalciferol (vitamin D3) 25 2,000 unit PO QAM 01/15/19 03/19/24 History mcg (1,000 unit) capsule (Vitamin D3) aspirin 81 mg tablet,delayed 81 mg PO QAM #30 tabs 07/23/21 03/19/24 Rx release levothyroxine 75 mcg tablet 75 mcg PO QAM #90 tabs 08/12/23 03/19/24 Rx pantoprazole 40 mg tablet,delayed 40 mg PO QAM #90 tabs 09/02/23 03/19/24 Rx release losartan 25 mg tablet 25 mg PO QAM #90 tabs 12/10/23 03/19/24 Rx allopurinol 100 mg tablet 100 mg PO QAM #90 tabs 12/11/23 03/19/24 Rx amiloride 5 mg tablet 5 mg PO QAM #90 tabs 12/11/23 03/19/24 Rx paroxetine HCl 20 mg tablet 20 mg PO QAM #90 tabs 12/11/23 03/19/24 Rx meclizine 25 mg tablet 25 mg PO TID PRN dizziness #14 tabs 12/27/23 03/19/24 Rx ondansetron 4 mg disintegrating 4 mg PO Q6H PRN nausea and 12/27/23 03/19/24 Rx tablet vomiting #14 tabs blood sugar diagnostic (OneTouch #100 ea 01/27/24 03/19/24 Rx Ultra Test strips) blood-glucose meter (OneTouch #1 ea 01/27/24 03/19/24 Rx Ultra2 Meter) lancets 30 gauge (OneTouch #100 ea 01/27/24 03/19/24 Rx UltraSoft 2 Lancet) alprazolam 1 mg tablet 1 mg PO BID PRN Anxiety #60 tabs 03/02/24 03/19/24 Rx atorvastatin 10 mg tablet 10 mg PO QAM 03/19/24 03/19/24 History gabapentin 600 mg tablet 600 mg PO TID 03/19/24 03/19/24 History metformin 500 mg tablet 500 mg PO AMPM 03/19/24 03/19/24 History potassium citrate 10 mEq (1,080 20 meq PO AMPM 03/19/24 03/19/24 History mg) tablet,extended release Past Med/Surg History Problem List (Updated 03/19/24 @ 20:30 by Abhijit Butt DO) Abdominal pain, acute, right upper quadrant (Acute) Acute pain of right hip (Acute) Back pain (Acute) Ambulatory dysfunction (Acute) Diplopia Herniation of lumbar intervertebral disc with radiculopathy (Acute) Diabetes mellitus, type 2 Sciatica (Acute) Lumbar disc disease (Acute) Intractable back pain (Acute) Hypothyroid Hyperlipidemia HTN (hypertension) Gout Hypertension (Acute) Vertigo Sacroiliac joint pain Mixed stress and urge urinary incontinence Osteopenia (Acute) Insomnia (Acute) Chronic cerebral ischemia (Acute) Carotid artery plaque (Acute) Encounter for pre-operative examination Anxiety Hoarseness Swallowing difficulty Chest pain Anemia, mild Elevated LFTs Right ureteral calculus Nephrolithiasis Current use of proton pump inhibitor Anemia Laryngitis 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 Retrolisthesis of vertebrae L2-3 Lumbar stenosis with neurogenic claudication (Acute) Osteoarthritis Obesity (BMI 30-39.9) Medical History History of hepatitis B many years ago Chronic anemia Hx of gout Sciatica Hypothyroid High cholesterol HTN (hypertension) Left lumbar radiculopathy History of viral meningitis ~3 years ago Melanoma of right upper arm Hx DM type 2 (diabetes mellitus, type 2) Kidney stones Hx Depression Anxiety Neuropathy LLE Surgical History Hx of Achilles tendon repair S/P epidural steroid injection History of arthroscopy LEFT KNEE S/P knee surgery Left (2019) Hx of breast surgery Left benign fatty mass removed History of carpal tunnel release of both wrists Status post lumbar spine operative procedure for decompression of spinal cord with medial facetectomy L3-L4, L4-5; w/dr ray History of lithotripsy Multiple History of total hysterectomy with bilateral salpingo-oophorectomy (BSO) History of appendectomy History of colonoscopy History of Mohs micrographic surgery for skin cancer History of tooth extraction All teeth History of tonsillectomy and adenoidectomy History of bilateral cataract extraction History of back surgery Lumbar (2019) + procedure with Dr. Ray History of cystoscopy Multiple--last 04/16/[address] [facility] History of cholecystectomy 2017 Family History Father Family history of diabetes mellitus Gastric cancer Mother Family history of diabetes mellitus Cerebral artery occlusion with cerebral infarction Coronary heart disease Daughter Family hx colonic polyps Cancer of kidney Crohn's disease Other Family history non-contributory No family history of adverse response to anesthesia Denies family history of Ovarian cancer Breast cancer Colorectal cancer Social History Smoking Status: Never smoker Second Hand Exposure: No; Do You Dip or Chew Tobacco: No; Hx Alcohol Use: No Hx Substance Use: No Preferred Language: Wallisian Communication Ability: Effective Visual Impairment: No Limitations Communications Specialist Required: No Beliefs That Will Affect Care: None marital status: / Current Living Situation: Alone Current Living Situation Comment: [address] (but has stair lift to get inside) single floor living space current occupational status: retired Feels Safe at Home: Yes Childhood Exposure to Second-Hand Smoke: Yes Dental Care, Regularly: No Physical Activity Frequency: Does not Exercise Seatbelt Use: always Sunscreen Use: Yes Assistive Devices: Denture - Upper, Denture - Lower and Glasses Physical Exam Constitutional: WD/WN, vitals as above Respiratory: normal respiratory effort, lungs clear to auscultation Cardiovascular: RRR, no murmur, no edema Gastrointestinal (Abdomen): Inspection/Auscultation: normal bowel sounds; abdomen not distended Percussion/Palpation: + abdomen tender (right lower quadrant tender to plapation) and abdomen soft; no guarding and abdomen not rigid Musculoskeletal: no cyanosis or clubbing, extremities motor strength 5/5 Neurologic: patellar DTR's 2+ bilat, sensation intact Normal hip flexion and Results & Data Results & Data Vital Signs (Past 12 Hours) Vital Signs Temp Pulse Pulse Resp BP BP Pulse Ox 03/19/24 18:00 67 18 152/75 H 97 03/19/24 16:07 03/19/24 16:07 36.6 C 88 20 140/90 97 03/19/24 16:02 71 O2 Del Method 03/19/24 18:00 Room Air 03/19/24 16:07 Room Air 03/19/24 16:07 Room Air 03/19/24 16:02 Code Status & VTE Plan VTE Prophylaxis Plan VTE Prophylaxis will be ordered: Yes Supervising Physician Co-Signing Physician Notes Patient seen and examined, chart reviewed, case discussed with Dr. Howard Garcia MD and I agree with the assessment and plan as above except as otherwise noted Labs and images reviewed Abbie is a 74yo F with a past medical history of hypertension, hyperlipidemia, hypothyroidism, lumbar disc disease, type 2 diabetes mellitus, anxiety who presents with back pain, some abdominal discomfort, and ambulatory dysfunction. Worsened back pain over 3 days. Does have a hx of L2-L3 fusion, also has a hx of renal stones. On CT does have LEFT renal stones without obstruction. Had a twisting misstep without fall/headstroke a few days ago, but with soreness in her hip/back following. Is having difficulty perforing home activities due to progressive pain and cannot walk day of admission due to severe pain. Abd pain is RLQ and TTP superficially, no underlying abnormality seen on CT. Suspect MSK strain. Hip flexion, ankle dorsi/plantarflexiona are intact without sensory change. No evidence of spinal myelopathy on exam. Suspect back/gluteal muscle strains from twisting injury. Will admit for pain control and PT/OT due to inability to ambulate due to discomfort. Agree w/ sx tx, PT/OT as noted. Resident Activity Tracking Resident Involvement: Resident Care Provided Care Provided: Adult [facility]
[2024-03-19] MEDS ORDERED: GLUCOSE 40% GEL 15 GM TUBE PO PRN (21:45)
[2024-03-19] MEDS ORDERED: GLUCOSE 10 TAB/TUBE PO PRN (21:45)
[2024-03-19] MEDS ORDERED: DEXTROSE 50% 50 ML SYRINGE IV PRN (21:45)
[2024-03-19] MEDS ORDERED: ONDANSETRON INJ 2 MG/ML 2 ML VIAL IV PRN (21:45)
[2024-03-19] MEDS ORDERED: GLUCAGON FOR INJ 1 MG VIAL SQ PRN (21:45)
[2024-03-19] MEDS ORDERED: MECLIZINE HCL 25 MG TAB PO PRN (21:45)
[2024-03-19] MEDS ORDERED: MoRPHine SULFATE 2 MG/ML CARP IV PRN (21:45)
[2024-03-19] MEDS ORDERED: POLYETHYLENE (MIRALAX) 17 GM PACK PO PRN (21:45)
[2024-03-19] MEDS ORDERED: CARBOHYDRATES FOR HYPOGLYCEMIA PO PRN (21:45)
[2024-03-19] MEDS: INSULIN ASPART PER UNIT CHARGE SC SCH (22:24)
[2024-03-19] MEDS: KETOROLAC TROMETHAMINE 15 MG/ML VIAL IV ONE (22:47)
[2024-03-19] MEDS: ENOXAPARIN INJ 40 MG/0.4 ML SYR SQ SCH (22:47)
[2024-03-19] MEDS: NYSTATIN POWDER 15GM BTL EXT PRN (22:47)
[2024-03-19] MEDS: POTASSIUM CITRATE 10 MEQ TAB PO SCH (22:48)
[2024-03-20] MEDS: LEVOTHYROXINE SODIUM 75 MCG TABLET PO SCH (05:29)
[2024-03-20] MEDS: ACETAMINOPHEN 325 MG TAB PO PRN (06:03)
[2024-03-20] MEDS: CYANOCOBALAMIN (B-12) 500 MCG TABLET PO SCH (07:17)
[2024-03-20] MEDS: PARoxetine HCL 20 MG TAB PO SCH (07:17)
[2024-03-20] MEDS: CYCLOBENZAPRINE HCL 10 MG TAB PO SCH ×2 (07:17→20:35)
[2024-03-20] MEDS: allopurinoL 100 MG TAB PO SCH (07:18)
[2024-03-20] MEDS: ATORVASTATIN 10 MG TAB PO SCH (07:18)
[2024-03-20] MEDS: CHOLECALCIFEROL 25 MCG (1000 UNITS) TAB PO SCH (07:19)
[2024-03-20] MEDS: LOSARTAN POTASSIUM 25 MG TAB PO SCH (07:19)
[2024-03-20] MEDS: PANTOprazole 40 MG TAB PO SCH (07:19)
[2024-03-20] MEDS: aMILoride HCL 5 MG TAB PO SCH (07:20)
[2024-03-20] MEDS: ASPIRIN 81 MG ECTAB PO SCH (07:20)
[2024-03-20 10:35] LABS: Appearance Urine Clear (Clear); Bacteria Urine Automated None Seen (None Seen); Bilirubin Urine Negative (Negative); Blood Urine Negative (Negative); Cast Urine Automated 0-2 /lpf (0-2); Color Urine Yellow; Epithelial Cell Urine Auto 0-2 /hpf (0-2); Glucose Urine UA Trace (Negative); Ketones Urine Negative (Negative); Leukocyte Esterase Urine 2+ (Negative); Nitrite Urine Negative (Negative); Protein Urine Negative (Negative); RBC Urine Automated 0-2 /hpf (0-2); Specific Gravity Urine 1.012 (1.000-1.030); Urobilinogen Urine Negative (Negative); pH Urine 7.5 (4.5-7.5)
[2024-03-20 14:43] LABS: BUN Creatinine Ratio 13.5 (10-20); Calcium 9.4 mg/dl (8.6-10.3); Creatinine Clr Calc Pharmacy 40.9 ml/min; Potassium 3.8 mmol/L (3.5-5.1)
--- NOTE | 2024-03-20 15:00 | Electrocardiogram Report ---
Test Reason : Blood Pressure : */* mmHG Vent. Rate : 63 BPM Atrial Rate : 63 BPM P-R Int : 156 ms QRS Dur : 84 ms QT Int : 416 ms P-R-T Axes : -6 14 51 degrees QTcB Int : 425 ms Normal sinus rhythm Anterolateral infarct , age undetermined Abnormal ECG When compared with ECG of 27-Dec-2023 10:04, Anterolateral infarct is now Present Confirmed by Adan Velez ([id number]) on 03/20/2024 3:00:10 PM Referred By: REFERRED SELF Confirmed By: Adan Velez
[2024-03-20] MEDS ORDERED: CYCLOBENZAPRINE HCL 5 MG TAB PO PRN (18:38)
--- NOTE | 2024-03-20 19:03 | Hospitalist Progress Note ---
Date of Service March 20, 2024 Assessment & Plan (1) Ambulatory dysfunction: Plan: This patient is a 74 y/o female with a history of lumbar spine fusion L2-L4 here with having a fall after worsening acute right lower back pain causing ambulatory dysfunction With ongoing muscle spasm causing significant pain No radicular symptoms. May also have some component of sacroiliitis or piriformis syndrome Hip and Pelvis XRAY: Postoperative and degenerative changes in lower lumbar spine. Minimal right greater trochanteric spurring CT A/P: Marked degenerative change L2-L3 fusion hardware. Left renal stone burden (2 approximate 4 mm stones in the left upper pole and 1 in the lower pole of the left kidney. Stable solitary approximate 4 mm nonobstructing right kidney stone). No obstructive stone. Moderate colonic stool and scattered diverticulosis. Cervical CT: Stable degenerative changes Patient improving with Flexeril and Tylenol. She does not do well with opioids- discontinue morphine Increase Flexeril to 10 mg p.o. twice daily scheduled Add lidocaine patch for the morning PT/OT recommending rehab-referrals placed (2) Back pain: Plan: As above Pain control and physical therapy (3) Diabetes mellitus, type 2: Plan: A1C 6.1 (02/19) Home metformin on hold NovoLog coverage (4) Pulmonary nodule: Plan: New 3 mm right lower lobe nodule noted on CT chest, noted to be of low suspicion Needs follow-up imaging as per guidelines Defer to PCP Never a smoker Plan Chronic medical problems: Anxiety-continue Paxil and alprazolam as needed Vertigo-continue meclizine as needed Gout-no acute issues, continue allopurinol HTN-no acute issues-continue amiloride, losartan, aspirin Hyperlipidemia-continue statin Hypothyroidism-TSH normal at 1.2 in 11/2023, continue home levothyroxine DVT ppx: Lovenox q24 Dispo: Medically stable for discharge, awaiting rehab placement Admission and Anticipated Discharge Date Admission Date: March 19, 2024 Anticipated date of discharge: 03/21/24 Subjective Patient reports she felt much better through the day after receiving Tylenol and Flexeril this morning but now the back spasms in the right lower back are starting to return. No pain shooting down the legs. She does have some pain radiating around to the right mid abdomen. Otherwise has chronic urinary urgency but no dysuria or hematuria. Physical Exam Constitutional: WD/WN, vitals as above Respiratory: normal respiratory effort, lungs clear to auscultation Cardiovascular: RRR, no murmur, no edema Gastrointestinal (Abdomen): normal bowel sounds, soft, nontender, no hepatosplenomegaly Musculoskeletal: Spine: + paraspinal tenderness (Positive TTP right paralumbar muscles into SI joint) Neurologic: no focal motor deficits Results & Data Results & Data Vital Signs (Past 12 Hours) Vital Signs Temp Pulse Resp BP Pulse Ox O2 Del Method 03/20/24 15:28 36.7 C 83 16 128/78 96 Room Air 03/20/24 08:54 36.7 C 71 16 114/67 95 Room Air Laboratory Results BMP, CBC, LFTs, urinalysis reviewed PG Care Time/CCT Total # of Minutes Spent Total Time Spent with Patient: Total time spent is greater than 50% in coordination of care (as documented) at patient's floor/unit and/or counseling patient: Coding Level of Care Code 25581 SUB INP/OBS CARE 05/23MIN Diagnoses Ambulatory dysfunction R26.2 Back pain M54.9 Diabetes mellitus, type 2 E11.9 Pulmonary nodule R91.1
[2024-03-20] MEDS: MELATONIN 3 MG TAB PO PRN (20:35)
[2024-03-20] MEDS: KETOROLAC TROMETHAMINE 15 MG/ML VIAL IV PRN (20:36)
[2024-03-21] MEDS: LIDOCAINE 5% 1 PATCH TD SCH (08:01)
[2024-03-21] MEDS: ALPRAZolam 0.5 MG TABLET PO PRN ×2 (10:19→20:06)
[2024-03-21] MEDS ORDERED: traMADol HCL 50 MG TABLET PO PRN (14:45)
--- NOTE | 2024-03-21 18:18 | Hospitalist Progress Note ---
Date of Service March 21, 2024 Assessment & Plan (1) Ambulatory dysfunction: Plan: This patient is a 74 y/o female with a history of lumbar spine fusion L2-L4 here with having a fall after worsening acute right lower back pain causing ambulatory dysfunction With ongoing muscle spasm causing significant pain No radicular symptoms. May also have some component of sacroiliitis or piriformis syndrome Having pain in the right groin/hip region, sometimes severe Hip and Pelvis XRAY: Postoperative and degenerative changes in lower lumbar spine. Minimal right greater trochanteric spurring CT A/P: Marked degenerative change L2-L3 fusion hardware. Left renal stone burden (2 approximate 4 mm stones in the left upper pole and 1 in the lower pole of the left kidney. Stable solitary approximate 4 mm nonobstructing right kidney stone). No obstructive stone. Moderate colonic stool and scattered diverticulosis. Cervical CT: Stable degenerative changes Patient improving somewhat with Flexeril and Tylenol. She is agreeable to tramadol as needed for severe pain-has had this before. Toradol as needed for moderate pain Continue lidocaine patch to the right lower back With right groin pain, consult orthopedics-they have asked me to order a stat right hip MRI to look for occult fracture PT/OT recommending rehab-referrals placed and awaiting insurance authorization from [employer] (2) Back pain: Plan: As above Pain control and physical therapy (3) Diabetes mellitus, type 2: Plan: A1C 6.1 (02/19) Home metformin on hold NovoLog coverage (4) Pulmonary nodule: Plan: New 3 mm right lower lobe nodule noted on CT chest, noted to be of low suspicion Needs follow-up imaging as per guidelines Defer to PCP Never a smoker Plan Chronic medical problems: Anxiety-continue Paxil and alprazolam-she takes alprazolam on a scheduled basis in the morning and as needed at night-changed orders to reflect this Vertigo-continue meclizine as needed Gout-no acute issues, continue allopurinol HTN-no acute issues-continue amiloride, losartan, aspirin Hyperlipidemia-continue statin Hypothyroidism-TSH normal at 1.2 in 11/2023, continue home levothyroxine DVT ppx: Lovenox q24 Dispo: Awaiting orthopedics consult and right hip MRI, if that is negative can discharge to rehab once insurance authorization approved Admission and Anticipated Discharge Date Admission Date: March 19, 2024 Subjective Patient reports ongoing pain but seems to have more pain in the right groin region today radiating to the right hip and around to the right lower back. At times it was severe and 10 out of 10, improved with lying still. She is wondering if she hurt her hip in the fall. She reports chronic left knee issues and gets injections with Dr. Combs Physical Exam Constitutional: WD/WN, vitals as above Respiratory: normal respiratory effort, lungs clear to auscultation Cardiovascular: RRR, no murmur, no edema Gastrointestinal (Abdomen): normal bowel sounds, soft, nontender, no hepatosplenomegaly Musculoskeletal: Right groin with some positive tenderness to palpation, no pain with logroll, no pain with hip flexion, no pain over greater trochanter Neurologic: no focal motor deficits Results & Data Results & Data Vital Signs (Past 12 Hours) Vital Signs Temp Pulse Resp BP Pulse Ox O2 Del Method 03/21/24 15:27 36.6 C 71 16 116/58 L 94 Room Air 03/21/24 07:52 Room Air Laboratory Results No labs PG Care Time/CCT Total # of Minutes Spent Total Time Spent with Patient: Total time spent is greater than 50% in coordination of care (as documented) at patient's floor/unit and/or counseling patient: Coding Level of Care Code 21152 SUB INP/OBS CARE 2/35MIN Diagnoses Ambulatory dysfunction R26.2 Back pain M54.9 Diabetes mellitus, type 2 E11.9 Pulmonary nodule R91.1
--- NOTE | 2024-03-21 21:47 | Magnetic Resonance Report ---
Exam(s): MRI RIGHT HIP Without Contrast EXAM: MR Right Lower Extremity Without Intravenous Contrast, Hip CLINICAL HISTORY: Reason for exam: right hip pain s/p fall,assess for occult fracture. TECHNIQUE: Multiplanar magnetic resonance images of the right hip without intravenous contrast. COMPARISON: CT abdomen and pelvis 03/19/24 FINDINGS: RIGHT HIP Right hip joint is normally aligned. There is no traumatic or stress fracture. There is no AVN of the femoral head. There is no joint effusion, septic arthritis, or osteomyelitis. There is mild osteophytic change with joint space narrowing and small femoral collar osteophytes. There are degenerative labral changes. Gluteal tendons, rectus femoris tendon, iliopsoas tendon, adductor tendons, and hamstrings tendons appear intact. GENERAL/PELVIS Sacroiliac joints, hip joints, and pubic symphysis are normally aligned. There is osteitis pubis. Left hip joint demonstrating no fracture, dislocation, AVN, significant joint effusion, septic arthritis, or osteomyelitis. There is mild osteoarthritis of left hip with labral degenerative change. There is low-grade partial thickness tearing at the origin of the left hamstrings tendon. Left gluteal, adductor, iliopsoas, and rectus femoris tendons appear intact There are postoperative changes of the lumbar spine with multilevel degenerative change. IMPRESSION: 1. No evidence of occult right hip fracture. 2. Low-grade partial-thickness tear at the origin of the left hamstrings. Electronically signed by: Alicia Sandoval M.D. 03/21/24 21:46 PM
[2024-03-22] MEDS: ALPRAZolam 0.5 MG TABLET PO SCH (08:16)
--- NOTE | 2024-03-22 10:09 | Orthopedic Consultation ---
<Statement entered by Markell Hopper MD - 03/23/24 17:52> I reviewed the chart and discussed the case with Denise Warren PA-C. I reviewed the imaging and radiologist's interpretation of radiographs and MRI. No obvious concerning pathology. She can be WBing and ROMAT. Followup with primary care. Date of Service March 22, 2024 Assessment & Plan (1) Acute pain of right hip: Patient is being consulted today for acute pain in her right hip. I did have a detailed discussion with the patient today regarding her diagnosis, the treatment options including risk, benefits and alternatives. At this time, no surgical intervention from an orthopedic standpoint. She is ambulating well, has full strength in the right lower extremity and no acute abnormalities noted on additional/advanced imaging. She does have hip OA, therefore the groin pain may be a result of her hip arthritis. She can follow-up from an outpatient standpoint with [facility] orthopedics for her right hip as well as her left knee. She may also be experiencing some lumbar radiculopathy that is coming into the groin. She does have a history of effusion as well as some degenerative changes in her lumbar spine. She can also follow-up from an outpatient standpoint from her spine surgeon if there are concerns for this. She has no deficits on physical exam. Orthopedics signing off at this point. She may be range of motion as tolerated and weightbearing as tolerated in the right lower extremity. Please reach out any questions or concerns if needed. History of Present Illness Reason for Consultation: Right hip pain Requesting Physician: . Attending Physician: Karen Washburn MD Jo-Ann is a 74-year-old female who is being consulted today for persistent right hip pain. Per the ED visit note on 03/19/2024, the patient reported the emergency department for abdominal pain that has been bothersome after a fall she had 3 days prior. She was admitted to the hospital for ambulatory dysfunction as she was having left knee pain as well as right hip pain. Over the last few days, she has been being evaluated for her abdominal pain as well as her hip and back pain. Orthopedics was consulted as her hip pain is still persistent. At my visit with the patient today, she is resting comfortably in her hospital recliner. She is resting at 90 degrees. She states that she did not have a fall but had a contusion like injury of her right hip. She is quite adamant that she did not fall. She states that her hip and back pain has been improving over the last few days with the medications that she has been taking. She has been working with PT/OT as well. She states that her pain is more in her groin and her lower back. She denies any lateral hip pain. She denies any numbness or tingling running down the right lower extremity. Does state that she has a lumbar fusion. She does see [facility] orthopedics for her other joint care as well as Dr. Smith at [facility] for pain management and back injections. No other questions or concerns today. Allergies Allergy/AdvReac Type Severity Reaction Status Date / Time shellfish derived Allergy Severe Swelling Unverified 03/10/24 12:01 of Lip/Tongue/Throat, hives and vomiting Iodinated Contrast Media Allergy Intermediate Hives, Verified 03/10/24 12:01 throat swelling Fish Containing Products Allergy Verified 03/10/24 12:01 Home Medications Medication Instructions Recorded Confirmed Type cyanocobalamin (vitamin B-12) 1,000 mcg PO QAM 06/08/18 03/19/24 History 1,000 mcg tablet (Vitamin B-12) cholecalciferol (vitamin D3) 25 2,000 unit PO QAM 01/15/19 03/19/24 History mcg (1,000 unit) capsule (Vitamin D3) aspirin 81 mg tablet,delayed 81 mg PO QAM #30 tabs 07/23/21 03/19/24 Rx release levothyroxine 75 mcg tablet 75 mcg PO QAM #90 tabs 08/12/23 03/19/24 Rx pantoprazole 40 mg tablet,delayed 40 mg PO QAM #90 tabs 09/02/23 03/19/24 Rx release losartan 25 mg tablet 25 mg PO QAM #90 tabs 12/10/23 03/19/24 Rx allopurinol 100 mg tablet 100 mg PO QAM #90 tabs 12/11/23 03/19/24 Rx amiloride 5 mg tablet 5 mg PO QAM #90 tabs 12/11/23 03/19/24 Rx paroxetine HCl 20 mg tablet 20 mg PO QAM #90 tabs 12/11/23 03/19/24 Rx meclizine 25 mg tablet 25 mg PO TID PRN dizziness #14 tabs 12/27/23 03/19/24 Rx ondansetron 4 mg disintegrating 4 mg PO Q6H PRN nausea and 12/27/23 03/19/24 Rx tablet vomiting #14 tabs blood sugar diagnostic (OneTouch #100 ea 01/27/24 03/19/24 Rx Ultra Test strips) blood-glucose meter (OneTouch #1 ea 01/27/24 03/19/24 Rx Ultra2 Meter) lancets 30 gauge (OneTouch #100 ea 01/27/24 03/19/24 Rx UltraSoft 2 Lancet) alprazolam 1 mg tablet 1 mg PO BID PRN Anxiety #60 tabs 03/02/24 03/19/24 Rx atorvastatin 10 mg tablet 10 mg PO QAM 03/19/24 03/19/24 History gabapentin 600 mg tablet 600 mg PO TID 03/19/24 03/19/24 History metformin 500 mg tablet 500 mg PO AMPM 03/19/24 03/19/24 History potassium citrate 10 mEq (1,080 20 meq PO AMPM 03/19/24 03/19/24 History mg) tablet,extended release prednisone 10 mg tablet See Rx Instructions .Route 03/23/24 Rx .COMPLEX #12 tabs tramadol 50 mg tablet 50 mg PO Q6H PRN pain #10 tabs 03/23/24 Rx Past Med/Surg History Problem List Pulmonary nodule Abdominal pain, acute, right upper quadrant (Acute) Acute pain of right hip (Acute) Back pain (Acute) Ambulatory dysfunction (Acute) Diplopia Herniation of lumbar intervertebral disc with radiculopathy (Acute) Diabetes mellitus, type 2 Sciatica (Acute) Lumbar disc disease (Acute) Intractable back pain (Acute) Hypothyroid Hyperlipidemia HTN (hypertension) Gout Hypertension (Acute) Vertigo Sacroiliac joint pain Mixed stress and urge urinary incontinence Osteopenia (Acute) Insomnia (Acute) Chronic cerebral ischemia (Acute) Carotid artery plaque (Acute) Encounter for pre-operative examination Anxiety Hoarseness Swallowing difficulty Chest pain Anemia, mild Elevated LFTs Right ureteral calculus Nephrolithiasis Current use of proton pump inhibitor Anemia Laryngitis 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 Retrolisthesis of vertebrae L2-3 Lumbar stenosis with neurogenic claudication (Acute) Osteoarthritis Obesity (BMI 30-39.9) Medical History History of hepatitis B many years ago Chronic anemia Hx of gout Sciatica Hypothyroid High cholesterol HTN (hypertension) Left lumbar radiculopathy History of viral meningitis ~3 years ago Melanoma of right upper arm Hx DM type 2 (diabetes mellitus, type 2) Kidney stones Hx Depression Anxiety Neuropathy LLE Surgical History Hx of Achilles tendon repair S/P epidural steroid injection History of arthroscopy LEFT KNEE S/P knee surgery Left (2019) Hx of breast surgery Left benign fatty mass removed History of carpal tunnel release of both wrists Status post lumbar spine operative procedure for decompression of spinal cord with medial facetectomy L3-L4, L4-5; w/dr ray History of lithotripsy Multiple History of total hysterectomy with bilateral salpingo-oophorectomy (BSO) History of appendectomy History of colonoscopy History of Mohs micrographic surgery for skin cancer History of tooth extraction All teeth History of tonsillectomy and adenoidectomy History of bilateral cataract extraction History of back surgery Lumbar (2019) + procedure with Dr. Ray History of cystoscopy Multiple--last 04/16/22 @ [facility] History of cholecystectomy 2017 Family History Father Family history of diabetes mellitus Gastric cancer Mother Family history of diabetes mellitus Cerebral artery occlusion with cerebral infarction Coronary heart disease Daughter Family hx colonic polyps Cancer of kidney Crohn's disease Other Family history non-contributory No family history of adverse response to anesthesia Denies family history of Ovarian cancer Breast cancer Colorectal cancer Social History Smoking Status: Never smoker Second Hand Exposure: No; Do You Dip or Chew Tobacco: No; Hx Alcohol Use: No Hx Substance Use: No Preferred Language: Andorran Communication Ability: Effective Visual Impairment: No Limitations Advice Nurse Required: No Beliefs That Will Affect Care: None marital status: / Current Living Situation: Alone Current Living Situation Comment: [address] (but has stair lift to get inside) single floor living space current occupational status: retired Feels Safe at Home: Yes Childhood Exposure to Second-Hand Smoke: Yes Dental Care, Regularly: No Physical Activity Frequency: Does not Exercise Seatbelt Use: always Sunscreen Use: Yes Assistive Devices: Cane and Walker Review of Systems All systems reviewed & are unremarkable except as noted in HPI & below. Physical Exam General: Alert and oriented. No acute distress. Right hip: Inspection unremarkable. No erythema, edema, open wounds. No deformity noted. Leg length symmetrical. She has full range of motion of the right hip, right knee and right foot and ankle. Neuro vastly intact right lower extremity. Negative straight leg raise. Negative pain with logroll. Did not perform lateral testing. Constitutional WD/WN, vitals as above Musculoskeletal Please see above Results & Data Results & Data Laboratory Results . Diagnostic Findings Did review the hip/pelvis x-ray on 03/19/2024. No obvious acute bony abnormalities, fractures or dislocations. Degenerative changes noted. Did recommend last evening to Dr. Washburn to obtain a hip MRI to rule out any acute/occult femoral neck fracture. Did also review this imaging today. No acute bony abnormalities, fractures or dislocations noted in the right hip MRI taken on 03/21/2024. PG Care Time/CCT Total # of Minutes Spent Total Time Spent with Patient: Total time spent is greater than 50% in coordination of care (as documented) at patient's floor/unit and/or counseling patient: Coding Level of Care Code 45623 IN/OBS CONSULT LVL 4,60M Diagnoses Acute pain of right hip M25.551
--- NOTE | 2024-03-22 11:22 | Hospitalist Progress Note ---
Date of Service March 22, 2024 Assessment & Plan (1) Ambulatory dysfunction: Plan: This patient is a 74 y/o female with a history of lumbar spine fusion L2-L4 here with having a fall after worsening acute right lower back pain causing ambulatory dysfunction With ongoing muscle spasm causing significant pain No radicular symptoms. May also have some component of sacroiliitis or piriformis syndrome. Also having pain in the right groin/hip region, sometimes severe Hip and Pelvis XRAY: Postoperative and degenerative changes in lower lumbar spine. Minimal right greater trochanteric spurring CT A/P: Marked degenerative change L2-L3 fusion hardware. Left renal stone burden (2 approximate 4 mm stones in the left upper pole and 1 in the lower pole of the left kidney. Stable solitary approximate 4 mm nonobstructing right kidney stone). No obstructive stone. Moderate colonic stool and scattered diverticulosis. Cervical CT: Stable degenerative changes MRI Right hip: with left hamstring partial tear at insertion but unrelated to right hip pain. Otherwise w/ degenerative changes right hip,no occult fracture Appreciate Ortho consult Patient improving with Flexeril and Tylenol, IV toradol Continue lidocaine patch to the right lower back Add Celebrex 100mg po bid, dc IV toradol PT/OT recommending rehab-referrals placed and [facility] (2) Back pain: Plan: As above Pain control and physical therapy (3) Diabetes mellitus, type 2: Plan: A1C 6.1 (02/19) Home metformin on hold NovoLog coverage (4) Pulmonary nodule: Plan: New 3 mm right lower lobe nodule noted on CT chest, noted to be of low suspicion Needs follow-up imaging as per guidelines Defer to PCP Never a smoker Plan Chronic medical problems: Anxiety-continue Paxil and alprazolam-she takes alprazolam on a scheduled basis in the morning and as needed at night-changed orders to reflect this Vertigo-continue meclizine as needed Gout-no acute issues, continue allopurinol HTN-no acute issues-continue amiloride, losartan, aspirin Hyperlipidemia-continue statin Hypothyroidism-TSH normal at 1.2 in 11/2023, continue home levothyroxine DVT ppx: Lovenox q24 Dispo: discharge to rehab once insurance authorization approved hopefully Friday 03/23 Admission and Anticipated Discharge Date Admission Date: March 19, 2024 Subjective Pt reports whatever medicine she received yesterday for pain really helped-it was toradol x 2 doses Otherwise is moving bowels, eating and drinking, feels drowsy after receiving flexeril and xanax today. Denies CP, SOB Physical Exam Constitutional: WD/WN, vitals as above Respiratory: normal respiratory effort, lungs clear to auscultation Cardiovascular: RRR, no murmur, no edema Gastrointestinal (Abdomen): normal bowel sounds, soft, nontender, no hepatosplenomegaly Neurologic: awake (but drowsy); no focal motor deficits Results & Data Results & Data Vital Signs (Past 12 Hours) Vital Signs Temp Pulse Resp BP Pulse Ox O2 Del Method 03/22/24 07:03 36.3 C L 63 16 122/70 95 Room Air Diagnostic Findings MRI right hip reviewed PG Care Time/CCT Total # of Minutes Spent Total Time Spent with Patient: Total time spent is greater than 50% in coordination of care (as documented) at patient's floor/unit and/or counseling patient: Coding Level of Care Code 40056 SUB INP/OBS CARE 25MIN Diagnoses Ambulatory dysfunction R26.2 Back pain M54.9 Diabetes mellitus, type 2 E11.9 Pulmonary nodule R91.1
[2024-03-22] MEDS: CELECOXIB 100 MG CAP PO SCH (12:05)
[2024-03-22 19:24] VITALS: O2SAT 96
[2024-03-23 07:32] VITALS: BP 124/79; PULSE 72; RESP 17; TEMP 97.5
[2024-03-23] MEDS: CYCLOBENZAPRINE HCL 10 MG TAB PO PRN (08:40)
[2024-03-23] MEDS: predniSONE 10 MG TABLET PO SCH (10:17)
--- NOTE | 2024-03-23 11:41 | Orthopedic Progress Note ---
Date of Service March 23, 2024 Assessment & Plan (1) Acute pain of right hip: Plan Reviewed patients chart and note by Denise Warren PA-C who completed consult over the weekend. Briefly spoke with patient this morning, she said that she is doing better. She was advised to call our office once she is discharged for follow up. She is awaiting d/c to rehab. She does have an appt scheduled with pa 06/04/24 @ 1:15 for f/u of her Left knee 3 mo s/p euflexxa series. Admission and Anticipated Discharge Date Admission Date: March 19, 2024 Subjective Pt reports she is doing better Physical Exam Physical Exam: Sitting comfortably, NAD Results & Data Vital Signs (Past 12 Hours) Vital Signs Temp Pulse Resp BP Pulse Ox O2 Del Method 03/23/24 07:32 36.4 C L 72 17 124/79 96 Room Air 03/23/24 07:19 Room Air
--- NOTE | 2024-03-23 12:05 | Discharge Summary ---
Discharge Summary Date of Service March 23, 2024 Principal Dx & Hospital Course #1 = Principal Diagnosis (1) Ambulatory dysfunction: Suspected right lower extremity lumbar radiculopathy. She has a remote history of lumbar surgery. She is now on steroid therapy in a tapering dose fashion. She has been seen by orthopedic surgery. No indication for any operative intervention at this time. She is ambulating well and wants to go home (2) Back pain: Suspected lumbar radiculopathy present on admission. She is currently on steroid therapy and a tapering dose fashion. She is ambulating well (3) Diabetes mellitus, type 2: A1C 6.1 (02/19). ADA diet. Sliding scale coverage. Resume metformin at discharge (4) Pulmonary nodule: Incidental finding of 3 mm right lower lobe nodule on CT chest. This will require continued outpatient follow-up. Plan Home today, March 23 Admission HPI Per Admitting Provider Jo-Ann is a 74 y/o female with PMH of HTN, DM2, Hypothyroidism, chronic back pain, OA, anxiety, IBS-D here due to acute abdominal and back pain. Patient refers 3 days ago had a miss fall 3 days ago. She had a miss step after her left knee give away. After this back pain and hip pain had increased in intensity t the point that had provoke ambulatory dysfunction. She refers right sided abdominal pain as well. Patient describe the pain as pulsating, does not radiate, can be reproducible with palpation. She denied any diarrhea, constipation, nausea or trauma. Last bowel movement was yesterday. Denied black stools, hematuria, dysuria, or hematochezia. She had history of cholecystectomy, appendectomy and hysterectomy. Her last colonoscopy was normal as per patient. No history of diverticulosis or colitis. She refers recently stop using her Gabapentin due to side effects. Denied chest pain, palpitations, SOB, fever or chills. No recent travel ED course: Lab workup unremarkable, No leukocytosis, no anemia. Hip and Pelvis XRAY: Postoperative and degenerative changes in lower lumbar spine. Minimal right greater trochanteric spurring. Abdomen/Pelvis CT: Marked degenerative change L2-L3 fusion hardware. Left renal stone burden (2 approximate 4 mm stones in the left upper pole and 1 in the lower pole of the left kidney. St able solitary approximate 4 mm nonobstructing right kidney stone). No obstructive stone. Moderate colonic stool and scattered diverticulosis. Cervical CT: Stable degenerative changes. Head Ct Discharge Exam General-alert and oriented x3, no fever, no chills HEENT-head atraumatic and normocephalic, pupils equal and reactive to light, extraocular muscles intact Neck-no lymphadenopathy or thyromegaly, trachea midline Chest-clear to auscultation. No rales, wheezing or rhonchi Cardiac-regular rate and rhythm, normal S1 and S2 Abdomen-normal bowel sounds, no hepatosplenomegaly Extremities-no cyanosis, clubbing, or edema Neuro-cranial nerves II through XII intact, motor and sensory function within normal limits, strength symmetrical, no focal deficits Psych-normal affect, normal mood Discharge Plan Discharge Items Patient Disposition: Home - Self-Care Reason For Visit: AMBULATORY DYSFUNCTION, PAIN Discharge Diagnosis: Suspected right lower extremity lumbar radiculopathy, possible right hip pain from degenerative arthritis, incidental finding of 3 mm right lower lobe lung nodule Activity: Resume your previous activity Non-emergency contact: Primary Care Provider Call non-emergency contact if: your symptoms worsen Follow-up/Referrals: ProAbhijit MD [Primary Care Provider] - Dennis Combs MD [Physician] - Diet: Carb Consistent or DM2 Addtl Attending Provider Instructions: Take prednisone in a tapering dose fashion as directed. Use tramadol as needed for pain Pending Studies at Discharge: No Stand-Alone Forms: My [facility] [employer], Smoking Cessation Medications and DC Order Prescriptions: New prednisone 10 mg Tablet See Rx Instructions .ROUTE .COMPLEX Qty: 12 0RF Rx Instructions: 10 mg orally 3 times a day for 2 days, then 10 mg twice a day for 2 days, then 10 mg once a day for 2 days, then stop tramadol 50 mg Tablet 50 mg PO Q6H PRN (Reason: pain) Qty: 10 0RF Continued levothyroxine 75 mcg tablet 75 mcg PO QAM Qty: 90 3RF pantoprazole 40 mg tablet,delayed release (DR/EC) 40 mg PO QAM Qty: 90 2RF losartan 25 mg tablet 25 mg PO QAM Qty: 90 3RF allopurinol 100 mg tablet 100 mg PO QAM Qty: 90 1RF amiloride 5 mg tablet 5 mg PO QAM Qty: 90 1RF paroxetine HCl 20 mg tablet 20 mg PO QAM Qty: 90 1RF (DME) OneTouch Ultra Test Strip See Rx Instructions .Route Qty: 100 1RF Rx Instructions: Check blood sugar daily and PRN (DME) blood-glucose meter [OneTouch Ultra2 Meter] Misc See Rx Instructions .Route Qty: 1 0RF Rx Instructions: Check blood sugar daily and PRN (DME) lancets [OneTouch UltraSoft 2 Lancet] 30 gauge misc See Rx Instructions .Route Qty: 100 1RF Rx Instructions: Check BS daily and PRN alprazolam 1 mg tablet 1 mg PO BID PRN (Reason: Anxiety) Qty: 60 0RF Rx Instructions: CHELY [id number] cyanocobalamin (vitamin B-12) [Vitamin B-12] 1,000 mcg Tablet 1,000 mcg PO QAM cholecalciferol (vitamin D3) [Vitamin D3] 1,000 unit Capsule 2,000 unit PO QAM aspirin 81 mg Tablet,Delayed Release (Dr/Ec) 81 mg PO QAM Qty: 30 0RF ondansetron 4 mg tablet,disintegrating 4 mg PO Q6H PRN (Reason: nausea and vomiting) Qty: 14 0RF meclizine 25 mg tablet 25 mg PO TID PRN (Reason: dizziness) Qty: 14 0RF metformin 500 mg tablet 500 mg PO AMPM Rx Instructions: NEEDS PM DOSE gabapentin 600 mg tablet 600 mg PO TID Rx Instructions: WILL NEED TONIGHTS DOSE atorvastatin 10 mg tablet 10 mg PO QAM potassium citrate 10 mEq (1,080 mg) tablet extended release 20 meq PO AMPM Rx Instructions: NEEDS PM DOSE Discharge Orders: Discharge Order (Routine); Ordered 03/23/24 Ordered By: Placido Gannon Admission Data Admit Date/Time: 03/19/24 19:39 Attending Provider: Placido Gannon Admit Provider: Ramesh Jett Primary Care Provider: Abhijit Guillen Other Providers: Ramesh Jett; [facility]; Dennis Combs Hospital Stay Data Consultations 03/19/24 18:55 ED Decision to Admit Stat 03/21/24 14:46 Consult Orthopedic Surgery Routine Diagnostic Imagining Performed 03/19/24 15:43 CT abd pelvis wo con Stat CT cervical spine wo con Stat CT chest diagnostic wo con Stat CT head/brain wo con Stat 03/21/24 18:11 MRI Hip [MR hip RT wo con] Stat Pending Results Patient Have Any Pending Studies at Discharge: No Discharge Instructions Given to Patient (Per Discharging Provider) Take prednisone in a tapering dose fashion as directed. Use tramadol as needed for pain Total Time Total Time Spent Total Time Spent (In Minutes): 45 minutes Coding Level of Care Code 40118 INP/OBS DISCH >30 MIN Diagnoses Ambulatory dysfunction R26.2 Back pain M54.9 Diabetes mellitus, type 2 E11.9 Pulmonary nodule R91.1
== END 2024-03-23 12:55 | disposition home or self-care (01) | DRG 552 ==
LOC: ED 15:31 → SUATTDRO 19:39 → 3N 19:39

== ENCOUNTER 2024-04-28 10:42 | Inpatient (IN) ==
--- NOTE | 2024-04-28 11:04 | Emergency Department Note ---
Impression & Plan Bilateral flank pain, S/P ureteral stent placement, Dysuria, Acute UTI, Bilateral leg cramps ED Provider Note NAME: LEANN PACHECO AGE: 74 SEX: F : 1950 ARRIVES VIA: Walk-In INFORMANT: Patient, daughter ED PROVIDER(S): Sanya Tate MD CHIEF COMPLAINT: Flank pain, dysuria, hematuria MEDICAL DECISION MAKING: Patient presents due to concern for bilateral flank pain in the setting of recent ureteral stent placement. IV was established and blood work was obtained. Patient was ordered IV fluid bolus 500 cc in addition to IV morphine 4 mg. The patient was still having pain was given additional IV morphine and additional IV fluids. The patient's blood work shows a normal white count hemoglobin and platelet count kidney function is unremarkable BSG 161. Urinalysis does show concern for possible infection. I did message with Lavern Smith who contacted Dr. Rider and they did recommend IV antibiotics and urine culture. No need for blood cultures unless the patient was septic. Patient is not at this time. Patient's CT of the abdomen and pelvis shows stents in place mild nephrosis no ureteral calculi or fragments. Decreasing calculus burden no bowel obstruction. Patient was informed of these findings. Patient was concerned about leg cramps. Patient was offered something to drink but declined. The patient did have her legs wrapped in warm blankets or seem to improve it. Upon subsequent reassessment patient was concerned about going home and ambulatory dysfunction as she does live by herself and her daughter supposed to have surgery this week. I did speak with the on-call hospitalist service Dr. Guy and patient was admitted to the medicine service Discussion w/ other healthcare providers: MELODY Rosas, and Dr. Rider urology Dr. Guy inpatient medicine service Prior /Outside records reviewed: I reviewed part of an operative report from Dr. Rider from April 19 patient did have cystoscopy bilateral retrograde pyelogram and insertion of stent catheter with right ureter rib nephroscopy dilation lithotripsy and basket extraction of stone. Differential diagnosis: Renal colic, UTI, pyelonephritis, appendicitis, diverticulitis, strain, sprain, fracture among others were considered. Diagnostics, as interpreted by me: ECG: None Cardiac monitoring: An order was placed for continuous cardiac monitoring. The monitor shows a rate of 89 with sinus rhythm. Patient was placed on pulse oximetry Medical decision rules: None Imaging studies: I informally interpreted the patient's CT abdomen pelvis does show bilateral ureteral stents with formal report to follow. HPI: Patient presents due to concern for bilateral flank pain and dysuria and hematuria. The patient states that she has had pain ever since she had her stents placed on the . Patient states that she did have some burning in the flanks over the weekend which has improved and the patient states that she has had numerous stents and stones in the past but this is the worst she has felt since placement of stents. Patient denies any fevers but she does occasionally feel chilled. The patient states she is lost 22 pounds in the last 2 months. Patient states that she was taking Oxy with Tylenol as well as Keflex for 3 days in addition to Pyridium. Patient states that she did take her medications and Tylenol with oxycodone has not significantly helped her pain. Patient has had associated hematuria and dysuria. PAST MEDICAL HISTORY: See Below PAST SURGICAL HISTORY: See Below SOCIAL HISTORY: See Below HOME MEDICATIONS: See Below ALLERGIES: See Below VITALS: See Below PHYSICAL EXAMINATION: GENERAL: NAD, non-toxic. Wearing glasses. EYE EXAM: Normal conjunctiva. PERRL, no anisocoria and EOM's grossly intact w/o pain. OROPHARYNX: Moist mucus membranes, grossly normal dentition. NECK: Trachea midline, no stridor. Supple, no nuchal rigidity, no adenopathy, non-tender. No signs of meningismus. FROM of the neck with good chin to chest and neck extension. LUNGS: Clear to auscultation. Normal chest wall mechanics. HEART: NSR, no MRG. ABDOMEN: Abdomen soft, non-tender, no masses, no rebound or guarding. BACK: Bilateral CVA TTP. SKIN: No rashes and no bruising. UPPER EXTREMITIES: Upper extremities are grossly normal. LOWER EXTREMITIES: Grossly normal, no edema. NEURO EXAM: A&O x3, cranial nerves II-XII grossly intact, normal speech, moves all 4 extremities. 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 Current use of proton pump inhibitor Nephrolithiasis Right ureteral calculus Obesity (BMI 30-39.9) Anemia, mild Encounter for pre-operative examination Carotid artery plaque (Acute) Chronic cerebral ischemia (Acute) Osteopenia (Acute) Mixed stress and urge urinary incontinence Sacroiliac joint pain Hypertension (Acute) Intractable back pain (Acute) Lumbar disc disease (Acute) Sciatica (Acute) Osteoarthritis Herniation of lumbar intervertebral disc with radiculopathy (Acute) Lumbar stenosis with neurogenic claudication (Acute) Medical History Hyperhidrosis "They're like hot flashes but I never have a fever. 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 Hx of chest pain pt denies any insues at this time Angiomyolipoma of kidney pt denies Anxiety Vertigo Hyperlipidemia Diabetes mellitus, type 2 Oral History of hepatitis B many years ago - no issues since Chronic anemia Hx of gout "I don't think I have ever had a gout attack" Sciatica Hypothyroid High cholesterol HTN (hypertension) Left lumbar radiculopathy History of viral meningitis "Long time ago" pt unsure of when Melanoma of right upper arm Hx - Mohs procedure Kidney stones Multiple Depression Neuropathy bilateral feet Surgical History Hx of Achilles tendon repair S/P epidural steroid injection Dr Smith History of arthroscopy Left Knee 2018 x2 "meniscus tear and bone on bone" Hx of breast surgery Left benign fatty mass removed History of carpal tunnel release of both wrists Status post lumbar spine operative procedure for decompression of spinal cord with medial facetectomy L3-L4, L4-5; w/dr ray History of lithotripsy Multiple History of total hysterectomy with bilateral salpingo-oophorectomy (BSO) (1978) History of appendectomy History of colonoscopy History of Mohs micrographic surgery for skin cancer History of tooth extraction All teeth History of tonsillectomy and adenoidectomy History of bilateral cataract extraction History of back surgery Lumbar (2019) + procedure with Dr. Ray History of cystoscopy Multiple History of cholecystectomy 2017 Family History Father Family history of diabetes mellitus Gastric cancer Mother Family history of diabetes mellitus Cerebral artery occlusion with cerebral infarction Coronary heart disease Daughter Family hx colonic polyps Cancer of kidney Crohn's disease Other Family history non-contributory No family history of adverse response to anesthesia Denies family history of Ovarian cancer Breast cancer Colorectal cancer Social History Smoking Status: Never smoker Second Hand Exposure: No; Do You Dip or Chew Tobacco: No; Hx Alcohol Use: No Hx Substance Use: No Preferred Language: Jordanian Communication Ability: Effective Visual Impairment: No Limitations Director Of Coding Required: No Beliefs That Will Affect Care: None marital status: / Current Living Situation: Alone Current Living Situation Comment: [address] (but has stair lift to get inside) single floor living space current occupational status: retired Feels Safe at Home: Yes Childhood Exposure to Second-Hand Smoke: Yes Dental Care, Regularly: No Physical Activity Frequency: Does not Exercise Seatbelt Use: always Sunscreen Use: Yes Assistive Devices: Cane, Denture - Upper, Denture - Lower, Glasses and Walker Allergies Allergies Allergy/AdvReac Type Severity Reaction Status Date / Time Fish Containing Products Allergy Severe Swelling Verified 04/27/24 14:27 of Lip/Tongue/Throat, hives and vomiting shellfish derived Allergy Severe Swelling Verified 04/27/24 14:27 of Lip/Tongue/Throat, hives and vomiting Iodinated Contrast Media Allergy Intermediate Swelling Verified 04/27/24 14:27 of Lip/Tongue/Throat, hives and vomiting Home Meds Home Medications Medication Instructions Recorded Confirmed cyanocobalamin (vitamin B-12) 1,000 mcg PO QAM 06/08/18 04/23/24 1,000 mcg tablet (Vitamin B-12) cholecalciferol (vitamin D3) 25 2,000 unit PO QAM 01/15/19 04/23/24 mcg (1,000 unit) capsule (Vitamin D3) atorvastatin 10 mg tablet 10 mg PO QAM 03/19/24 04/23/24 metformin 500 mg tablet 500 mg PO AMPM 03/19/24 04/23/24 pantoprazole 40 mg tablet,delayed 40 mg PO QAM 04/13/24 04/23/24 release (Protonix) paroxetine HCl 20 mg tablet (Paxil) 20 mg PO QAM 04/13/24 04/23/24 tamsulosin 0.4 mg capsule 0.4 mg PO QPM 04/13/24 04/23/24 Previous Rx's Medication Instructions Recorded aspirin 81 mg tablet,delayed 81 mg PO QAM #30 tabs 07/23/21 release levothyroxine 75 mcg tablet 75 mcg PO QAM #90 tabs 08/12/23 losartan 25 mg tablet 25 mg PO QAM #90 tabs 12/10/23 allopurinol 100 mg tablet 100 mg PO QAM #90 tabs 12/11/23 amiloride 5 mg tablet 5 mg PO QAM #90 tabs 12/11/23 meclizine 25 mg tablet 25 mg PO TID PRN dizziness #14 tabs 12/27/23 blood sugar diagnostic (OneTouch #100 ea 01/27/24 Ultra Test strips) blood-glucose meter (OneTouch #1 ea 01/27/24 Ultra2 Meter) lancets 30 gauge (OneTouch #100 ea 01/27/24 UltraSoft 2 Lancet) potassium citrate 10 mEq (1,080 20 meq (2 x 10 mEq (1,080 mg)) PO 04/02/24 mg) tablet,extended release AMPM #180 tabs oxycodone-acetaminophen 5 mg-325 1 tab PO Q8H PRN pain #10 tabs 04/08/24 mg tablet (Percocet) phenazopyridine 200 mg tablet 200 mg PO Q8H PRN pain #10 tabs 04/23/24 (Pyridium) tamsulosin 0.4 mg capsule 0.4 mg PO HS #30 caps 04/23/24 alprazolam 1 mg tablet 1 mg PO BID PRN Anxiety #60 tabs 04/27/24 Results & Data (ED) Vital Signs Vital Signs - 24 hr 04/28/24 10:45 04/28/24 12:18 04/28/24 12:45 Temperature 36.7 C Temperature Source Temporal Artery Scan Pulse Rate 124 H 92 H Pulse Rate [Apical] 83 Respiratory Rate 16 24 Respiratory Effort / Characteristics Respiratory Depth Blood Pressure 157/94 H Blood Pressure [Right Arm] 143/89 H Blood Pressure Mean 115 Blood Pressure Mean [Right Arm] 107 Blood Pressure Position Sitting Pulse Oximetry 98 94 Oxygen Delivery Method Room Air Room Air Sepsis Recent Fever Within 48 Hours No Sepsis New/Unexplained Change in Mental Status No Sepsis Action Taken by Nursing No Action Required 04/28/24 12:45 04/28/24 14:47 04/28/24 16:00 Temperature Temperature Source Pulse Rate 84 Pulse Rate [Apical] 63 65 Respiratory Rate 24 20 17 Respiratory Effort / Characteristics Non-Labored Spontaneous Respiratory Depth Normal Blood Pressure Blood Pressure [Right Arm] 135/71 140/76 Blood Pressure Mean Blood Pressure Mean [Right Arm] 92 97 Blood Pressure Position Pulse Oximetry 94 97 96 Oxygen Delivery Method Room Air Room Air Room Air Sepsis Recent Fever Within 48 Hours Sepsis New/Unexplained Change in Mental Status Sepsis Action Taken by Nursing 04/28/24 16:35 04/28/24 18:00 Temperature Temperature Source Pulse Rate 74 Pulse Rate [Apical] 88 Respiratory Rate 21 Respiratory Effort / Characteristics Non-Labored Respiratory Depth Normal Blood Pressure Blood Pressure [Right Arm] 139/84 Blood Pressure Mean Blood Pressure Mean [Right Arm] 102 Blood Pressure Position Pulse Oximetry 96 Oxygen Delivery Method Room Air Sepsis Recent Fever Within 48 Hours Sepsis New/Unexplained Change in Mental Status Sepsis Action Taken by [facility] Medications Current Medication List: was personally reviewed by me Laboratory Data Attestation: I reviewed the patient's lab results. 04/28/24 10:58 04/28/24 10:58 Lab Results 04/28/24 04/28/24 Range/Units 10:58 Unknown WBC 6.84 (4.8-10.8) K/ul RBC 4.16 L (4.20-5.40) M/uL Hgb 13.6 (12.0-16.0) g/dl Hct 39.5 (37.0-47.0) % MCV 95.0 (80.0-100.0) fL MCH 32.7 (25.0-34.0) pg MCHC 34.4 (32.0-36.0) g/dL RDW Std Deviation 44.2 (36.4-46.3) fL RDW Coeff of [place] 12.7 (11.5-14.5) % Plt Count 230 (130-400) K/uL MPV 11.2 (9.4-12.4) fL Immature Gran % (Auto) 0.1 % Neut % (Auto) 64.8 % Lymph % (Auto) 22.8 % [place] % (Auto) 9.9 % Eos % (Auto) 1.8 % Baso % (Auto) 0.6 % Neut # (Auto) 4.43 (1.40-6.50) K/uL Lymph # (Auto) 1.56 (1.20-3.40) K/uL [place] # (Auto) 0.68 H (0.11-0.59) K/uL Eos # (Auto) 0.12 (0.00-0.50) K/uL Baso # (Auto) 0.04 (0.00-0.20) K/uL Immature Gran # (Auto) 0.01 (0.01-0.20) K/uL Sodium 139 (136-145) mmol/L Potassium 3.6 (3.5-5.1) mmol/L Chloride 103 (98-107) mmol/L Carbon Dioxide 21 (21-32) mmol/L Anion Gap 15 H (3-11) BUN 9 (6-23) mg/dl Creatinine 0.82 (0.6-1.2) mg/dl Est Cr Clr Drug Dosing Not Reportable eGFR 74.55 BUN/Creatinine Ratio 11.0 (10-20) Glucose 161 H (70-99(Fasting)) mg/dl Calcium 9.5 (8.6-10.3) mg/dl Total Bilirubin 0.8 (0.2-1.0) mg/dl AST 16 (13-39) U/L ALT 16 (7-52) U/L Alkaline Phosphatase 72 (34-104) U/L Total Protein 7.0 (6.0-8.3) gm/dl Albumin 4.2 (3.4-5.0) gm/dl Globulin 2.8 (2.5-4.0) gm/dl Albumin/Globulin Ratio 1.5 (0.9-2) Lipase 25 (11-82) U/L Urine Color Red Urine Appearance Turbid A (Clear) Urine pH 7.5 (4.5-7.5) Ur Specific [place] 1.025 (1.000-1.030) Urine Protein 3+ H (Negative) Urine Glucose (UA) Negative (Negative) Urine Ketones 1+ H (Negative) Urine Blood 3+ H (Negative) Urine Nitrite Positive A (Negative) Urine Bilirubin 1+ H (Negative) Urine Urobilinogen Negative (Negative) Ur Leukocyte Esterase 1+ H (Negative) Urine RBC >20 H (0-2) /hpf Urine WBC 21-50 H (0-5) /hpf Ur Epithelial Cells 3-5 H (0-2) /hpf Urine Bacteria 2+ H (None Seen) Urine Mucus Present A (None Prsent) Administered Medications Discontinued Medications Acetaminophen (Acetaminophen 500 Mg Tab) 1,000 mg PO NOW STA Stop: 04/28/24 13:04 Last Admin: 04/28/24 13:20 Dose: 1,000 mg Documented By: FREDY Fentanyl Citrate (Fentanyl Citrate Pf 100 Mcg/2 Ml Vial) 25 mcg IV NOW STA Stop: 04/28/24 14:24 Last Admin: 04/28/24 14:49 Dose: 25 mcg Documented By: JEFF Sodium Chloride (Nss) 500 mls @ 999 mls/hr IV .Q31M ONE Stop: 04/28/24 13:33 Last Infusion: 04/28/24 14:22 Dose: Infused Documented By: Admin: 04/28/24 13:20 Dose: 999 mls/hr Documented By: FREDY Sodium Chloride (Nss) 500 mls @ 999 mls/hr IV .Q31M ONE Stop: 04/28/24 14:53 Last Infusion: 04/28/24 15:47 Dose: Infused Documented By: Admin: 04/28/24 14:49 Dose: 999 mls/hr Documented By: JEFF Ceftriaxone Sodium (Rocephin) 2,000 mg in 50 mls @ 100 mls/hr IV NOW STA Stop: 04/28/24 15:48 Last Infusion: 04/28/24 17:40 Dose: Infused Documented By: Admin: 04/28/24 15:32 Dose: 100 mls/hr Documented By: BETSY Morphine Sulfate (Morphine Sulfate 4 Mg/Ml 1 Ml Carp\\Vial) 4 mg IV NOW STA Stop: 04/28/24 11:18 Last Admin: 04/28/24 12:49 Dose: 4 mg Documented By: JEFF Morphine Sulfate (Morphine Sulfate 4 Mg/Ml 1 Ml Carp\\Vial) 4 mg IV NOW STA Stop: 04/28/24 11:21 Last Admin: 04/28/24 13:12 Dose: Not Given Documented By: MNE Imaging Data Radiologist's Impression: KUB X-Ray 04/28/24 10:55 KUB CLINICAL HISTORY: BILATERAL STENTS, FLANK PAIN COMPARISON STUDY: CT of the abdomen and pelvis performed earlier today. FINDINGS: Postoperative findings within the spine and cholecystectomy clips are noted. Bilateral ureteral stents are in place. Pelvic calcifications represent phleboliths. No ureteral calculi or fragments are identified. Bilateral renal calculi on CT performed earlier today are not well visualized by radiography. Bowel gas pattern is normal. IMPRESSION: 1. Bilateral ureteral stents in place. No ureteral calculi or fragments. 2. Bilateral renal calculi on CT performed earlier today are not well-visualized by radiography. ACT 112: Negative or not required by law. Electronically signed by: Alistair Arellano M.D. 04/28/2024 1:37 PM Abdomen/Pelvis CT 04/28/24 11:17 CT OF THE ABDOMEN AND PELVIS WITHOUT CONTRAST CLINICAL HISTORY: Bilateral flank pain, hematuria, dysuria, stent placement. COMPARISON STUDY: CT of the abdomen and pelvis March 19, 2024. TECHNIQUE: Axial images of the abdomen and pelvis were obtained without IV contrast. Images were reviewed in the axial, sagittal, and coronal planes. Automated exposure control was utilized for the study. A dose lowering technique was utilized adhering to the principles of ALARA. FINDINGS: Lung bases are unremarkable. Bilateral ureteral stents are in place. Mild bilateral hydroureteronephrosis is present. There are no ureteral calculi or fragments. There is mild stranding adjacent to the bilateral ureters. A small amount of gas within the right collecting system is related to recent procedure. Calculus burden has decreased since CT of March 19, 2024. A few punctate right renal calculi measure up to 3 mm. A few left renal calculi measure up to 6 mm. Hyperdense subcentimeter left renal lesion favors a proteinaceous cyst. Unenhanced images of the liver, spleen, adrenal glands and pancreas are unremarkable. There is no biliary ductal dilatation status post cholecystectomy. Is no evidence for a bowel obstruction. There is colonic diverticulosis. No evidence for acute diverticulitis. Pelvic calcifications represent phleboliths. There is no lymphadenopathy. There are no fluid collections. Postoperative findings within the spine are noted. No acute fractures are present. IMPRESSION: 1. Bilateral ureteral stents in place. Mild bilateral hydroureteronephrosis. No ureteral calculi or fragments. 2. Interval decrease in calculus burden, as described above. Bilateral nephrolithiasis. 3. No bowel obstruction. 4. Colonic diverticulosis. No evidence for acute diverticulitis. ACT 112: Negative or not required by law. Electronically signed by: Alistair Arellano M.D. 04/28/2024 12:21 PM Discharge Plan Visit Data Chief Complaint: Kidney Stone Stated Complaint: RECENT SURG, KINDEY STONE/HEMATURIA, LEGS CRAMPING ED Provider: Sanya Tate Discharge Problem: Bilateral flank pain, S/P ureteral stent placement, Dysuria, Acute UTI, Bilateral leg cramps Forms Stand Alone Forms: [facility] Prescriptions Prescriptions: No Action levothyroxine 75 mcg tablet 75 mcg PO QAM Qty: 90 3RF losartan 25 mg tablet 25 mg PO QAM Qty: 90 3RF allopurinol 100 mg tablet 100 mg PO QAM Qty: 90 1RF amiloride 5 mg tablet 5 mg PO QAM Qty: 90 1RF (DME) OneTouch Ultra Test Strip See Rx Instructions .Route Qty: 100 1RF Rx Instructions: Check blood sugar daily and PRN (DME) blood-glucose meter [OneTouch Ultra2 Meter] Misc See Rx Instructions .Route Qty: 1 0RF Rx Instructions: Check blood sugar daily and PRN (DME) lancets [OneTouch UltraSoft 2 Lancet] 30 gauge misc See Rx Instructions .Route Qty: 100 1RF Rx Instructions: Check BS daily and PRN potassium citrate 10 mEq (1,080 mg) tablet extended release 20 meq PO AMPM Qty: 180 1RF alprazolam 1 mg tablet 1 mg PO BID PRN (Reason: Anxiety) Qty: 60 0RF Rx Instructions: CHELY [id number] oxycodone-acetaminophen [Percocet] 5-325 mg tablet 1 tab PO Q8H PRN (Reason: pain) Qty: 10 0RF cyanocobalamin (vitamin B-12) [Vitamin B-12] 1,000 mcg Tablet 1,000 mcg PO QAM cholecalciferol (vitamin D3) [Vitamin D3] 1,000 unit Capsule 2,000 unit PO QAM aspirin 81 mg Tablet,Delayed Release (Dr/Ec) 81 mg PO QAM Qty: 30 0RF meclizine 25 mg tablet 25 mg PO TID PRN (Reason: dizziness) Qty: 14 0RF tamsulosin 0.4 mg capsule 0.4 mg PO QPM paroxetine HCl [Paxil] 20 mg tablet 20 mg PO QAM pantoprazole [Protonix] 40 mg tablet,delayed release (DR/EC) 40 mg PO QAM phenazopyridine [Pyridium] 200 mg tablet 200 mg PO Q8H PRN (Reason: pain) Qty: 10 0RF tamsulosin 0.4 mg capsule 0.4 mg PO HS Qty: 30 0RF Patient Comments: post op metformin 500 mg tablet 500 mg PO AMPM atorvastatin 10 mg tablet 10 mg PO QAM Referrals Referrals: Pro,Abhijit Encarnacion MD [Primary Care Provider] -
[2024-04-28 11:29] LABS: Appearance Urine Turbid (Clear); Bilirubin Urine 1+ (Negative); Blood Urine 3+ (Negative); Color Urine Red; Glucose Urine UA Negative (Negative); Ketones Urine 1+ (Negative); Leukocyte Esterase Urine 1+ (Negative); Nitrite Urine Positive (Negative); Protein Urine 3+ (Negative); Specific Gravity Urine 1.025 (1.000-1.030); Urobilinogen Urine Negative (Negative); pH Urine 7.5 (4.5-7.5)
[2024-04-28 11:30] LABS: Basophils # (auto) 0.04 K/uL (0.00-0.20); Basophils % (auto) 0.6 %; Eosinophils # (auto) 0.12 K/uL (0.00-0.50); Eosinophils % (auto) 1.8 %; Hematocrit (blood only) 39.5 % (37.0-47.0); Hemoglobin 13.6 g/dl (12.0-16.0); Immature Granulocytes # (auto) 0.01 K/uL (0.01-0.20); Immature Granulocytes % (auto) 0.1 %; Lymphocytes # (auto) 1.56 K/uL (1.20-3.40); Lymphocytes % (auto) 22.8 %; Mean Corpuscular Hemoglobin 32.7 pg (25.0-34.0); Mean Corpuscular Hgb Conc 34.4 g/dL (32.0-36.0); Mean Platelet Volume 11.2 fL (9.4-12.4); Monocytes # (auto) 0.68 K/uL (0.11-0.59); Monocytes % (auto) 9.9 %; Neutrophils # (auto) 4.43 K/uL (1.40-6.50); Neutrophils % (auto) 64.8 %; Platelet Count 230 K/uL (130-400); RDW Coefficient of Variation 12.7 % (11.5-14.5); RDW Standard Deviation 44.2 fL (36.4-46.3); Red Blood Count 4.16 M/uL (4.20-5.40); White Blood Count 6.84 K/ul (4.8-10.8)
[2024-04-28 11:33] LABS: Bacteria Urine 2+ (None Seen); Mucus Urine Present (None Prsent); RBC Urine >20 /hpf (0-2)
[2024-04-28 11:34] LABS: WBC Urine 21-50 /hpf (0-5)
[2024-04-28 11:46] LABS: Alanine Aminotransferase 16 U/L (7-52); Albumin Globulin Ratio 1.5 (0.9-2); Albumin Level 4.2 gm/dl (3.4-5.0); Alkaline Phosphatase 72 U/L (34-104); Anion Gap 15 (3-11); Aspartate Aminotransferase 16 U/L (13-39); Bilirubin,Total 0.8 mg/dl (0.2-1.0); Blood Urea Nitrogen 9 mg/dl (6-23); Calcium 9.5 mg/dl (8.6-10.3); Carbon Dioxide 21 mmol/L (21-32); Chloride 103 mmol/L (98-107); Globulin 2.8 gm/dl (2.5-4.0); Glucose 161 mg/dl (70-99(Fasting)); Potassium 3.6 mmol/L (3.5-5.1); Sodium 139 mmol/L (136-145)
--- NOTE | 2024-04-28 12:23 | CT Scan Report ---
CT OF THE ABDOMEN AND PELVIS WITHOUT CONTRAST CLINICAL HISTORY: Bilateral flank pain, hematuria, dysuria, stent placement. COMPARISON STUDY: CT of the abdomen and pelvis March 19, 2024. TECHNIQUE: Axial images of the abdomen and pelvis were obtained without IV contrast. Images were revi ewed in the axial, sagittal, and coronal planes. Automated exposure control was utilized for the raoul dy. A dose lowering technique was utilized adhering to the principles of ALARA. FINDINGS: Lung bases are unremarkable. Bilateral ureteral stents are in place. Mild bilateral hydrour eteronephrosis is present. There are no ureteral calculi or fragments. There is mild stranding adjace nt to the bilateral ureters. A small amount of gas within the right collecting system is related to r ecent procedure. Calculus burden has decreased since CT of March 19, 2024. A few punctate right re nal calculi measure up to 3 mm. A few left renal calculi measure up to 6 mm. Hyperdense subcentimeter left renal lesion favors a proteinaceous cyst. Unenhanced images of the liver, spleen, adrenal gland s and pancreas are unremarkable. There is no biliary ductal dilatation status post cholecystectomy. I s no evidence for a bowel obstruction. There is colonic diverticulosis. No evidence for acute diverti culitis. Pelvic calcifications represent phleboliths. There is no lymphadenopathy. There are no fluid collections. Postoperative findings within the spine are noted. No acute fractures are present. IMPRESSION: 1. Bilateral ureteral stents in place. Mild bilateral hydroureteronephrosis. No ureteral calculi or f ragments. 2. Interval decrease in calculus burden, as described above. Bilateral nephrolithiasis. 3. No bowel obstruction. 4. Colonic diverticulosis. No evidence for acute diverticulitis. ACT 112: Negative or not required by law. Electronically signed by: Alistair Arellano M.D. 04/28/2024 12:21 PM
[2024-04-28] MEDS: MoRPHine SULFATE 4 MG/ML 1 ML CARP\\VIAL IV STA ×2 (12:49→13:12)
[2024-04-28 13:11] LABS: Lipase 25 U/L (11-82)
[2024-04-28] MEDS: ACETAMINOPHEN 500 MG TAB PO STA (13:20)
[2024-04-28] MEDS: SODIUM CHLORIDE 0.9% 500 ML IV ONE ×2 (13:20→14:49)
--- NOTE | 2024-04-28 13:38 | XRay Report ---
KUB CLINICAL HISTORY: BILATERAL STENTS, FLANK PAIN COMPARISON STUDY: CT of the abdomen and pelvis performed earlier today. FINDINGS: Postoperative findings within the spine and cholecystectomy clips are noted. Bilateral uret eral stents are in place. Pelvic calcifications represent phleboliths. No ureteral calculi or fragmen ts are identified. Bilateral renal calculi on CT performed earlier today are not well visualized by r adiography. Bowel gas pattern is normal. IMPRESSION: 1. Bilateral ureteral stents in place. No ureteral calculi or fragments. 2. Bilateral renal calculi on CT performed earlier today are not well-visualized by radiography. ACT 112: Negative or not required by law. Electronically signed by: Alistair Arellano M.D. 04/28/2024 1:37 PM
[2024-04-28] MEDS: fentaNYL citrate PF 100 MCG/2 ML VIAL IV STA (14:49)
[2024-04-28] MEDS: cefTRIAXone SODIUM 2,000 MG/50 ML BAG IV STA (15:32)
--- NOTE | 2024-04-28 18:26 | History & Physical Report ---
Date of Service April 28, 2024 Assessment & Plan (1) Bilateral leg cramps: (2) Acute UTI: (3) S/P ureteral stent placement: (4) Bilateral flank pain: Plan The patient is a 74-year-old female with past medical history including angiomyolipoma of kidney, pulmonary nodules, chronic cerebral ischemia, mixed stress and urge urinary incontinence, herniated lumbar disc, gout, and anxiety. Most recent hospitalization was from 03/19-03/23/2024. On 04/23/2024 she underwent cystoscopy with bilateral retrograde pyelogram and insertion of stent catheter, right ureteral nephroscopy, ureteral dilation, laser lithotripsy, and basket extraction of stone. She reports she did have a discomfort ever since that time, however it became more intolerable, and she presented to the ED for assessment this evening. She also complained of bilateral leg cramps few days #Bilateral flank pain/bilateral ureteral stent placement/urinary tract infection- Follow urine culture and sensitivity Continue ceftriaxone 2 g IV daily Status post NSS 500 mL x 2 boluses from the ED Maintenance fluids: NSS + KCl 20 mEq at 80 mL/h x 1 L N.p.o. after midnight except for meds Continue tamsulosin Acetaminophen 1 g IV every 8 hours as needed for mild pain or fever Morphine sulfate 2 mg IV every 3 hours as needed for moderate pain Morphine sulfate 4 mg IV every 3 hours as needed for severe pain Consult urology #Leg cramps- For potassium 3.6, give Klor-Con 40 mill equivalents p.o., and placed on IV flui ds as above Magnesium level pending #Diabetes mellitus- Hold metformin Place on Accu-Cheks with NovoLog SSI #Anxiety- Alprazolam 1 mg p.o. twice daily as needed Continue paroxetine History of Present Illness Chief Complaint: The patient presents to the emergency department with complaints of bilateral flank pain associated with the presence of bilateral ureteral stents- Primary Care Provider: Abhijit Guillen MD The patient is a 74-year-old female with past medical history including angiomyolipoma of kidney, pulmonary nodules, chronic cerebral ischemia, mixed stress and urge urinary incontinence, herniated lumbar disc, gout, and anxiety. Most recent hospitalization was from 03/19-03/23/2024. On 04/23/2024 she underwent cystoscopy with bilateral retrograde pyelogram and insertion of stent catheter, right ureteral nephroscopy, ureteral dilation, laser lithotripsy, and basket extraction of stone. She reports she did have a discomfort ever since that time, however it became more intolerable, and she presented to the ED for assessment this evening. She also complained of bilateral leg cramps few days Allergies Allergy/AdvReac Type Severity Reaction Status Date / Time Fish Containing Products Allergy Severe Swelling Verified 04/27/24 14:27 of Lip/Tongue/Throat, hives and vomiting shellfish derived Allergy Severe Swelling Verified 04/27/24 14:27 of Lip/Tongue/Throat, hives and vomiting Iodinated Contrast Media Allergy Intermediate Swelling Verified 04/27/24 14:27 of Lip/Tongue/Throat, hives and vomiting Home Medications Medication Instructions Recorded Confirmed Type cyanocobalamin (vitamin B-12) 1,000 mcg PO QAM 06/08/18 04/28/24 History 1,000 mcg tablet (Vitamin B-12) cholecalciferol (vitamin D3) 25 2,000 unit PO QAM 01/15/19 04/28/24 History mcg (1,000 unit) capsule (Vitamin D3) aspirin 81 mg tablet,delayed 81 mg PO QAM #30 tabs 07/23/21 04/28/24 Rx release levothyroxine 75 mcg tablet 75 mcg PO QAM #90 tabs 08/12/23 04/28/24 Rx losartan 25 mg tablet 25 mg PO QAM #90 tabs 12/10/23 04/28/24 Rx allopurinol 100 mg tablet 100 mg PO QAM #90 tabs 12/11/23 04/28/24 Rx amiloride 5 mg tablet 5 mg PO QAM #90 tabs 12/11/23 04/28/24 Rx blood sugar diagnostic (OneTouch #100 ea 01/27/24 04/28/24 Rx Ultra Test strips) blood-glucose meter (OneTouch #1 ea 01/27/24 04/28/24 Rx Ultra2 Meter) lancets 30 gauge (OneTouch #100 ea 01/27/24 04/28/24 Rx UltraSoft 2 Lancet) atorvastatin 10 mg tablet 10 mg PO QAM 03/19/24 04/28/24 History metformin 500 mg tablet 500 mg PO AMPM 03/19/24 04/28/24 History potassium citrate 10 mEq (1,080 20 meq (2 x 10 mEq (1,080 mg)) PO 04/02/24 04/28/24 Rx mg) tablet,extended release AMPM #180 tabs oxycodone-acetaminophen 5 mg-325 1 tab PO Q8H PRN pain #10 tabs 04/08/24 04/28/24 Rx mg tablet (Percocet) pantoprazole 40 mg tablet,delayed 40 mg PO QAM 04/13/24 04/28/24 History release (Protonix) paroxetine HCl 20 mg tablet (Paxil) 20 mg PO QAM 04/13/24 04/28/24 History tamsulosin 0.4 mg capsule 0.4 mg PO QPM 04/13/24 04/28/24 History alprazolam 1 mg tablet 1 mg PO BID PRN Anxiety #60 tabs 04/27/24 04/28/24 Rx Past Med/Surg History Problem List (Updated 04/28/24 @ 19:52 by Mushtaq Ramirez) Bilateral leg cramps (Acute) Acute UTI (Acute) Dysuria (Acute) S/P ureteral stent placement (Acute) Bilateral flank pain (Acute) Renal cyst (Chronic) Angiomyolipoma of kidney (Chronic) Pulmonary nodule 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 Current use of proton pump inhibitor Nephrolithiasis Right ureteral calculus Obesity (BMI 30-39.9) Anemia, mild Encounter for pre-operative examination Carotid artery plaque (Acute) Chronic cerebral ischemia (Acute) Osteopenia (Acute) Mixed stress and urge urinary incontinence Sacroiliac joint pain Hypertension (Acute) Intractable back pain (Acute) Lumbar disc disease (Acute) Sciatica (Acute) Osteoarthritis Herniation of lumbar intervertebral disc with radiculopathy (Acute) Lumbar stenosis with neurogenic claudication (Acute) Medical History Hyperhidrosis "They're like hot flashes but I never have a fever. PCP is aware" Chronic cerebral ischemia pt denies Ambulatory dysfunction typically uses cane - has a walker in case - d/t extensive back pain/surgeries, sciatica, achilles tendon tear Insomnia Swallowing difficulty pt denies Pulmonary nodule Osteopenia Osteoarthritis Carotid artery plaque no manager flight Hx of chest pain pt denies any insues at this time Angiomyolipoma of kidney pt denies Anxiety Vertigo Hyperlipidemia Diabetes mellitus, type 2 Oral History of hepatitis B many years ago - no issues since Chronic anemia Hx of gout "I don't think I have ever had a gout attack" Sciatica Hypothyroid High cholesterol HTN (hypertension) Left lumbar radiculopathy History of viral meningitis "Long time ago" pt unsure of when Melanoma of right upper arm Hx - Mohs procedure Kidney stones Multiple Depression Neuropathy bilateral feet Surgical History Hx of Achilles tendon repair S/P epidural steroid injection Dr Smith History of arthroscopy Left Knee 2018 x2 "meniscus tear and bone on bone" Hx of breast surgery Left benign fatty mass removed History of carpal tunnel release of both wrists Status post lumbar spine operative procedure for decompression of spinal cord with medial facetectomy L3-L4, L4-5; w/dr ray History of lithotripsy Multiple History of total hysterectomy with bilateral salpingo-oophorectomy (BSO) (1978) History of appendectomy History of colonoscopy History of Mohs micrographic surgery for skin cancer History of tooth extraction All teeth History of tonsillectomy and adenoidectomy History of bilateral cataract extraction History of back surgery Lumbar (2018) + procedure with Dr. Ray History of cystoscopy Multiple History of cholecystectomy 2016 Family History Father Family history of diabetes mellitus Gastric cancer Mother Family history of diabetes mellitus Cerebral artery occlusion with cerebral infarction Coronary heart disease Daughter Family hx colonic polyps Cancer of kidney Crohn's disease Other Family history non-contributory No family history of adverse response to anesthesia Denies family history of Ovarian cancer Breast cancer Colorectal cancer Social History Smoking Status: Never smoker Second Hand Exposure: No; Do You Dip or Chew Tobacco: No; Tobacco Cessation Education Requested by Patient: No Hx Alcohol Use: No Hx Substance Use: No Preferred Language: Wolof Communication Ability: Effective Visual Impairment: No Limitations Senior C Software Developer Required: No Beliefs That Will Affect Care: None marital status: / Current Living Situation: Alone Current Living Situation Comment: [address] (but has stair lift to get inside) single floor living space current occupational status: retired Other Information That Helps Us Care for You: No Feels Safe at Home: Yes Safety Concerns: Feels Safe At This Time Childhood Exposure to Second-Hand Smoke: Yes Dental Care, Regularly: No Physical Activity Frequency: Does not Exercise Seatbelt Use: always Sunscreen Use: Yes Assistive Devices: Denture - Upper, Denture - Lower and Glasses Review of Systems Review of Systems: The patient denies chest pain, palpitations, shortness of breath, dyspnea on exertion, cough, lower extremity swelling, sore throat, fevers, chills, sweats, vomiting, diarrhea , constipation, blood in stool, lightheadedness, dizziness, headache, memory loss, loss of consciousness, rash, abnormal bruising or bleeding, imbalance, focal or generalized weakness, numbness or tingling in arms or legs, generalized arthralgias or myalgias, neck pain, or night sweats. The review of systems is otherwise negative other than for that already noted above, and at least 10 systems have been reviewed. Physical Exam Physical Exam: The patient is awake, alert and oriented 3, well developed and well nourished, normocephalic and atraumatic, lying in bed and in no acute distress after receiving morphine IV HEENT--PERRL, EOMI, mucous membranes and oropharynx dry. Neck--supple. No JVD. No bruits. Thyroid normal, trachea midline, no adenopathy. Heart--normal S1 and S2. No murmurs, rubs or gallops. Lungs--clear bilaterally, no respiratory distress, no accessory muscle use. Abdomen--normal bowel sounds and soft. Nontender. Nondistended, no hernias or masses, no organomegaly. Extremities--no cyanosis or clubbing. No edema. There are good distal pulses b/l. Dermatologic--normal skin turgor, normal color, no abnormal lymph nodes, no rash. Neurologic--cranial nerves II through XII grossly intact. Rheumatologic--normal range of motion. Psychiatric--normal affect. Results & Data Results & Data Vital Signs (Past 12 Hours) Vital Signs Temp Pulse Pulse Resp BP BP Pulse Ox 04/28/24 18:00 88 21 139/84 96 04/28/24 16:35 74 04/28/24 16:00 65 17 140/76 96 04/28/24 14:47 63 20 135/71 97 04/28/24 12:45 84 24 94 04/28/24 12:45 83 24 143/89 H 94 04/28/24 12:18 92 H 04/28/24 10:45 36.7 C 124 H 16 157/94 H 98 O2 Del Method 04/28/24 18:00 Room Air 04/28/24 16:35 04/28/24 16:00 Room Air 04/28/24 14:47 Room Air 04/28/24 12:45 Room Air 04/28/24 12:45 Room Air 04/28/24 12:18 04/28/24 10:45 Room Air Laboratory Results Laboratory Results WBC 6.84 K/ul (4.8-10.8) 04/28/24 10:58 RBC 4.16 M/uL (4.20-5.40) L 04/28/24 10:58 Hgb 13.6 g/dl (12.0-16.0) 04/28/24 10:58 Hct 39.5 % (37.0-47.0) 04/28/24 10:58 MCV 95.0 fL (80.0-100.0) 04/28/24 10:58 MCH 32.7 pg (25.0-34.0) 04/28/24 10:58 MCHC 34.4 g/dL (32.0-36.0) 04/28/24 10:58 RDW Std Deviation 44.2 fL (36.4-46.3) 04/28/24 10:58 RDW Coeff of Eliseo 12.7 % (11.5-14.5) 04/28/24 10:58 Plt Count 230 K/uL (130-400) 04/28/24 10:58 MPV 11.2 fL (9.4-12.4) 04/28/24 10:58 Immature Gran % (Auto) 0.1 % 04/28/24 10:58 Neut % (Auto) 64.8 % 04/28/24 10:58 Lymph % (Auto) 22.8 % 04/28/24 10:58 Terrell % (Auto) 9.9 % 04/28/24 10:58 Eos % (Auto) 1.8 % 04/28/24 10:58 Baso % (Auto) 0.6 % 04/28/24 10:58 Neut # (Auto) 4.43 K/uL (1.40-6.50) 04/28/24 10:58 Lymph # (Auto) 1.56 K/uL (1.20-3.40) 04/28/24 10:58 Terrell # (Auto) 0.68 K/uL (0.11-0.59) H 04/28/24 10:58 Eos # (Auto) 0.12 K/uL (0.00-0.50) 04/28/24 10:58 Baso # (Auto) 0.04 K/uL (0.00-0.20) 04/28/24 10:58 Immature Gran # (Auto) 0.01 K/uL (0.01-0.20) 04/28/24 10:58 Sodium 139 mmol/L (136-145) 04/28/24 10:58 Potassium 3.6 mmol/L (3.5-5.1) 04/28/24 10:58 Chloride 103 mmol/L (98-107) 04/28/24 10:58 Carbon Dioxide 21 mmol/L (21-32) 04/28/24 10:58 Anion Gap 15 (3-11) H 04/28/24 10:58 BUN 9 mg/dl (6-23) 04/28/24 10:58 Creatinine 0.82 mg/dl (0.6-1.2) 04/28/24 10:58 Est Cr Clr Drug Dosing Not Reportable 04/28/24 10:58 eGFR 74.55 04/28/24 10:58 BUN/Creatinine Ratio 11.0 (10-20) 04/28/24 10:58 Glucose 161 mg/dl (70-99(Fasting)) H 04/28/24 10:58 POC Glucose 110 mg/dl (70-99) H 04/28/24 20:27 Calcium 9.5 mg/dl (8.6-10.3) 04/28/24 10:58 Magnesium Cancelled 04/28/24 10:58 Total Bilirubin 0.8 mg/dl (0.2-1.0) 04/28/24 10:58 AST 16 U/L (13-39) 04/28/24 10:58 ALT 16 U/L (7-52) 04/28/24 10:58 Alkaline Phosphatase 72 U/L (34-104) 04/28/24 10:58 Total Protein 7.0 gm/dl (6.0-8.3) 04/28/24 10:58 Albumin 4.2 gm/dl (3.4-5.0) 04/28/24 10:58 Globulin 2.8 gm/dl (2.5-4.0) 04/28/24 10:58 Albumin/Globulin Ratio 1.5 (0.9-2) 04/28/24 10:58 Lipase 25 U/L (11-82) 04/28/24 10:58 Urine Color Red 04/28/24 Unknown Urine Appearance Turbid (Clear) A 04/28/24 Unknown Urine pH 7.5 (4.5-7.5) 04/28/24 Unknown Ur Specific [place] 1.025 (1.000-1.030) 04/28/24 Unknown Urine Protein 3+ (Negative) H 04/28/24 Unknown Urine Glucose (UA) Negative (Negative) 04/28/24 Unknown Urine Ketones 1+ (Negative) H 04/28/24 Unknown Urine Blood 3+ (Negative) H 04/28/24 Unknown Urine Nitrite Positive (Negative) A 04/28/24 Unknown Urine Bilirubin 1+ (Negative) H 04/28/24 Unknown Urine Urobilinogen Negative (Negative) 04/28/24 Unknown Ur Leukocyte Esterase 1+ (Negative) H 04/28/24 Unknown Urine RBC >20 /hpf (0-2) H 04/28/24 Unknown Urine WBC 21-50 /hpf (0-5) H 04/28/24 Unknown Ur Epithelial Cells 3-5 /hpf (0-2) H 04/28/24 Unknown Urine Bacteria 2+ (None Seen) H 04/28/24 Unknown Urine Mucus Present (None Prsent) A 04/28/24 Unknown Impressions KUB X-Ray 04/28/24 10:55 KUB CLINICAL HISTORY: BILATERAL STENTS, FLANK PAIN COMPARISON STUDY: CT of the abdomen and pelvis performed earlier today. FINDINGS: Postoperative findings within the spine and cholecystectomy clips are noted. Bilateral ureteral stents are in place. Pelvic calcifications represent phleboliths. No ureteral calculi or fragments are identified. Bilateral renal calculi on CT performed earlier today are not well visualized by radiography. Bowel gas pattern is normal. IMPRESSION: 1. Bilateral ureteral stents in place. No ureteral calculi or fragments. 2. Bilateral renal calculi on CT performed earlier today are not well-visualized by radiography. ACT 112: Negative or not required by law. Electronically signed by: Alistair Arellano M.D. 04/28/2024 1:37 PM Abdomen/Pelvis CT 04/28/24 11:17 CT OF THE ABDOMEN AND PELVIS WITHOUT CONTRAST CLINICAL HISTORY: Bilateral flank pain, hematuria, dysuria, stent placement. COMPARISON STUDY: CT of the abdomen and pelvis March 19, 2024. TECHNIQUE: Axial images of the abdomen and pelvis were obtained without IV contrast. Images were reviewed in the axial, sagittal, and coronal planes. Automated exposure control was utilized for the study. A dose lowering technique was utilized adhering to the principles of ALARA. FINDINGS: Lung bases are unremarkable. Bilateral ureteral stents are in place. Mild bilateral hydroureteronephrosis is present. There are no ureteral calculi or fragments. There is mild stranding adjacent to the bilateral ureters. A small amount of gas within the right collecting system is related to recent procedure. Calculus burden has decreased since CT of March 19, 2024. A few punctate right renal calculi measure up to 3 mm. A few left renal calculi measure up to 6 mm. Hyperdense subcentimeter left renal lesion favors a proteinaceous cyst. Unenhanced images of the liver, spleen, adrenal glands and pancreas are unremarkable. There is no biliary ductal dilatation status post cholecystectomy. Is no evidence for a bowel obstruction. There is colonic diverticulosis. No evidence for acute diverticulitis. Pelvic calcifications represent phleboliths. There is no lymphadenopathy. There are no fluid collections. Postoperative findings within the spine are noted. No acute fractures are present. IMPRESSION: 1. Bilateral ureteral stents in place. Mild bilateral hydroureteronephrosis. No ureteral calculi or fragments. 2. Interval decrease in calculus burden, as described above. Bilateral nephrolithiasis. 3. No bowel obstruction. 4. Colonic diverticulosis. No evidence for acute diverticulitis. ACT 112: Negative or not required by law. Electronically signed by: Alistair Arellano M.D. 04/28/2024 12:21 PM Code Status & VTE Plan Code Status Full code VTE Prophylaxis Plan VTE Prophylaxis will be ordered: Yes PG Care Time/CCT Total # of Minutes Spent Total Time Spent with Patient: Total time spent is greater than 50% in coordination of care (as documented) at patient's floor/unit and/or counseling patient: Coding Level of Care Code 69458 INT INP/OBS CARE 375MIN Diagnoses Bilateral leg cramps R25.2 Acute UTI N39.0 S/P ureteral stent placement Z96.0 Bilateral flank pain R10.9
[2024-04-28] MEDS: POTASSIUM CHLORIDE CRTAB 20 MEQ TABCR PO STA (18:42)
[2024-04-28] MEDS: NSS + 20MEQ KCL 20 MEQ/1,000 ML BAG IV SCH (18:43)
[2024-04-28] MEDS ORDERED: MoRPHine SULFATE 4 MG/ML 1 ML CARP\\VIAL IV PRN (19:57)
[2024-04-28] MEDS ORDERED: GLUCOSE 40% GEL 15 GM TUBE PO PRN (19:57)
[2024-04-28] MEDS ORDERED: MoRPHine SULFATE 2 MG/ML CARP IV PRN (19:57)
[2024-04-28] MEDS ORDERED: ONDANSETRON INJ 2 MG/ML 2 ML VIAL IV PRN (19:57)
[2024-04-28] MEDS ORDERED: CARBOHYDRATES FOR HYPOGLYCEMIA PO PRN (19:57)
[2024-04-28] MEDS ORDERED: GLUCOSE 10 TAB/TUBE PO PRN (19:57)
[2024-04-28] MEDS ORDERED: GLUCAGON FOR INJ 1 MG VIAL SQ PRN (19:57)
[2024-04-28] MEDS ORDERED: DEXTROSE 50% 50 ML SYRINGE IV PRN (19:57)
[2024-04-28] MEDS ORDERED: ACETAMINOPHEN 1000 MG/100 ML IV IV PRN (19:57)
[2024-04-28] MEDS: INSULIN ASPART PER UNIT CHARGE SC SCH (20:31)
[2024-04-28] MEDS ORDERED: ACETAMINOPHEN 1,000 MG/100 ML VIAL IV PRN (20:40)
[2024-04-28] MEDS: TAMSULOSIN HCL 0.4 MG CAP PO SCH (21:11)
[2024-04-28] MEDS: ALPRAZolam 0.5 MG TABLET PO PRN (21:11)
[2024-04-29 04:57] LABS: Basophils # (auto) 0.03 K/uL (0.00-0.20); Basophils % (auto) 0.5 %; Eosinophils % (auto) 3.4 %; Hematocrit (blood only) 36.3 % (37.0-47.0); Hemoglobin 12.1 g/dl (12.0-16.0); Immature Granulocytes # (auto) 0.01 K/uL (0.01-0.20); Immature Granulocytes % (auto) 0.2 %; Lymphocytes # (auto) 2.42 K/uL (1.20-3.40); Lymphocytes % (auto) 40.9 %; Mean Corpuscular Hgb Conc 33.3 g/dL (32.0-36.0); Mean Corpuscular Volume 98.9 fL (80.0-100.0); Mean Platelet Volume 11.3 fL (9.4-12.4); Monocytes # (auto) 0.78 K/uL (0.11-0.59); Monocytes % (auto) 13.2 %; Neutrophils # (auto) 2.47 K/uL (1.40-6.50); Neutrophils % (auto) 41.8 %; Platelet Count 193 K/uL (130-400); RDW Coefficient of Variation 12.6 % (11.5-14.5); RDW Standard Deviation 46.1 fL (36.4-46.3); Red Blood Count 3.67 M/uL (4.20-5.40); White Blood Count 5.91 K/ul (4.8-10.8)
[2024-04-29 05:16] LABS: Albumin Level 3.3 gm/dl (3.4-5.0); Calcium 8.2 mg/dl (8.6-10.3); Creatinine Clr Calc Pharmacy 69.8 ml/min; Magnesium 1.7 mg/dl (1.7-2.4)
[2024-04-29 07:05] LABS: Estimated Average Glucose 123 mg/dl; Hemoglobin A1C 5.9 % (4.5-5.6)
--- NOTE | 2024-04-29 09:46 | Urology Consultation ---
Date of Consultation April 29, 2024 Assessment & Plan (1) Acute UTI: She is currently receiving ceftriaxone and urine cultures pending. Will continue broad-spectrum antibiotics and narrow coverage as culture data becomes available. Ureteral stents appear to be in good position and should be providing adequate source control for the upper tracts. Will check PVRs to make sure she is emptying her bladder well. No plan for any additional surgical intervention at this time. (2) S/P ureteral stent placement: Stents appear to be in good position. We will maintain these for now. I will defer to her primary urologist on timing for stent removal. (3) Bilateral leg cramps: Plan Continue broad-spectrum antibiotics for now Narrow coverage as culture data becomes available Would recommend PVR to ensure she is emptying her bladder Urology will follow along History of Present Illness Reason for Consultation: Bilateral stents, hydronephrosis s/p ureteroscopy, UTI Attending Physician: Alvaro Courtney MD History of Present Illness This is a 74-year-old female followed by urology for angiomyolipoma, nephrolithiasis. She underwent ureteroscopy with laser lithotripsy on 04/23/2024 and had bilateral ureteral stents placed at that time. She was di scharged home, but felt like she had ongoing discomfort and worsening leg cramps. She presented to the emergency department for evaluation on 04/28/2024. Workup demonstrated normal WBC (6.84). Creatinine was normal at 0.82. Urinalysis demonstrated 3+ blood, positive nitrites, positive leukocyte esterase and bacteria, raising concern for urinary tract infection. Urine culture is pending. She has been started on ceftriaxone. A CT scan of the abdomen and pelvis was performed. I independently reviewed these images from 04/28/2024. Both kidneys are in normal position. There are ureteral stents bilaterally. She has some small stones in the left kidney. I do not appreciate any significant stones in the right kidney. Bladder is grossly normal. Urology was consulted for evaluation given her recent procedure, concern for UTI. At the bedside she reports that she is feeling better after having gotten antibiotics. She still is having some leg cramps. Allergies Allergy/AdvReac Type Severity Reaction Status Date / Time Fish Containing Products Allergy Severe Swelling Verified 04/27/24 14:27 of Lip/Tongue/Throat, hives and vomiting shellfish derived Allergy Severe Swelling Verified 04/27/24 14:27 of Lip/Tongue/Throat, hives and vomiting Iodinated Contrast Media Allergy Intermediate Swelling Verified 04/27/24 14:27 of Lip/Tongue/Throat, hives and vomiting Home Medications Medication Instructions Recorded Confirmed Type cyanocobalamin (vitamin B-12) 1,000 mcg PO QAM 06/08/18 04/28/24 History 1,000 mcg tablet (Vitamin B-12) cholecalciferol (vitamin D3) 25 2,000 unit PO QAM 01/15/19 04/28/24 History mcg (1,000 unit) capsule (Vitamin D3) aspirin 81 mg tablet,delayed 81 mg PO QAM #30 tabs 07/23/21 04/28/24 Rx release levothyroxine 75 mcg tablet 75 mcg PO QAM #90 tabs 08/12/23 04/28/24 Rx losartan 25 mg tablet 25 mg PO QAM #90 tabs 12/10/23 04/28/24 Rx allopurinol 100 mg tablet 100 mg PO QAM #90 tabs 12/11/23 04/28/24 Rx amiloride 5 mg tablet 5 mg PO QAM #90 tabs 12/11/23 04/28/24 Rx blood sugar diagnostic (OneTouch #100 ea 01/27/24 04/28/24 Rx Ultra Test strips) blood-glucose meter (OneTouch #1 ea 01/27/24 04/28/24 Rx Ultra2 Meter) lancets 30 gauge (OneTouch #100 ea 01/27/24 04/28/24 Rx UltraSoft 2 Lancet) atorvastatin 10 mg tablet 10 mg PO QAM 03/19/24 04/28/24 History metformin 500 mg tablet 500 mg PO AMPM 03/19/24 04/28/24 History potassium citrate 10 mEq (1,080 20 meq (2 x 10 mEq (1,080 mg)) PO 04/02/24 04/28/24 Rx mg) tablet,extended release AMPM #180 tabs oxycodone-acetaminophen 5 mg-325 1 tab PO Q8H PRN pain #10 tabs 04/08/24 04/28/24 Rx mg tablet (Percocet) pantoprazole 40 mg tablet,delayed 40 mg PO QAM 04/13/24 04/28/24 History release (Protonix) paroxetine HCl 20 mg tablet (Paxil) 20 mg PO QAM 04/13/24 04/28/24 History tamsulosin 0.4 mg capsule 0.4 mg PO QPM 04/13/24 04/28/24 History alprazolam 1 mg tablet 1 mg PO BID PRN Anxiety #60 tabs 04/27/24 04/28/24 Rx Patient History Medical History Hyperhidrosis "They're like hot flashes but I never have a fever. 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 Hx of chest pain pt denies any insues at this time Angiomyolipoma of kidney pt denies Anxiety Vertigo Hyperlipidemia Diabetes mellitus, type 2 Oral History of hepatitis B many years ago - no issues since Chronic anemia Hx of gout "I don't think I have ever had a gout attack" Sciatica Hypothyroid High cholesterol HTN (hypertension) Left lumbar radiculopathy History of viral meningitis "Long time ago" pt unsure of when Melanoma of right upper arm Hx - Mohs procedure Kidney stones Multiple Depression Neuropathy bilateral feet Surgical History Hx of Achilles tendon repair S/P epidural steroid injection Dr Smith History of arthroscopy Left Knee 2018 x2 "meniscus tear and bone on bone" Hx of breast surgery Left benign fatty mass removed History of carpal tunnel release of both wrists Status post lumbar spine operative procedure for decompression of spinal cord with medial facetectomy L3-L4, L4-5; w/dr ray History of lithotripsy Multiple History of total hysterectomy with bilateral salpingo-oophorectomy (BSO) (1978) History of appendectomy History of colonoscopy History of Mohs micrographic surgery for skin cancer History of tooth extraction All teeth History of tonsillectomy and adenoidectomy History of bilateral cataract extraction History of back surgery Lumbar (2018) + procedure with Dr. Ray History of cystoscopy Multiple History of cholecystectomy 2017 Family History Father Family history of diabetes mellitus Gastric cancer Mother Family history of diabetes mellitus Cerebral artery occlusion with cerebral infarction Coronary heart disease Daughter Family hx colonic polyps Cancer of kidney Crohn's disease Other Family history non-contributory No family history of adverse response to anesthesia Denies family history of Ovarian cancer Breast cancer Colorectal cancer Social History Smoking Status: Never smoker Second Hand Exposure: No; Do You Dip or Chew Tobacco: No; Tobacco Cessation Education Requested by Patient: No Hx Alcohol Use: No Hx Substance Use: No Preferred Language: Iraqi Communication Ability: Effective Visual Impairment: No Limitations Remediation Technician Required: No Beliefs That Will Affect Care: None marital status: / Current Living Situation: Alone Current Living Situation Comment: [address] (but has stair lift to get inside) single floor living space current occupational status: retired Other Information That Helps Us Care for You: No Feels Safe at Home: Yes Safety Concerns: Feels Safe At This Time Childhood Exposure to Second-Hand Smoke: Yes Dental Care, Regularly: No Physical Activity Frequency: Does not Exercise Seatbelt Use: always Sunscreen Use: Yes Assistive Devices: Denture - Upper, Denture - Lower and Glasses Review of Systems Review of Systems: 12 point review of systems negative exce pt for otherwise indicated. Physical Exam Constitutional: well developed and well nourished; no acute distress Eyes: + anicteric sclerae; pupils not irregula r Respiratory: normal respiratory effort; no respiratory distress, does not use accessory muscles and no cough Cardiovascular: well perfused Gastrointestinal (Abdomen): Inspection/Auscultation: abdomen normal to inspection; abdomen not distended Musculoskeletal: Extremities: extremities normal to inspection Skin: normal turgor; no rashes and no lesions Neurologic: moves all extremities and awake Psychiatric: Orientation: alert and oriented x 3 Results & Data Vital Signs (Past 12 Hours) Vital Signs Pulse Pulse Resp BP BP Pulse Ox O2 Del Method 04/29/24 07:09 71 04/29/24 06:03 76 17 95 Room Air 04/29/24 05:00 72 14 126/63 97 Nasal Cannula 04/29/24 04:00 81 13 133/68 98 Nasal Cannula 04/29/24 03:00 65 19 114/69 97 Nasal Cannula 04/29/24 02:00 67 14 111/59 L 97 Room Air 04/29/24 01:30 65 12 97 Room Air 04/29/24 01:00 116/59 L 04/29/24 01:00 69 13 116/59 L 94 Room Air 04/29/24 00:53 69 14 123/57 L 94 Room Air 04/29/24 00:00 74 19 123/57 L 92 Room Air 04/28/24 23:27 73 13 92 04/28/24 23:16 77 04/28/24 23:00 69 13 129/67 94 Room Air 04/28/24 22:00 127/72 04/28/24 22:00 75 12 O2 Flow Rate 04/29/24 07:09 04/29/24 06:03 04/29/24 05:00 2 04/29/24 04:00 2 04/29/24 03:00 2 04/29/24 02:00 04/29/24 01:30 04/29/24 01:00 04/29/24 01:00 04/29/24 00:53 04/29/24 00:00 04/28/24 23:27 04/28/24 23:16 04/28/24 23:00 04/28/24 22:00 04/28/24 22:00 PG Care Time/CCT Total # of Minutes Spent Total Time Spent with Patient: Total time spent is greater than 50% in coordination of care (as documented) at patient's floor/unit and/or counseling patient: Coding Level of Care Code 21164 INT INP/OBS CARE 2/55MIN Diagnoses Acute UTI N39.0 S/P ureteral stent placement Z96.0 Bilateral leg cramps R25.2
--- NOTE | 2024-04-29 10:57 | Hospitalist Progress Note ---
Date of Service April 29, 2024 Assessment & Plan (1) Complicated UTI (urinary tract infection): Plan: u/a and CT findings all concerning for UTI with her flank pain can't rule out ascending infection either way the UTI is in the setting of b/l ureteral stents and recent instrumentation hence this is a complicated UTI cont rocephin await urine cx labs/vitals stable (2) Acute metabolic encephalopathy: Plan: likely 2nd to #1 above supportive care treat underlying anxiety needs better sleep as well (3) S/P ureteral stent placement: Plan: 04/23/24 s/p cystoscopy, b/l ureteral stent placement, laser lithotripsy of right-sided kidney stones by Dr Rider, [facility] [place] U[facility] appreciate Urology assistance timing of any stent retrieval uncertain is to have additional lithotripsy of left-sided stones in the future (4) Bilateral leg cramps: Plan: etiology? check Fe studies B12 level 07/2023 wnl K/mag wnl 2nd to RLS? 2nd to lumbar spine issues? check dopplers in light of recent surgery - r/o DVT either leg (5) Nephrolithiasis: Plan: as above (6) Hypertension: Plan: losartan on hold - BPs thus far acceptable w/o such (7) Prediabetes: Plan: a1c 5.9% hold metformin loose SSI novolog (8) Hypothyroid: Plan: TSH wnl - 11/2023 cont synthroid (9) Anxiety: Plan: mod-severe xanax prn adjust/titrate if needed Plan updated pt's daughter by phone this evening would benefit from PT eval Admission and Anticipated Discharge Date Admission Date: April 28, 2024 Subjective patient confused this am she admits to feeling confused, which in turn is causing her chronic anxiety to be even worse she thought she was having surgery today, and she also thought she was going home? admits to poor sleep for the last few days admits to feeling very anxious her daughter apparently has an upcoming procedure in [place] next week and she doesn't want to miss it had severe cramps in both legs yesterday but denies pain had flank pain yesterday - improved today no abd pain does have an appetite Review of Systems Review of Systems: gen - no fevers cv - no chest pain pulm - no dyspnea GI - no nausea/emesis Physical Exam Physical Exam: gen - very anxious, tearful, forgetful & confused; but NAD/nontoxic neck - no JVD mouth - MMM heart - RRR, s1 s2, no murmur lungs - CTA b/l back - no flank tenderness to palpation abd - soft NT ND BS+ ext - no edema, pulses 2+ b/l Results & Data Results & Data Vital Signs (Past 12 Hours) Vital Signs Temp Pulse Pulse Pulse Resp BP BP 04/29/24 09:48 36.6 C 79 18 155/79 H 04/29/24 07:09 71 04/29/24 06:03 76 17 04/29/24 05:00 72 14 126/63 04/29/24 04:00 81 13 133/68 04/29/24 03:00 65 19 114/69 04/29/24 02:00 67 14 111/59 L 04/29/24 01:30 65 12 04/29/24 01:00 116/59 L 04/29/24 01:00 69 13 116/59 L 04/29/24 00:53 69 14 123/57 L 04/29/24 00:00 74 19 123/57 L 04/28/24 23:27 73 13 04/28/24 23:16 77 04/28/24 23:00 69 13 129/67 Pulse Ox O2 Del Method O2 Flow Rate 04/29/24 09:48 98 Room Air 04/29/24 07:09 04/29/24 06:03 95 Room Air 04/29/24 05:00 97 Nasal Cannula 2 04/29/24 04:00 98 Nasal Cannula 2 04/29/24 03:00 97 Nasal Cannula 2 04/29/24 02:00 97 Room Air 04/29/24 01:30 97 Room Air 04/29/24 01:00 04/29/24 01:00 94 Room Air 04/29/24 00:53 94 Room Air 04/29/24 00:00 92 Room Air 04/28/24 23:27 92 04/28/24 23:16 04/28/24 23:00 94 Room Air Laboratory Results Laboratory Results - last 24 hr 04/28/24 04/28/24 04/28/24 10:58 20:27 Unknown WBC 6.84 RBC 4.16 L Hgb 13.6 Hct 39.5 MCV 95.0 MCH 32.7 MCHC 34.4 RDW Std Deviation 44.2 RDW Coeff of Eliseo 12.7 Plt Count 230 MPV 11.2 Immature Gran % (Auto) 0.1 Neut % (Auto) 64.8 Lymph % (Auto) 22.8 Kern % (Auto) 9.9 Eos % (Auto) 1.8 Baso % (Auto) 0.6 Neut # (Auto) 4.43 Lymph # (Auto) 1.56 Kern # (Auto) 0.68 H Eos # (Auto) 0.12 Baso # (Auto) 0.04 Immature Gran # (Auto) 0.01 Sodium 139 Potassium 3.6 Chloride 103 Carbon Dioxide 21 Anion Gap 15 H BUN 9 Creatinine 0.82 Est Cr Clr Drug Dosing Not Reportable eGFR 74.55 BUN/Creatinine Ratio 11.0 Glucose 161 H POC Glucose 110 H Estimat Average Glucose Hemoglobin A1c Calcium 9.5 Phosphorus Magnesium Cancelled Total Bilirubin 0.8 AST 16 ALT 16 Alkaline Phosphatase 72 Total Protein 7.0 Albumin 4.2 Globulin 2.8 Albumin/Globulin Ratio 1.5 Lipase 25 Urine Color Red Urine Appearance Turbid A Urine pH 7.5 Ur Specific [place] 1.025 Urine Protein 3+ H Urine Glucose (UA) Negative Urine Ketones 1+ H Urine Blood 3+ H Urine Nitrite Positive A Urine Bilirubin 1+ H Urine Urobilinogen Negative Ur Leukocyte Esterase 1+ H Urine RBC >20 H Urine WBC 21-50 H Ur Epithelial Cells 3-5 H Urine Bacteria 2+ H Urine Mucus Present A 04/29/24 04/29/24 04:23 08:31 WBC 5.91 RBC 3.67 L Hgb 12.1 Hct 36.3 L MCV 98.9 MCH 33.0 MCHC 33.3 RDW Std Deviation 46.1 RDW Coeff of Eliseo 12.6 Plt Count 193 MPV 11.3 Immature Gran % (Auto) 0.2 Neut % (Auto) 41.8 Lymph % (Auto) 40.9 Kern % (Auto) 13.2 Eos % (Auto) 3.4 Baso % (Auto) 0.5 Neut # (Auto) 2.47 Lymph # (Auto) 2.42 Kern # (Auto) 0.78 H Eos # (Auto) 0.20 Baso # (Auto) 0.03 Immature Gran # (Auto) 0.01 Sodium 143 Potassium 4.0 Chloride 111 H Carbon Dioxide 26 Anion Gap 6 BUN 8 Creatinine 0.73 Est Cr Clr Drug Dosing 69.8 eGFR 85.71 BUN/Creatinine Ratio 11.0 Glucose 101 H POC Glucose 96 Estimat Average Glucose 123 Hemoglobin A1c 5.9 H Calcium 8.2 L Phosphorus 4.0 Magnesium 1.7 Total Bilirubin AST ALT Alkaline Phosphatase Total Protein Albumin 3.3 L Globulin Albumin/Globulin Ratio Lipase Urine Color Urine Appearance Urine pH Ur Specific [place] Urine Protein Urine Glucose (UA) Urine Ketones Urine Blood Urine Nitrite Urine Bilirubin Urine Urobilinogen Ur Leukocyte Esterase Urine RBC Urine WBC Ur Epithelial Cells Urine Bacteria Urine Mucus PG Care Time/CCT Total # of Minutes Spent Total Time Spent with Patient: Total time spent is greater than 50% in coordination of care (as documented) at patient's floor/unit and/or counseling patient: Coding Level of Care Code 35705 SUB INP/OBS CARE 235MIN Diagnoses Complicated UTI (urinary tract infection) N39.0 Acute metabolic encephalopathy G93.41 S/P ureteral stent placement Z96.0 Bilateral leg cramps R25.2 Nephrolithiasis N20.0 Hypertension I10 Hypertension type: unspecified Prediabetes R73.03 Hypothyroid E03.9 Anxiety F41.9 (6) Hypertension Hypertension type: unspecified Qualified Code(s): I10 - Essential (primary) hypertension
[2024-04-29] MEDS: cefTRIAXone SODIUM 2,000 MG/50 ML BAG IV SCH (17:36)
--- NOTE | 2024-04-30 01:58 | Ultrasound Report ---
Exam(s): US VENOUS BILATERAL LOWER EXTREMITIES EXAM: US Duplex Bilateral Lower Extremities Veins CLINICAL HISTORY: Reason for exam: severe b/l leg pains, recent surgery, r/o DVT. TECHNIQUE: Real-time duplex ultrasound scan of the bilateral lower extremity veins integrating B-mode two-dimensional vascular structure, Doppler spectral analysis, color flow Doppler imaging and compression. COMPARISON: No relevant prior studies available. FINDINGS: Right deep veins: . No DVT in the right common femoral, femoral, proximal deep femoral or popliteal veins. The veins demonstrate normal color flow, are normally compressible, with normal phasic flow and/or augmentation response. Right superficial veins: No thrombus in the visualized right great saphenous vein. Left deep veins: No DVT in the left common femoral, femoral, proximal deep femoral or popliteal veins. The veins demonstrate normal color flow, are normally compressible, with normal phasic flow and/or augmentation response. Left superficial veins: No thrombus in the visualized left great saphenous vein. Soft tissues: No acute findings. No popliteal cyst. IMPRESSION: No ultrasound evidence of deep venous thrombosis in the lower extremities. Electronically signed by: Nnamdi Smith MD 04/30/24 01:56 AM
[2024-04-30] MEDS: LEVOTHYROXINE SODIUM 75 MCG TABLET PO SCH (05:49)
[2024-04-30] MEDS: ACETAMINOPHEN 325 MG TAB PO PRN (06:13)
[2024-04-30] MEDS: PARoxetine HCL 20 MG TAB PO SCH (08:12)
[2024-04-30] MEDS: PANTOprazole 40 MG TAB PO SCH (08:12)
[2024-04-30 08:15] LABS: BUN Creatinine Ratio 11.3 (10-20); Calcium 8.6 mg/dl (8.6-10.3); Creatinine Clr Calc Pharmacy 63.7 ml/min; Ferritin 112.5 ng/ml (8-388); Potassium 3.2 mmol/L (3.5-5.1)
[2024-04-30] MEDS: POTASSIUM CHLORIDE CRTAB 20 MEQ TABCR PO STA ×2 (09:03→15:32)
--- NOTE | 2024-04-30 12:14 | Urology Progress Note ---
Date of Service April 30, 2024 Assessment & Plan (1) Nephrolithiasis: (2) S/P ureteral stent placement: (3) Acute UTI: Plan: 74-year-old female admitted for bilateral leg cramps and suspected UTI status post ureteral stent placement Patient s/p ureteroscopy with right laser lithotripsy on 04/23/2024 and bilateral ureteral stent placement Afebrile and hemodynamically stable Labs todaycreatinine 0.80, no leukocytosis Urine culture with three types of organisms present, all low counts probable skin armin Monitor bladder scans as needed to ensure she is emptying her bladder Recommend continue with Tamsulosin, Pyridium, and pain management for stent disc omfort, can add oxybutynin for spasms Defer management of leg cramps to primary service Patient is scheduled for outpatient ureteroscopy and left stone treatment next week will sign off, please contact our service with any additional questions or concerns Admission and Anticipated Discharge Date Admission Date: April 28, 2024 Subjective Patient seen and examined at bedside today. She is awake and sitting up in bedside chair. She continues to have bothersome leg cramps. She is voiding spontaneously. She reports urinary urgency and frequency. She reports some pelvic discomfort. No fever or chills. Review of Systems Constitutional: as per Subjective / HPI Genitourinary: as per Subjective / HPI Physical Exam Constitutional: well developed and well nourished; no acute distress Respiratory: normal respiratory effort; no respiratory distress and no labored breathing Gastrointestinal (Abdomen): Inspection/Auscultation: abdomen normal to inspection Musculoskeletal: Head/Neck/Chest: normocephalic Neurologic: moves all extremities and awake Psychiatric: Orientation: alert and oriented x 3 Results & Data Vital Signs (Past 12 Hours) Vital Signs Temp Pulse Resp BP Pulse Ox O2 Del Method 04/30/24 08:08 36.6 C 82 20 151/84 H 95 Room Air PG Care Time/CCT Total # of Minutes Spent Total Time Spent with Patient: Total time spent is greater than 50% in coordination of care (as documented) at patient's floor/unit and/or counseling patient: Coding Level of Care Code 74011 SUB INP/OBS CARE 05/23MIN Diagnoses Nephrolithiasis N20.0 S/P ureteral stent placement Z96.0 Acute UTI N39.0
[2024-04-30] MEDS: PHENAZOPYRIDINE HCL 100 MG TAB PO PRN (13:01)
--- NOTE | 2024-04-30 14:16 | Hospitalist Progress Note ---
Date of Service April 30, 2024 Assessment & Plan (1) Complicated UTI (urinary tract infection): Plan: u/a and CT findings were all concerning for UTI with her flank pain can't rule out ascending infection either way the UTI is in the setting of b/l ureteral stents and recent instrumentation hence this is a complicated UTI culture negative, however, with multiple organisms cont rocephin today, then switch to keflex 500mg BID tomorrow (2) Acute metabolic encephalopathy: Plan: likely 2nd to #1 above - resolved treat underlying anxiety needs better sleep as well (3) S/P ureteral stent placement: Plan: 04/23/24 s/p cystoscopy, b/l ureteral stent placement, laser lithotripsy of right-sided kidney stones by Dr [place], [facility] [place] appreciate Urology assistance timing of any stent retrieval uncertain but will NOT be during this hospital stay is to have additional lithotripsy of left-sided stones in the future (4) Bilateral leg cramps: Plan: suspect 2nd to advanced DJD Of L-spine has associated numbness/tingling can't rule out element of RLS type problem Fe studies wnl B12 level 07/2023 wn Dopplers neg for DVT resume gabapentin 100mg TID - patient open to such certainly mildly low K today will enhance her leg complaints (5) Nephrolithiasis: Plan: as above (6) Hypertension: Plan: if Cr is stable tomorrow am can resume losartan then (7) Prediabetes: Plan: a1c 5.9% hold metformin loose SSI novolog BSGs are excellent (8) Hypothyroid: Plan: TSH wnl - 11/2023 cont synthroid (9) Anxiety: Plan: mod-severe xanax prn adjust/titrate if needed Plan hypokalemia - replace, repeat BMP with mag in am tomorrow updated pt's daughter by phone 04/29/24 would benefit from PT eval - order placed Admission and Anticipated Discharge Date Admission Date: April 28, 2024 Subjective no events mild dysuria only main complaint is that of pains in her legs - especially the left leg numb/tingling along with cramps gabapentin was weaned off earlier in 2023 leg pains coming back since then eating well feels more rested although still not sleeping that great Review of Systems Review of Systems: gen - no fevers or chills psych - anxiety cv - no chest pain pulm - no dyspnea Physical Exam Physical Exam: gen - less anxious, looks good today neck - no JVD mouth - MMM heart - RRR, s1 s2, no murmur lungs - CTA b/l back - no flank tenderness abd - soft NT ND BS+ ext - no edema, pulses 2+ b/l neuro - strength 5/5 x b/l legs - all muscle groups tested Results & Data Results & Data Vital Signs (Past 12 Hours) Vital Signs Temp Pulse Resp BP Pulse Ox O2 Del Method 04/30/24 08:08 36.6 C 82 20 151/84 H 95 Room Air Laboratory Results Laboratory Results - last 24 hr 04/30/24 04/30/24 04/30/24 06:12 08:11 12:17 Sodium 142 Potassium 3.2 L Chloride 107 Carbon Dioxide 27 Anion Gap 8 BUN 9 Creatinine 0.80 Est Cr Clr Drug Dosing 63.7 eGFR 76.79 BUN/Creatinine Ratio 11.3 Glucose 104 H POC Glucose 113 H 123 H Calcium 8.6 Iron 67 TIBC 273 Transferrin 195 L Transferrin % Sat 25 Ferritin 112.5 Diagnostic Findings Microbiology 04/28/24 Unknown Urine,Clean Catch Urine Culture - Final Three types of organisms present, all low counts probable skin armin. No further identifications or sensitivities to follow. PG Care Time/CCT Total # of Minutes Spent Total Time Spent with Patient: Total time spent is greater than 50% in coordination of care (as documented) at patient's floor/unit and/or counseling patient: Coding Level of Care Code 62521 SUB INP/OBS CARE 2/35MIN Diagnoses Complicated UTI (urinary tract infection) N39.0 Acute metabolic encephalopathy G93.41 S/P ureteral stent placement Z96.0 Bilateral leg cramps R25.2 Nephrolithiasis N20.0 Hypertension I10 Hypertension type: unspecified Prediabetes R73.03 Hypothyroid E03.9 Anxiety F41.9 (6) Hypertension Hypertension type: unspecified Qualified Code(s): I10 - Essential (primary) hypertension
[2024-04-30] MEDS: GABAPENTIN 100 MG CAP PO SCH (15:25)
[2024-04-30 19:51] VITALS: TEMP 98.1; O2SAT 94
[2024-04-30] MEDS: HEPARIN SOD 5,000 UNIT/0.5 ML VIAL SQ SCH (20:40)
[2024-04-30] MEDS: MELATONIN 3 MG TAB PO SCH (20:41)
[2024-05-01] MEDS ORDERED: HYDROCODONE/ACETAMOPHEN 5/325MG TAB PO PRN (07:36)
[2024-05-01 08:05] VITALS: BP 142/74; PULSE 86; RESP 16
[2024-05-01] MEDS: cephALEXin 500 MG CAP PO SCH (08:21)
[2024-05-01 09:21] LABS: BUN Creatinine Ratio 13.3 (10-20); Creatinine Clr Calc Pharmacy 61.4 ml/min; Potassium 3.8 mmol/L (3.5-5.1)
--- NOTE | 2024-05-01 12:25 | Discharge Summary ---
Discharge Summary Date of Service date of admission - April 28, 2024 date of discharge - May 01, 2024 Principal Dx & Hospital Course #1 = Principal Diagnosis (1) Complicated UTI (urinary tract infection): u/a and CT findings were all concerning for UTI with her flank pain can't rule out ascending infection either way the UTI is in the setting of b/l ureteral stents and recent instrumentation hence this is a complicated UTI culture negative, however, with multiple organisms initially was treated with IV Rocephin then switched to keflex 500mg TID x 1 additional week (2) Acute metabolic encephalopathy: likely 2nd to #1 above - resolved treating underlying anxiety needs better sleep as well (she reported significant insomnia in the days leading up to admission) (3) S/P ureteral stent placement: 04/23/24 - s/p cystoscopy, b/l ureteral stent placement, laser lithotripsy of right-sided kidney stones all by Dr Edward Rider, [facility] [place] Urology seen by Urology this admission - nothing surgical advised; recommended Rx of her UTI patient to have additional lithotripsy of left-sided stones on 05/08/24 as outpatient she will continue flomax daily, pyridium prn, and was given a small amount of norco to take on PRN basis at home for pain (4) Bilateral leg cramps: suspect 2nd to advanced DJD Of Lumbar spine has associated numbness/tingling of the legs can't rule out element of RLS type problem Fe studies wnl B12 level 07/2023 wn Dopplers negative for DVT patient had weaned off gabapentin in 2023 since then her neuropathic pain of her legs has returned recommend she resume gabapentin albeit at lower doses gave prescription for 100mg capsules and advised taking 100mg TID then, as tolerated, try increasing the gabapentin to 300mg at HS and leave A M/afternoon doses at 100mg defer to PCP additional titration of gabapentin (5) Nephrolithiasis: as above aspirin on hold for upcoming lithotripsy of left-sided stones (6) Hypertension: losartan & amiloride were both held while here losartan 25mg daily has been resumed amiloride remains on hold (7) Prediabetes: Hba1c 5.9% continue twice daily metformin 500mg BSGs were excellent while her (8) Hypothyroid: TSH wnl - 11/2023 cont synthroid (9) Anxiety: mod-severe cont xanax prn cont paxil daily Plan hypokalemia - replaced, resolved; d/c K level was 3.8 Notes For Next Care Provider Medication Changes From Visit keflex 500mg TID x 7 days hold aspirin hold amiloride norco 5mg tabs prn pain pyridium 100mg prn urinary symptoms resume gabapentin 100mg TID Admission HPI Per Admitting Provider The patient is a 74-year-old female with past medical history including angiomyolipoma of kidney, pulmonary nodules, chronic cerebral ischemia, mixed stress and urge urinary incontinence, herniated lumbar disc, gout, and anxiety. Most recent hospitalization was from 03/19-03/23/2024. On 04/23/2024 she underwent cystoscopy with bilateral retrograde pyelogram and insertion of stent catheter, right ureteral nephroscopy, ureteral dilation, laser lithotripsy, and basket extraction of stone. She reports she did have a discomfort ever since that time, however it became more intolerable, and she presented to the ED for assessment this evening. She also complained of bilateral leg cramps few days Discharge Exam gen - looks great today, NAD neck - no JVD mouth - MMM heart - RRR, s1 s2, no murmur lungs - CTA b/l back - no flank tenderness b/l abd - soft NT ND BS+ ext - no edema, pulses 2+ b/l neuro - strength 5/5 x b/l legs - all muscle groups tested Discharge Plan Discharge Items Patient Disposition: Home - Self-Care Reason For Visit: B/L URETERAL STENTS, B/L HYDRO, UTI Discharge Diagnosis: 1. urinary tract infection (UTI) 2. recent placement of bilateral ureteral stents 3. stent pain 4. leg cramps 5. leg pains - likely due to lumbar spine disease with resulting nerve impingement 6. anxiety 7. insomnia 8. acute confusion - due to #1 - resolved Activity: As commented below Activity Comment: light activities only until your next urological procedure on 05/08/24 Driving/Machine Use: NO DRIVING if taking narcotic pain killer medicine Non-emergency contact: Primary Care Provider Call non-emergency contact if: you have any medication questions, your symptoms worsen, your pain is not controlled, your pain is worsening, your pain is unusual for you, your pain is concerning for you and you have a fever Follow-up/Referrals: ProAbhijit MD [Primary Care Provider] - 05/05/24 3:00 pm (Appointment will be with Shauna Beal) Edward Rider DO [Physician] - 05/08/24 (scheduled urological surgery ) Diet: Carb Consistent or DM2 Addtl Attending Provider Instructions: Mrs Mccarthy, You were hospitalized due to pain over your flanks, urinary pain, and leg cramps/leg pain. CT scan of your abdomen showed that the stents were in proper position. Urinalysis was suggestive of urinary tract infection (UTI). You were started on IV antibiotics for UTI. The flank pain was likely a combination of pain from your stents as well as the UTI. Doppler ultrasound of your legs did NOT show DVT blood clots. I suspect your leg pains are largely due to nerve pain from your lumbar spine disease (you were hospitalized for your back in February). After much discussion we elected to put you back on gabapentin for your nerve pains in your legs. All of your other medical problems were stable while here. Recommendations - 1. cephalexin 500mg three times daily x 7 days - this is your antibiotic 2. gabapentin - * take 100mg three times daily upon return home * in 3-4 days please INCREASE your bedtime gabapentin dose to 300mg (100mg capsule x 3) * I would leave your morning and afternoon doses at an even 100mg for now * the gabapentin should help your leg pains and might help you sleep better at night * common side effects of gabapentin - swelling in the legs, weight gain, sleepiness 3. for urinary pain/urinary burning - phenazopyridine 100mg every 8 hours as needed. It is NORMAL for this medicine to make your urine & tears an orange color. 4. for back pain/flank pain/abdominal pain - * hydrocodone-acetaminophen 1 tablet every 6 hours as needed * this is a narcotic pain killer medicine; do not drive if taking this medicine; do not drink alcohol when taking this medicine * common side effects - sleepiness, constipation * please discontinue any oxycodone you may have at home 5. HOLD amiloride; HOLD aspirin 6. keep yourself well-hydrated over the next week with water to maintain a good urine stream Follow-up - see separate section Return to [facility] if - * you have fever over 100 degrees * you have worsening abdominal pain, back pain or flank pain * you see large amounts of blood in your urine (a small amount is ok with stents, but large amounts are not) * you cannot pass your urine * you have severe diarrhea (3 or more loose stools over 24 hours) * any other concerns It was our pleasure to care for you! -Dr Courtney Pending Studies at Discharge: No Stand-Alone Forms: My [facility], Smoking Cessation Medications and DC Order Prescriptions: New hydrocodone-acetaminophen 5-325 mg Tablet 1 tab PO Q6H PRN (Reason: pain) Qty: 10 0RF gabapentin 100 mg Capsule 100 mg PO TID Qty: 100 1RF phenazopyridine [Pyridium] 100 mg Tablet 100 mg PO TID PRN (Reason: urinary pain) Qty: 20 0RF Continued levothyroxine 75 mcg tablet 75 mcg PO QAM Qty: 90 3RF losartan 25 mg tablet 25 mg PO QAM Qty: 90 3RF allopurinol 100 mg tablet 100 mg PO QAM Qty: 90 1RF Hold Instructions: hold for surgery (DME) OneTouch Ultra Test Strip See Rx Instructions .Route Qty: 100 1RF Rx Instructions: Check blood sugar daily and PRN (DME) blood-glucose meter [OneTouch Ultra2 Meter] Misc See Rx Instructions .Route Qty: 1 0RF Rx Instructions: Check blood sugar daily and PRN (DME) lancets [iH[employer]HelpTouch UltraSoft 2 Lancet] 30 gauge misc See Rx Instructions .Route Qty: 100 1RF Rx Instructions: Check BS daily and PRN potassium citrate 10 mEq (1,080 mg) tablet extended release 20 meq PO AMPM Qty: 180 1RF alprazolam 1 mg tablet 1 mg PO BID PRN (Reason: Anxiety) Qty: 60 0RF Rx Instructions: [facility] [id number] cyanocobalamin (vitamin B-12) [Vitamin B-12] 1,000 mcg Tablet 1,000 mcg PO QAM cholecalciferol (vitamin D3) [Vitamin D3] 1,000 unit Capsule 2,000 unit PO QAM tamsulosin 0.4 mg capsule 0.4 mg PO QPM paroxetine HCl [Paxil] 20 mg tablet 20 mg PO QAM pantoprazole [Protonix] 40 mg tablet,delayed release (DR/EC) 40 mg PO QAM metformin 500 mg tablet 500 mg PO AMPM atorvastatin 10 mg tablet 10 mg PO QAM Held amiloride 5 mg tablet 5 mg PO QAM Qty: 90 1RF Hold Instructions: hold for now aspirin 81 mg Tablet,Delayed Release (Dr/Ec) 81 mg PO QAM Qty: 30 0RF Hold Instructions: hold until your urological procedures have been completed Discontinued oxycodone-acetaminophen [Percocet] 5-325 mg tablet 1 tab PO Q8H PRN (Reason: pain) Qty: 10 0RF No Action tramadol 50 mg tablet 50 mg PO DAILY cephalexin 500 mg capsule 500 mg PO TID Discharge Orders: Discharge Order (Routine); Ordered 05/01/24 Ordered By: Alvaro Cruz/Other Patient Handouts: Having a Ureteral Stent Admission Data Admit Date/Time: 04/28/24 18:25 Attending Provider: Alvaro Courtney Admit Provider: Florentino Burden Primary Care Provider: Abhijit Guillen Other Providers: John Rios; Edward Rider Other Interventions: Discharge Summary Assessment (RN) Last Done: 05/01/24 12:29 Hospital Stay Data Consultations [facility] [place] Urology Physical therapy Diagnostic Imagining Performed KUB X-Ray 04/28/24 10:55 KUB CLINICAL HISTORY: BILATERAL STENTS, FLANK PAIN COMPARISON STUDY: CT of the abdomen and pelvis performed earlier today. FINDINGS: Postoperative findings within the spine and cholecystectomy clips are noted. Bilateral ureteral stents are in place. Pelvic calcifications represent phleboliths. No ureteral calculi or fragments are identified. Bilateral renal calculi on CT performed earlier today are not well visualized by radiography. Bowel gas pattern is normal. IMPRESSION: 1. Bilateral ureteral stents in place. No ureteral calculi or fragments. 2. Bilateral renal calculi on CT performed earlier today are not well-visualized by radiography. ACT 112: Negative or not required by law. Electronically signed by: Alistair Arellano M.D. 04/28/2024 1:37 PM Abdomen/Pelvis CT 04/28/24 11:17 CT OF THE ABDOMEN AND PELVIS WITHOUT CONTRAST CLINICAL HISTORY: Bilateral flank pain, hematuria, dysuria, stent placement. COMPARISON STUDY: CT of the abdomen and pelvis March 19, 2024. TECHNIQUE: Axial images of the abdomen and pelvis were obtained without IV contrast. Images were reviewed in the axial, sagittal, and coronal planes. Automated exposure control was utilized for the study. A dose lowering technique was utilized adhering to the principles of ALARA. FINDINGS: Lung bases are unremarkable. Bilateral ureteral stents are in place. Mild bilateral hydroureteronephrosis is present. There are no ureteral calculi or fragments. There is mild stranding adjacent to the bilateral ureters. A small amount of gas within the right collecting system is related to recent procedure. Calculus burden has decreased since CT of March 19, 2024. A few punctate right renal calculi measure up to 3 mm. A few left renal calculi measure up to 6 mm. Hyperdense subcentimeter left renal lesion favors a proteinaceous cyst. Unenhanced images of the liver, spleen, adrenal glands and pancreas are unremarkable. There is no biliary ductal dilatation status post cholecystectomy. Is no evidence for a bowel obstruction. There is colonic diverticulosis. No evidence for acute diverticulitis. Pelvic calcifications represent phleboliths. There is no lymphadenopathy. There are no fluid collections. Postoperative findings within the spine are noted. No acute fractures are present. IMPRESSION: 1. Bilateral ureteral stents in place. Mild bilateral hydroureteronephrosis. No ureteral calculi or fragments. 2. Interval decrease in calculus burden, as described above. Bilateral nephrolithiasis. 3. No bowel obstruction. 4. Colonic diverticulosis. No evidence for acute diverticulitis. ACT 112: Negative or not required by law. Electronically signed by: Alistair Arellano M.D. 04/28/2024 12:21 PM Venous Doppler Study 04/29/24 14:58 Exam(s): US VENOUS BILATERAL LOWER EXTREMITIES EXAM: US Duplex Bilateral Lower Extremities Veins CLINICAL HISTORY: Reason for exam: severe b/l leg pains, recent surgery, r/o DVT. TECHNIQUE: Real-time duplex ultrasound scan of the bilateral lower extremity veins integrating B-mode two-dimensional vascular structure, Doppler spectral analysis, color flow Doppler imaging and compression. COMPARISON: No relevant prior studies available. FINDINGS: Right deep veins: . No DVT in the right common femoral, femoral, proximal deep femoral or popliteal veins. The veins demonstrate normal color flow, are normally compressible, with normal phasic flow and/or augmentation response. Right superficial veins: No thrombus in the visualized right great saphenous vein. Left deep veins: No DVT in the left common femoral, femoral, proximal deep femoral or popliteal veins. The veins demonstrate normal color flow, are normally compressible, with normal phasic flow and/or augmentation response. Left superficial veins: No thrombus in the visualized left great saphenous vein. Soft tissues: No acute findings. No popliteal cyst. IMPRESSION: No ultrasound evidence of deep venous thrombosis in the lower extremities. Electronically signed by: Nnamdi Smith MD 04/30/24 01:56 AM Pending Results Patient Have Any Pending Studies at Discharge: No Discharge Instructions Given to Patient (Per Discharging Provider) Mrs Mccarthy, You were hospitalized due to pain over your flanks, urinary pain, and leg cramps/leg pain. CT scan of your abdomen showed that the stents were in proper position. Urinalysis was suggestive of urinary tract infection (UTI). You were started on IV antibiotics for UTI. The flank pain was likely a combination of pain from your stents as well as the UTI. Doppler ultrasound of your legs did NOT show DVT blood clots. I suspect your leg pains are largely due to nerve pain from your lumbar spine disease (you were hospitalized for your back in February). After much discussion we elected to put you back on gabapentin for your nerve pains in your legs. All of your other medical problems were stable while here. Recommendations - 1. cephalexin 500mg three times daily x 7 days - this is your antibiotic 2. gabapentin - * take 100mg three times daily upon return home * in 3-4 days please INCREASE your bedtime gabapentin dose to 300mg (100mg capsule x 3) * I would leave your morning and afternoon doses at an even 100mg for now * the gabapentin should help your leg pains and might help you sleep better at night * common side effects of gabapentin - swelling in the legs, weight gain, sleepiness 3. for urinary pain/urinary burning - phenazopyridine 100mg every 8 hours as needed. It is NORMAL for this medicine to make your urine & tears an orange color. 4. for back pain/flank pain/abdominal pain - * hydrocodone-acetaminophen 1 tablet every 6 hours as needed * this is a narcotic pain killer medicine; do not drive if taking this medicine; do not drink alcohol when taking this medicine * common side effects - sleepiness, constipation * please discontinue any oxycodone you may have at home 5. HOLD amiloride; HOLD aspirin 6. keep yourself well-hydrated over the next week with water to maintain a good urine stream Follow-up - see separate section Return to [facility] if - * you have fever over 100 degrees * you have worsening abdominal pain, back pain or flank pain * you see large amounts of blood in your urine (a small amount is ok with stents, but large amounts are not) * you cannot pass your urine * you have severe diarrhea (3 or more loose stools over 24 hours) * any other concerns It was our pleasure to care for you! -Dr Courtney Total Time Total Time Spent Total Time Spent (In Minutes): 40 Coding Level of Care Code 47285 INP/OBS DISCH >30 MIN Diagnoses Complicated UTI (urinary tract infection) N39.0 Acute metabolic encephalopathy G93.41 S/P ureteral stent placement Z96.0 Bilateral leg cramps R25.2 Nephrolithiasis N20.0 Hypertension I10 Hypertension type: unspecified Prediabetes R73.03 Hypothyroid E03.9 Anxiety F41.9
--- NOTE | 2024-05-04 12:10 | Coding Query ---
CODING QUERY To promote full compliance with coding requirements relating to patient care, provider participation is requested in all cases of hospital coder uncertainty. Please assist us with the question(s) below: Coding Question(s): There is documentation of Complicated UTI with documentation of, "the UTI is in the setting of b/l ureteral stents and recent instrumentation hence this is a complicated UTI". Please specify below, in your clinical opinion: ( x ) Complicated UTI is possibly due to the ureteral stents ( ) Complicated UTI is Not due to the ureteral stents ( ) Complicated UTI is Other: Please Specify Physician's Response(s): Thank you Elle Mckee Principal Diagnosis: "that condition established after study, to be chiefly responsible for occasioning the admission of the patient to the hospital for care." Co-Existing Principal Diagnosis: "when two or more diagnoses equally meet the criteria for principal diagnosis as determined by the circumstances of admission, diagnostic work up, and/or therapy provided, and the Alphabetic Index, Tabular List, or another coding guideline does not provide sequencing direction, any one of the diagnoses may be sequenced first." "When the physician has documented what appears to be a current diagnosis in the body of the record, but has not included the diagnosis in the final diagnostic statement, the physician should be asked whether the diagnosis should be added." (Source Coding [facility] 2 QTR90. p3-4) NITA
== END 2024-05-01 13:08 | disposition home or self-care (01) | DRG 698 ==
LOC: ED 10:42 → EDINP 18:25 → SUATTDRO 18:25 → 3W 19:57